=== PATIENT | female | born 1930 | race Hispanic/Latino ===

== ENCOUNTER 2017-02-27 09:02 | Inpatient (IN) | payer MEDICARE ==
[2017-02-27] MEDS ORDERED: Sodium Chloride 0.9% 1,000 ML IV SCH (10:00)
--- NOTE | 2017-02-27 10:30 | CP.PCM.PN ---
Subjective - Date & Time of Evaluation Date of Evaluation: 02/27/17 Time of Evaluation: 10:28 - Subjective Subjective: rectal prolapse , intermitttently reducible but now reducible for minutes plan ct scan [facility] acute gb at [facility] [place] refused colonoscopy in past liquid diet urgent repair Objective - Vital Signs/Intake and Output Vital Signs (last 24 hours): Temp Pulse Resp BP Pulse Ox 97.1 F L 91 H 18 138/76 97 02/27/17 09:08 02/27/17 09:08 02/27/17 09:08 02/27/17 09:08 02/27/17 09:08 - Medications Medications: Current Medications Sodium Chloride (Sodium Chloride 0.9%) 1,000 mls @ 100 mls/hr IV .Q10H ZULEIMA
[2017-02-27] MEDS ORDERED: Iohexol 240 (50 ml) PO ONE (10:56)
[2017-02-27 11:02] LABS: BASO # 0.1 K/uL (0.0-0.2); BASO % 0.7 % (0.0-2.0); EOS # 0.2 K/uL (0.0-0.7); EOS % 2.6 % (0.0-4.0); HEMATOCRIT 35.1 % (34.0-47.0); LYMPH # 0.9 K/uL (1.0-4.3); LYMPH % 10.8 % (20.0-40.0); MEAN CELL VOLUME 81.5 fL (81.0-99.0); MEAN CORPUSCULAR HEMOGLOBIN 26.5 pg (27.0-31.0); MEAN CORPUSCULAR HGB CONC 32.5 g/dL (33.0-37.0); MEAN PLATELET VOLUME 7.9 fL (7.2-11.7); MONO # 0.7 K/uL (0.0-0.8); MONO % 8.6 % (0.0-10.0); NRBC % 0.1 % (0.0-2.0); RED CELL DISTRIBUTION WIDTH 17.8 % (11.5-14.5); WHITE BLOOD COUNT 8.4 K/uL (4.8-10.8)
[2017-02-27 11:05] LABS: CHLORIDE 105 mmol/L (98-107); SODIUM 138 mmol/L (132-148)
[2017-02-27 11:07] LABS: ALB/GLOB RATIO 0.6 (1.0-2.1); AST/SGOT 86 U/L (14-36); BILIRUBIN,TOTAL 0.9 mg/dL (0.2-1.3); BLOOD UREA NITROGEN 22 mg/dL (7-17); CARBON DIOXIDE 25 mmol/L (22-30); GFR AFRICAN-AMERICAN > 60; TOTAL PROTEIN 6.3 g/dL (6.3-8.3)
[2017-02-27 11:08] LABS: ALKALINE PHOSPHATASE 69 U/L (38-126); ALT/SGPT 37 U/L (9-52); CALCIUM 7.4 mg/dl (8.6-10.4); GLUCOSE,RANDOM 70 mg/dL (65-105)
[2017-02-27] MEDS ORDERED: Iohexol 240 (50 ml) ONE (11:16)
[2017-02-27 11:19] LABS: INR 1.1
--- NOTE | 2017-02-27 11:19 | C.PDOC ---
Time Seen by Provider: 02/27/17 09:13 Chief Complaint (Nursing): GI Problem Past Medical History Vital Signs: Last Vital Signs Temp 97.1 F L 02/27/17 09:08 Pulse 91 H 02/27/17 09:08 Resp 18 02/27/17 09:08 BP 138/76 02/27/17 09:08 Pulse Ox 97 02/27/17 09:08 - Medical History PMH: Anemia, HTN Surgical History: Appendectomy, Cholecystectomy - Social History Hx Alcohol Use: Yes Hx Substance Use: No - Immunization History Hx Tetanus Toxoid Vaccination: No Hx Influenza Vaccination: Yes Hx Pneumococcal Vaccination: Yes ED Course And Treatment - Laboratory Results Result Diagrams: 02/27/17 10:51 02/27/17 10:51 O2 Sat by Pulse Oximetry: 97
--- NOTE | 2017-02-27 11:26 | C.PDOC ---
History Of Present Illness 86 year old patient, with a past medical history of hypertension and anemia, is sent to the ED by Dr. Patiño for a rectal prolapse that occurred about a week ago. Patient occasionally notes pain and discomfort. The pain is exacerbated by sitting. Patient denies fever, bleeding, or any other complaints at this time. Time Seen by Provider: 02/27/17 09:13 Chief Complaint (Nursing): GI Problem History Per: Patient History/Exam Limitations: no limitations Onset/Duration Of Symptoms: Other (1 week) Current Symptoms Are (Timing): Still Present Severity: Mild Pain Scale Rating Of: 3 Reports Recently: Treated By A Physician Recent travel outside of the [place]: No Past Medical History Reviewed: Historical Data, Nursing Documentation, Vital Signs Vital Signs: Last Vital Signs Temp 97.1 F L 02/27/17 09:08 Pulse 91 H 02/27/17 09:08 Resp 18 02/27/17 09:08 BP 138/76 02/27/17 09:08 Pulse Ox 97 02/27/17 11:29 - Medical History PMH: Anemia, HTN Surgical History: Appendectomy, Cholecystectomy Family History: States: Unknown Family Hx - Social History Hx Alcohol Use: Yes Hx Substance Use: No - Immunization History Hx Tetanus Toxoid Vaccination: No Hx Influenza Vaccination: Yes Hx Pneumococcal Vaccination: Yes Review Of Systems Except As Marked, All Systems Reviewed And Found Negative. Constitutional: Negative for: Fever Gastrointestinal: Positive for: Rectal Pain (and rectal prolapse). Negative for : Other (rectal bleeding) Physical Exam - Physical Exam Appears: Non-toxic, No Acute Distress Skin: Warm, Dry Head: Atraumatic, Normacephalic Eye(s): bilateral: Normal Inspection, EOMI Neck: Normal ROM, Supple Chest: Symmetrical Cardiovascular: Rhythm Regular Respiratory: Normal Breath Sounds, No Rales, No Rhonchi, No Wheezing Gastrointestinal/Abdominal: Soft, No Tenderness Rectal: Other (rectal prolapse; pink; soft; no blood) Back: Normal Inspection, No CVA Tenderness Extremity: Normal ROM Neurological/Psych: Oriented x3 ED Course And Treatment - Laboratory Results Result Diagrams: 02/27/17 10:51 02/27/17 10:51 ECG: Interpreted By Me, Viewed By Me ECG Rhythm: Sinus Rhythm ECG Interpretation: Normal Rate From EC (bpm) O2 Sat by Pulse Oximetry: 97 (room air) Pulse Ox Interpretation: Normal Medical Decision Making Medical Decision Making: Impression: 86 y/o female with a rectal prolapse Plan: * Labs * EKG * Chest x-ray * IV fluids * Reassess and disposition Progress: Dr Patiño evaluates patient at bedside and requests admission, medicine consult. orders placed for pre-op Disposition - Disposition Disposition: HOSPITALIZED Disposition Time: 09:50 Condition: STABLE - POA Present On Arrival: None - Clinical Impression Clinical Impression: Rectal prolapse - PA / HIDES INSPECTOR / Resident Statement MD/DO has reviewed & agrees with the documentation as recorded. - Scribe Statement The provider has reviewed the documentation as recorded by the Scribe Guerda Wilson All medical record entries made by the Scribe were at my direction and personally dictated by me. I have reviewed the chart and agree that the record accurately reflects my personal performance of the history, physical exam, medical decision making, and the department course for this patient. I have also personally directed, reviewed, and agree with the discharge instructions and disposition. Decision To Admit - Pt Status Changed To: Hospital Disposition Of: Inpatient - Admit Certification Admit to Inpatient:: After my assessment, the patient will require hospitalization for at least two midnights. This is because of the severity of symptoms shown, intensity of services needed, and/or the medical risk in this patient being treated as an outpatient. - InPatient: Physician Admission Certification: I certify that this patient requires 2 or more midnights of care for the following reason:: Patient with rectal prolaspe to be admitted for surgical repair - . Bed Request Type: Regular Admitting Physician: Saurav Patiño Jr. Patient Diagnosis: Rectal prolapse
--- NOTE | 2017-02-27 12:17 | RAD ---
HISTORY: Shortness of breath. COMPARISON: No prior. TECHNIQUE: Chest PA and lateral FINDINGS: LUNGS: Bilateral lower lobe infiltrates affecting multiple segments. PLEURA: Unilateral, left pleural effusion. CARDIOVASCULAR: No radiographic findings to suggest acute or significant cardiovascular disease. OSSEOUS STRUCTURES: No significant abnormalities. VISUALIZED UPPER ABDOMEN: Normal. OTHER FINDINGS: None. IMPRESSION: Lower lobe infiltrates bilaterally left greater than right. Unilateral, left pleural effusion.
--- NOTE | 2017-02-27 13:04 | CP.PCM.HP ---
History of Present Illness - History of Present Illness History of Present Illness: Surgery: Dr. Patiño CC: rectum prolapsing when standing HPI: Patient is an 86 y/o female w/ pmh of HTN who present complaining of her rectum prolapsing while standing. She states this has occured many times before with bowel movements and coughing but now has progressed to spontaneous prolapse simply upon standing. She states she is able to reduce it but the rectum is now painful and when prolapsing the pain becomes severe. She states she had similar issues with her uterus in the past but denies repair. She denies diarrhea or constipation. She denies bloody stools and reports stool being dark because she takes iron pills at home. She was seen recently in [facility] for dizziness in which she underwent neurological and cardio work up at that time. Full records in chart. Patient was not worked up for prolapse then. She reports never undergoing GI evaluation is the past with colonoscopy due to patients wishes. PMH: anemia, HTN, gallbladder diease s/p cholecystectomy, atherosclerosis PSH: cholecystectomy, appendectomy Social: denies ETOH or tobacco use, lives at home with . Ambulates and performs all ADLS. NKDA Present on Admission - Present on Admission Any Indicators Present on Admission: No Review of Systems - Review of Systems All systems: reviewed and no additional remarkable complaints except Review of Systems: unless stated in HPI Past Patient History - Past Social History Smoking Status: Never Smoked - CARDIAC Hx Hypertension: Yes - HEMATOLOGICAL/ONCOLOGICAL Hx Anemia: Yes - PSYCHIATRIC Hx Substance Use: No - SURGICAL HISTORY Hx Appendectomy: Yes Hx Cholecystectomy: Yes - ANESTHESIA Hx Anesthesia: Yes Hx Anesthesia Reactions: No Meds Allergies/Adverse Reactions: Allergies Allergy/AdvReac Type Severity Reaction Status Date / Time No Known Allergies Allergy Verified 02/27/17 09:12 Physical Exam - Constitutional Appears: Non-toxic, No Acute Distress - Head Exam Head Exam: ATRAUMATIC, NORMOCEPHALIC - Eye Exam Eye Exam: EOMI, Normal appearance - ENT Exam ENT Exam: Mucous Membranes Moist - Respiratory Exam Respiratory Exam: NORMAL BREATHING PATTERN. absent: Respiratory Distress - Cardiovascular Exam Cardiovascular Exam: REGULAR RHYTHM. absent: Tachycardia - GI/Abdominal Exam GI & Abdominal Exam: Soft. absent: Distended, Guarding, Tenderness - Rectal Exam Additional comments: some rectal tone, dark stool noted. no proplapse while lying unless valsalva induced Upon standing: spontaneous prolapse of rectum about 1inch amount. easily reduced. rectal tissure appear erythematous. - Extremities Exam Extremities exam: Positive for: normal inspection. Negative for: calf tenderness - Neurological Exam Neurological exam: Alert, Oriented x3 - Psychiatric Exam Psychiatric exam: Normal Affect, Normal Mood - Skin Skin Exam: Dry, Intact, Normal Color, Warm Results - Vital Signs Recent Vital Signs: Last Vital Signs Temp 97.1 F L 02/27/17 09:08 Pulse 91 H 02/27/17 09:08 Resp 18 02/27/17 09:08 BP 138/76 02/27/17 09:08 Pulse Ox 97 02/27/17 12:10 - Labs Result Diagrams: 02/27/17 10:51 02/27/17 10:51 Labs: Laboratory Results - last 24 hr 02/27/17 02/27/17 02/27/17 10:51 10:51 10:51 WBC 8.4 RBC 4.30 Hgb 11.4 Hct 35.1 MCV 81.5 MCH 26.5 L MCHC 32.5 L RDW 17.8 H Plt Count 323 MPV 7.9 Neut % (Auto) 77.3 H Lymph % (Auto) 10.8 L [place] % (Auto) 8.6 Eos % (Auto) 2.6 Baso % (Auto) 0.7 Neut # 6.5 Lymph # 0.9 L [place] # 0.7 Eos # 0.2 Baso # 0.1 PT 12.6 H INR 1.1 APTT 34 Sodium 138 Potassium 4.0 Chloride 105 Carbon Dioxide 25 Anion Gap 12 BUN 22 H Creatinine 0.7 Est GFR ( Amer) > 60 Est GFR (Non-Af Amer) > 60 Random Glucose 70 Calcium 7.4 L Total Bilirubin 0.9 AST 86 H ALT 37 Alkaline Phosphatase 69 Total Protein 6.3 Albumin 2.4 L Globulin 3.9 Albumin/Globulin Ratio 0.6 L Blood Type Antibody Screen 02/27/17 11:54 WBC RBC Hgb Hct MCV MCH MCHC RDW Plt Count MPV Neut % (Auto) Lymph % (Auto) [place] % (Auto) Eos % (Auto) Baso % (Auto) Neut # Lymph # [place] # Eos # Baso # PT INR APTT Sodium Potassium Chloride Carbon Dioxide Anion Gap BUN Creatinine Est GFR ( Amer) Est GFR (Non-Af Amer) Random Glucose Calcium Total Bilirubin AST ALT Alkaline Phosphatase Total Protein Albumin Globulin Albumin/Globulin Ratio Blood Type O POSITIVE Antibody Screen Negative Assessment & Plan - Assessment and Plan (Free Text) Assessment: 86 y/o female w/ rectal prolapse Plan: -plan for surgery early next week -patient will need cardiac clearance -would like colonoscopy to be performed prior to OR to evaluate remainder of colon, patient agreeable -liquid diet until OR -daily labs -ok to cont home meds -can be OOB -will follow up consulting physician recs -patient seen and examined w/ Dr. Haroon Le PGY1
--- NOTE | 2017-02-27 15:26 | CT ---
PROCEDURE: CT Abdomen and Pelvis with contrast HISTORY: rectal prolapse COMPARISON: None. TECHNIQUE: Contrast dose: Oral contrast only. Radiation dose: Total exam DLP = 768.43 mGy-cm. This CT exam was performed using one or more of the following dose reduction techniques: Automated exposure control, adjustment of the mA and/or kV according to patient size, and/or use of iterative reconstruction technique. FINDINGS: LOWER THORAX: Incompletely visualized cardiac enlargement. Incompletely visualize pericardial effusion. Bilateral pleural effusions with fluid tracking ports the major fissure on the right. Compressive atelectasis identified. On the right this affects not only the right lower lobe of the right middle lobe. Whitman LIVER: Multiple masses within the liver primarily in the right hepatic lobe. These are incompletely characterized in the absence of intravenous contrast. Dominant mass which has an infiltrative component measures approximately 4.4 x 5.4 cm. Additional smaller lesion in the false form ligament 1 cm. GALLBLADDER AND BILE DUCTS: Status post cholecystectomy. No abnormality is seen in the gallbladder fossa. PANCREAS: Unremarkable. No gross lesion or ductal dilatation. SPLEEN: Unremarkable. ADRENALS: Unremarkable. No mass. KIDNEYS AND URETERS: Unremarkable. No hydronephrosis. No solid mass. Incidental finding(s): Bilateral parapelvic cysts. VASCULATURE: Unremarkable. No aortic aneurysm. BOWEL: Rectal prolapse. Diverticulosis without an acute inflammatory component or other associated pathologic process. APPENDIX: No abnormalities to suggest acute appendicitis. No right lower quadrant inflammatory processes identified. PERITONEUM: Low volume abdominal and pelvic ascites. Ascitic fluid also identified in the right inguinal canal. LYMPH NODES: Unremarkable. No enlarged lymph nodes. BLADDER: Unremarkable. No evidence of bladder prolapse. REPRODUCTIVE: There appears to be a component of vaginal prolapse. BONES: Scoliosis, secondary degenerative change at multiple levels. Multilevel canal stenosis lumbar region. OTHER FINDINGS: Diffuse, severe anasarca. IMPRESSION: 1. Rectovaginal prolapse without evidence of bladder prolapse. 2. 2 masses hepatic masses requiring further evaluation. The dominant masses in the right hepatic lobe. There is suggestion of masses in the santiago hepatis region. 3. Low volume ascites, bilateral pleural effusions and pericardial effusion. Additional benign and/or incidental findings described above.
[2017-02-27 16:32] LABS: RBC URINE 1 /hpf (0-3); TRANSITIONAL EPITHIAL < 1 /hpf (0-3); URINE BACTERIA RARE (<OCC); URINE BILIRUBIN NEGATIVE (NEGATIVE); URINE BLOOD NEGATIVE (NEGATIVE); URINE COLOR Yellow (YELLOW); URINE GLUCOSE (UA) NORMAL (Normal); URINE KETONE TRACE mg/dL (NEGATIVE); URINE UROBILINOGEN NORMAL mg/dL (0.2-1.0); WBC URINE 4 /hpf (0-5)
[2017-02-27 16:33] LABS: URINE LEUKOCYTE ESTERASE TRACE Leu/uL (Negative); URINE PROTEIN 1+ mg/dL (NEGATIVE)
--- NOTE | 2017-02-27 20:47 | CP.PCM.CON ---
History of Present Illness - History of Present Illness History of Present Illness: COMPREHENSIVE CONSULT HPI CARDIAC EVALUATION REQUESTED FOR PRE OP. LAST MONTH PT. WAS EXPERIENCING SYNCOPAL EPISODE. PT WAS ADMITTED IN [facility] [place]. I REVIEWED TH CHART PT IS IN POSSESSION. IT HAS AN INCOMPLETE ECHO REPORT AND ONLY INITIAL H&P. THERE IS NO DISCHARGE NOTE TO ENLIGHTEN THE CARDIAC W/U PT HAS NO RECOLLECTION AND POINTS TO DISCHARGE CHART FOR FURTHER INFORMATION. APPERRENTLY THERE WAS MENTION OF CARDIAC TAMPONADE AT PRESENT PT HAS PLEURAL/PERICARDIAL/ASITES FLUID. EKG SHOWS LOW VOLTAGE. POINTS TO PERICARDIAL PATHOLOGY WITH FLUID PAST HIST. HTN NO CAD/SD/STROKE. THE PROCESSING ANALYST FROM [facility] [place] SHOWED A. FIB PAROXYSMAL PERSONAL HIST: Smoking. N Alcohol. N Allergy N Travel_- . FAMILY HIST : ROS : Constitutional: Negative for weight change, chills, night sweats, Eyes: Negative for redness, swelling, itching, discharge, vision changes, blurry vision, double vision, glaucoma, cataracts, Ears: Negative for hearing loss, ringing, , tinnitus, vertigo Nose: Negative for rhinorrhea, stuffiness, sniffing, itching, postnasal drip, discoloration, nasal congestion and epistaxis. Throat: Negative for throat clearing, sore throat, hoarseness, difficulty swallowing and difficulty speaking. Respiratory: Negative for cough, chest tightness, sputum or phlegm, chronic cough, hemoptysis, wheezing, snoring at night, pleuritic chest pain and daytime somnolence. Cardiovascular: DANIEL FATIGUE NO CP , Neurology: Negative for irritability, muscle weakness, numbness and tingling, seizures, tremors, migraines, slurred speech, syncope, memory loss, mood changes , recurrent headaches Gastrointestinal: Negative for difficulty swallowing, diarrhea, constipation, black stools, rectal bleeding, nausea, flatulence, reflux, poor appetite, changes in bowel habits, abdominal pain RECTAL PROLAPSE Genitourinary: Negative for frequent urination, hematuria, discharge, incontinence, urinary retention, frequent UTI, Psychiatric: Negative for depression, anxiety/panic, suicidal tendencies, Musculoskeletal: Negative for swollen joints, back pain, , neck pain, morning stiffness of joints, . Skin: Negative for rash, ulcers, itching, dry skin and pigmented lesions. P/E: Constitutional: Appears stated age and in no apparent distress. Head: Normocephalic. Ears: External ear canals patent without inflammation. Tympanic membranes intact with normal light reflex and landmark. Eyes: Pupils are central, bilaterally equal, symmetrical and reacts to light with normal movements and no icterus or pallor. Nose: External nares are patent. Mucosa is pink Mouth-Throat: Good general appearance and condition. No post-pharyngeal/oropharyngeal erythema and tonsillar hypertrophy. Good dental hygiene. Neck-Lymphatic: Neck is supple with normal ROM, no thyromegaly, lymph nodes or masses. JVD is normal with no carotid bruit. Lungs: Clear to percussion and auscultation with bilateral normal air entry. Cardiovascular: S1 and S2 are normal with no murmurs, gallops GI Exam: No hepatomegaly. Abdomen is soft and non-tender. No Organomegaly , masses or hernias are evident and bowel sounds are normal and active. Neurology: Higher function and all cranial nerves intact, with no gross motor or sensory deficit. Superficial and deep reflexes are normal with downwards planters. No cerebellar deficit with normal gait. Musculoskeletal: No tender spots with normal curvature of the spine with no swelling or restricted ROM of the small and large joints. Extremities: Homans sign absent. Intact pulses with no pitting edema, calf tenderness or skin color changes. Skin: No rash, eruptions or abnormal skin pigmentation LAB/RADIOLOGY: ASSESMENT : R/O PERICARIAL EFFUSION WILL NEED ECHO FOR FURTHER EVALUATION OF THE FLUID STATUS RECTAL PROLAPSE R/O METASTATIC CANCER? COLON PAROXYSMAL A. FIB PLAN: WILL GIVE FUTHER ADVISE AFTER REVIEWING THE ECHO FULL CHART FROM [facility] [place] ADMISSION Past Patient History - Past Medical History & Family History Past Medical History?: Yes - Past Social History Smoking Status: Never Smoked - CARDIAC Hx Cardiac Disorders: Yes Hx Hypertension: Yes - PULMONARY Hx Respiratory Disorders: No - NEUROLOGICAL Hx Neurological Disorder: No - HEENT Hx HEENT Problems: No - RENAL Hx Chronic Kidney Disease: No - ENDOCRINE/METABOLIC Hx Endocrine Disorders: No - HEMATOLOGICAL/ONCOLOGICAL Hx Blood Disorders: Yes Hx Anemia: Yes - INTEGUMENTARY Hx Dermatological Problems: No - MUSCULOSKELETAL/RHEUMATOLOGICAL Hx Falls: Yes - GASTROINTESTINAL Hx Gastrointestinal Disorders: No - GENITOURINARY/GYNECOLOGICAL Hx Genitourinary Disorders: No - PSYCHIATRIC Hx Substance Use: No - SURGICAL HISTORY Hx Surgeries: Yes Hx Appendectomy: Yes (when she was 15 yrs old) Hx Cholecystectomy: Yes (aug 14 2016) Hx Herniorrhaphy: Yes (1982) - ANESTHESIA Hx Anesthesia: Yes Hx Anesthesia Reactions: No Hx Malignant Hyperthermia: No Has any member of the family had a problem w/ anesthesia?: No Meds Allergies/Adverse Reactions: Allergies Allergy/AdvReac Type Severity Reaction Status Date / Time No Known Allergies Allergy Verified 02/27/17 09:12 - Medications Medications: Current Medications Acetaminophen (Tylenol 325mg Tab) 650 mg PO Q6 PRN PRN Reason: Fever >100.4 F Amlodipine Besylate (Norvasc) 5 mg PO DAILY [facility] Docusate Sodium (Colace) 100 mg PO BID [facility] Last Admin: 02/27/17 17:34 Dose: 100 mg Heparin Sodium (Porcine) (Heparin) 5,000 units SC Q12 [facility] Hydrochlorothiazide (Microzide) 12.5 mg PO DAILY [facility] Ibuprofen (Motrin Tab) 400 mg PO Q6 PRN PRN Reason: Pain, Mild (1-3) Lisinopril (Zestril) 10 mg PO DAILY [facility] Loratadine (Claritin) 10 mg PO DAILY [facility] Metoprolol Succinate (Toprol Xl) 25 mg PO DAILY [facility] Morphine Sulfate (Morphine) 2 mg IVP Q4H PRN PRN Reason: Pain, moderate (4-7) Ondansetron HCl (Zofran Inj) 4 mg IVP Q6 PRN PRN Reason: Nausea/Vomiting Pantoprazole Sodium (Protonix Ec Tab) 40 mg PO DAILY [facility] Results - Vital Signs Recent Vital Signs: Last Vital Signs Temp 97.8 F 02/27/17 17:00 Pulse 75 02/27/17 18:37 Resp 20 02/27/17 17:00 BP 151/85 H 02/27/17 17:00 Pulse Ox 95 02/27/17 17:00 - Labs Result Diagrams: 02/28/17 07:44 02/28/17 07:44 Labs: Laboratory Results - last 24 hr 02/27/17 02/27/17 02/27/17 10:51 10:51 10:51 WBC 8.4 RBC 4.30 Hgb 11.4 Hct 35.1 MCV 81.5 MCH 26.5 L MCHC 32.5 L RDW 17.8 H Plt Count 323 MPV 7.9 Neut % (Auto) 77.3 H Lymph % (Auto) 10.8 L [place] % (Auto) 8.6 Eos % (Auto) 2.6 Baso % (Auto) 0.7 Neut # 6.5 Lymph # 0.9 L [place] # 0.7 Eos # 0.2 Baso # 0.1 PT 12.6 H INR 1.1 APTT 34 Sodium 138 Potassium 4.0 Chloride 105 Carbon Dioxide 25 Anion Gap 12 BUN 22 H Creatinine 0.7 Est GFR ( Amer) > 60 Est GFR (Non-Af Amer) > 60 Random Glucose 70 Calcium 7.4 L Total Bilirubin 0.9 AST 86 H ALT 37 Alkaline Phosphatase 69 Total Protein 6.3 Albumin 2.4 L Globulin 3.9 Albumin/Globulin Ratio 0.6 L Urine Color Urine Clarity Urine pH Ur Specific [place] Urine Protein Urine Glucose (UA) Urine Ketones Urine Blood Urine Nitrate Urine Bilirubin Urine Urobilinogen Ur Leukocyte Esterase Urine WBC (Auto) Urine RBC (Auto) Ur Squamous Epith Cells Ur Transition Epith Cell Urine Bacteria Hyaline Casts Blood Type Antibody Screen 02/27/17 02/27/17 11:54 16:09 WBC RBC Hgb Hct MCV MCH MCHC RDW Plt Count MPV Neut % (Auto) Lymph % (Auto) [place] % (Auto) Eos % (Auto) Baso % (Auto) Neut # Lymph # [place] # Eos # Baso # PT INR APTT Sodium Potassium Chloride Carbon Dioxide Anion Gap BUN Creatinine Est GFR ( Amer) Est GFR (Non-Af Amer) Random Glucose Calcium Total Bilirubin AST ALT Alkaline Phosphatase Total Protein Albumin Globulin Albumin/Globulin Ratio Urine Color Yellow Urine Clarity Hazy Urine pH 5.0 Ur Specific [place] 1.021 Urine Protein 1+ H Urine Glucose (UA) Normal Urine Ketones Trace Urine Blood Negative Urine Nitrate Negative Urine Bilirubin Negative Urine Urobilinogen Normal Ur Leukocyte Esterase Trace H Urine WBC (Auto) 4 Urine RBC (Auto) 1 Ur Squamous Epith Cells 6 H Ur Transition Epith Cell < 1 Urine Bacteria Rare Hyaline Casts 6-10 H Blood Type O POSITIVE Antibody Screen Negative
[2017-02-28 07:53] LABS: BASO # 0.1 K/uL (0.0-0.2); BASO % 0.9 % (0.0-2.0); EOS # 0.4 K/uL (0.0-0.7); EOS % 4.1 % (0.0-4.0); HEMATOCRIT 34.1 % (34.0-47.0); LYMPH # 1.2 K/uL (1.0-4.3); LYMPH % 13.6 % (20.0-40.0); MEAN CELL VOLUME 80.6 fL (81.0-99.0); MEAN CORPUSCULAR HEMOGLOBIN 26.2 pg (27.0-31.0); MEAN CORPUSCULAR HGB CONC 32.5 g/dL (33.0-37.0); MEAN PLATELET VOLUME 7.7 fL (7.2-11.7); MONO # 0.7 K/uL (0.0-0.8); MONO % 7.7 % (0.0-10.0); NRBC % 0.1 % (0.0-2.0); RED CELL DISTRIBUTION WIDTH 18.2 % (11.5-14.5); WHITE BLOOD COUNT 8.6 K/uL (4.8-10.8)
--- NOTE | 2017-02-28 08:02 | CP.PCM.PN ---
Subjective - Date & Time of Evaluation Date of Evaluation: 02/28/17 Time of Evaluation: 07:58 - Subjective Subjective: Surgery: Dr. Patiño Patient doing ok today. She denies prolapsing episodes since she had been in bed. She states that a plastics repairer came to see her yesterday and wants to perform a test on her heart. No complaints at this time. Objective - Vital Signs/Intake and Output Vital Signs (last 24 hours): Temp Pulse Resp BP Pulse Ox 97.7 F 93 H 20 149/75 95 02/28/17 00:43 02/28/17 00:43 02/28/17 00:43 02/28/17 00:43 02/28/17 00:43 Intake and Output: 02/28/17 02/28/17 06:59 18:59 Intake Total 600 Balance 600 - Medications Medications: Current Medications Acetaminophen (Tylenol 325mg Tab) 650 mg PO Q6 PRN PRN Reason: Fever >100.4 F Amlodipine Besylate (Norvasc) 5 mg PO DAILY [facility] Docusate Sodium (Colace) 100 mg PO BID [facility] Last Admin: 02/27/17 17:34 Dose: 100 mg Heparin Sodium (Porcine) (Heparin) 5,000 units SC Q12 [facility] Last Admin: 02/27/17 21:57 Dose: 5,000 units Hydrochlorothiazide (Microzide) 12.5 mg PO DAILY [facility] Ibuprofen (Motrin Tab) 400 mg PO Q6 PRN PRN Reason: Pain, Mild (1-3) Lisinopril (Zestril) 10 mg PO DAILY [facility] Loratadine (Claritin) 10 mg PO DAILY [facility] Metoprolol Succinate (Toprol Xl) 25 mg PO DAILY [facility] Morphine Sulfate (Morphine) 2 mg IVP Q4H PRN PRN Reason: Pain, moderate (4-7) Ondansetron HCl (Zofran Inj) 4 mg IVP Q6 PRN PRN Reason: Nausea/Vomiting Pantoprazole Sodium (Protonix Ec Tab) 40 mg PO DAILY [facility] - Labs Labs: 02/27/17 10:51 02/27/17 10:51 PT 12.6 SECONDS (9.7-12.2) H 02/27/17 10:51 INR 1.1 02/27/17 10:51 APTT 34 SECONDS (21-34) 02/27/17 10:51 - Constitutional Appears: Non-toxic, No Acute Distress - Head Exam Head Exam: ATRAUMATIC, NORMOCEPHALIC - Eye Exam Eye Exam: EOMI, Normal appearance - ENT Exam ENT Exam: Mucous Membranes Moist - Respiratory Exam Respiratory Exam: NORMAL BREATHING PATTERN. absent: Respiratory Distress - Cardiovascular Exam Cardiovascular Exam: REGULAR RHYTHM. absent: Tachycardia - GI/Abdominal Exam GI & Abdominal Exam: Soft. absent: Distended, Tenderness - Rectal Exam Rectal Exam: Deferred - Extremities Exam Extremities Exam: Pedal Edema. absent: Calf Tenderness - Neurological Exam Neurological Exam: Alert, Awake - Psychiatric Exam Psychiatric exam: Normal Affect, Normal Mood Assessment and Plan - Assessment and Plan (Free Text) Assessment: 86 y/o female w/ rectal prolapse Plan: -tentatively plan for OR on Wednesday -f/u cardiac evaluation -f/u GI evaluation-need for colonoscopy and now CT with possible liver mass? -cont liquid diet -when NPO patient agreeable to start IVFs -further recs per Dr. Haroon Martin PGY1
[2017-02-28 08:05] LABS: CHLORIDE 106 mmol/L (98-107); POTASSIUM 3.4 mmol/L (3.6-5.2); SODIUM 139 mmol/L (132-148)
[2017-02-28 08:08] LABS: BLOOD UREA NITROGEN 17 mg/dL (7-17); CARBON DIOXIDE 24 mmol/L (22-30); GFR AFRICAN-AMERICAN > 60
[2017-02-28 08:09] LABS: CALCIUM 7.1 mg/dl (8.6-10.4); GLUCOSE,RANDOM 62 mg/dL (65-105)
--- NOTE | 2017-02-28 08:51 | PN ---
DATE: 02/28/2017 LOCATION: 361, bed A. This is an 86-year-old female seen and examined for GI consultation in the Emergency Room on 02/27/17 , reexamined again today with intermittent periods of lower abdominal pain and rectal pain with under lying diagnosis of rectal prolapse. The entire chart is reviewed, including but not limited to the most recent lab and radiology study re sults, current and the previous medication list, current and the previous medical events, as well as allergy to medication list. Case discussed at length with the staff on the floor. LABORATORY DATA: Most recent lab results showed normal CBC with low indices and normal platelet coun t with low potassium of 3.4 and low calcium 7.1 with low albumin 2.4. Abdominal and pelvic CAT scan was done yesterday indicative of rectovaginal prolapse without evidence of blood on prolapse, with 2 hepatic masses in the right hepatic lobe with low volume ascites and bi lateral pleural effusion with pericardial effusion. The patient has intermittent periods of mild shortness of breath with generalized weakness and malais e. Case was discussed with the staff on the floor and to be discussed with the certified ophthalmic surgical assistant on case, Dr. Patiño. PHYSICAL EXAMINATION: GENERAL: An 86-year-old female. VITAL SIGNS: Afebrile, awake, alert, oriented with pulse of 90, respiratory rate 20-22, blood pressu re 144/72. HEENT: Showed pale, dry oral mucoid membrane mildly with nonicteric sclerae. LUNGS: Few scattered crepitations, decreased air entry at bases. HEART: Regular S1 and S2. ABDOMEN: Soft with slight generalized tenderness. No mass or organomegaly. No rebound tenderness o r guarding. Bowel sounds are present. RECTAL: Evidence of rectal prolapse. The patient refused rectal examination. EXTREMITIES: Without significant clubbing or cyanosis, but with mild lower extremity edematous pisano es. NEUROLOGIC: No reported new neurologic deficits, sensory or motor. IMPRESSION: 1. Rectal prolapse. 2. Abnormal CAT scan of the abdomen and the pelvis with the hepatitic lesions that could be primary versus secondary. 3. Rule out lower versus upper gastrointestinal neoplastic lesion. 4. Pleural effusion, pericardial effusion, and ascites, low volume of unclear etiology. 5. Electrolyte imbalance with hypocalcemia, hypokalemia that is to be corrected before any surgical or endoscopic evaluation. 6. Abnormal chest x-ray with evidence of lower lobe infiltrate bilaterally, left greater than the ri ght. 7. Known history of anemia before, as well as hypertension and status post cholecystectomy, appendec nam. SUGGESTION: 1. I agree with your plan. 2. Cardiology evaluation before any aggressive GI or surgical procedures. 3. Treat any underlying pneumonia. 4. Correct any underlying electrolyte imbalance. 5. Cancer markers including CEA and alpha fetoprotein. Case is to be discussed with Dr. Patiño. Reschedule, if possible, any surgical or endoscopic proce dure until Wednesday until the patient is fully evaluated by center lead consultant at this point with I V antibiotics. Thank you for letting me participate in your patient's case management. Further recommendation to lisa krishnamurthy. Sandy Mcbride MD cc: 14 TT: 02/28/2017 08:50:39 Confirmation # [id number] Dictation # [id number]
[2017-02-28] MEDS ORDERED: Phytonadione 10 mg/ml Inj (Adult) SC ONE (08:55)
[2017-02-28] MEDS: Metoprolol Succinate 25 mg XL Tab PO SCH (09:32)
[2017-02-28] MEDS: Pantoprazole 40 mg EC Tab PO SCH (09:32)
[2017-02-28 12:35] LABS: CARCINOEMBRYONIC ANTIGEN 1.4 ng/mL (0-3.0)
[2017-02-28 12:38] LABS: CA 19-9 77.9 U/mL (0-37)
[2017-02-28] MEDS ORDERED: Potassium Chloride 20 mEq ER Tab PO ONE (18:00)
--- NOTE | 2017-02-28 21:12 | CON ---
DATE: 02/27/[address] Sandy Mcbride to Dr. Patiño. I was called for GI consultation by the admitting medical team as well as Dr. Patiño and the 8-hour medical nursing staff. The patient is seen and fully examined in the ER on 02/27/2017. The entire chart is reviewed, including but not limited to the most recent lab and radiology study results, curr ent and the previous medication list, current and the previous medical events, allergies to medicatio n list, as well as all the available current and the previous medical records. Case discussed with [facility] medical staff and nursing staff at length. HISTORY OF PRESENT ILLNESS: This is an 86-year-old female who was admitted to the hospital through [facility] Emergency Room by Dr. Patiño with underlying diagnosis of rectal prolapse around 7-10 days ago with apparent intermittent period of rectal bleeding associated with rectal pain and lower abdom inal pain which is exacerbated by sitting. No reported nausea or vomiting. No hematemesis, no chills or fever or chest pain. The patient never had colonoscopy or upper endoscopy before. PAST MEDICAL HISTORY: Including, but not limited to: 1. Hypertension. 2. Cholelithiasis, status post cholecystectomy. 3. Appendectomy. 4. Reported anemia. 5. Peptic ulcer disease. FAMILY HISTORY: Unknown. SOCIAL HISTORY: Positive for alcohol intake, but no reported recent cigarette smoking. CURRENT MEDICATIONS: All medication lists were reviewed. ALLERGIES TO MEDICATION: Unclear. After being admitted to the hospital, the patient was found to have normal CBC initially with increas ed BUN to 22, but normal creatinine. The patient had also sectional abdominal and pelvic CAT scan, results are seen. Chest x-ray was juan cative of pleural effusion, as well as CAT scan indicative of possible pericardial effusion with pneu monia. PHYSICAL EXAMINATION: GENERAL: An 86-year-old female, appears to be awake, alert, oriented. VITAL SIGNS: Afebrile with pulse of 88, respiratory rate 20-22 with blood pressure 132/74. HEENT: Showed pale, dry oral mucoid membrane. Nonicteric sclerae. LYMPH NODES: No lymphadenitis or lymphadenopathy. LUNGS: Few scattered crepitation with decreased air entry at bases. HEART: Positive S1 and S2. ABDOMEN: Soft with slight distention and generalized mild tenderness. Bowel sounds are present. No mass or organomegaly. No rebound tenderness or guarding. RECTAL: with evidence of rectal prolapse with tenderness. Complete rectal examination was not performed. The patient complained of severe pain. EXTREMITIES: Slight lower extremity edematous changes and evidence of osteoarthritis. No clubbing o r cyanosis. NEUROLOGIC: No reported neurological deficit, sensory or motor. It has to be mentioned also CAT scan showed what reported as hepatic masses which could be secondary versus primary neoplastic lesions. IMPRESSION: 1. Rectal prolapse. 2. Abnormal CAT scan of the abdomen and pelvis. 3. Reexacerbation of peptic ulcer disease. 4. Known history of hypertension. 5. Status post cholecystectomy, status post appendectomy. SUGGESTION: 1. Agree with your plan. 2. Full cardiology evaluation for any aggressive surgery or colonoscopy. 3. Cancer markers including CEA, alpha fetoprotein and CA-125. The patient is to be scheduled for a full colonoscopy and also probably upper endoscopy after complet e cardiology workup and clearance from the licensed tax consultant on the case. Thank you for letting me participate in your patient's care management. Further recommendations to sree aleman. Sandy Mcbride MD cc: 14 TT: 02/28/2017 21:11:35 Confirmation # [id number] Dictation # [id number]
[2017-03-01] MEDS ORDERED: Sodium Chloride 0.9% 1,000 ML IV SCH (00:05)
[2017-03-01 07:45] LABS: BASO # 0.1 K/uL (0.0-0.2); BASO % 0.9 % (0.0-2.0); EOS # 0.6 K/uL (0.0-0.7); EOS % 6.5 % (0.0-4.0); HEMATOCRIT 35.6 % (34.0-47.0); LYMPH # 1.2 K/uL (1.0-4.3); LYMPH % 14.5 % (20.0-40.0); MEAN CORPUSCULAR HEMOGLOBIN 26.6 pg (27.0-31.0); MEAN CORPUSCULAR HGB CONC 32.8 g/dL (33.0-37.0); MEAN PLATELET VOLUME 7.9 fL (7.2-11.7); MONO # 0.7 K/uL (0.0-0.8); MONO % 8.6 % (0.0-10.0); NRBC % 0.2 % (0.0-2.0); RED CELL DISTRIBUTION WIDTH 18.1 % (11.5-14.5); WHITE BLOOD COUNT 8.5 K/uL (4.8-10.8)
[2017-03-01 07:59] LABS: CHLORIDE 107 mmol/L (98-107); POTASSIUM 3.8 mmol/L (3.6-5.2); SODIUM 140 mmol/L (132-148)
[2017-03-01 08:02] LABS: BLOOD UREA NITROGEN 17 mg/dL (7-17); CALCIUM 7.1 mg/dl (8.6-10.4); CARBON DIOXIDE 24 mmol/L (22-30); GFR AFRICAN-AMERICAN > 60; GLUCOSE,RANDOM 66 mg/dL (65-105)
[2017-03-01] MEDS ORDERED: Peg-Electrolyte Oral Soln 4L (Golytely) PO ONE (10:00)
[2017-03-01] MEDS: Pantoprazole 40 mg EC Tab PO SCH (10:37)
[2017-03-01] MEDS: Metoprolol Succinate 25 mg XL Tab PO SCH (10:37)
--- NOTE | 2017-03-01 13:03 | CP.PCM.CON ---
History of Present Illness - History of Present Illness History of Present Illness: CLINICALLY REMAINS SAME AWAITING REPEAT ECHO AND PLAN FURTHER Past Patient History - Past Medical History & Family History Past Medical History?: Yes - Past Social History Smoking Status: Never Smoked - CARDIAC Hx Cardiac Disorders: Yes Hx Hypertension: Yes - PULMONARY Hx Respiratory Disorders: No - NEUROLOGICAL Hx Neurological Disorder: No - HEENT Hx HEENT Problems: No - RENAL Hx Chronic Kidney Disease: No - ENDOCRINE/METABOLIC Hx Endocrine Disorders: No - HEMATOLOGICAL/ONCOLOGICAL Hx Blood Disorders: Yes Hx Anemia: Yes - INTEGUMENTARY Hx Dermatological Problems: No - MUSCULOSKELETAL/RHEUMATOLOGICAL Hx Falls: Yes - GASTROINTESTINAL Hx Gastrointestinal Disorders: No - GENITOURINARY/GYNECOLOGICAL Hx Genitourinary Disorders: No - PSYCHIATRIC Hx Substance Use: No - SURGICAL HISTORY Hx Surgeries: Yes Hx Appendectomy: Yes (when she was 15 yrs old) Hx Cholecystectomy: Yes (aug 14 2016) Hx Herniorrhaphy: Yes (1982) - ANESTHESIA Hx Anesthesia: Yes Hx Anesthesia Reactions: No Hx Malignant Hyperthermia: No Has any member of the family had a problem w/ anesthesia?: No Meds Allergies/Adverse Reactions: Allergies Allergy/AdvReac Type Severity Reaction Status Date / Time No Known Allergies Allergy Verified 02/27/17 09:12 - Medications Medications: Current Medications Acetaminophen (Tylenol 325mg Tab) 650 mg PO Q6 PRN PRN Reason: Fever >100.4 F Amlodipine Besylate (Norvasc) 5 mg PO DAILY [facility] Last Admin: 03/01/17 10:37 Dose: 5 mg Bisacodyl (Dulcolax) 10 mg PO ONCE ONE Stop: 03/01/17 14:01 Docusate Sodium (Colace) 100 mg PO BID [facility] Last Admin: 03/01/17 10:59 Dose: Not Given Heparin Sodium (Porcine) (Heparin) 5,000 units SC Q12 [facility] Last Admin: 02/28/17 21:43 Dose: 5,000 units Hydrochlorothiazide (Microzide) 12.5 mg PO DAILY [facility] Last Admin: 03/01/17 10:37 Dose: 12.5 mg Sodium Chloride (Sodium Chloride 0.9%) 1,000 mls @ 75 mls/hr IV .[id number] [facility] Last Admin: 03/01/17 00:05 Dose: 75 mls/hr Ibuprofen (Motrin Tab) 400 mg PO Q6 PRN PRN Reason: Pain, Mild (1-3) Lisinopril (Zestril) 10 mg PO DAILY [facility] Last Admin: 03/01/17 10:37 Dose: 10 mg Loratadine (Claritin) 10 mg PO DAILY [facility] Last Admin: 03/01/17 12:02 Dose: 10 mg Metoclopramide HCl (Reglan) 5 mg IVP Q8 [facility] Last Admin: 03/01/17 10:37 Dose: 5 mg Metoprolol Succinate (Toprol Xl) 25 mg PO DAILY [facility] Last Admin: 03/01/17 10:37 Dose: 25 mg Morphine Sulfate (Morphine) 2 mg IVP Q4H PRN PRN Reason: Pain, moderate (4-7) Ondansetron HCl (Zofran Inj) 4 mg IVP Q6 PRN PRN Reason: Nausea/Vomiting Pantoprazole Sodium (Protonix Ec Tab) 40 mg PO DAILY [facility] Last Admin: 03/01/17 10:37 Dose: 40 mg Results - Vital Signs Recent Vital Signs: Last Vital Signs Temp 97.5 F L 03/01/17 08:08 Pulse 90 03/01/17 08:08 Resp 20 03/01/17 08:08 BP 163/85 H 03/01/17 08:08 Pulse Ox 95 03/01/17 08:08 - Labs Result Diagrams: 03/01/17 07:25 03/01/17 07:24 Labs: Laboratory Results - last 24 hr 03/01/17 03/01/17 07:24 07:25 WBC 8.5 RBC 4.40 Hgb 11.7 Hct 35.6 MCV 81.0 MCH 26.6 L MCHC 32.8 L RDW 18.1 H Plt Count 321 MPV 7.9 Neut % (Auto) 69.5 Lymph % (Auto) 14.5 L Brooks % (Auto) 8.6 Eos % (Auto) 6.5 H Baso % (Auto) 0.9 Neut # 5.9 Lymph # 1.2 Brooks # 0.7 Eos # 0.6 Baso # 0.1 Sodium 140 Potassium 3.8 Chloride 107 Carbon Dioxide 24 Anion Gap 13 BUN 17 Creatinine 0.6 L Est GFR ( Amer) > 60 Est GFR (Non-Af Amer) > 60 Random Glucose 66 Calcium 7.1 L
[2017-03-01] MEDS ORDERED: Bisacodyl 5mg EC Tab PO ONE ×2 (14:00→22:21)
--- NOTE | 2017-03-01 15:07 | CP.PCM.PN ---
<Lia SharpeNatalybarbra - Last Filed: 03/01/17 15:04> Subjective - Date & Time of Evaluation Date of Evaluation: 03/01/17 Time of Evaluation: 15:04 - Subjective Subjective: Surgery:Dr. Moreon Patient seen and examined at bedside. Patient currently drinking prep for colonoscopy which is scheduled for tomorrow. She complains of rectum prolapsing when she stands. Objective - Vital Signs/Intake and Output Vital Signs (last 24 hours): Temp Pulse Resp BP Pulse Ox 97.5 F L 90 20 163/85 H 95 03/01/17 08:08 03/01/17 08:08 03/01/17 08:08 03/01/17 08:08 03/01/17 08:08 Intake and Output: 03/01/17 03/01/17 06:59 18:59 Intake Total 600 Output Total 400 Balance 200 - Medications Medications: Current Medications Acetaminophen (Tylenol 325mg Tab) 650 mg PO Q6 PRN PRN Reason: Fever >100.4 F Amlodipine Besylate (Norvasc) 5 mg PO DAILY [facility] Last Admin: 03/01/17 10:37 Dose: 5 mg Docusate Sodium (Colace) 100 mg PO BID [facility] Last Admin: 03/01/17 10:59 Dose: Not Given Heparin Sodium (Porcine) (Heparin) 5,000 units SC Q12 [facility] Last Admin: 02/28/17 21:43 Dose: 5,000 units Hydrochlorothiazide (Microzide) 12.5 mg PO DAILY [facility] Last Admin: 03/01/17 10:37 Dose: 12.5 mg Sodium Chloride (Sodium Chloride 0.9%) 1,000 mls @ 75 mls/hr IV .[id number] [facility] Last Admin: 03/01/17 00:05 Dose: 75 mls/hr Ibuprofen (Motrin Tab) 400 mg PO Q6 PRN PRN Reason: Pain, Mild (1-3) Lisinopril (Zestril) 10 mg PO DAILY [facility] Last Admin: 03/01/17 10:37 Dose: 10 mg Loratadine (Claritin) 10 mg PO DAILY [facility] Last Admin: 03/01/17 12:02 Dose: 10 mg Metoclopramide HCl (Reglan) 5 mg IVP Q8 [facility] Last Admin: 03/01/17 14:33 Dose: 5 mg Metoprolol Succinate (Toprol Xl) 25 mg PO DAILY [facility] Last Admin: 03/01/17 10:37 Dose: 25 mg Morphine Sulfate (Morphine) 2 mg IVP Q4H PRN PRN Reason: Pain, moderate (4-7) Ondansetron HCl (Zofran Inj) 4 mg IVP Q6 PRN PRN Reason: Nausea/Vomiting Pantoprazole Sodium (Protonix Ec Tab) 40 mg PO DAILY [facility] Last Admin: 03/01/17 10:37 Dose: 40 mg - Labs Labs: 03/01/17 07:25 03/01/17 07:24 PT 12.6 SECONDS (9.7-12.2) H 02/27/17 10:51 INR 1.1 02/27/17 10:51 APTT 34 SECONDS (21-34) 02/27/17 10:51 - Constitutional Appears: Non-toxic, No Acute Distress - Head Exam Head Exam: ATRAUMATIC, NORMOCEPHALIC - Eye Exam Eye Exam: EOMI, Normal appearance - ENT Exam ENT Exam: Mucous Membranes Moist - Respiratory Exam Respiratory Exam: NORMAL BREATHING PATTERN. absent: Respiratory Distress - Cardiovascular Exam Cardiovascular Exam: REGULAR RHYTHM. absent: Tachycardia - Rectal Exam Additional comments: evidence of rectal prolapse about 1.5 inches with simple standing Assessment and Plan - Assessment and Plan (Free Text) Assessment: 86 y/o female w/ rectal prolapse Plan: -tentatively schedule for prolapse repair -cardiac clearance -colonoscopy tomorrow -cont diet per GI until NPO wednesday night -biopsy of liver lesion? -appreciate qm consultant recommendations -patient seen and examined w/ Dr. Haroon Pressley PGY1 <Saurav Moreno Jr. - Last Filed: 03/14/17 16:45> Objective - Vital Signs/Intake and Output Vital Signs (last 24 hours): Temp Pulse Resp BP Pulse Ox 98.7 F 72 20 136/70 96 03/06/17 16:00 03/06/17 16:00 03/06/17 16:00 03/06/17 16:00 03/06/17 16:00 - Labs Labs: 03/02/17 10:34 03/02/17 08:47 PT 12.6 SECONDS (9.7-12.2) H 02/27/17 10:51 INR 1.1 02/27/17 10:51 APTT 34 SECONDS (21-34) 02/27/17 10:51 Attending/Attestation - Attestation I have personally seen and examined this patient.: Yes I have fully participated in the care of the patient.: Yes I have reviewed all pertinent clinical information, including history, physical exam and plan: Yes
[2017-03-01] MEDS ORDERED: Potassium Chloride 20 mEq ER Tab PO ONE (17:12)
--- NOTE | 2017-03-01 17:30 | CARD ---
APPROVED REPORT EKG Measurement Heart [id number] [place] [id number] <Conclusion> Normal sinus rhythm Low voltage QRS Nonspecific T wave abnormality Abnormal ECG
--- NOTE | 2017-03-02 07:44 | CARD ---
APPROVED REPORT EKG Measurement Heart [id number] [place] [id number] <Conclusion> Normal sinus rhythm Low voltage QRS Cannot rule out Anterior infarct, age undetermined Abnormal ECG
[2017-03-02] MEDS ORDERED: Magnesium Citrate Oral SOL (300 ml) PO ONE ×2 (08:58→11:30)
[2017-03-02 09:00] LABS: CHLORIDE 106 mmol/L (98-107); POTASSIUM 3.3 mmol/L (3.6-5.2); SODIUM 137 mmol/L (132-148)
[2017-03-02 09:03] LABS: BLOOD UREA NITROGEN 15 mg/dL (7-17); CARBON DIOXIDE 20 mmol/L (22-30); GFR AFRICAN-AMERICAN > 60; GLUCOSE,RANDOM 58 mg/dL (65-105)
[2017-03-02 09:04] LABS: CALCIUM 7.2 mg/dl (8.6-10.4)
--- NOTE | 2017-03-02 10:08 | CP.PCM.PN ---
Subjective - Date & Time of Evaluation Date of Evaluation: 03/02/17 Time of Evaluation: 10:05 - Subjective Subjective: surgery: Dr. Patiño Patient for colonoscopy today. She complains of spontaneous prolapse of her rectum. No other complaints at this time. Objective - Vital Signs/Intake and Output Vital Signs (last 24 hours): Temp Pulse Resp BP Pulse Ox 97.9 F 101 H 20 160/80 H 96 03/02/17 07:21 03/02/17 07:21 03/02/17 07:21 03/02/17 07:21 03/02/17 07:21 Intake and Output: 03/02/17 03/02/17 06:59 18:59 Intake Total 300 Output Total 9 Balance 291 - Medications Medications: Current Medications Acetaminophen (Tylenol 325mg Tab) 650 mg PO Q6 PRN PRN Reason: Fever >100.4 F Amlodipine Besylate (Norvasc) 5 mg PO DAILY [facility] Last Admin: 03/01/17 10:37 Dose: 5 mg Bisacodyl (Dulcolax) 10 mg PO ONCE ONE Stop: 03/02/17 14:01 Docusate Sodium (Colace) 100 mg PO BID [facility] Last Admin: 03/01/17 17:58 Dose: Not Given Heparin Sodium (Porcine) (Heparin) 5,000 units SC Q12 [facility] Last Admin: 02/28/17 21:43 Dose: 5,000 units Hydrochlorothiazide (Microzide) 12.5 mg PO DAILY [facility] Last Admin: 03/01/17 10:37 Dose: 12.5 mg Sodium Chloride (Sodium Chloride 0.9%) 1,000 mls @ 75 mls/hr IV .[id number] [facility] Last Admin: 03/01/17 00:05 Dose: 75 mls/hr Ibuprofen (Motrin Tab) 400 mg PO Q6 PRN PRN Reason: Pain, Mild (1-3) Lisinopril (Zestril) 10 mg PO DAILY [facility] Last Admin: 03/01/17 10:37 Dose: 10 mg Loratadine (Claritin) 10 mg PO DAILY [facility] Last Admin: 03/01/17 12:02 Dose: 10 mg Metoclopramide HCl (Reglan) 5 mg IVP Q8 [facility] Last Admin: 03/02/17 06:57 Dose: 5 mg Metoprolol Succinate (Toprol Xl) 25 mg PO DAILY [facility] Last Admin: 03/01/17 10:37 Dose: 25 mg Morphine Sulfate (Morphine) 2 mg IVP Q4H PRN PRN Reason: Pain, moderate (4-7) Ondansetron HCl (Zofran Inj) 4 mg IVP Q6 PRN PRN Reason: Nausea/Vomiting Pantoprazole Sodium (Protonix Ec Tab) 40 mg PO DAILY [facility] Last Admin: 03/01/17 10:37 Dose: 40 mg - Labs Labs: 03/01/17 07:25 03/02/17 08:47 PT 12.6 SECONDS (9.7-12.2) H 02/27/17 10:51 INR 1.1 02/27/17 10:51 APTT 34 SECONDS (21-34) 02/27/17 10:51 - Constitutional Appears: Non-toxic, No Acute Distress - Head Exam Head Exam: ATRAUMATIC, NORMOCEPHALIC - Eye Exam Eye Exam: EOMI, Normal appearance - ENT Exam ENT Exam: Mucous Membranes Moist - Respiratory Exam Respiratory Exam: NORMAL BREATHING PATTERN. absent: Respiratory Distress - Cardiovascular Exam Cardiovascular Exam: REGULAR RHYTHM. absent: Tachycardia - Rectal Exam Rectal Exam: Deferred - Neurological Exam Neurological Exam: Alert, Awake Assessment and Plan - Assessment and Plan (Free Text) Assessment: 86 y/o female w/ rectal prolapse Plan: -f/u colonoscopy today -cardiac clearance -tentatively scheduled for prolapse repair on -ok for liquid diet after colonoscopy -NPO [place] on Wednesday -further recs per Dr. Haroon Martin PGY1
[2017-03-02 11:59] LABS: MEAN CELL VOLUME 83.1 fL (81.0-99.0); MEAN CORPUSCULAR HEMOGLOBIN 26.1 pg (27.0-31.0); MEAN CORPUSCULAR HGB CONC 31.3 g/dL (33.0-37.0); MEAN PLATELET VOLUME 7.6 fL (7.2-11.7); WHITE BLOOD COUNT 12.7 K/uL (4.8-10.8)
[2017-03-02] MEDS: Pantoprazole 40 mg EC Tab PO SCH (12:19)
[2017-03-02] MEDS: Metoprolol Succinate 25 mg XL Tab PO SCH (12:19)
--- NOTE | 2017-03-02 12:51 | CP.PCM.PN ---
Subjective - Date & Time of Evaluation Date of Evaluation: 03/02/17 Time of Evaluation: 12:50 - Subjective Subjective: ECHO SHOWS MILD PERICARDIAL EFFUSION AND LARGE PLEURAL FLUID NORMAL LF EV NO [place] N PLAN CARDIAC STATUS STABLE PULM EVAL FOR PL EFFUSION Objective - Vital Signs/Intake and Output Vital Signs (last 24 hours): Temp Pulse Resp BP Pulse Ox 97.9 F 101 H 20 160/80 H 96 03/02/17 07:21 03/02/17 07:21 03/02/17 07:21 03/02/17 07:21 03/02/17 07:21 Intake and Output: 03/02/17 03/02/17 11:59 23:59 Intake Total 0 Output Total 3 Balance -3 - Medications Medications: Current Medications Acetaminophen (Tylenol 325mg Tab) 650 mg PO Q6 PRN PRN Reason: Fever >100.4 F Amlodipine Besylate (Norvasc) 5 mg PO DAILY [facility] Last Admin: 03/02/17 12:19 Dose: 5 mg Bisacodyl (Dulcolax) 10 mg PO ONCE ONE Stop: 03/02/17 14:01 Docusate Sodium (Colace) 100 mg PO BID [facility] Last Admin: 03/02/17 12:19 Dose: 100 mg Heparin Sodium (Porcine) (Heparin) 5,000 units SC Q12 [facility] Last Admin: 02/28/17 21:43 Dose: 5,000 units Hydrochlorothiazide (Microzide) 12.5 mg PO DAILY [facility] Last Admin: 03/02/17 12:19 Dose: 12.5 mg Sodium Chloride (Sodium Chloride 0.9%) 1,000 mls @ 75 mls/hr IV .[id number] [facility] Last Admin: 03/01/17 00:05 Dose: 75 mls/hr Ibuprofen (Motrin Tab) 400 mg PO Q6 PRN PRN Reason: Pain, Mild (1-3) Lisinopril (Zestril) 10 mg PO DAILY [facility] Last Admin: 03/02/17 12:19 Dose: 10 mg Loratadine (Claritin) 10 mg PO DAILY [facility] Last Admin: 03/02/17 12:19 Dose: 10 mg Metoclopramide HCl (Reglan) 5 mg IVP Q8 [facility] Last Admin: 03/02/17 06:57 Dose: 5 mg Metoprolol Succinate (Toprol Xl) 25 mg PO DAILY [facility] Last Admin: 03/02/17 12:19 Dose: 25 mg Morphine Sulfate (Morphine) 2 mg IVP Q4H PRN PRN Reason: Pain, moderate (4-7) Ondansetron HCl (Zofran Inj) 4 mg IVP Q6 PRN PRN Reason: Nausea/Vomiting Pantoprazole Sodium (Protonix Ec Tab) 40 mg PO DAILY [facility] Last Admin: 03/02/17 12:19 Dose: 40 mg - Labs Labs: 03/02/17 10:34 03/02/17 08:47 PT 12.6 SECONDS (9.7-12.2) H 02/27/17 10:51 INR 1.1 02/27/17 10:51 APTT 34 SECONDS (21-34) 02/27/17 10:51
[2017-03-02] MEDS ORDERED: Bisacodyl 5mg EC Tab PO ONE (14:00)
--- NOTE | 2017-03-02 18:14 | CP.PCM.CON ---
History of Present Illness - History of Present Illness History of Present Illness: Reason for consultation: Pleural effusion 86 y/o female w/ pmh of HTN and anemia was admitted for rectal prolapse. She was seen recently in [facility] for dizziness in which she underwent neurological and cardio work up at that time. CAT scan of the abdomen and pelvis is consistent with bilateral pleural effusion left greater than right. Patient complaining a slight cough but denies shortness of breath, denies fever or chills. PMH: anemia, HTN, gallbladder diease s/p cholecystectomy, atherosclerosis PSH: cholecystectomy, appendectomy Social: denies ETOH or tobacco use, lives at home with . Ambulates and performs all ADLS. Past Patient History - Past Medical History & Family History Past Medical History?: Yes - Past Social History Smoking Status: Never Smoked - CARDIAC Hx Cardiac Disorders: Yes Hx Hypertension: Yes - PULMONARY Hx Respiratory Disorders: No - NEUROLOGICAL Hx Neurological Disorder: No - HEENT Hx HEENT Problems: No - RENAL Hx Chronic Kidney Disease: No - ENDOCRINE/METABOLIC Hx Endocrine Disorders: No - HEMATOLOGICAL/ONCOLOGICAL Hx Blood Disorders: Yes Hx Anemia: Yes - INTEGUMENTARY Hx Dermatological Problems: No - MUSCULOSKELETAL/RHEUMATOLOGICAL Hx Falls: Yes - GASTROINTESTINAL Hx Gastrointestinal Disorders: No - GENITOURINARY/GYNECOLOGICAL Hx Genitourinary Disorders: No - PSYCHIATRIC Hx Substance Use: No - SURGICAL HISTORY Hx Surgeries: Yes Hx Appendectomy: Yes (when she was 15 yrs old) Hx Cholecystectomy: Yes (aug 14 2016) Hx Herniorrhaphy: Yes (1982) - ANESTHESIA Hx Anesthesia: Yes Hx Anesthesia Reactions: No Hx Malignant Hyperthermia: No Has any member of the family had a problem w/ anesthesia?: No Meds Allergies/Adverse Reactions: Allergies Allergy/AdvReac Type Severity Reaction Status Date / Time No Known Allergies Allergy Verified 02/27/17 09:12 - Medications Medications: Current Medications Acetaminophen (Tylenol 325mg Tab) 650 mg PO Q6 PRN PRN Reason: Fever >100.4 F Amlodipine Besylate (Norvasc) 5 mg PO DAILY [facility] Last Admin: 03/02/17 12:19 Dose: 5 mg Docusate Sodium (Colace) 100 mg PO BID [facility] Last Admin: 03/02/17 17:35 Dose: Not Given Heparin Sodium (Porcine) (Heparin) 5,000 units SC Q12 [facility] Last Admin: 02/28/17 21:43 Dose: 5,000 units Hydrochlorothiazide (Microzide) 12.5 mg PO DAILY [facility] Last Admin: 03/02/17 12:19 Dose: 12.5 mg Sodium Chloride (Sodium Chloride 0.9%) 1,000 mls @ 75 mls/hr IV .[id number] [facility] Last Admin: 03/01/17 00:05 Dose: 75 mls/hr Ibuprofen (Motrin Tab) 400 mg PO Q6 PRN PRN Reason: Pain, Mild (1-3) Lisinopril (Zestril) 10 mg PO DAILY [facility] Last Admin: 03/02/17 12:19 Dose: 10 mg Loratadine (Claritin) 10 mg PO DAILY [facility] Last Admin: 03/02/17 12:19 Dose: 10 mg Metoclopramide HCl (Reglan) 5 mg IVP Q8 [facility] Last Admin: 03/02/17 14:13 Dose: Not Given Metoprolol Succinate (Toprol Xl) 25 mg PO DAILY [facility] Last Admin: 03/02/17 12:19 Dose: 25 mg Morphine Sulfate (Morphine) 2 mg IVP Q4H PRN PRN Reason: Pain, moderate (4-7) Ondansetron HCl (Zofran Inj) 4 mg IVP Q6 PRN PRN Reason: Nausea/Vomiting Pantoprazole Sodium (Protonix Ec Tab) 40 mg PO DAILY [facility] Last Admin: 03/02/17 12:19 Dose: 40 mg Physical Exam - Head Exam Head Exam: ATRAUMATIC, NORMOCEPHALIC - Eye Exam Eye Exam: Normal appearance - ENT Exam ENT Exam: Mucous Membranes Moist - Neck Exam Neck exam: Positive for: Normal Inspection - Respiratory Exam Respiratory Exam: Decreased Breath Sounds (in the bases) Results - Vital Signs Recent Vital Signs: Last Vital Signs Temp 97.8 F 03/02/17 16:00 Pulse 70 03/02/17 16:00 Resp 20 03/02/17 16:00 BP 144/61 03/02/17 16:00 Pulse Ox 95 03/02/17 16:00 - Labs Result Diagrams: 03/02/17 10:34 03/02/17 08:47 Labs: Laboratory Results - last 24 hr 03/02/17 03/02/17 03/02/17 08:47 10:34 15:49 WBC 12.7 H RBC 4.33 Hgb 11.3 Hct 36.0 MCV 83.1 D MCH 26.1 L MCHC 31.3 L RDW 19.0 H Plt Count 290 MPV 7.6 Sodium 137 Potassium 3.3 L Chloride 106 Carbon Dioxide 20 L Anion Gap 14 BUN 15 Creatinine 0.6 L Est GFR ( Amer) > 60 Est GFR (Non-Af Amer) > 60 POC Glucose (mg/dL) 81 Random Glucose 58 L Calcium 7.2 L Assessment & Plan (1) Pleural effusion Status: Acute Comment: Bilateral pleural effusion associated with ascites and small pericardial effusion r/o secondary to hypoalbuminemia versus malignancy. Consider biopsy of liver mass and thoracentesis (2) Rectal prolapse Status: Acute
--- NOTE | 2017-03-03 08:55 | CON ---
DATE: 03/01/2017 Discussed with the patient and the finding on the CAT scan of abdomen that she has 2 liver ma sses. Discussed the need for biopsy to determine the nature of these passes. Both the patient and h er are very focal about having this done. She wants simply to have the rectal prolapse fixed . I spent a great deal of time discussing the need for her to also undergo colonoscopy prior to any intervention. In the meantime, this thing is hanging out of her bottom and think that it is fairly p ressing. In addition to the haziness around her heart, the fluid around the heart, the ascites; all of these things are unaddressed questions that need to be addressed. Nonetheless, we still have the problem of her rectum. Our plan would be to carry some kind of procedure and whether they allow us t o proceed with the other biopsies, etc. are still up in the air. Saurav Patiño Jr., MD cc: 56 TT: 03/01/2017 18:24:30 Confirmation # [id number] Dictation # [id number] mn
[2017-03-03] MEDS ORDERED: Propofol 10 mg/ml Inj (20 ML) ONE (10:57)
[2017-03-03] MEDS ORDERED: Glucagon Recombinant 1 mg Inj ONE (11:09)
[2017-03-03] MEDS ORDERED: Lactated Ringer's 500 ML IV SCH (11:15)
[2017-03-03] MEDS ORDERED: Phytonadione 10 mg/ml Inj (Adult) SC STA (11:22)
[2017-03-03] MEDS: Metoprolol Succinate 25 mg XL Tab PO SCH (11:47)
[2017-03-03] MEDS: Pantoprazole 40 mg EC Tab PO SCH (11:47)
--- NOTE | 2017-03-03 12:38 | CP.PCM.PN ---
Subjective - Date & Time of Evaluation Date of Evaluation: 03/03/17 Time of Evaluation: 12:37 - Subjective Subjective: S/P COLONOSCOPY, NOTHING ACUTE PULM. ON BOARD FOR THORACENTASIS CARDIAC STATUS STABLE Objective - Vital Signs/Intake and Output Vital Signs (last 24 hours): Temp Pulse Resp BP Pulse Ox 98.3 F 90 13 146/70 99 03/03/17 11:30 03/03/17 12:00 03/03/17 12:00 03/03/17 12:00 03/03/17 12:00 Intake and Output: 03/03/17 03/03/17 11:59 23:59 Intake Total 200 Balance 200 - Medications Medications: Current Medications Acetaminophen (Tylenol 325mg Tab) 650 mg PO Q6 PRN PRN Reason: Fever >100.4 F Amlodipine Besylate (Norvasc) 5 mg PO DAILY [facility] Last Admin: 03/03/17 11:47 Dose: Not Given Docusate Sodium (Colace) 100 mg PO BID [facility] Last Admin: 03/03/17 11:45 Dose: Not Given Heparin Sodium (Porcine) (Heparin) 5,000 units SC Q12 [facility] Last Admin: 02/28/17 21:43 Dose: 5,000 units Hydrochlorothiazide (Microzide) 12.5 mg PO DAILY [facility] Last Admin: 03/03/17 11:46 Dose: Not Given Sodium Chloride (Sodium Chloride 0.9%) 1,000 mls @ 75 mls/hr IV .[id number] [facility] Last Admin: 03/01/17 00:05 Dose: 75 mls/hr Lactated Ringer's (Lactated Ringer's 500ml) 500 mls @ 75 mls/hr IV .Q6H40M [facility] Metronidazole (Flagyl) 500 mg in 100 mls @ 100 mls/hr IVPB Q8 [facility] Ibuprofen (Motrin Tab) 400 mg PO Q6 PRN PRN Reason: Pain, Mild (1-3) Lisinopril (Zestril) 10 mg PO DAILY [facility] Last Admin: 03/03/17 11:47 Dose: Not Given Loratadine (Claritin) 10 mg PO DAILY [facility] Last Admin: 03/03/17 11:45 Dose: Not Given Metoclopramide HCl (Reglan) 5 mg IVP Q8 [facility] Last Admin: 03/03/17 05:58 Dose: 5 mg Metoprolol Succinate (Toprol Xl) 25 mg PO DAILY [facility] Last Admin: 03/03/17 11:47 Dose: Not Given Morphine Sulfate (Morphine) 2 mg IVP Q4H PRN PRN Reason: Pain, moderate (4-7) Ondansetron HCl (Zofran Inj) 4 mg IVP Q6 PRN PRN Reason: Nausea/Vomiting Pantoprazole Sodium (Protonix Ec Tab) 40 mg PO DAILY [facility] Last Admin: 03/03/17 11:47 Dose: Not Given - Labs Labs: 03/02/17 10:34 03/02/17 08:47 PT 12.6 SECONDS (9.7-12.2) H 02/27/17 10:51 INR 1.1 02/27/17 10:51 APTT 34 SECONDS (21-34) 02/27/17 10:51
[2017-03-03] MEDS: metroNIDAZOLE IV 500 mg/100 ml 500 MG/100 ML BAG IVPB SCH ×2 (14:00→21:32)
--- NOTE | 2017-03-03 16:03 | CP.PCM.PN ---
Subjective - Date & Time of Evaluation Date of Evaluation: 03/03/17 Time of Evaluation: 16:00 - Subjective Subjective: patient seen and examined. Bronchoscopy in no acute distress Chest thoracentesis when patient stable Surgery for rectal prolapse in a.m. Objective - Vital Signs/Intake and Output Vital Signs (last 24 hours): Temp Pulse Resp BP Pulse Ox 98.3 F 90 13 146/70 99 03/03/17 11:30 03/03/17 12:00 03/03/17 12:00 03/03/17 12:00 03/03/17 12:00 Intake and Output: 03/03/17 03/03/17 06:59 18:59 Intake Total 200 Balance 200 - Medications Medications: Current Medications Acetaminophen (Tylenol 325mg Tab) 650 mg PO Q6 PRN PRN Reason: Fever >100.4 F Amlodipine Besylate (Norvasc) 5 mg PO DAILY [facility] Last Admin: 03/03/17 11:47 Dose: Not Given Docusate Sodium (Colace) 100 mg PO BID [facility] Last Admin: 03/03/17 11:45 Dose: Not Given Heparin Sodium (Porcine) (Heparin) 5,000 units SC Q12 [facility] Last Admin: 02/28/17 21:43 Dose: 5,000 units Hydrochlorothiazide (Microzide) 12.5 mg PO DAILY [facility] Last Admin: 03/03/17 11:46 Dose: Not Given Sodium Chloride (Sodium Chloride 0.9%) 1,000 mls @ 75 mls/hr IV .[id number] [facility] Last Admin: 03/01/17 00:05 Dose: 75 mls/hr Lactated Ringer's (Lactated Ringer's 500ml) 500 mls @ 75 mls/hr IV .Q6H40M [facility] Metronidazole (Flagyl) 500 mg in 100 mls @ 100 mls/hr IVPB Q8 [facility] Last Admin: 03/03/17 14:00 Dose: 100 mls/hr Ibuprofen (Motrin Tab) 400 mg PO Q6 PRN PRN Reason: Pain, Mild (1-3) Lisinopril (Zestril) 10 mg PO DAILY [facility] Last Admin: 03/03/17 11:47 Dose: Not Given Loratadine (Claritin) 10 mg PO DAILY [facility] Last Admin: 03/03/17 11:45 Dose: Not Given Metoclopramide HCl (Reglan) 5 mg IVP Q8 [facility] Last Admin: 03/03/17 13:54 Dose: Not Given Metoprolol Succinate (Toprol Xl) 25 mg PO DAILY [facility] Last Admin: 03/03/17 11:47 Dose: Not Given Morphine Sulfate (Morphine) 2 mg IVP Q4H PRN PRN Reason: Pain, moderate (4-7) Ondansetron HCl (Zofran Inj) 4 mg IVP Q6 PRN PRN Reason: Nausea/Vomiting Pantoprazole Sodium (Protonix Ec Tab) 40 mg PO DAILY [facility] Last Admin: 03/03/17 11:47 Dose: Not Given - Labs Labs: 03/02/17 10:34 03/02/17 08:47 PT 12.6 SECONDS (9.7-12.2) H 02/27/17 10:51 INR 1.1 02/27/17 10:51 APTT 34 SECONDS (21-34) 02/27/17 10:51 - Head Exam Head Exam: ATRAUMATIC, NORMOCEPHALIC - Eye Exam Eye Exam: Normal appearance - ENT Exam ENT Exam: Mucous Membranes Moist - Neck Exam Neck Exam: Normal Inspection - Respiratory Exam Respiratory Exam: Decreased Breath Sounds - Cardiovascular Exam Cardiovascular Exam: REGULAR RHYTHM - GI/Abdominal Exam GI & Abdominal Exam: Soft, Normal Bowel Sounds Assessment and Plan (1) Pleural effusion Status: Acute (2) Rectal prolapse Status: Acute
[2017-03-03] MEDS ORDERED: Potassium Chloride 20 mEq ER Tab PO ONE (16:10)
--- NOTE | 2017-03-03 16:27 | CP.PCM.PN ---
Subjective - Date & Time of Evaluation Date of Evaluation: 03/03/17 Time of Evaluation: 07:00 - Subjective Subjective: SURGERY PROGRESS NOTE FOR DR. MELGAR Patient seen and examined at bedside. She is going for colonoscopy today. Objective - Vital Signs/Intake and Output Vital Signs (last 24 hours): Temp Pulse Resp BP Pulse Ox 98.3 F 90 13 146/70 99 03/03/17 11:30 03/03/17 12:00 03/03/17 12:00 03/03/17 12:00 03/03/17 12:00 Intake and Output: 03/03/17 03/03/17 06:59 18:59 Intake Total 200 Balance 200 - Medications Medications: Current Medications Acetaminophen (Tylenol 325mg Tab) 650 mg PO Q6 PRN PRN Reason: Fever >100.4 F Amlodipine Besylate (Norvasc) 5 mg PO DAILY [facility] Last Admin: 03/03/17 11:47 Dose: Not Given Docusate Sodium (Colace) 100 mg PO BID [facility] Last Admin: 03/03/17 11:45 Dose: Not Given Heparin Sodium (Porcine) (Heparin) 5,000 units SC Q12 [facility] Last Admin: 02/28/17 21:43 Dose: 5,000 units Hydrochlorothiazide (Microzide) 12.5 mg PO DAILY [facility] Last Admin: 03/03/17 11:46 Dose: Not Given Sodium Chloride (Sodium Chloride 0.9%) 1,000 mls @ 75 mls/hr IV .[id number] [facility] Last Admin: 03/01/17 00:05 Dose: 75 mls/hr Lactated Ringer's (Lactated Ringer's 500ml) 500 mls @ 75 mls/hr IV .Q6H40M [facility] Metronidazole (Flagyl) 500 mg in 100 mls @ 100 mls/hr IVPB Q8 [facility] Last Admin: 03/03/17 14:00 Dose: 100 mls/hr Ibuprofen (Motrin Tab) 400 mg PO Q6 PRN PRN Reason: Pain, Mild (1-3) Lisinopril (Zestril) 10 mg PO DAILY [facility] Last Admin: 03/03/17 11:47 Dose: Not Given Loratadine (Claritin) 10 mg PO DAILY [facility] Last Admin: 03/03/17 11:45 Dose: Not Given Metoclopramide HCl (Reglan) 5 mg IVP Q8 [facility] Last Admin: 03/03/17 13:54 Dose: Not Given Metoprolol Succinate (Toprol Xl) 25 mg PO DAILY [facility] Last Admin: 03/03/17 11:47 Dose: Not Given Morphine Sulfate (Morphine) 2 mg IVP Q4H PRN PRN Reason: Pain, moderate (4-7) Ondansetron HCl (Zofran Inj) 4 mg IVP Q6 PRN PRN Reason: Nausea/Vomiting Pantoprazole Sodium (Protonix Ec Tab) 40 mg PO DAILY [facility] Last Admin: 03/03/17 11:47 Dose: Not Given Potassium Chloride (K-Dur 20 Meq Er Tab) 40 meq PO ONCE ONE Stop: 03/03/17 16:11 - Labs Labs: 03/02/17 10:34 03/02/17 08:47 PT 12.6 SECONDS (9.7-12.2) H 02/27/17 10:51 INR 1.1 02/27/17 10:51 APTT 34 SECONDS (21-34) 02/27/17 10:51 - Constitutional Appears: Non-toxic, No Acute Distress - Head Exam Head Exam: ATRAUMATIC, NORMAL INSPECTION - Respiratory Exam Respiratory Exam: NORMAL BREATHING PATTERN. absent: Respiratory Distress - Cardiovascular Exam Cardiovascular Exam: +S1, +S2 - Rectal Exam Additional comments: Rectal prolapse - Neurological Exam Neurological Exam: Alert, Awake - Psychiatric Exam Psychiatric exam: Normal Affect, Normal Mood - Skin Skin Exam: Normal Color, Warm Assessment and Plan - Assessment and Plan (Free Text) Assessment: 86yo F with rectal prolapse - Colonoscopy today showed external/internal hemorrhoids, congested mucosa at ileocecal valve (biopsied), severe diverticulosis, polyp in descending colon ( resected) - CEA and AFP WNL - CA 19-9 and CA 125 elevated - Scheduled for rectal prolapse repair (perineal approach) tomorrow at 7:45AM - NPO past midnight - Heparin held - Discussed plan with Dr. Haroon Medrano PGY-2
[2017-03-03] MEDS: Lactated Ringer's 1,000 ML IV SCH (22:08)
--- NOTE | 2017-03-04 03:29 | CARD ---
APPROVED REPORT EXAM: Two-dimensional and M-mode echocardiogram with Doppler and color Doppler. Other Information Quality : GoodRhythm : NSR INDICATION ANEMIA, LOW VOLTAGE EKG, RECTAL PROLAPSE RISK FACTORS Hypertension M-Mode DIMENSIONS RVDd0.99 (2.1-3.2cm)Left Atrium (MM)2.80 (2.5-4.0cm) IVSd1.52 (0.7-1.1cm)Aortic Root3.01 (2.2-3.7cm) LVDd4.66 (4.0-5.6cm)Aortic Cusp Exc.2.14 (1.5-2.0cm) PWd1.32 (0.7-1.1cm)FS (%) 73 % LVDs1.28 (2.0-3.8cm)LVEF (%)96 (>50%) Mitral Valve MV E Rsiikvln53.1cm/sMV A Mslhdrwg13.9cm/sE/A ratio0.7 TDI E/Lateral E'0.0E/Medial E'0.0 Tricuspid Valve TR Peak Qxjzgyax168xj/sTR Peak Gr.[id number] LEFT VENTRICLE The left ventricle is normal size. There is normal left ventricular wall thickness. Left ventricle systolic function is normal. The Ejection Fraction is >70%. There is normal LV segmental wall motion. Tissue Doppler imaging reveals abnormal left ventricular diastolic dysfunction. RIGHT VENTRICLE The right ventricle is normal size. There is normal right ventricular wall thickness. The right ventricular systolic function is normal. ATRIA The left atrium size is normal. The right atrium size is normal. The interatrial septum is intact with no evidence for an atrial septal defect. AORTIC VALVE The aortic valve is normal in structure. No aortic regurgitation is present. There is no aortic valvular stenosis. There is no aortic valvular vegetation. MITRAL VALVE The mitral valve is normal in structure. There is no evidence of mitral valve prolapse. There is no mitral valve stenosis. There is no mitral valve regurgitation noted. TRICUSPID VALVE The tricuspid valve is normal in structure. There is trace tricuspid regurgitation. Right ventricular systolic pressure is estimated at less than 30 mmHg. There is no pulmonary hypertension. PULMONIC VALVE The pulmonic valve is not well visualized. There is no pulmonic valvular regurgitation. GREAT VESSELS The aortic root is normal in size. PERICARDIAL EFFUSION There is no evidence of cardiac tamponade. There is a moderate circumferential pericardial effusion. <Conclusion> Left ventricle systolic function is normal. The Ejection Fraction is >70%. Diastolic dysfunction. No aortic regurgitation is present. There is no mitral valve regurgitation noted. There is trace tricuspid regurgitation. There is no pulmonary hypertension. There is no pulmonic valvular regurgitation. There is a moderate circumferential pericardial effusion. There is no evidence of cardiac tamponade.
[2017-03-04] MEDS: metroNIDAZOLE IV 500 mg/100 ml 500 MG/100 ML BAG IVPB SCH ×3 (05:59→21:31)
[2017-03-04] MEDS ORDERED: Lactated Ringer's 1,000 ML IV ONE ×3 (07:28→10:00)
[2017-03-04] MEDS ORDERED: Lidocaine Hydrochloride 5 ML INJ ONE (08:08)
[2017-03-04] MEDS ORDERED: Propofol 10 mg/ml Inj (20 ML) ONE (08:08)
[2017-03-04] MEDS ORDERED: ceFAZolin IV 1 gm in Dextrose 1 GM/50 ML BAG IVPB ONE (08:10)
[2017-03-04] MEDS ORDERED: Sodium Chloride 0.9% 20 ML IV ONE (08:10)
[2017-03-04] MEDS: Lidocaine 2% w Epi 1:100,000 Inj IJ ONE ×2 (08:35→08:49)
--- NOTE | 2017-03-04 09:11 | PCM.SURG1 ---
Surgeon's Initial Post Op Note - Surgeon's Notes Surgeon: Dr. Patiño Administrative Volunteer: Dr. Lewis, Dr. Sharpe Type of Anesthesia: General LMA, Local Pre-Operative Diagnosis: rectal prolapse Operative Findings: approximately 4-5cm rectal proplapse, integrity of sphincters Post-Operative Diagnosis: same Operation Performed: perineal approach of rectal prolapse stapling repair Specimen/Specimens Removed: prolapsed rectum Estimated Blood Loss: EBL {In ML}: 5 Blood Products Given: N/A Drains Used: No Drains Post-Op Condition: Good Date of Surgery/Procedure: 03/04/17 Time of Surgery/Procedure: 09:14
[2017-03-04] MEDS ORDERED: HYDROmorphone 0.5 mg/0.5 ml ISec IVP PRN (09:13)
[2017-03-04] MEDS ORDERED: Lidocaine 2% Jelly (Uro-Jet) TOP PRN (09:14)
--- NOTE | 2017-03-04 09:44 | PN ---
DATE: 03/04/2017 LOCATION: 361, bed A. This is an 86-year-old female seen and examined in rounds without any significant clinical changes, b ut intermittent periods of mild dizziness and mild generalized tenderness. The entire chart is reviewed including, but not limited to, the most recent lab and radiology study r esults, current and previous medication lists, current and the previous medical events. The patient still has elevated CA 19-9 with excessive elevation of CA-125 antigen. PHYSICAL EXAMINATION: GENERAL: An 86-year-old female seen with the staff on the floor for rounds. VITAL SIGNS: Afebrile with pulse of 72, respiratory rate 20-22, blood pressure 128/52. HEENT: Showed pale, dry oral mucoid membrane. Nonicteric sclerae. LUNGS: A few scattered crepitations. Decreased air entry at bases. HEART: Positive S1 and S2. ABDOMEN: Soft with mild generalized tenderness. No mass or organomegaly. No rebound tenderness or guarding. EXTREMITIES: With evidence of osteoarthritis. No significant edematous changes, clubbing or cyanosi s. NEUROLOGIC: No new reported neurological deficits. IMPRESSION: 1. Rectal prolapse. The patient for rectal prolapse repair today. 2. Elevated cancer markers with questionable metastasis in the liver, to rule out primary ovarian ve rsus primary pancreatic cancer. 3. Severe diverticulosis with left-sided colitis by colonoscopy. 4. Colon polyp, removed by polypectomy. Pathology report is still pending. SUGGESTION: 1. Continue current management. 2. Peripheral versus central hyperal. 3. The rest as per the surgical team postoperatively. Sandy Mcbride MD cc: 14 TT: 03/04/2017 09:43:10 Confirmation # [id number] Dictation # [id number] mn
--- NOTE | 2017-03-04 09:49 | OP ---
PROCEDURE DATE: 03/04/2017 PREOPERATIVE DIAGNOSIS: Rectal prolapse. POSTOPERATIVE DIAGNOSIS: Rectal prolapse. PROCEDURE CARRIED OUT: Perineal repair of rectal prolapse using modified Altemeier procedure. SURGEON: Saurav Patiño Jr., MD PRIVACY OFFICER: Dr. Sharpe and Dr. Lewis. ANESTHESIOLOGIST: Dr. Ortega. INDICATIONS: The patient is an 86-year-old woman with a vaginal prolapse as well as a large rectal p rolapse. Preoperatively, the patient had abnormalities in her liver, abnormalities regarding her per icardium and pleural space, and she declined further intervention with regard to these. Colonoscopy carried out preoperatively did not reveal any other intra-abdominal pathology. OPERATIVE FINDINGS: Initially, we injected Xylocaine with epinephrine around the perimeter of the an al verge. We then carried out a careful pelvic and rectal exam. We brought the rectal mucosa down. We then divided this longitudinally and then used a curved Contour linear stapler at multiple locati ons to divide this in a circular fashion. At the end, we had excellent repair of this, and the blood loss of the procedure was minimal, less than 20 mL. There were no operative complications or proble ms. OPERATION CARRIED OUT: Perineal repair of rectal prolapse, modified Altemeier approach. Saurav Patiño Jr., MD cc:Jose Dai MD 56 TT: 03/04/2017 09:49:14 nj
[2017-03-04] MEDS: Metoprolol Succinate 25 mg XL Tab PO SCH (10:01)
[2017-03-04] MEDS: Pantoprazole 40 mg EC Tab PO SCH (11:04)
--- NOTE | 2017-03-04 11:50 | CP.PCM.PN ---
Subjective - Date & Time of Evaluation Date of Evaluation: 03/04/17 Time of Evaluation: 11:00 - Subjective Subjective: status post repair of rectal prolapse Lying comfortably in no acute distress denies shortness of breath, denieCough Objective - Vital Signs/Intake and Output Vital Signs (last 24 hours): Temp Pulse Resp BP Pulse Ox 97.7 F 70 18 130/74 98 03/04/17 11:25 03/04/17 11:25 03/04/17 11:25 03/04/17 11:25 03/04/17 10:10 Intake and Output: 03/04/17 03/04/17 06:59 18:59 Intake Total 800 Output Total 100 Balance 800 -100 - Medications Medications: Current Medications Acetaminophen (Tylenol 325mg Tab) 650 mg PO Q6 PRN PRN Reason: Fever >100.4 F Amlodipine Besylate (Norvasc) 5 mg PO DAILY [facility] Last Admin: 03/04/17 11:04 Dose: Not Given Docusate Sodium (Colace) 100 mg PO BID [facility] Last Admin: 03/04/17 11:03 Dose: Not Given Heparin Sodium (Porcine) (Heparin) 5,000 units SC Q12 [facility] Last Admin: 02/28/17 21:43 Dose: 5,000 units Hydrochlorothiazide (Microzide) 12.5 mg PO DAILY [facility] Last Admin: 03/04/17 11:03 Dose: Not Given Metronidazole (Flagyl) 500 mg in 100 mls @ 100 mls/hr IVPB Q8 [facility] Last Admin: 03/04/17 05:59 Dose: 100 mls/hr Lactated Ringer's (Lactated Ringer's) 1,000 mls @ 75 mls/hr IV .[id number] [facility] Last Admin: 03/03/17 22:08 Dose: 75 mls/hr Ibuprofen (Motrin Tab) 400 mg PO Q6 PRN PRN Reason: Pain, Mild (1-3) Lactulose (Enulose) 20 gm PO HS [facility] Lidocaine HCl (Xylocaine 2% (Uro-Jet)) 0 ea TOP Q4 PRN PRN Reason: Pain, Mild (1-3) Lisinopril (Zestril) 10 mg PO DAILY [facility] Last Admin: 03/03/17 11:47 Dose: Not Given Loratadine (Claritin) 10 mg PO DAILY [facility] Last Admin: 03/04/17 11:03 Dose: Not Given Metoclopramide HCl (Reglan) 5 mg IVP Q8 [facility] Last Admin: 03/04/17 06:09 Dose: 5 mg Metoprolol Succinate (Toprol Xl) 25 mg PO DAILY [facility] Last Admin: 03/03/17 11:47 Dose: Not Given Morphine Sulfate (Morphine) 2 mg IVP Q4H PRN PRN Reason: Pain, moderate (4-7) Ondansetron HCl (Zofran Inj) 4 mg IVP Q6 PRN PRN Reason: Nausea/Vomiting Pantoprazole Sodium (Protonix Ec Tab) 40 mg PO DAILY [facility] Last Admin: 03/04/17 11:04 Dose: Not Given - Labs Labs: 03/02/17 10:34 03/02/17 08:47 PT 12.6 SECONDS (9.7-12.2) H 02/27/17 10:51 INR 1.1 02/27/17 10:51 APTT 34 SECONDS (21-34) 02/27/17 10:51 - Constitutional Appears: No Acute Distress - Head Exam Head Exam: ATRAUMATIC - Eye Exam Eye Exam: Normal appearance - ENT Exam ENT Exam: Mucous Membranes Moist - Neck Exam Neck Exam: Normal Inspection - Respiratory Exam Respiratory Exam: Decreased Breath Sounds - Cardiovascular Exam Cardiovascular Exam: REGULAR RHYTHM - GI/Abdominal Exam GI & Abdominal Exam: Soft, Normal Bowel Sounds - Extremities Exam Extremities Exam: Pedal Edema Assessment and Plan (1) Pleural effusion Assessment & Plan: status post repair of rectal prolapse Consider thoracentesis and biopsy of liver mass when stable Status: Acute (2) Rectal prolapse Status: Acute
--- NOTE | 2017-03-04 12:48 | CP.PCM.CON ---
History of Present Illness - History of Present Illness History of Present Illness: FURNACE COOLER consult note for attending, Dr. Davis Reason for consult: Uterine Prolapse HPI: Patient is an 86 year old female, with PMHx of HTN, uterine prolapse, and anemia, who presented on 02/27 complaining of her rectum prolapsing while standing. She is s/p rectal prolapse repair this morning with Dr. Patiño. 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 Pt reports history of 'heavy feeling' in the pelvis, but denies vaginal bleeding, discharge, dyspareunia, or dysuria. Her PMD has mentioned possibility of pessary to her before. PMH: anemia, HTN, gallbladder diease s/p cholecystectomy, atherosclerosis PSH: cholecystectomy, appendectomy Social: denies ETOH or tobacco use, lives at home with . Ambulates and performs all ADLS. OB Hx: Menarche - 13 years old, LMP @ 51 years old; - one adult daughter (8lb 4oz; ; no complications of ) NKDA Review of Systems - Constitutional Constitutional: absent: Chills, Fever - EENT Eyes: absent: Change in Vision Ears: absent: Decreased Hearing - Cardiovascular Cardiovascular: absent: Chest Pain, Chest Pain at Rest, Dyspnea, Edema - Respiratory Respiratory: absent: Cough - Gastrointestinal Gastrointestinal: absent: Abdominal Pain, Nausea, Vomiting - Genitourinary Genitourinary: absent: Difficulty Urinating, Dysuria - Reproductive: Female Reproductive:Female: Post Menopausal - Menstruation Menstruation: Post Menopausal - Musculoskeletal Musculoskeletal: absent: Back Pain, Numbness, Tingling - Neurological Neurological: absent: Confusion, Tingling, Weakness Past Patient History - Past Medical History & Family History Past Medical History?: Yes - Past Social History Smoking Status: Never Smoked - CARDIAC Hx Cardiac Disorders: Yes Hx Hypertension: Yes - PULMONARY Hx Respiratory Disorders: No - NEUROLOGICAL Hx Neurological Disorder: No - HEENT Hx HEENT Problems: No - RENAL Hx Chronic Kidney Disease: No - ENDOCRINE/METABOLIC Hx Endocrine Disorders: No - HEMATOLOGICAL/ONCOLOGICAL Hx Blood Disorders: Yes Hx Anemia: Yes - INTEGUMENTARY Hx Dermatological Problems: No - MUSCULOSKELETAL/RHEUMATOLOGICAL Hx Falls: Yes - GASTROINTESTINAL Hx Gastrointestinal Disorders: No - GENITOURINARY/GYNECOLOGICAL Hx Genitourinary Disorders: No - PSYCHIATRIC Hx Substance Use: No - SURGICAL HISTORY Hx Surgeries: Yes Hx Appendectomy: Yes (when she was 15 yrs old) Hx Cholecystectomy: Yes (aug 14 2016) Hx Herniorrhaphy: Yes (1982) - ANESTHESIA Hx Anesthesia: Yes Hx Anesthesia Reactions: No Hx Malignant Hyperthermia: No Has any member of the family had a problem w/ anesthesia?: No Meds Allergies/Adverse Reactions: Allergies Allergy/AdvReac Type Severity Reaction Status Date / Time No Known Allergies Allergy Verified 02/27/17 09:12 - Medications Medications: Current Medications Acetaminophen (Tylenol 325mg Tab) 650 mg PO Q6 PRN PRN Reason: Fever >100.4 F Amlodipine Besylate (Norvasc) 5 mg PO DAILY [facility] Last Admin: 03/04/17 11:04 Dose: Not Given Docusate Sodium (Colace) 100 mg PO BID [facility] Last Admin: 03/04/17 11:03 Dose: Not Given Heparin Sodium (Porcine) (Heparin) 5,000 units SC Q12 [facility] Last Admin: 02/28/17 21:43 Dose: 5,000 units Hydrochlorothiazide (Microzide) 12.5 mg PO DAILY [facility] Last Admin: 03/04/17 11:03 Dose: Not Given Metronidazole (Flagyl) 500 mg in 100 mls @ 100 mls/hr IVPB Q8 [facility] Last Admin: 03/04/17 05:59 Dose: 100 mls/hr Lactated Ringer's (Lactated Ringer's) 1,000 mls @ 75 mls/hr IV .[id number] [facility] Last Admin: 03/03/17 22:08 Dose: 75 mls/hr Ibuprofen (Motrin Tab) 400 mg PO Q6 PRN PRN Reason: Pain, Mild (1-3) Lactulose (Enulose) 20 gm PO [facility] Lidocaine HCl (Xylocaine 2% (Uro-Jet)) 0 ea TOP Q4 PRN PRN Reason: Pain, Mild (1-3) Lisinopril (Zestril) 10 mg PO DAILY [facility] Last Admin: 03/03/17 11:47 Dose: Not Given Loratadine (Claritin) 10 mg PO DAILY [facility] Last Admin: 03/04/17 11:03 Dose: Not Given Metoclopramide HCl (Reglan) 5 mg IVP Q8 [facility] Last Admin: 03/04/17 06:09 Dose: 5 mg Metoprolol Succinate (Toprol Xl) 25 mg PO DAILY [facility] Last Admin: 03/03/17 11:47 Dose: Not Given Morphine Sulfate (Morphine) 2 mg IVP Q4H PRN PRN Reason: Pain, moderate (4-7) Ondansetron HCl (Zofran Inj) 4 mg IVP Q6 PRN PRN Reason: Nausea/Vomiting Pantoprazole Sodium (Protonix Ec Tab) 40 mg PO DAILY [facility] Last Admin: 03/04/17 11:04 Dose: Not Given Physical Exam - Constitutional Appears: Non-toxic, No Acute Distress - Head Exam Head Exam: ATRAUMATIC, NORMAL INSPECTION, NORMOCEPHALIC - Eye Exam Eye Exam: EOMI Pupil Exam: PERRL - ENT Exam ENT Exam: Mucous Membranes Moist - Respiratory Exam Respiratory Exam: Decreased Breath Sounds, Rhonchi (b/l lower lobes, worse on Left) - Cardiovascular Exam Cardiovascular Exam: REGULAR RHYTHM, +S1, +S2 - GI/Abdominal Exam GI & Abdominal Exam: Normal Bowel Sounds, Soft. absent: Tenderness - Rectal Exam Rectal Exam: Deferred (s/p rectal prolapse surgery) - Exam Additional comments: Cervix/uterine prolapse Grade III - Extremities Exam Extremities exam: Negative for: pedal edema, tenderness - Back Exam Back exam: absent: CVA tenderness (L), CVA tenderness (R) Additional comments: fresh bandages noted on lower back/buttock region which are c/d/i - Neurological Exam Neurological exam: Normal Gait, Oriented x3 - Psychiatric Exam Psychiatric exam: Normal Affect, Normal Mood - Skin Skin Exam: Normal Color, Warm Results - Vital Signs Recent Vital Signs: Last Vital Signs Temp 97.7 F 03/04/17 12:03 Pulse 78 03/04/17 12:03 Resp 20 03/04/17 12:03 BP 128/70 03/04/17 12:03 Pulse Ox 99 03/04/17 12:03 - Labs Result Diagrams: 03/02/17 10:34 03/02/17 08:47 Assessment & Plan - Assessment and Plan (Free Text) Assessment: 86 F with PMHx of HTN, anemia, uterine prolapse presenting with rectal prolapse on 02/27. S/p rectal prolapse repair this AM. Pt has Uterine/cervical prolapse grade III. Plan: Uterine Prolapse Grade III - No surgical intervention required at this time - Recommend outpatient FURNACE COOLER visit to Dr. Nida Malagon in [place] for pessary (Address included in discharge summary) D/W Dr. Susan Garcia, PGY-1
--- NOTE | 2017-03-04 12:59 | CP.PCM.PN ---
Subjective - Date & Time of Evaluation Date of Evaluation: 03/04/17 Time of Evaluation: 12:58 - Subjective Subjective: S/P RECTAL PROLAPSE REPAIR NO CARDIAC EVENTS D/W PT OF REHAB. PT REFUSING Objective - Vital Signs/Intake and Output Vital Signs (last 24 hours): Temp Pulse Resp BP Pulse Ox 97.7 F 78 20 128/70 99 03/04/17 12:03 03/04/17 12:03 03/04/17 12:03 03/04/17 12:03 03/04/17 12:03 Intake and Output: 03/04/17 03/04/17 11:59 23:59 Intake Total 800 Output Total 100 Balance 700 - Medications Medications: Current Medications Acetaminophen (Tylenol 325mg Tab) 650 mg PO Q6 PRN PRN Reason: Fever >100.4 F Amlodipine Besylate (Norvasc) 5 mg PO DAILY [facility] Last Admin: 03/04/17 11:04 Dose: Not Given Docusate Sodium (Colace) 100 mg PO BID [facility] Last Admin: 03/04/17 11:03 Dose: Not Given Heparin Sodium (Porcine) (Heparin) 5,000 units SC Q12 [facility] Last Admin: 02/28/17 21:43 Dose: 5,000 units Hydrochlorothiazide (Microzide) 12.5 mg PO DAILY [facility] Last Admin: 03/04/17 11:03 Dose: Not Given Metronidazole (Flagyl) 500 mg in 100 mls @ 100 mls/hr IVPB Q8 [facility] Last Admin: 03/04/17 05:59 Dose: 100 mls/hr Lactated Ringer's (Lactated Ringer's) 1,000 mls @ 75 mls/hr IV .[id number] [facility] Last Admin: 03/03/17 22:08 Dose: 75 mls/hr Ibuprofen (Motrin Tab) 400 mg PO Q6 PRN PRN Reason: Pain, Mild (1-3) Lactulose (Enulose) 20 gm PO HS [facility] Lidocaine HCl (Xylocaine 2% (Uro-Jet)) 0 ea TOP Q4 PRN PRN Reason: Pain, Mild (1-3) Lisinopril (Zestril) 10 mg PO DAILY [facility] Last Admin: 03/03/17 11:47 Dose: Not Given Loratadine (Claritin) 10 mg PO DAILY [facility] Last Admin: 03/04/17 11:03 Dose: Not Given Metoclopramide HCl (Reglan) 5 mg IVP Q8 [facility] Last Admin: 03/04/17 06:09 Dose: 5 mg Metoprolol Succinate (Toprol Xl) 25 mg PO DAILY [facility] Last Admin: 03/03/17 11:47 Dose: Not Given Morphine Sulfate (Morphine) 2 mg IVP Q4H PRN PRN Reason: Pain, moderate (4-7) Ondansetron HCl (Zofran Inj) 4 mg IVP Q6 PRN PRN Reason: Nausea/Vomiting Pantoprazole Sodium (Protonix Ec Tab) 40 mg PO DAILY [facility] Last Admin: 03/04/17 11:04 Dose: Not Given - Labs Labs: 03/02/17 10:34 03/02/17 08:47 PT 12.6 SECONDS (9.7-12.2) H 02/27/17 10:51 INR 1.1 02/27/17 10:51 APTT 34 SECONDS (21-34) 02/27/17 10:51
[2017-03-04] MEDS: Lactated Ringer's 1,000 ML IV SCH (13:11)
[2017-03-05] MEDS: metroNIDAZOLE IV 500 mg/100 ml 500 MG/100 ML BAG IVPB SCH ×3 (06:03→21:01)
[2017-03-05] MEDS: Metoprolol Succinate 25 mg XL Tab PO SCH (10:13)
[2017-03-05] MEDS: Pantoprazole 40 mg EC Tab PO SCH (10:13)
--- NOTE | 2017-03-05 11:29 | PN ---
DATE: 03/05/2017 LOCATION: 361, bed A. This is an 86-year-old female seen and examined in rounds without significant clinical changes or rep orted active bleeding so far, but with bloody scanty drainage from the rectal area post-surgically. The entire chart is reviewed including, but not limited to, the most recent lab and radiology study r esults, current and previous medication lists, current and the previous medical events. Case discuss ed at length with the staff as well as the rn surgical on the case. No new lab results done today. Keeping in mind that the patient still has elevated cancer markers of CA-125 and CA 19-9. PHYSICAL EXAMINATION: GENERAL: An 86-year-old female, awake, alert. VITAL SIGNS: Pulse of 96, respiratory rate 20-22, blood pressure of 128/64. HEENT: Showed pale, dry oral mucoid membrane. Nonicteric sclerae. LUNGS: A few scattered crepitations. Decreased air entry at bases. HEART: Positive S1 and S2. ABDOMEN: Soft. Bowel sounds are present, were slightly hypoactive. EXTREMITIES: Without significant clubbing, cyanosis or edema. NEUROLOGIC: No reported new neurologic deficit, sensory or motor. IMPRESSION: 1. Rectal prolapse, treated surgically. 2. Elevated cancer markers, to rule out ovarian versus less likely pancreatic cancer with possible h epatitic lesions. 3. Severe diverticulosis with left-sided colitis, diagnosed by colonoscopy. 4. Colon polyps with status post polypectomy. 5. Pathology report indicative of tubular adenoma. SUGGESTION: 1. Agree with your plan. 2. High-fiber diet, no seeds. 3. Antireflux measure. 4. Followup colonoscopy after 2-3 years to be kept in mind due to the patient's tubular adenomatous polyp - that to be discussed with the rn surgical. Sandy Mcbride MD cc: 14 TT: 03/05/2017 11:28:05 Confirmation # [id number] Dictation # [id number]
--- NOTE | 2017-03-05 13:13 | CP.PCM.PN ---
Subjective - Date & Time of Evaluation Date of Evaluation: 03/05/17 Time of Evaluation: 13:12 - Subjective Subjective: S/P RECTAL SURGERY [place] [facility] [place] AND WAS NEG FOR CANCER REFUSING [facility] Objective - Vital Signs/Intake and Output Vital Signs (last 24 hours): Temp Pulse Resp BP Pulse Ox 98.2 F 100 H 18 121/66 94 L 03/05/17 08:21 03/05/17 08:21 03/05/17 08:21 03/05/17 08:21 03/05/17 08:21 Intake and Output: 03/05/17 03/05/17 11:59 23:59 Intake Total 220 Balance 220 - Medications Medications: Current Medications Acetaminophen (Tylenol 325mg Tab) 650 mg PO Q6 PRN PRN Reason: Fever >100.4 F Amlodipine Besylate (Norvasc) 5 mg PO DAILY [facility] Last Admin: 03/05/17 10:13 Dose: 5 mg Docusate Sodium (Colace) 100 mg PO BID [facility] Last Admin: 03/05/17 10:14 Dose: Not Given Heparin Sodium (Porcine) (Heparin) 5,000 units SC Q12 [facility] Last Admin: 03/05/17 10:18 Dose: 5,000 units Hydrochlorothiazide (Microzide) 12.5 mg PO DAILY [facility] Last Admin: 03/05/17 10:13 Dose: 12.5 mg Metronidazole (Flagyl) 500 mg in 100 mls @ 100 mls/hr IVPB Q8 [facility] Last Admin: 03/05/17 06:03 Dose: 100 mls/hr Ibuprofen (Motrin Tab) 400 mg PO Q6 PRN PRN Reason: Pain, Mild (1-3) Lactulose (Enulose) 20 gm PO HS [facility] Last Admin: 03/04/17 21:30 Dose: Not Given Lidocaine HCl (Xylocaine 2% (Uro-Jet)) 0 ea TOP Q4 PRN PRN Reason: Pain, Mild (1-3) Lisinopril (Zestril) 10 mg PO DAILY [facility] Last Admin: 03/05/17 10:13 Dose: 10 mg Loratadine (Claritin) 10 mg PO DAILY [facility] Last Admin: 03/05/17 10:13 Dose: 10 mg Metoclopramide HCl (Reglan) 5 mg IVP Q8 [facility] Last Admin: 03/05/17 06:02 Dose: 5 mg Metoprolol Succinate (Toprol Xl) 25 mg PO DAILY [facility] Last Admin: 03/05/17 10:13 Dose: 25 mg Morphine Sulfate (Morphine) 2 mg IVP Q4H PRN PRN Reason: Pain, moderate (4-7) Ondansetron HCl (Zofran Inj) 4 mg IVP Q6 PRN PRN Reason: Nausea/Vomiting Pantoprazole Sodium (Protonix Ec Tab) 40 mg PO DAILY [facility] Last Admin: 03/05/17 10:13 Dose: 40 mg - Labs Labs: 03/02/17 10:34 03/02/17 08:47 PT 12.6 SECONDS (9.7-12.2) H 02/27/17 10:51 INR 1.1 02/27/17 10:51 APTT 34 SECONDS (21-34) 02/27/17 10:51
--- NOTE | 2017-03-05 14:48 | CP.PCM.PN ---
Subjective - Date & Time of Evaluation Date of Evaluation: 03/05/17 Time of Evaluation: 14:33 - Subjective Subjective: Surgery: Dr. Patiño Patient doing well today. Denies any pain in the rectum. She reports minimal bleeding. She is tolerating diet w/o n/v. Objective - Vital Signs/Intake and Output Vital Signs (last 24 hours): Temp Pulse Resp BP Pulse Ox 98.2 F 100 H 18 121/66 94 L 03/05/17 08:21 03/05/17 08:21 03/05/17 08:21 03/05/17 08:21 03/05/17 08:21 Intake and Output: 03/05/17 03/05/17 06:59 18:59 Intake Total 220 Balance 220 - Medications Medications: Current Medications Acetaminophen (Tylenol 325mg Tab) 650 mg PO Q6 PRN PRN Reason: Fever >100.4 F Amlodipine Besylate (Norvasc) 5 mg PO DAILY [facility] Last Admin: 03/05/17 10:13 Dose: 5 mg Docusate Sodium (Colace) 100 mg PO BID [facility] Last Admin: 03/05/17 10:14 Dose: Not Given Heparin Sodium (Porcine) (Heparin) 5,000 units SC Q12 [facility] Last Admin: 03/05/17 10:18 Dose: 5,000 units Hydrochlorothiazide (Microzide) 12.5 mg PO DAILY [facility] Last Admin: 03/05/17 10:13 Dose: 12.5 mg Metronidazole (Flagyl) 500 mg in 100 mls @ 100 mls/hr IVPB Q8 [facility] Last Admin: 03/05/17 06:03 Dose: 100 mls/hr Ibuprofen (Motrin Tab) 400 mg PO Q6 PRN PRN Reason: Pain, Mild (1-3) Lactulose (Enulose) 20 gm PO HS [facility] Last Admin: 03/04/17 21:30 Dose: Not Given Lidocaine HCl (Xylocaine 2% (Uro-Jet)) 0 ea TOP Q4 PRN PRN Reason: Pain, Mild (1-3) Lisinopril (Zestril) 10 mg PO DAILY [facility] Last Admin: 03/05/17 10:13 Dose: 10 mg Loratadine (Claritin) 10 mg PO DAILY [facility] Last Admin: 03/05/17 10:13 Dose: 10 mg Metoclopramide HCl (Reglan) 5 mg IVP Q8 [facility] Last Admin: 03/05/17 06:02 Dose: 5 mg Metoprolol Succinate (Toprol Xl) 25 mg PO DAILY [facility] Last Admin: 03/05/17 10:13 Dose: 25 mg Morphine Sulfate (Morphine) 2 mg IVP Q4H PRN PRN Reason: Pain, moderate (4-7) Ondansetron HCl (Zofran Inj) 4 mg IVP Q6 PRN PRN Reason: Nausea/Vomiting Pantoprazole Sodium (Protonix Ec Tab) 40 mg PO DAILY [facility] Last Admin: 03/05/17 10:13 Dose: 40 mg - Labs Labs: 03/02/17 10:34 03/02/17 08:47 PT 12.6 SECONDS (9.7-12.2) H 02/27/17 10:51 INR 1.1 02/27/17 10:51 APTT 34 SECONDS (21-34) 02/27/17 10:51 - Constitutional Appears: Non-toxic, No Acute Distress - Head Exam Head Exam: ATRAUMATIC, NORMOCEPHALIC - Eye Exam Eye Exam: EOMI, Normal appearance - ENT Exam ENT Exam: Mucous Membranes Moist - Respiratory Exam Respiratory Exam: NORMAL BREATHING PATTERN. absent: Respiratory Distress - GI/Abdominal Exam GI & Abdominal Exam: Soft. absent: Distended, Tenderness - Psychiatric Exam Psychiatric exam: Normal Affect, Normal Mood - Skin Skin Exam: Warm Assessment and Plan - Assessment and Plan (Free Text) Assessment: 86 y/o female s/p rectal prolapse repair POD1 Plan: -cont reg diet -monitor for bowel function -encourage OOB and IS use -d/c planning [facility] vs. home -d/w Dr. Haroon Martin PGY1
[2017-03-05 17:47] VITALS: RESP 20
[2017-03-06] MEDS: metroNIDAZOLE IV 500 mg/100 ml 500 MG/100 ML BAG IVPB SCH ×2 (06:01→13:40)
[2017-03-06] MEDS: Metoprolol Succinate 25 mg XL Tab PO SCH (10:04)
[2017-03-06] MEDS: Pantoprazole 40 mg EC Tab PO SCH (10:04)
--- NOTE | 2017-03-06 13:58 | CP.PCM.PN ---
Subjective - Date & Time of Evaluation Date of Evaluation: 03/06/17 Time of Evaluation: 13:57 - Subjective Subjective: afebrile post op pain d/w pt. she refusing [facility] Pt will recover at home Objective - Vital Signs/Intake and Output Vital Signs (last 24 hours): Temp Pulse Resp BP Pulse Ox 98 F 93 H 20 116/67 97 03/06/17 07:30 03/06/17 07:30 03/06/17 07:30 03/06/17 07:30 03/06/17 07:30 Intake and Output: 03/06/17 03/06/17 11:59 23:59 Intake Total 100 Balance 100 - Medications Medications: Current Medications Acetaminophen (Tylenol 325mg Tab) 650 mg PO Q6 PRN PRN Reason: Fever >100.4 F Amlodipine Besylate (Norvasc) 5 mg PO DAILY [facility] Last Admin: 03/06/17 10:03 Dose: 5 mg Docusate Sodium (Colace) 100 mg PO BID [facility] Last Admin: 03/06/17 10:04 Dose: 100 mg Heparin Sodium (Porcine) (Heparin) 5,000 units SC Q12 [facility] Last Admin: 03/06/17 10:06 Dose: 5,000 units Hydrochlorothiazide (Microzide) 12.5 mg PO DAILY [facility] Last Admin: 03/06/17 10:04 Dose: 12.5 mg Metronidazole (Flagyl) 500 mg in 100 mls @ 100 mls/hr IVPB Q8 [facility] Last Admin: 03/06/17 13:40 Dose: 100 mls/hr Ibuprofen (Motrin Tab) 400 mg PO Q6 PRN PRN Reason: Pain, Mild (1-3) Lactulose (Enulose) 20 gm PO HS [facility] Last Admin: 03/05/17 21:01 Dose: Not Given Lisinopril (Zestril) 10 mg PO DAILY [facility] Last Admin: 03/06/17 10:04 Dose: 10 mg Loratadine (Claritin) 10 mg PO DAILY [facility] Last Admin: 03/06/17 10:04 Dose: 10 mg Metoclopramide HCl (Reglan) 5 mg IVP Q8 [facility] Last Admin: 03/06/17 13:42 Dose: 5 mg Metoprolol Succinate (Toprol Xl) 25 mg PO DAILY [facility] Last Admin: 03/06/17 10:04 Dose: 25 mg Morphine Sulfate (Morphine) 2 mg IVP Q4H PRN PRN Reason: Pain, moderate (4-7) Ondansetron HCl (Zofran Inj) 4 mg IVP Q6 PRN PRN Reason: Nausea/Vomiting Pantoprazole Sodium (Protonix Ec Tab) 40 mg PO DAILY [facility] Last Admin: 03/06/17 10:04 Dose: 40 mg - Labs Labs: 03/02/17 10:34 03/02/17 08:47 PT 12.6 SECONDS (9.7-12.2) H 02/27/17 10:51 INR 1.1 02/27/17 10:51 APTT 34 SECONDS (21-34) 02/27/17 10:51
--- NOTE | 2017-03-06 15:41 | CP.PCM.PN ---
Subjective - Date & Time of Evaluation Date of Evaluation: 03/06/17 Time of Evaluation: 15:41 - Subjective Subjective: Alert, awake, no acute distress. Objective - Vital Signs/Intake and Output Vital Signs (last 24 hours): Temp Pulse Resp BP Pulse Ox 98 F 93 H 20 116/67 97 03/06/17 07:30 03/06/17 07:30 03/06/17 07:30 03/06/17 07:30 03/06/17 07:30 Intake and Output: 03/06/17 03/06/17 06:59 18:59 Intake Total 100 Balance 100 - Medications Medications: Current Medications Acetaminophen (Tylenol 325mg Tab) 650 mg PO Q6 PRN PRN Reason: Fever >100.4 F Amlodipine Besylate (Norvasc) 5 mg PO DAILY [facility] Last Admin: 03/06/17 10:03 Dose: 5 mg Docusate Sodium (Colace) 100 mg PO BID [facility] Last Admin: 03/06/17 10:04 Dose: 100 mg Heparin Sodium (Porcine) (Heparin) 5,000 units SC Q12 [facility] Last Admin: 03/06/17 10:06 Dose: 5,000 units Hydrochlorothiazide (Microzide) 12.5 mg PO DAILY [facility] Last Admin: 03/06/17 10:04 Dose: 12.5 mg Metronidazole (Flagyl) 500 mg in 100 mls @ 100 mls/hr IVPB Q8 [facility] Last Admin: 03/06/17 13:40 Dose: 100 mls/hr Ibuprofen (Motrin Tab) 400 mg PO Q6 PRN PRN Reason: Pain, Mild (1-3) Lactulose (Enulose) 20 gm PO HS [facility] Last Admin: 03/05/17 21:01 Dose: Not Given Lisinopril (Zestril) 10 mg PO DAILY [facility] Last Admin: 03/06/17 10:04 Dose: 10 mg Loratadine (Claritin) 10 mg PO DAILY [facility] Last Admin: 03/06/17 10:04 Dose: 10 mg Metoclopramide HCl (Reglan) 5 mg IVP Q8 [facility] Last Admin: 03/06/17 13:42 Dose: 5 mg Metoprolol Succinate (Toprol Xl) 25 mg PO DAILY [facility] Last Admin: 03/06/17 10:04 Dose: 25 mg Morphine Sulfate (Morphine) 2 mg IVP Q4H PRN PRN Reason: Pain, moderate (4-7) Ondansetron HCl (Zofran Inj) 4 mg IVP Q6 PRN PRN Reason: Nausea/Vomiting Pantoprazole Sodium (Protonix Ec Tab) 40 mg PO DAILY [facility] Last Admin: 03/06/17 10:04 Dose: 40 mg - Labs Labs: 03/02/17 10:34 03/02/17 08:47 PT 12.6 SECONDS (9.7-12.2) H 02/27/17 10:51 INR 1.1 02/27/17 10:51 APTT 34 SECONDS (21-34) 02/27/17 10:51 Assessment and Plan - Assessment and Plan (Free Text) Assessment: Patient is seen and examined, post op rectal prolapse repair, cleared by DR Moreno. Alert and orientedx3, out of bed on the chair, denies acute pain or distress. D/W DR Garcia, plan to discharge home with her . Home care, home PT arranged for unsteadt gait. Patient refused rehab placement. Advised to follow up in the office in 1 week. Seen by the physical therapyst and the walker is adjusted to take home.
[2017-03-06 16:45] VITALS: BP 136/70; PULSE 72; TEMP 98.7; O2SAT 96
== END 2017-03-06 17:15 | disposition home or self-care (01) | DRG 332 ==
LOC: C.ER 09:02 → C.9E 09:50 → C.3T 14:54
PROVIDERS: ADMIT Surgery Vascular Surgery; ATTEND Surgery Vascular Surgery
PROC: 0DBM8ZZ Excision of Descending Colon, Via Natural or Artificial Opening Endoscopic (ICD-10-PCS; 2017-03-03)
PROC: 0DBC8ZX Excision of Ileocecal Valve, Via Natural or Artificial Opening Endoscopic, Diagnostic (ICD-10-PCS; 2017-03-03)
PROC: 0DTP0ZZ Resection of Rectum, Open Approach (ICD-10-PCS; principal; 2017-03-04 07:45)
DX: K62.3 Rectal prolapse (principal); J18.9 Pneumonia, unspecified organism; J90 Pleural effusion, not elsewhere classified; R18.8 Other ascites; I48.0 Paroxysmal atrial fibrillation; I31.3 Pericardial effusion (noninflammatory); E88.09 Other disorders of plasma-protein metabolism, not elsewhere classified; K27.3 Acute peptic ulcer, site unspecified, without hemorrhage or perforation; N81.4 Uterovaginal prolapse, unspecified; D64.9 Anemia, unspecified; I10 Essential (primary) hypertension; Z90.49 Acquired absence of other specified parts of digestive tract; R16.0 Hepatomegaly, not elsewhere classified; K57.30 Diverticulosis of large intestine without perforation or abscess without bleeding; K64.8 Other hemorrhoids; R97.0 Elevated carcinoembryonic antigen [CEA]

== ENCOUNTER 2017-03-08 08:10 | Inpatient (IN) | payer MEDICARE ==
[2017-03-08 08:33] VITALS: BMI 22.7
--- NOTE | 2017-03-08 08:42 | C.PDOC ---
History Of Present Illness Patient BIBA for apparent syncopal episode at home, found to be SOB and in rapid A fib in the field. Patient given 16.25mg IVP, BP dropped, 200ml IV fluid started. Patient currently c/o SOB, dry mouth, lightheadedness and generalized weakness. She has h/o HTN, anemia, and is s/p rectal prolapse surgery by Dr. Patiño 03/04/17. She denies cough, fever, abdominal pain, visual changes, facial droop, slurred speech, extremity weakness, sensory changes. Time Seen by Provider: 03/08/17 08:17 Chief Complaint (Nursing): Shortness Of Breath History Per: Patient, EMS History/Exam Limitations: clinical condition Onset/Duration Of Symptoms: Hrs Current Symptoms Are (Timing): Still Present Current Respiratory Medications: See Home Med List Severity: Moderate Past Medical History Reviewed: Historical Data, Nursing Documentation, Vital Signs Vital Signs: Last Vital Signs Temp 97.6 F 03/08/17 13:19 Pulse 94 H 03/08/17 13:19 Resp 20 03/08/17 13:19 BP 111/48 L 03/08/17 13:19 Pulse Ox 99 03/08/17 13:26 - Medical History PMH: Anemia, HTN Surgical History: Appendectomy (when she was 15 yrs old), Cholecystectomy (aug 14 2016) - [facility] Procedures EXCISION OF DESCENDING COLON, ENDO (02/27/17) EXCISION OF ILEOCECAL VALVE, ENDO, DIAGN (02/27/17) RESECTION OF RECTUM, OPEN APPROACH (02/27/17) Family History: States: No Known Family Hx - Social History Hx Alcohol Use: No Hx Substance Use: No - Immunization History Hx Tetanus Toxoid Vaccination: No Hx Influenza Vaccination: Yes Hx Pneumococcal Vaccination: Yes Review Of Systems Except As Marked, All Systems Reviewed And Found Negative. Constitutional: Negative for: Fever, Chills Cardiovascular: Negative for: Chest Pain Respiratory: Positive for: Shortness of Breath Gastrointestinal: Negative for: Nausea, Vomiting, Abdominal Pain, Diarrhea Neurological: Positive for: Dizziness Physical Exam - Physical Exam Appears: In Acute Distress (in mild respiratory distress) Skin: Dry, Pale Head: Normacephalic Eye(s): bilateral: Normal Inspection Oral Mucosa: Dry Cardiovascular: Rhythm Irregular (irregularly irregular and tachycardic ), Other (distant heart sounds) Respiratory: Accessory Muscle Use (mild), Rales (B/L bases R>L), No Rhonchi, No Wheezing Gastrointestinal/Abdominal: Normal Exam, Bowel Sounds, Soft, No Tenderness Extremity: Pedal Edema (+2 pitting edema B/L), No Calf Tenderness Pulses: Left Dorsalis Pedis: Normal, Right Dorsalis Pedis: Normal ED Course And Treatment - Laboratory Results Result Diagrams: 03/08/17 10:14 03/08/17 09:03 ECG: Interpreted By Me, Viewed By Me ECG Interpretation: No Acute Changes Interpretation Of ECG: Atrial Fibrillation: 108bpm w/ RVR. Normal [place]. Low voltage QRS. No acute ST/T wave changes. Rate From EC O2 Sat by Pulse Oximetry: 99 - Other Rad CXR X-Ray: Viewed By Me, Read By Radiologist Interpretation: Accession No. : [id number]. Patient Name / ID : WILLY ROMERO / [id number]. Exam Date : 03/08/2017 08:31:29 ( Approved ). Study Comment : Sex / Age : F / 86Y. Creator : IMER REECE. Dictator : Sammy Adamson MD. Concrete Batching Plant Operator : Geospatial Information Technologist : Sammy Adamson MD. Approver2 : Report Date : 03/08/2017 08:59:48. My Comment : . PROCEDURE: CHEST RADIOGRAPH, 1 VIEW. HISTORY: SOB. COMPARISON: 02/27/2017. FINDINGS: LUNGS: No infiltrate. Cannot exclude infiltrate at right base due to superimposed opacity of pleural effusion. PLEURA: Bilateral small pleural effusion, right greater than left. No pneumothorax. CARDIOVASCULAR: Normal. OSSEOUS STRUCTURES: No significant abnormalities. VISUALIZED UPPER ABDOMEN: Normal. OTHER FINDINGS: None. IMPRESSION: Bilateral small pleural effusion, right greater than left. No definite infiltrate. - CT Scan/US ct head Other Rad Studies (CT/US): Read By Radiologist, Radiology Report Reviewed CT/US Interpretation: Accession No. : [id number]. Patient Name / ID : WILLY ROMERO / [id number]. Exam Date : 03/08/2017 09:14:52 ( Approved ) . Study Comment : Sex / Age : F / 86Y. Creator : Sammy Adamson MD. Dictator : Sammy Adamson MD. Concrete Batching Plant Operator : Geospatial Information Technologist : Sammy Adamson MD. Approver2 : Report Date : 03/08/2017 09:41:40. My Comment : . PROCEDURE : CT HEAD WITHOUT CONTRAST. HISTORY: syncope, fall. COMPARISON: None available. TECHNIQUE: Axial computed tomography images were obtained through the head/brain without intravenous contrast. Radiation dose: Total exam DLP = 802.65 mGy-cm. This CT exam was performed using one or more of the following dose reduction techniques: Automated exposure control, adjustment of the mA and/ or kV according to patient size, and/or use of iterative reconstruction technique. FINDINGS: HEMORRHAGE: No intracranial hemorrhage. BRAIN: No mass effect or edema. Mild diffuse age-appropriate cerebral atrophy. No evidence of acute infarct. VENTRICLES: Unremarkable. No hydrocephalus. CALVARIUM: Unremarkable. PARANASAL SINUSES: Unremarkable as visualized. No significant inflammatory changes. MASTOID AIR CELLS: Unremarkable as visualized. No inflammatory changes. OTHER FINDINGS: None. IMPRESSION: No intracranial mass, hemorrhage or evidence of acute infarct. Progress Note: Blood work, EKG, CXR ordered and reviewed. Patient placed on monitoring tech, and bedside echo done by me showing pericardial effusion - offical echo ordered. 11:30AM- Patient resting comfortably, on exam has rales at bases B/L R>L. BP currently 80s/40s, however patient has pleural & pericardial effusions & acute CHF - cautious about giving more fluids. ICU consult requested, spoke with Dr. Reinoso who will come and evaluate patient. Dr. Reinoso evaluted patient and agrees with ICU upgrade due to borderline low BP, CHF with pleural and pericardial effusions, new onset rapid atrial fibruillation. Reevaluation Time: 10:45 Reassessment Condition: Improved (Patient sitting up in bed and states she is feeling better, no accessory muslce use at this time. She still has mild lightheadednes. Heart rate improved but still 100-115 bpm, A fib with RVR. Will order IV digoxin due to borderline BP, and hold any IV Lasix. Prior records reviewed - no evidence of prior A fib and denies history. IV heparin orderered for new onset Atrial fibrillation.) - Physician Consult Information Physician Contacted: Alondra Garcia Critical Care Time - Critical Care Note Total Time (in mins): 45 Documented critical care: time excludes all time spent performing seperately billable procedures. Disposition - Disposition Disposition: HOSPITALIZED Disposition Time: 13:00 Condition: GUARDED - Clinical Impression Clinical Impression: Borderline blood pressure, New onset atrial fibrillation, Atrial fibrillation with RVR, CHF (congestive heart failure), Pleural effusion, Pericardial effusion Decision To Admit - Pt Status Changed To: Hospital Disposition Of: Inpatient - Admit Certification Admit to Inpatient:: After my assessment, the patient will require hospitalization for at least two midnights. This is because of the severity of symptoms shown, intensity of services needed, and/or the medical risk in this patient being treated as an outpatient. - InPatient: Physician Admission Certification: I certify that this patient requires 2 or more midnights of care for the following reason:: see notes - . Bed Request Type: ICU Admitting Physician: Alondra Garcia Patient Diagnosis: Borderline blood pressure, New onset atrial fibrillation, Atrial fibrillation with RVR, CHF (congestive heart failure), Pleural effusion, Pericardial effusion Bedside Ultrasound - Time Performed Time Performed: 08:30 - Type Of Ultrasound Type of Ultrasound:: Cardiac - Consent Obtained Consent obtained: Emergent consent implied - Performed By Performed by: Attending Physician - Indication Indications:: Other (distanct heart sounds, low voltage qrs, SOB - evaluate for pericardial effusion/tamponade) - Clinical Concern Clinical Concern: Pericardial effusion, Pericardial tamponade - Cardiac Cardiac:: Pericardial effusion (moderate), Normal contractility
[2017-03-08 09:13] LABS: INR 1.2
--- NOTE | 2017-03-08 09:16 | RAD ---
PROCEDURE: CHEST RADIOGRAPH, 1 VIEW HISTORY: SOB COMPARISON: 02/27/2017 FINDINGS: LUNGS: No infiltrate. Cannot exclude infiltrate at right base due to superimposed opacity of pleural effusion. PLEURA: Bilateral small pleural effusion, right greater than left. No pneumothorax. CARDIOVASCULAR: Normal. OSSEOUS STRUCTURES: No significant abnormalities. VISUALIZED UPPER ABDOMEN: Normal. OTHER FINDINGS: None. IMPRESSION: Bilateral small pleural effusion, right greater than left. No definite infiltrate.
[2017-03-08 09:18] LABS: CHLORIDE 106 mmol/L (98-107)
[2017-03-08 09:19] LABS: POTASSIUM 3.5 mmol/L (3.6-5.2); SODIUM 136 mmol/L (132-148)
[2017-03-08 09:21] LABS: ALB/GLOB RATIO 0.5 (1.0-2.1); ALKALINE PHOSPHATASE 71 U/L (38-126); AST/SGOT 58 U/L (14-36); BILIRUBIN,TOTAL 0.6 mg/dL (0.2-1.3); BLOOD UREA NITROGEN 23 mg/dL (7-17); CARBON DIOXIDE 21 mmol/L (22-30); GFR AFRICAN-AMERICAN > 60; TOTAL PROTEIN 5.7 g/dL (6.3-8.3)
[2017-03-08 09:22] LABS: ALT/SGPT 39 U/L (9-52); GLUCOSE,RANDOM 73 mg/dL (65-105)
--- NOTE | 2017-03-08 10:15 | CT ---
PROCEDURE: CT HEAD WITHOUT CONTRAST. HISTORY: syncope, fall COMPARISON: None available. TECHNIQUE: Axial computed tomography images were obtained through the head/brain without intravenous contrast. Radiation dose: Total exam DLP = 802.65 mGy-cm. This CT exam was performed using one or more of the following dose reduction techniques: Automated exposure control, adjustment of the mA and/or kV according to patient size, and/or use of iterative reconstruction technique. FINDINGS: HEMORRHAGE: No intracranial hemorrhage. BRAIN: No mass effect or edema. Mild diffuse age-appropriate cerebral atrophy. No evidence of acute infarct. VENTRICLES: Unremarkable. No hydrocephalus. CALVARIUM: Unremarkable. PARANASAL SINUSES: Unremarkable as visualized. No significant inflammatory changes. MASTOID AIR CELLS: Unremarkable as visualized. No inflammatory changes. OTHER FINDINGS: None. IMPRESSION: No intracranial mass, hemorrhage or evidence of acute infarct.
[2017-03-08 10:20] LABS: BASO # 0.1 K/uL (0.0-0.2); BASO % 0.6 % (0.0-2.0); EOS # 0.1 K/uL (0.0-0.7); EOS % 0.9 % (0.0-4.0); HEMATOCRIT 43.4 % (34.0-47.0); LYMPH % 8.5 % (20.0-40.0); MEAN CELL VOLUME 82.4 fL (81.0-99.0); MEAN CORPUSCULAR HEMOGLOBIN 26.1 pg (27.0-31.0); MEAN CORPUSCULAR HGB CONC 31.7 g/dL (33.0-37.0); MEAN PLATELET VOLUME 7.5 fL (7.2-11.7); MONO % 8.5 % (0.0-10.0); NRBC % 0.1 % (0.0-2.0); PLATELET COUNT 366 K/uL (130-400); RED CELL DISTRIBUTION WIDTH 19.2 % (11.5-14.5); WHITE BLOOD COUNT 12.1 K/uL (4.8-10.8)
[2017-03-08] MEDS ORDERED: Digoxin 500 mcg/2ml (0.5 mg/2ml) Inj IVP ONE (10:46)
[2017-03-08] MEDS ORDERED: Heparin 25,000units in D5W 250 ML IV ONE (10:52)
[2017-03-08] MEDS ORDERED: Digoxin 500 mcg/2ml (0.5 mg/2ml) Inj ONE (10:55)
[2017-03-08] MEDS ORDERED: Heparin25000 units/250ml 1/2NS 25,000 UNITS/250 ML BAG IV ONE ×2 (11:30)
[2017-03-08 11:37] LABS: EOSINOPHIL 1 % (0-4); NEUTROPHIL 85 % (50-75); TOTAL CELLS COUNTED 100
--- NOTE | 2017-03-08 13:58 | CP.PCM.CON ---
<Kyle Burnett - Last Filed: 03/08/17 13:51> History of Present Illness - History of Present Illness History of Present Illness: ICU consult note - PGY-1 This is an 86 yo F with PMH significant for HTN that presents s/p a witnessed syncopal episode at home. According to the pt, she was lying down in bed when she got up to use the restroom, made it to the doorway, and then was witnessed by her to fall to the floor. Her attempted to catch the pt but was unable to stop the fall completely. She states that she has been struggling with feeling dizzy, or lightheaded for the last few weeks. She was recently hospitalized in the ICU at [facility] for dehydration and anemia according to her . Pt was also recently hospitalized here at [facility] where she underwent surgical correction of her rectal prolapse. She has had no issues post -operatively. She denies any excessive rectal bleeding, but has noticed scant blood when she has a BM, but was told by her surgeon (Haroon) that this would be normal following the procedure. She states she drinks adequate amount of fluids but is unable to quantify the amount. She denies any headaches, previous trauma, chest pain, palpitations, sob, nausea, vomiting, GI or symptoms. Does admit to fatigue. In the ED she was found to be hypotensive and in A-fib. She states that she has never been diagnosed with A-fib in the past, however, per chart review, paroxysmal a-fib was seen on teletypesetter monitor over at [facility]. Review of Systems - Review of Systems All systems: reviewed and no additional remarkable complaints except (where noted in the HPI) Past Patient History - Infectious Disease Hx of Infectious Diseases: None - Past Medical History & Family History Past Medical History?: Yes - Past Social History Smoking Status: Never Smoked - CARDIAC Hx Hypertension: Yes - PULMONARY Hx Respiratory Disorders: No - NEUROLOGICAL Hx Neurological Disorder: No - HEENT Hx HEENT Problems: No - RENAL Hx Chronic Kidney Disease: No - ENDOCRINE/METABOLIC Hx Endocrine Disorders: No - HEMATOLOGICAL/ONCOLOGICAL Hx Anemia: Yes - INTEGUMENTARY Hx Dermatological Problems: No - MUSCULOSKELETAL/RHEUMATOLOGICAL Hx Falls: Yes - GASTROINTESTINAL Hx Gastrointestinal Disorders: No - GENITOURINARY/GYNECOLOGICAL Hx Genitourinary Disorders: No - PSYCHIATRIC Hx Substance Use: No - SURGICAL HISTORY Hx Appendectomy: Yes (when she was 15 yrs old) Hx Cholecystectomy: Yes (aug 14 2016) - ANESTHESIA Hx Anesthesia: Yes Hx Anesthesia Reactions: No Hx Malignant Hyperthermia: No Meds Allergies/Adverse Reactions: Allergies Allergy/AdvReac Type Severity Reaction Status Date / Time No Known Allergies Allergy Verified 03/08/17 08:25 - Medications Medications: Current Medications Heparin Sodium/Sodium Chloride (Heparin 64764 Units/250ml 1/2 Normal Saline) 25 ,000 units in 250 mls @ 7.893 mls/hr IV .Q24H ONE; 12 UNITS/KG/HR PRN Reason: Protocol Stop: 03/09/17 11:29 Last Admin: 03/08/17 12:12 Dose: 12 units/kg/hr, 7.893 mls/hr Physical Exam - Constitutional Appears: Non-toxic, No Acute Distress - Head Exam Head Exam: ATRAUMATIC, NORMOCEPHALIC - Eye Exam Eye Exam: EOMI, Normal appearance Pupil Exam: PERRL - ENT Exam ENT Exam: Mucous Membranes Moist - Respiratory Exam Respiratory Exam: Clear to Auscultation Bilateral, NORMAL BREATHING PATTERN - Cardiovascular Exam Cardiovascular Exam: Irregular Rhythm, +S1, +S2 - GI/Abdominal Exam GI & Abdominal Exam: Distended (mild), Soft, Tenderness (mild to palpation) - Extremities Exam Extremities exam: Positive for: pedal edema - Neurological Exam Neurological exam: Alert, Oriented x3 - Skin Skin Exam: Dry, Warm Results - Vital Signs Recent Vital Signs: Last Vital Signs Temp 97.6 F 03/08/17 13:19 Pulse 94 H 03/08/17 13:19 Resp 20 03/08/17 13:19 BP 111/48 L 03/08/17 13:19 Pulse Ox 99 03/08/17 13:28 - Labs Result Diagrams: 03/08/17 10:14 03/08/17 09:03 Assessment & Plan - Assessment and Plan (Free Text) Assessment: This is an 86 yo F s/p witnessed syncopal episode secondary to hypotension vs atrial fibrillation. Plan: Neuro: AAO x 3 No acute issues Fall precautions Pulm: Saturating well CXR - Bilateral small pleural effusion, right greater than left. No definite infiltrate. Will start Lasix drip at 2.5mg/hr Monitor BP CV: Hypotensive at 115/54. In afib at ~90 bpm Stable Will hold home HTN medications Will start Dig 0.25mg Daily Echo done - pending read Continue heparin drip GI: Heart healthy diet No acute issues Renal: No acute issues Started Lasix drip, monitor BP ID: Lactate elevated, likely due to hypotension/distributive causes Afebrile, no abx at this time Endo: No acute issues Heme: hx of anemia, Hgb stable at 13.8 DVT ppx - on Hep drip GI ppx - Protonix Pt status - full code <Alyssa Reinoso - Last Filed: 03/08/17 18:54> Meds - Medications Medications: Current Medications Digoxin (Lanoxin) 0.25 mg PO DAILY@1800 [facility] Last Admin: 03/08/17 17:34 Dose: 0.25 mg Fluticasone Propionate (Flonase) 1 spr SEVERINO BID [facility] Last Admin: 03/08/17 17:33 Dose: 1 spr Heparin Sodium/Sodium Chloride (Heparin 08980 Units/250ml 1/2 Normal Saline) 25 ,000 units in 250 mls @ 7.893 mls/hr IV .Q24H ONE; 12 UNITS/KG/HR PRN Reason: Protocol Stop: 03/09/17 11:29 Last Admin: 03/08/17 12:12 Dose: 12 units/kg/hr, 7.893 mls/hr Pantoprazole Sodium (Protonix Ec Tab) 40 mg PO DAILY [facility] Results - Vital Signs Recent Vital Signs: Last Vital Signs Temp 97.1 F L 03/08/17 16:00 Pulse 81 03/08/17 18:30 Resp 12 03/08/17 18:30 BP 98/48 L 03/08/17 17:38 Pulse Ox 92 L 03/08/17 18:30 - Labs Result Diagrams: 03/08/17 10:14 03/08/17 09:03 Labs: Laboratory Results - last 24 hr 03/08/17 03/08/17 17:32 17:32 APTT 82 H D Total Creatine Kinase 309 H CK-MB (Mass) 20.6 H Troponin I, Quant 0.0200 Attending/Attestation - Attestation I have personally seen and examined this patient.: Yes I have fully participated in the care of the patient.: Yes I have reviewed all pertinent clinical information: Yes Notes (Text): 03/08/17 18:54 chf atrial fibrallation on heparin drip control hr
--- NOTE | 2017-03-08 14:15 | CP.PCM.HP ---
History of Present Illness - History of Present Illness History of Present Illness: COMPREHENSIVE HISTORY & PHYSICAL EXAM HPI PT WAS AT HOME HAD SYNCOPAL EPISODE AND SOB . BP DROPPED IN AMBULANCE. PT HAD A. FIB WITH RVR . PT WAS RECENTLY DISCHARGED AFTER REPAIR OF RECTAL PROLAPSE . DURING THAT ADMISSION PT HAD MOD LEFT PLEURAL EFFUSION AND MILD- MOD PER. EFFUSION . NO FURTHER W.U WAS DONE . A MONTH AGO PT WAS IN [facility] FOR SAME CARDIAC SYMPTOMS . PT HAD TRANSIENT A FIB ON MONITOR . CURRENT ECHO SHOWS MOD PERICARDIAL EFFUSION WITH NORMAL LVEF AND MILDLY ELEVATED FILLING PRESSURS HAS H/O HTN PAST HIST. PERSONAL HIST: Smoking. N Alcohol. N Allergy N Travel_- . FAMILY HIST : ROS : Constitutional: Negative for weight change, chills, night sweats Eyes: Negative for redness, swelling, itching, discharge, vision changes, blurry vision, double vision, glaucoma, cataracts, Ears: Negative for hearing loss, ringing, , tinnitus, vertigo Nose: Negative for rhinorrhea, stuffiness, sniffing, itching, postnasal drip, discoloration, nasal congestion and epistaxis. Throat: Negative for throat clearing, sore throat, hoarseness, difficulty swallowing and difficulty speaking. Respiratory: Negative for cough, chest tightness, sputum or phlegm, chronic cough, hemoptysis, wheezing, snoring at night, pleuritic chest pain and daytime somnolence. Cardiovascular: Negative for chest painPND, Edema of legs, leg cramps, angina, claudication, Neurology: Negative for irritability, muscle weakness, numbness and tingling, seizures, tremors, migraines, slurred speech, syncope, memory loss , mood changes, recurrent headaches Gastrointestinal: Negative for difficulty swallowing, diarrhea, constipation, black stools, rectal bleeding, nausea, flatulence, reflux, poor appetite, changes in bowel habits, abdominal pain Genitourinary: Negative for frequent urination, hematuria, discharge, incontinence, urinary retention, frequent UTI, Psychiatric: Negative for depression, anxiety/panic, suicidal tendencies, Musculoskeletal: Negative for swollen joints, back pain, , neck pain, morning stiffness of joints, . Skin: Negative for rash, ulcers, itching, dry skin and pigmented lesions. P/E: Constitutional: Appears stated age and in no apparent distress. Head: Normocephalic. Ears: External ear canals patent without inflammation. Tympanic membranes intact with normal light reflex and landmark. Eyes: Pupils are central, bilaterally equal, symmetrical and reacts to light with normal movements and no icterus or pallor. Nose: External nares are patent. Mucosa is pink Mouth-Throat: Good general appearance and condition. No post-pharyngeal/oropharyngeal erythema and tonsillar hypertrophy. Good dental hygiene. Neck-Lymphatic: Neck is supple with normal ROM, no thyromegaly, lymph nodes or masses. JVD is normal with no carotid bruit. Lungs: Clear to percussion and auscultation with bilateral normal air entry. Cardiovascular: S1 and S2 are normal with CARLOS IN AA murmurs, gallops and rub. GI Exam: No hepatomegaly. Abdomen is soft and non-tender. No Organomegaly , masses or hernias are evident and bowel sounds are normal and active. Neurology: Higher function and all cranial nerves intact, with no gross motor or sensory deficit. Superficial and deep reflexes are normal with downwards planters. No cerebellar deficit with normal gait. Musculoskeletal: No tender spots with normal curvature of the spine with no swelling or restricted ROM of the small and large joints. Extremities: Homans sign absent. Intact pulses with no pitting edema, calf tenderness or skin color changes. Skin: No rash, eruptions or abnormal skin pigmentation LAB/RADIOLOGY: ASSESMENT : DOCUMENTED A. FIB [id number] SCORE IS 5 . HASBLED SCORE IS 1 . PT WILL NEED ANTICOAGULATION ETIOLOGY OF PL/PER. EFFUSION IS NOT CLEAR . WILL NEED TO TAP PL EFFUSION MASS IN LIVER ? BIOPSY IN [facility] , NEG PLAN: Present on Admission - Present on Admission Any Indicators Present on Admission: No Past Patient History - Infectious Disease Hx of Infectious Diseases: None - Past Medical History & Family History Past Medical History?: Yes - Past Social History Smoking Status: Never Smoked - CARDIAC Hx Hypertension: Yes - PULMONARY Hx Respiratory Disorders: No - NEUROLOGICAL Hx Neurological Disorder: No - HEENT Hx HEENT Problems: No - RENAL Hx Chronic Kidney Disease: No - ENDOCRINE/METABOLIC Hx Endocrine Disorders: No - HEMATOLOGICAL/ONCOLOGICAL Hx Anemia: Yes - INTEGUMENTARY Hx Dermatological Problems: No - MUSCULOSKELETAL/RHEUMATOLOGICAL Hx Falls: Yes - GASTROINTESTINAL Hx Gastrointestinal Disorders: No - GENITOURINARY/GYNECOLOGICAL Hx Genitourinary Disorders: No - PSYCHIATRIC Hx Substance Use: No - SURGICAL HISTORY Hx Appendectomy: Yes (when she was 15 yrs old) Hx Cholecystectomy: Yes (aug 14 2016) Other/Comment: rectal prolapse surgery03/04/17 - ANESTHESIA Hx Anesthesia: Yes Hx Anesthesia Reactions: No Hx Malignant Hyperthermia: No Has any member of the family had a problem w/ anesthesia?: No Meds Allergies/Adverse Reactions: Allergies Allergy/AdvReac Type Severity Reaction Status Date / Time No Known Allergies Allergy Verified 03/08/17 08:25 Results - Vital Signs Recent Vital Signs: Last Vital Signs Temp 97.7 F 03/08/17 13:45 Pulse 95 H 03/08/17 14:00 Resp 17 03/08/17 14:00 BP 115/54 L 03/08/17 13:48 Pulse Ox 99 03/08/17 13:28 - Labs Result Diagrams: 03/24/17 07:18 03/24/17 07:18
[2017-03-08] MEDS ORDERED: Metoprolol Succinate 25 mg XL Tab PO SCH (14:45)
[2017-03-08] MEDS ORDERED: Furosemide 100 MG in Sodium Chloride 0.9% 90 ML IVP SCH (15:00)
[2017-03-08] MEDS ORDERED: Potassium Chloride 20 mEq ER Tab PO ONE (16:00)
[2017-03-08] MEDS: Fluticasone Nasal 50 mcg/Spray NAS SCH (17:33)
[2017-03-08] MEDS: Digoxin 250 mcg (0.25 mg) Tab PO SCH (17:34)
[2017-03-09 06:52] LABS: CHLORIDE 107 mmol/L (98-107)
[2017-03-09 06:53] LABS: POTASSIUM 3.9 mmol/L (3.6-5.2); SODIUM 139 mmol/L (132-148)
[2017-03-09 06:55] LABS: ALB/GLOB RATIO 0.6 (1.0-2.1); ALKALINE PHOSPHATASE 63 U/L (38-126); ALT/SGPT 40 U/L (9-52); AST/SGOT 57 U/L (14-36); BILIRUBIN,TOTAL 0.6 mg/dL (0.2-1.3); BLOOD UREA NITROGEN 28 mg/dL (7-17); CARBON DIOXIDE 23 mmol/L (22-30); GFR AFRICAN-AMERICAN > 60; GLUCOSE,RANDOM 74 mg/dL (65-105); TOTAL PROTEIN 5.3 g/dL (6.3-8.3)
[2017-03-09 06:56] LABS: CALCIUM 6.8 mg/dl (8.6-10.4); MAGNESIUM 2.2 mg/dL (1.6-2.3); PHOSPHOROUS 3.7 mg/dL (2.5-4.5)
[2017-03-09 07:08] LABS: EOS # 0.4 K/uL (0.0-0.7); LYMPH # 1.3 K/uL (1.0-4.3); LYMPH % 10.4 % (20.0-40.0)
[2017-03-09 07:23] LABS: BASO % 0.4 % (0.0-2.0); EOS % 3.1 % (0.0-4.0); HEMATOCRIT 34.4 % (34.0-47.0); MEAN CELL VOLUME 82.9 fL (81.0-99.0); MEAN CORPUSCULAR HEMOGLOBIN 26.4 pg (27.0-31.0); MEAN CORPUSCULAR HGB CONC 31.8 g/dL (33.0-37.0); MEAN PLATELET VOLUME 8.1 fL (7.2-11.7); MONO % 8.1 % (0.0-10.0); NRBC % 0.2 % (0.0-2.0); RED CELL DISTRIBUTION WIDTH 18.7 % (11.5-14.5); WHITE BLOOD COUNT 12.7 K/uL (4.8-10.8)
--- NOTE | 2017-03-09 08:47 | CP.CCUPN ---
<Kyle Burnett - Last Filed: 03/09/17 09:49> CCU Subjective - Physician Review Subjective (Free Text): 03/09/17 08:44 PGY-1 ICU progress note Pt seen and examined at bedside. There were no acute events overnight. She continues to report lack of appetite. She has no episodes of dizziness/light headedness but also has only been lying down. Denies fevers, chills, chest pain , sob, nausea or vomiting. Critical Care Time Spent (in minutes): 35 CCU Objective - Vital Signs / Intake & Output Vital Signs (Last 4 hours): Vital Signs Pulse Resp BP Pulse Ox 03/09/17 07:03 86 16 128/41 L 100 03/09/17 06:03 85 16 113/44 L 96 03/09/17 05:03 15 121/43 L 95 Intake and Output (Last 8hrs): Intake & Output 03/08/17 03/09/17 03/09/17 22:59 06:59 14:59 Intake Total 223.2 407.7 6.6 Output Total 50 50 Balance 173.2 357.7 6.6 Weight 145 lb Intake: IV 111 Intake, IV Amount 63.2 56.7 6.6 Left Hand 63.2 56.7 6.6 Oral 160 240 Output: Urine 50 50 Urine, Voided 50 50 Other: # Voids Urine, Voided 1 1 # Bowel Movements 1 - Physical Exam Head: Positive for: Atraumatic, Normocephalic Pupils: Positive for: PERRL Extroacular Muscles: Positive for: EOMI Mouth: Positive for: Moist Mucous Membranes Respiratory/Chest: Positive for: Clear to Auscultation, Good Air Exchange. Negative for: Respiratory Distress, Accessory Muscle Use Cardiovascular: Positive for: Normal S1, S2 Abdomen: Positive for: Normal Bowel Sounds. Negative for: Tenderness, Distention Upper Extremity: Positive for: NORMAL PULSES, Neurovascularly Intact Lower Extremity: Positive for: Edema (1+), NORMAL PULSES, Neurovascularly Intact Neurological: Positive for: Speech Normal, Motor Func Grossly Intact Skin: Positive for: Warm, Dry Psychiatric: Positive for: Alert, Oriented x 3 - Medications Active Medications: Active Medications Generic Name Dose Route Start Last Admin Trade Name Freq PRN Reason Stop Dose Admin Digoxin 0.25 mg 03/08/17 18:00 03/08/17 17:34 Lanoxin PO 0.25 mg DAILY@1800 ZULEIMA Administration Fluticasone Propionate 1 spr 03/08/17 18:00 03/08/17 17:33 Flonase SEVERINO 1 spr BID ZULEIMA Administration Heparin Sodium/Sodium Chloride 25,000 units in 250 mls @ 7.893 mls/hr 11:30 03/09/17 02:10 Heparin 24659 Units/250ml 1/2 Normal Saline IV 03/09/17 11:29 10 units/kg/ hr .Q24H ONE 6.577 mls/hr Protocol Titration 12 UNITS/KG/HR Pantoprazole Sodium 40 mg 03/09/17 10:00 Protonix Ec Tab PO DAILY ZULEIMA - Patient Studies Lab Studies: Lab Studies 03/09/17 03/09/17 03/09/17 Range/Units 06:43 06:43 06:43 WBC 12.7 H (4.8-10.8) K/uL RBC 4.15 (3.80-5.20) Mil/uL Hgb 10.9 L D (11.0-16.0) g/dL Hct 34.4 (34.0-47.0) % MCV 82.9 (81.0-99.0) fL MCH 26.4 L (27.0-31.0) pg MCHC 31.8 L (33.0-37.0) g/dL RDW 18.7 H (11.5-14.5) % Plt Count 325 (130-400) K/uL MPV 8.1 (7.2-11.7) fL Neut % (Auto) 78.0 H (50.0-75.0) % Lymph % (Auto) 10.4 L (20.0-40.0) % [place] % (Auto) 8.1 (0.0-10.0) % Eos % (Auto) 3.1 (0.0-4.0) % Baso % (Auto) 0.4 (0.0-2.0) % Neut # 9.9 H (1.8-7.0) K/uL Lymph # 1.3 (1.0-4.3) K/uL [place] # 1.0 H (0.0-0.8) K/uL Eos # 0.4 (0.0-0.7) K/uL Baso # 0.0 (0.0-0.2) K/uL APTT 50 H D (21-34) SECONDS Sodium 139 (132-148) mmol/L Potassium 3.9 (3.6-5.2) mmol/L Chloride 107 (98-107) mmol/L Carbon Dioxide 23 (22-30) mmol/L Anion Gap 13 (10-20) BUN 28 H (7-17) mg/dL Creatinine 1.0 (0.7-1.2) MG/DL Est GFR ( Amer) > 60 Est GFR (Non-Af Amer) 52 Random Glucose 74 (65-105) mg/dL Calcium 6.8 L (8.6-10.4) mg/dl Phosphorus 3.7 (2.5-4.5) mg/dL Magnesium 2.2 (1.6-2.3) mg/dL Total Bilirubin 0.6 (0.2-1.3) mg/dL AST 57 H (14-36) U/L ALT 40 (9-52) U/L Alkaline Phosphatase 63 (38-126) U/L Total Creatine Kinase (30-135) U/L CK-MB (Mass) (0.0-3.38) ng/mL Troponin I, Quant (0.00-0.120) ng/mL Total Protein 5.3 L (6.3-8.3) g/dL Albumin 1.9 L (3.5-5.0) g/dL Globulin 3.3 (2.2-3.9) gm/dL Albumin/Globulin Ratio 0.6 L (1.0-2.1) 03/09/17 03/09/17 03/08/17 Range/Units 01:46 01:46 17:32 WBC (4.8-10.8) K/uL RBC (3.80-5.20) Mil/uL Hgb (11.0-16.0) g/dL Hct (34.0-47.0) % MCV (81.0-99.0) fL MCH (27.0-31.0) pg MCHC (33.0-37.0) g/dL RDW (11.5-14.5) % Plt Count (130-400) K/uL MPV (7.2-11.7) fL Neut % (Auto) (50.0-75.0) % Lymph % (Auto) (20.0-40.0) % [place] % (Auto) (0.0-10.0) % Eos % (Auto) (0.0-4.0) % Baso % (Auto) (0.0-2.0) % Neut # (1.8-7.0) K/uL Lymph # (1.0-4.3) K/uL [place] # (0.0-0.8) K/uL Eos # (0.0-0.7) K/uL Baso # (0.0-0.2) K/uL APTT 97 H D 82 H D (21-34) SECONDS Sodium (132-148) mmol/L Potassium (3.6-5.2) mmol/L Chloride (98-107) mmol/L Carbon Dioxide (22-30) mmol/L Anion Gap (10-20) BUN (7-17) mg/dL Creatinine (0.7-1.2) MG/DL Est GFR ( Amer) Est GFR (Non-Af Amer) Random Glucose (65-105) mg/dL Calcium (8.6-10.4) mg/dl Phosphorus (2.5-4.5) mg/dL Magnesium (1.6-2.3) mg/dL Total Bilirubin (0.2-1.3) mg/dL AST (14-36) U/L ALT (9-52) U/L Alkaline Phosphatase (38-126) U/L Total Creatine Kinase 281 H (30-135) U/L CK-MB (Mass) 22.7 H (0.0-3.38) ng/mL Troponin I, Quant 0.0290 (0.00-0.120) ng/mL Total Protein (6.3-8.3) g/dL Albumin (3.5-5.0) g/dL Globulin (2.2-3.9) gm/dL Albumin/Globulin Ratio (1.0-2.1) // Range/Units 17:32 WBC (4.8-10.8) K/uL RBC (3.80-5.20) Mil/uL Hgb (11.0-16.0) g/dL Hct (34.0-47.0) % MCV (81.0-99.0) fL MCH (27.0-31.0) pg MCHC (33.0-37.0) g/dL RDW (11.5-14.5) % Plt Count (130-400) K/uL MPV (7.2-11.7) fL Neut % (Auto) (50.0-75.0) % Lymph % (Auto) (20.0-40.0) % [place] % (Auto) (0.0-10.0) % Eos % (Auto) (0.0-4.0) % Baso % (Auto) (0.0-2.0) % Neut # (1.8-7.0) K/uL Lymph # (1.0-4.3) K/uL [place] # (0.0-0.8) K/uL Eos # (0.0-0.7) K/uL Baso # (0.0-0.2) K/uL APTT (21-34) SECONDS Sodium (132-148) mmol/L Potassium (3.6-5.2) mmol/L Chloride (98-107) mmol/L Carbon Dioxide (22-30) mmol/L Anion Gap (10-20) BUN (7-17) mg/dL Creatinine (0.7-1.2) MG/DL Est GFR ( Amer) Est GFR (Non-Af Amer) Random Glucose (65-105) mg/dL Calcium (8.6-10.4) mg/dl Phosphorus (2.5-4.5) mg/dL Magnesium (1.6-2.3) mg/dL Total Bilirubin (0.2-1.3) mg/dL AST (14-36) U/L ALT (9-52) U/L Alkaline Phosphatase (38-126) U/L Total Creatine Kinase 309 H (30-135) U/L CK-MB (Mass) 20.6 H (0.0-3.38) ng/mL Troponin I, Quant 0.0200 (0.00-0.120) ng/mL Total Protein (6.3-8.3) g/dL Albumin (3.5-5.0) g/dL Globulin (2.2-3.9) gm/dL Albumin/Globulin Ratio (1.0-2.1) Laboratory Results - last 24 hr 03/08/17 03/08/17 03/09/17 17:32 17:32 01:46 WBC RBC Hgb Hct MCV MCH MCHC RDW Plt Count MPV Neut % (Auto) Lymph % (Auto) [place] % (Auto) Eos % (Auto) Baso % (Auto) Neut # Lymph # [place] # Eos # Baso # APTT 82 H D Sodium Potassium Chloride Carbon Dioxide Anion Gap BUN Creatinine Est GFR ( Amer) Est GFR (Non-Af Amer) Random Glucose Calcium Phosphorus Magnesium Total Bilirubin AST ALT Alkaline Phosphatase Total Creatine Kinase 309 H 281 H CK-MB (Mass) 20.6 H 22.7 H Troponin I, Quant 0.0200 0.0290 Total Protein Albumin Globulin Albumin/Globulin Ratio 03/09/17 03/09/17 03/09/17 01:46 06:43 06:43 WBC 12.7 H RBC 4.15 Hgb 10.9 L D Hct 34.4 MCV 82.9 MCH 26.4 L MCHC 31.8 L RDW 18.7 H Plt Count 325 MPV 8.1 Neut % (Auto) 78.0 H Lymph % (Auto) 10.4 L [place] % (Auto) 8.1 Eos % (Auto) 3.1 Baso % (Auto) 0.4 Neut # 9.9 H Lymph # 1.3 [place] # 1.0 H Eos # 0.4 Baso # 0.0 APTT 97 H D Sodium 139 Potassium 3.9 Chloride 107 Carbon Dioxide 23 Anion Gap 13 BUN 28 H Creatinine 1.0 Est GFR ( Amer) > 60 Est GFR (Non-Af Amer) 52 Random Glucose 74 Calcium 6.8 L Phosphorus 3.7 Magnesium 2.2 Total Bilirubin 0.6 AST 57 H ALT 40 Alkaline Phosphatase 63 Total Creatine Kinase CK-MB (Mass) Troponin I, Quant Total Protein 5.3 L Albumin 1.9 L Globulin 3.3 Albumin/Globulin Ratio 0.6 L 03/09/17 06:43 WBC RBC Hgb Hct MCV MCH MCHC RDW Plt Count MPV Neut % (Auto) Lymph % (Auto) [place] % (Auto) Eos % (Auto) Baso % (Auto) Neut # Lymph # [place] # Eos # Baso # APTT 50 H D Sodium Potassium Chloride Carbon Dioxide Anion Gap BUN Creatinine Est GFR ( Amer) Est GFR (Non-Af Amer) Random Glucose Calcium Phosphorus Magnesium Total Bilirubin AST ALT Alkaline Phosphatase Total Creatine Kinase CK-MB (Mass) Troponin I, Quant Total Protein Albumin Globulin Albumin/Globulin Ratio Review of Systems - Review of Systems All systems: reviewed and no additional remarkable complaints except (where noted in HPI) Critical Care Progress Note - Nutrition Nutrition: Nutrition Category Date Time Status Heart Healthy Diet [DIET] Diets 03/08/17 Dinner Active Assessment/Plan - Assessment and Plan (Free Text) Assessment: This is an 86 yo F s/p witnessed syncopal episode secondary to hypotension vs atrial fibrillation. Stable now, will transfer to telemetry Plan: Neuro: AAO x 3 No acute issues Fall precautions Pulm: Saturating well CXR - Bilateral small pleural effusion, right greater than left. No definite infiltrate. Consider tapping pleural effusion CV: BP improved Stable Continue to hold home HTN medications Continue Dig 0.25mg Daily Echo done - pending read Continue heparin drip GI: Heart healthy diet No acute issues Encourage intake as albumin in 1.9 Renal: No acute issues, but low urine output overnight. Pt has decreased PO intake ID: Lactate elevated, likely due to hypotension/distributive causes Afebrile, no abx at this time Endo: No acute issues Heme: hx of anemia Hgb dropped from 13.8 to 10.9, will get FOBT and repeat CBC DVT ppx - on Hep drip GI ppx - Protonix Pt status - full code <Aidan Headley S - Last Filed: 03/09/17 17:02> CCU Objective - Vital Signs / Intake & Output Vital Signs (Last 4 hours): Vital Signs Temp Pulse Resp BP Pulse Ox 03/09/17 16:03 81 13 128/51 L 92 L 03/09/17 16:00 98 F 03/09/17 15:03 83 14 115/45 L 94 L 03/09/17 14:03 90 15 130/40 L 96 03/09/17 13:03 95 H 15 108/32 L 100 Intake and Output (Last 8hrs): Intake & Output 03/09/17 03/09/17 03/09/17 06:59 14:59 22:59 Intake Total 407.7 539.4 13.2 Output Total 50 150 Balance 357.7 389.4 13.2 Weight 145 lb Intake: IV 111 Intake, IV Amount 56.7 59.4 13.2 Left Hand 56.7 59.4 13.2 Oral 240 480 Output: Urine 50 150 Urine, Voided 50 150 Other: # Voids Urine, Voided 1 - Medications Active Medications: Active Medications Generic Name Dose Route Start Last Admin Trade Name Freq PRN Reason Stop Dose Admin Digoxin 0.25 mg 03/08/17 18:00 03/08/17 17:34 Lanoxin PO 0.25 mg DAILY@1800 ZULEIMA Administration Fluticasone Propionate 1 spr 03/08/17 18:00 03/09/17 10:05 Flonase SEVERINO 1 spr BID ZULEIMA Administration Heparin Sodium/Sodium Chloride 25,000 units in 250 mls @ 0 mls/hr 03/09/17 11: 40 Heparin 04081 Units/250ml 1/2 Normal Saline IV .Q0M PRN PROTOCOL Protocol Per Protocol Pantoprazole Sodium 40 mg 03/09/17 10:00 03/09/17 09:43 Protonix Ec Tab PO 40 mg DAILY ZULEIMA Administration - Patient Studies Lab Studies: Lab Studies 03/09/17 03/09/17 03/09/17 Range/Units 14:29 14:21 06:43 WBC 14.8 H (4.8-10.8) K/uL RBC 4.44 (3.80-5.20) Mil/uL Hgb 11.7 (11.0-16.0) g/dL Hct 36.9 (34.0-47.0) % MCV 83.0 (81.0-99.0) fL MCH 26.3 L (27.0-31.0) pg MCHC 31.8 L (33.0-37.0) g/dL RDW 19.0 H (11.5-14.5) % Plt Count 375 (130-400) K/uL MPV 8.1 (7.2-11.7) fL Neut % (Auto) 80.1 H (50.0-75.0) % Lymph % (Auto) 10.2 L (20.0-40.0) % [place] % (Auto) 7.9 (0.0-10.0) % Eos % (Auto) 1.3 (0.0-4.0) % Baso % (Auto) 0.5 (0.0-2.0) % Neut # 11.9 H (1.8-7.0) K/uL Lymph # 1.5 (1.0-4.3) K/uL [place] # 1.2 H (0.0-0.8) K/uL Eos # 0.2 (0.0-0.7) K/uL Baso # 0.1 (0.0-0.2) K/uL APTT 51 H 50 H D (21-34) SECONDS Sodium (132-148) mmol/L Potassium (3.6-5.2) mmol/L Chloride (98-107) mmol/L Carbon Dioxide (22-30) mmol/L Anion Gap (10-20) BUN (7-17) mg/dL Creatinine (0.7-1.2) MG/DL Est GFR ( Amer) Est GFR (Non-Af Amer) Random Glucose (65-105) mg/dL Calcium (8.6-10.4) mg/dl Phosphorus (2.5-4.5) mg/dL Magnesium (1.6-2.3) mg/dL Total Bilirubin (0.2-1.3) mg/dL AST (14-36) U/L ALT (9-52) U/L Alkaline Phosphatase (38-126) U/L Total Creatine Kinase (30-135) U/L CK-MB (Mass) (0.0-3.38) ng/mL Troponin I, Quant (0.00-0.120) ng/mL Total Protein (6.3-8.3) g/dL Albumin (3.5-5.0) g/dL Globulin (2.2-3.9) gm/dL Albumin/Globulin Ratio (1.0-2.1) 03/09/17 03/09/17 03/09/17 Range/Units 06:43 06:43 01:46 WBC 12.7 H (4.8-10.8) K/uL RBC 4.15 (3.80-5.20) Mil/uL Hgb 10.9 L D (11.0-16.0) g/dL Hct 34.4 (34.0-47.0) % MCV 82.9 (81.0-99.0) fL MCH 26.4 L (27.0-31.0) pg MCHC 31.8 L (33.0-37.0) g/dL RDW 18.7 H (11.5-14.5) % Plt Count 325 (130-400) K/uL MPV 8.1 (7.2-11.7) fL Neut % (Auto) 78.0 H (50.0-75.0) % Lymph % (Auto) 10.4 L (20.0-40.0) % [place] % (Auto) 8.1 (0.0-10.0) % Eos % (Auto) 3.1 (0.0-4.0) % Baso % (Auto) 0.4 (0.0-2.0) % Neut # 9.9 H (1.8-7.0) K/uL Lymph # 1.3 (1.0-4.3) K/uL [place] # 1.0 H (0.0-0.8) K/uL Eos # 0.4 (0.0-0.7) K/uL Baso # 0.0 (0.0-0.2) K/uL APTT 97 H D (21-34) SECONDS Sodium 139 (132-148) mmol/L Potassium 3.9 (3.6-5.2) mmol/L Chloride 107 (98-107) mmol/L Carbon Dioxide 23 (22-30) mmol/L Anion Gap 13 (10-20) BUN 28 H (7-17) mg/dL Creatinine 1.0 (0.7-1.2) MG/DL Est GFR ( Amer) > 60 Est GFR (Non-Af Amer) 52 Random Glucose 74 (65-105) mg/dL Calcium 6.8 L (8.6-10.4) mg/dl Phosphorus 3.7 (2.5-4.5) mg/dL Magnesium 2.2 (1.6-2.3) mg/dL Total Bilirubin 0.6 (0.2-1.3) mg/dL AST 57 H (14-36) U/L ALT 40 (9-52) U/L Alkaline Phosphatase 63 (38-126) U/L Total Creatine Kinase (30-135) U/L CK-MB (Mass) (0.0-3.38) ng/mL Troponin I, Quant (0.00-0.120) ng/mL Total Protein 5.3 L (6.3-8.3) g/dL Albumin 1.9 L (3.5-5.0) g/dL Globulin 3.3 (2.2-3.9) gm/dL Albumin/Globulin Ratio 0.6 L (1.0-2.1) 03/09/17 03/08/17 03/08/17 Range/Units 01:46 17:32 17:32 WBC (4.8-10.8) K/uL RBC (3.80-5.20) Mil/uL Hgb (11.0-16.0) g/dL Hct (34.0-47.0) % MCV (81.0-99.0) fL MCH (27.0-31.0) pg MCHC (33.0-37.0) g/dL RDW (11.5-14.5) % Plt Count (130-400) K/uL MPV (7.2-11.7) fL Neut % (Auto) (50.0-75.0) % Lymph % (Auto) (20.0-40.0) % [place] % (Auto) (0.0-10.0) % Eos % (Auto) (0.0-4.0) % Baso % (Auto) (0.0-2.0) % Neut # (1.8-7.0) K/uL Lymph # (1.0-4.3) K/uL [place] # (0.0-0.8) K/uL Eos # (0.0-0.7) K/uL Baso # (0.0-0.2) K/uL APTT 82 H D (21-34) SECONDS Sodium (132-148) mmol/L Potassium (3.6-5.2) mmol/L Chloride (98-107) mmol/L Carbon Dioxide (22-30) mmol/L Anion Gap (10-20) BUN (7-17) mg/dL Creatinine (0.7-1.2) MG/DL Est GFR ( Amer) Est GFR (Non-Af Amer) Random Glucose (65-105) mg/dL Calcium (8.6-10.4) mg/dl Phosphorus (2.5-4.5) mg/dL Magnesium (1.6-2.3) mg/dL Total Bilirubin (0.2-1.3) mg/dL AST (14-36) U/L ALT (9-52) U/L Alkaline Phosphatase (38-126) U/L Total Creatine Kinase 281 H 309 H (30-135) U/L CK-MB (Mass) 22.7 H 20.6 H (0.0-3.38) ng/mL Troponin I, Quant 0.0290 0.0200 (0.00-0.120) ng/mL Total Protein (6.3-8.3) g/dL Albumin (3.5-5.0) g/dL Globulin (2.2-3.9) gm/dL Albumin/Globulin Ratio (1.0-2.1) Laboratory Results - last 24 hr 03/08/17 03/08/17 03/09/17 17:32 17:32 01:46 WBC RBC Hgb Hct MCV MCH MCHC RDW Plt Count MPV Neut % (Auto) Lymph % (Auto) [place] % (Auto) Eos % (Auto) Baso % (Auto) Neut # Lymph # [place] # Eos # Baso # APTT 82 H D Sodium Potassium Chloride Carbon Dioxide Anion Gap BUN Creatinine Est GFR ( Amer) Est GFR (Non-Af Amer) Random Glucose Calcium Phosphorus Magnesium Total Bilirubin AST ALT Alkaline Phosphatase Total Creatine Kinase 309 H 281 H CK-MB (Mass) 20.6 H 22.7 H Troponin I, Quant 0.0200 0.0290 Total Protein Albumin Globulin Albumin/Globulin Ratio 03/09/17 03/09/17 03/09/17 01:46 06:43 06:43 WBC 12.7 H RBC 4.15 Hgb 10.9 L D Hct 34.4 MCV 82.9 MCH 26.4 L MCHC 31.8 L RDW 18.7 H Plt Count 325 MPV 8.1 Neut % (Auto) 78.0 H Lymph % (Auto) 10.4 L [place] % (Auto) 8.1 Eos % (Auto) 3.1 Baso % (Auto) 0.4 Neut # 9.9 H Lymph # 1.3 [place] # 1.0 H Eos # 0.4 Baso # 0.0 APTT 97 H D Sodium 139 Potassium 3.9 Chloride 107 Carbon Dioxide 23 Anion Gap 13 BUN 28 H Creatinine 1.0 Est GFR ( Amer) > 60 Est GFR (Non-Af Amer) 52 Random Glucose 74 Calcium 6.8 L Phosphorus 3.7 Magnesium 2.2 Total Bilirubin 0.6 AST 57 H ALT 40 Alkaline Phosphatase 63 Total Creatine Kinase CK-MB (Mass) Troponin I, Quant Total Protein 5.3 L Albumin 1.9 L Globulin 3.3 Albumin/Globulin Ratio 0.6 L 03/09/17 03/09/17 03/09/17 06:43 14:21 14:29 WBC 14.8 H RBC 4.44 Hgb 11.7 Hct 36.9 MCV 83.0 MCH 26.3 L MCHC 31.8 L RDW 19.0 H Plt Count 375 MPV 8.1 Neut % (Auto) 80.1 H Lymph % (Auto) 10.2 L [place] % (Auto) 7.9 Eos % (Auto) 1.3 Baso % (Auto) 0.5 Neut # 11.9 H Lymph # 1.5 [place] # 1.2 H Eos # 0.2 Baso # 0.1 APTT 50 H D 51 H Sodium Potassium Chloride Carbon Dioxide Anion Gap BUN Creatinine Est GFR ( Amer) Est GFR (Non-Af Amer) Random Glucose Calcium Phosphorus Magnesium Total Bilirubin AST ALT Alkaline Phosphatase Total Creatine Kinase CK-MB (Mass) Troponin I, Quant Total Protein Albumin Globulin Albumin/Globulin Ratio Critical Care Progress Note - Nutrition Nutrition: Nutrition Category Date Time Status Heart Healthy Diet [DIET] Diets 03/08/17 Dinner Active Assessment/Plan (1) Pleural effusion Current Visit: Yes Status: Acute (2) New onset atrial fibrillation Current Visit: Yes Status: Acute Attending/Attestation - Attestation I have personally seen and examined this patient.: Yes I have fully participated in the care of the patient.: Yes I have reviewed all pertinent clinical information: Yes Notes (Text): 03/09/17 17:01 Patient seen and examined in the intensive care unit. Case discussed with house staff in the morning rounds. Treated for atrial fibrillation On anticoagulation Bilateral pleural effusion and pericardial effusion on CAT scan thoracentesis Improve nutritional status
[2017-03-09] MEDS: Pantoprazole 40 mg EC Tab PO SCH (09:43)
--- NOTE | 2017-03-09 09:58 | CARD ---
APPROVED REPORT EXAM: Two-dimensional and M-mode echocardiogram with Doppler and color Doppler. Other Information Quality : GoodRhythm : NSR INDICATION Dyspnea RISK FACTORS Hypertension M-Mode DIMENSIONS Left Atrium (MM)3.51 (2.5-4.0cm)Aortic Root3.17 (2.2-3.7cm) Aortic Cusp Exc.2.17 (1.5-2.0cm) Mitral Valve MV E Fiukpkmb27.8cm/sE/A ratio0.0 TDI E/Lateral E'0.0E/Medial E'0.0 Tricuspid Valve TR Peak [id number]/sTR Peak [id number] <Conclusion> Left ventricle: thickness: normal; size: normal; overall ejection fraction: 65%: diastolic filling pressures: elevated Mitral valve: annulus: normal: leaflets: normal: excursion: normal; no significant trans-mitral gradient: mild incompetence: left atrium: normal Aortic valve: leaflets: mild calcific thickening; excursion: normal; 15mmhg peak trans-aortic gradient: No significant incompetence: aortic root: normal Right sided Structures: Pulmonary valve: normal; no significant incompetence; Tricuspid valve: normal; no significant incompetence: Intra-cardiac hemodynamics: pulmonary systolic pressures: 36mmhg; central venous pressures: normal moderate concentric pericardial effusion; large pleural effusion; no definitive signs of tamponade
[2017-03-09] MEDS: Fluticasone Nasal 50 mcg/Spray NAS SCH ×2 (10:05→17:34)
[2017-03-09] MEDS ORDERED: Heparin25000 units/250ml 1/2NS 25,000 UNITS/250 ML BAG IV PRN (11:40)
--- NOTE | 2017-03-09 13:34 | CP.PCM.PN ---
Subjective - Date & Time of Evaluation Date of Evaluation: 03/09/17 Time of Evaluation: 13:32 - Subjective Subjective: FEELS WEAK WITH POOR APETITE VS STABLE ON IV HEPARIN FURTHER F/U Objective - Vital Signs/Intake and Output Vital Signs (last 24 hours): Temp Pulse Resp BP Pulse Ox 97.8 F 95 H 15 108/32 L 100 03/09/17 12:00 03/09/17 13:03 03/09/17 13:03 03/09/17 13:03 03/09/17 13:03 Intake and Output: 03/09/17 03/09/17 11:59 23:59 Intake Total 679.4 253.2 Output Total 150 Balance 529.4 253.2 - Medications Medications: Current Medications Digoxin (Lanoxin) 0.25 mg PO DAILY@1800 [facility] Last Admin: 03/08/17 17:34 Dose: 0.25 mg Fluticasone Propionate (Flonase) 1 spr SEVERINO BID [facility] Last Admin: 03/09/17 10:05 Dose: 1 spr Heparin Sodium/Sodium Chloride (Heparin 98177 Units/250ml 1/2 Normal Saline) 25 ,000 units in 250 mls @ 0 mls/hr IV .Q0M PRN; Protocol; Per Protocol PRN Reason: PROTOCOL Pantoprazole Sodium (Protonix Ec Tab) 40 mg PO DAILY [facility] Last Admin: 03/09/17 09:43 Dose: 40 mg - Labs Labs: 03/09/17 06:43 03/09/17 06:43 PT 14.1 SECONDS (9.7-12.2) H 03/08/17 08:51 INR 1.2 03/08/17 08:51 APTT 50 SECONDS (21-34) H D 03/09/17 06:43
[2017-03-09 14:34] LABS: BASO # 0.1 K/uL (0.0-0.2); BASO % 0.5 % (0.0-2.0); EOS # 0.2 K/uL (0.0-0.7); EOS % 1.3 % (0.0-4.0); HEMATOCRIT 36.9 % (34.0-47.0); LYMPH # 1.5 K/uL (1.0-4.3); LYMPH % 10.2 % (20.0-40.0); MEAN CORPUSCULAR HEMOGLOBIN 26.3 pg (27.0-31.0); MEAN CORPUSCULAR HGB CONC 31.8 g/dL (33.0-37.0); MEAN PLATELET VOLUME 8.1 fL (7.2-11.7); MONO # 1.2 K/uL (0.0-0.8); MONO % 7.9 % (0.0-10.0); WHITE BLOOD COUNT 14.8 K/uL (4.8-10.8)
--- NOTE | 2017-03-09 15:30 | CP.PCM.CON ---
History of Present Illness - History of Present Illness History of Present Illness: Reason for consultation: Pleural effusion 86 yo F with PMH significant for HTN that presented to the emergency room after she had syncopal episode at home. She states that she has been feeling dizzy, or lightheaded for the last few weeks. She was recently hospitalized in the [place] [facility] for dehydration and anemia according to her . Pt was also recently hospitalized here at [facility] where she underwent surgical correction of her rectal prolapse. In the ED she was found to be hypotensive and in A-fib. She states that she has never been diagnosed with A-fib in the past, however, per chart review, paroxysmal a-fib was seen on cardiac technologist over at [facility]. Chest x-ray consistent with bilateral pleural effusion Past Patient History - Infectious Disease Hx of Infectious Diseases: None - Past Medical History & Family History Past Medical History?: Yes - Past Social History Smoking Status: Never Smoked - CARDIAC Hx Hypertension: Yes - PULMONARY Hx Respiratory Disorders: No - NEUROLOGICAL Hx Neurological Disorder: No - HEENT Hx HEENT Problems: No - RENAL Hx Chronic Kidney Disease: No - ENDOCRINE/METABOLIC Hx Endocrine Disorders: No - HEMATOLOGICAL/ONCOLOGICAL Hx Anemia: Yes - INTEGUMENTARY Hx Dermatological Problems: No - MUSCULOSKELETAL/RHEUMATOLOGICAL Hx Falls: Yes - GASTROINTESTINAL Hx Gastrointestinal Disorders: No - GENITOURINARY/GYNECOLOGICAL Hx Genitourinary Disorders: No - PSYCHIATRIC Hx Substance Use: No - SURGICAL HISTORY Hx Appendectomy: Yes (when she was 15 yrs old) Hx Cholecystectomy: Yes (aug 14 2016) - ANESTHESIA Hx Anesthesia: Yes Hx Anesthesia Reactions: No Hx Malignant Hyperthermia: No Meds Allergies/Adverse Reactions: Allergies Allergy/AdvReac Type Severity Reaction Status Date / Time No Known Allergies Allergy Verified 03/08/17 08:25 - Medications Medications: Current Medications Digoxin (Lanoxin) 0.25 mg PO DAILY@1800 [facility] Last Admin: 03/08/17 17:34 Dose: 0.25 mg Fluticasone Propionate (Flonase) 1 spr SEVERINO BID [facility] Last Admin: 03/09/17 10:05 Dose: 1 spr Heparin Sodium/Sodium Chloride (Heparin 22074 Units/250ml 1/2 Normal Saline) 25 ,000 units in 250 mls @ 0 mls/hr IV .Q0M PRN; Protocol; Per Protocol PRN Reason: PROTOCOL Pantoprazole Sodium (Protonix Ec Tab) 40 mg PO DAILY [facility] Last Admin: 03/09/17 09:43 Dose: 40 mg Physical Exam - Constitutional Appears: No Acute Distress - Head Exam Head Exam: ATRAUMATIC, NORMOCEPHALIC - Eye Exam Eye Exam: Normal appearance - ENT Exam ENT Exam: Mucous Membranes Moist - Neck Exam Neck exam: Positive for: Normal Inspection - Respiratory Exam Respiratory Exam: Decreased Breath Sounds - Cardiovascular Exam Cardiovascular Exam: Irregular Rhythm - GI/Abdominal Exam GI & Abdominal Exam: Normal Bowel Sounds, Soft Results - Vital Signs Recent Vital Signs: Last Vital Signs Temp 97.8 F 03/09/17 12:00 Pulse 95 H 03/09/17 13:03 Resp 15 03/09/17 13:03 BP 108/32 L 03/09/17 13:03 Pulse Ox 100 03/09/17 13:03 - Labs Result Diagrams: 03/09/17 14:21 03/09/17 06:43 Labs: Laboratory Results - last 24 hr 03/08/17 03/08/17 03/09/17 17:32 17:32 01:46 WBC RBC Hgb Hct MCV MCH MCHC RDW Plt Count MPV Neut % (Auto) Lymph % (Auto) [place] % (Auto) Eos % (Auto) Baso % (Auto) Neut # Lymph # [place] # Eos # Baso # APTT 82 H D Sodium Potassium Chloride Carbon Dioxide Anion Gap BUN Creatinine Est GFR ( Amer) Est GFR (Non-Af Amer) Random Glucose Calcium Phosphorus Magnesium Total Bilirubin AST ALT Alkaline Phosphatase Total Creatine Kinase 309 H 281 H CK-MB (Mass) 20.6 H 22.7 H Troponin I, Quant 0.0200 0.0290 Total Protein Albumin Globulin Albumin/Globulin Ratio 03/09/17 03/09/17 03/09/17 01:46 06:43 06:43 WBC 12.7 H RBC 4.15 Hgb 10.9 L D Hct 34.4 MCV 82.9 MCH 26.4 L MCHC 31.8 L RDW 18.7 H Plt Count 325 MPV 8.1 Neut % (Auto) 78.0 H Lymph % (Auto) 10.4 L [place] % (Auto) 8.1 Eos % (Auto) 3.1 Baso % (Auto) 0.4 Neut # 9.9 H Lymph # 1.3 [place] # 1.0 H Eos # 0.4 Baso # 0.0 APTT 97 H D Sodium 139 Potassium 3.9 Chloride 107 Carbon Dioxide 23 Anion Gap 13 BUN 28 H Creatinine 1.0 Est GFR ( Amer) > 60 Est GFR (Non-Af Amer) 52 Random Glucose 74 Calcium 6.8 L Phosphorus 3.7 Magnesium 2.2 Total Bilirubin 0.6 AST 57 H ALT 40 Alkaline Phosphatase 63 Total Creatine Kinase CK-MB (Mass) Troponin I, Quant Total Protein 5.3 L Albumin 1.9 L Globulin 3.3 Albumin/Globulin Ratio 0.6 L 03/09/17 03/09/17 03/09/17 06:43 14:21 14:29 WBC 14.8 H RBC 4.44 Hgb 11.7 Hct 36.9 MCV 83.0 MCH 26.3 L MCHC 31.8 L RDW 19.0 H Plt Count 375 MPV 8.1 Neut % (Auto) 80.1 H Lymph % (Auto) 10.2 L [place] % (Auto) 7.9 Eos % (Auto) 1.3 Baso % (Auto) 0.5 Neut # 11.9 H Lymph # 1.5 [place] # 1.2 H Eos # 0.2 Baso # 0.1 APTT 50 H D 51 H Sodium Potassium Chloride Carbon Dioxide Anion Gap BUN Creatinine Est GFR ( Amer) Est GFR (Non-Af Amer) Random Glucose Calcium Phosphorus Magnesium Total Bilirubin AST ALT Alkaline Phosphatase Total Creatine Kinase CK-MB (Mass) Troponin I, Quant Total Protein Albumin Globulin Albumin/Globulin Ratio Assessment & Plan (1) Pleural effusion Status: Acute Comment: Moderate to large bilateral pleural effusion with pericardial effusion most likely secondary to hypoalbuminemia. thoracentesis. Dietitian evaluation/ improve nutritional status. Continue present treatment as per cardiology (2) New onset atrial fibrillation Status: Acute
--- NOTE | 2017-03-09 16:56 | RAD ---
PROCEDURE: CHEST RADIOGRAPH, 1 VIEW HISTORY: PL EFFUSION COMPARISON: 03/08/2017 FINDINGS: LUNGS: Bibasilar pleural effusions with inferred bibasilar compressive atelectasis and/or infiltrates. The size of the left pleural effusion appears slightly less and/or there is less layering of it. Right pleural effusion also appears very minimally slightly less -similar reasons are possible. PLEURA: No pneumothorax CARDIOVASCULAR: Suspect cardiomegaly unchanged OSSEOUS STRUCTURES: No significant abnormalities. VISUALIZED UPPER ABDOMEN: Normal. OTHER FINDINGS: None. IMPRESSION: Bilateral pleural effusions as detailed above.
[2017-03-09] MEDS: Digoxin 250 mcg (0.25 mg) Tab PO SCH (17:34)
--- NOTE | 2017-03-09 18:45 | CARD ---
APPROVED REPORT EKG Measurement Heart [id number] <Conclusion> Atrial fibrillation with rapid ventricular response Low voltage QRS Nonspecific T wave abnormality Abnormal ECG
--- NOTE | 2017-03-09 19:39 | CP.PCM.CON ---
History of Present Illness - History of Present Illness History of Present Illness: INFECTIOUS DISEASE CONSULT; REASON FOR CONSULTATION; LEUKOCYTOSIS WITH INCREASING BILATERAL PLEURAL EFFUSION /?PNEUMONIA. 86 years old female with past medical history of hypertension, anemia, gallbladder disease S/P cholecystectomy and appendicectomy and with recent history off recto- prolapse and repair at [facility] in her recent hospitalization on . Patient's at her side. History obtained from the . He states patient was brought in to the emergency room on 03/08/17 because of syncopal episode at home. She had been feeling dizzy and lightheaded for the last few days.ALSO PATIENT WAS NOT EATING OR DRINKING ENOUGH FLUIDS. In the ER patient was found to be hypotensive and in atrial fibrillation with rapid ventricular rate. Patient does have history of paroxysmal atrial fibrillation Infectious disease consultation requested by PMD for evaluation off increasing leukocytosis and bilateral pleural effusion? Infiltrate right base. Patient intake is very poor and patient states that she has no appetite. Patient presently denies any pain in the rectum or bleeding from the rectum. She also states she has been noticing increasing abdominal girth. Patient denies any fever or chills. Denies any dysuria or hematuria.Patient does complain off dry cough/ AND DYSPNEA ON EXERTION Chest x-ray on admission 03/08/17 showed bilateral pleural effusion. Cannot exclude infiltrate right base due to superimposed opacity off pleural effusion. Patient recently had a CT abdomen and pelvis with by mouth contrast for rectalprolapse repair and was found to have 2 masses right hepatic lobe and also questionable masses in santiago hepatis. Also ascites was seen with bilateral pleural effusions and pericardial effusions. ALLERGIES; NKA. PMH: anemia, HTN, gallbladder diease s/p cholecystectomy, PSH: cholecystectomy, appendectomy, S/P RECENT PERENIAL REPAIR RECTAL PROLAPSE WITH RAMIRO ON 03/04/17. Social: denies ETOH or tobacco use, lives at home with . Ambulates and performs all ADLS. FAMILY HISTORY; UUNKNOWN MEDS; SEE MARS REVIEWED. Review of Systems - Constitutional Constitutional: Fatigue, Lethargy. absent: Chills, Fever - EENT Nose/Mouth/Throat: Dry Mouth. absent: Dysphagia - Cardiovascular Cardiovascular: Dyspnea on Exertion, Edema (generalized), Leg Edema, Syncope. absent: Chest Pain - Respiratory Respiratory: Cough, Dyspnea on Exertion - Gastrointestinal Gastrointestinal: absent: Abdominal Pain, Diarrhea (increasing abdominal girth.) , Nausea, Vomiting - Genitourinary Genitourinary: absent: Dysuria, Flank Pain - Neurological Neurological: Dizziness, Syncope. absent: Headaches - Hematologic/Lymphatic Hematologic: As Per HPI. absent: Lymphadenopathy Past Patient History - Infectious Disease Hx of Infectious Diseases: None - Past Medical History & Family History Past Medical History?: Yes - Past Social History Smoking Status: Never Smoked - CARDIAC Hx Hypertension: Yes - PULMONARY Hx Respiratory Disorders: No - NEUROLOGICAL Hx Neurological Disorder: No - HEENT Hx HEENT Problems: No - RENAL Hx Chronic Kidney Disease: No - ENDOCRINE/METABOLIC Hx Endocrine Disorders: No - HEMATOLOGICAL/ONCOLOGICAL Hx Anemia: Yes - INTEGUMENTARY Hx Dermatological Problems: No - MUSCULOSKELETAL/RHEUMATOLOGICAL Hx Falls: Yes - GASTROINTESTINAL Hx Gastrointestinal Disorders: No - GENITOURINARY/GYNECOLOGICAL Hx Genitourinary Disorders: No - PSYCHIATRIC Hx Substance Use: No - SURGICAL HISTORY Hx Appendectomy: Yes (when she was 15 yrs old) Hx Cholecystectomy: Yes (aug 14 2016) - ANESTHESIA Hx Anesthesia: Yes Hx Anesthesia Reactions: No Hx Malignant Hyperthermia: No Meds Allergies/Adverse Reactions: Allergies Allergy/AdvReac Type Severity Reaction Status Date / Time No Known Allergies Allergy Verified 03/08/17 08:25 - Medications Medications: Current Medications Digoxin (Lanoxin) 0.25 mg PO DAILY@1800 [facility] Last Admin: 03/09/17 17:34 Dose: 0.25 mg Fluticasone Propionate (Flonase) 1 spr SEVERINO BID [facility] Last Admin: 03/09/17 17:34 Dose: 1 spr Heparin Sodium/Sodium Chloride (Heparin 63797 Units/250ml 1/2 Normal Saline) 25 ,000 units in 250 mls @ 0 mls/hr IV .Q0M PRN; Protocol; Per Protocol PRN Reason: PROTOCOL Pantoprazole Sodium (Protonix Ec Tab) 40 mg PO DAILY [facility] Last Admin: 03/09/17 09:43 Dose: 40 mg Physical Exam - Constitutional Appears: No Acute Distress, Chronically Ill - Head Exam Head Exam: NORMAL INSPECTION - Eye Exam Eye Exam: EOMI, PERRL - ENT Exam ENT Exam: Mucous Membranes Dry, Normal Oropharynx - Neck Exam Neck exam: Positive for: Normal Inspection - Respiratory Exam Respiratory Exam: Decreased Breath Sounds (bilaterally.) - Cardiovascular Exam Cardiovascular Exam: Irregular Rhythm, +S1, +S2 - GI/Abdominal Exam GI & Abdominal Exam: Normal Bowel Sounds, Soft. absent: Organomegaly ( questionable ascites.) - Rectal Exam Rectal Exam: Deferred Additional comments: perianal region with some cellulitis surrounding the anus. No drainage or prolapse noted. Healing well. - Extremities Exam Extremities exam: Positive for: pedal edema, pedal pulses present. Negative for : calf tenderness - Neurological Exam Neurological exam: Alert, CN II-XII Intact, Reflexes Normal - Skin Skin Exam: Normal Color, Warm Results - Vital Signs Recent Vital Signs: Last Vital Signs Temp 98 F 03/09/17 16:00 Pulse 78 03/09/17 18:00 Resp 14 03/09/17 18:00 BP 140/46 L 03/09/17 17:03 Pulse Ox 97 03/09/17 18:00 - Labs Result Diagrams: 03/09/17 14:21 03/09/17 06:43 Labs: Laboratory Results - last 24 hr 03/09/17 03/09/17 03/09/17 01:46 01:46 06:43 WBC 12.7 H RBC 4.15 Hgb 10.9 L D Hct 34.4 MCV 82.9 MCH 26.4 L MCHC 31.8 L RDW 18.7 H Plt Count 325 MPV 8.1 Neut % (Auto) 78.0 H Lymph % (Auto) 10.4 L [place] % (Auto) 8.1 Eos % (Auto) 3.1 Baso % (Auto) 0.4 Neut # 9.9 H Lymph # 1.3 [place] # 1.0 H Eos # 0.4 Baso # 0.0 APTT 97 H D Sodium Potassium Chloride Carbon Dioxide Anion Gap BUN Creatinine Est GFR ( Amer) Est GFR (Non-Af Amer) Random Glucose Calcium Phosphorus Magnesium Total Bilirubin AST ALT Alkaline Phosphatase Total Creatine Kinase 281 H CK-MB (Mass) 22.7 H Troponin I, Quant 0.0290 Total Protein Albumin Globulin Albumin/Globulin Ratio 03/09/17 03/09/17 03/09/17 06:43 06:43 14:21 WBC 14.8 H RBC 4.44 Hgb 11.7 Hct 36.9 MCV 83.0 MCH 26.3 L MCHC 31.8 L RDW 19.0 H Plt Count 375 MPV 8.1 Neut % (Auto) 80.1 H Lymph % (Auto) 10.2 L [place] % (Auto) 7.9 Eos % (Auto) 1.3 Baso % (Auto) 0.5 Neut # 11.9 H Lymph # 1.5 [place] # 1.2 H Eos # 0.2 Baso # 0.1 APTT 50 H D Sodium 139 Potassium 3.9 Chloride 107 Carbon Dioxide 23 Anion Gap 13 BUN 28 H Creatinine 1.0 Est GFR ( Amer) > 60 Est GFR (Non-Af Amer) 52 Random Glucose 74 Calcium 6.8 L Phosphorus 3.7 Magnesium 2.2 Total Bilirubin 0.6 AST 57 H ALT 40 Alkaline Phosphatase 63 Total Creatine Kinase CK-MB (Mass) Troponin I, Quant Total Protein 5.3 L Albumin 1.9 L Globulin 3.3 Albumin/Globulin Ratio 0.6 L 03/09/17 14:29 WBC RBC Hgb Hct MCV MCH MCHC RDW Plt Count MPV Neut % (Auto) Lymph % (Auto) [place] % (Auto) Eos % (Auto) Baso % (Auto) Neut # Lymph # [place] # Eos # Baso # APTT 51 H Sodium Potassium Chloride Carbon Dioxide Anion Gap BUN Creatinine Est GFR ( Amer) Est GFR (Non-Af Amer) Random Glucose Calcium Phosphorus Magnesium Total Bilirubin AST ALT Alkaline Phosphatase Total Creatine Kinase CK-MB (Mass) Troponin I, Quant Total Protein Albumin Globulin Albumin/Globulin Ratio - Imaging and Cardiology Chest x-ray Status: Report reviewed by me (chest x-ray 03/09/17 bibasal pleural effusions.. Compressive atelectasis/or basilar infiltrate. ) Assessment & Plan (1) Leukocytosis Assessment and Plan: pancultures esr,crp. Pro-calcitonin levels. Acute hepatitis screen. Hepatitis C antibody. TSH Start IV cefepime 1 g every 12 hourly .03/09/17. SPUTUM gRAM STAIN AND CULTURE. CASE DISCUSSED WITH PULMONARY DR GONZALEZ. Status: Acute (2) Pleural effusion Assessment and Plan: patient will need thoracentesis and appropriate pleural fluid cultures to rule out malignant effusion or exudative effusion. Case discussed with pulmonary/critical care and agrees to do so. Status: Acute (3) CHF (congestive heart failure) Status: Acute (4) Liver masses Assessment and Plan: ultrasound of the liver. Alpha fetoproteins. cea Status: Acute (5) Pericardial effusion Status: Acute (6) Atrial fibrillation with RVR Assessment and Plan: as per cardiology. / pmd Status: Acute
[2017-03-10 06:58] LABS: BASO % 0.4 % (0.0-2.0); EOS # 0.3 K/uL (0.0-0.7); HEMATOCRIT 36.7 % (34.0-47.0); LYMPH # 0.7 K/uL (1.0-4.3); LYMPH % 6.5 % (20.0-40.0); MEAN CELL VOLUME 82.7 fL (81.0-99.0); MEAN CORPUSCULAR HEMOGLOBIN 25.8 pg (27.0-31.0); MEAN CORPUSCULAR HGB CONC 31.2 g/dL (33.0-37.0); MEAN PLATELET VOLUME 7.8 fL (7.2-11.7); MONO # 0.9 K/uL (0.0-0.8); MONO % 7.5 % (0.0-10.0); PLATELET COUNT 325 K/uL (130-400); RED CELL DISTRIBUTION WIDTH 18.8 % (11.5-14.5); WHITE BLOOD COUNT 11.4 K/uL (4.8-10.8)
[2017-03-10 07:12] LABS: CHLORIDE 105 mmol/L (98-107)
[2017-03-10 07:13] LABS: SODIUM 138 mmol/L (132-148)
[2017-03-10 07:15] LABS: BILIRUBIN,TOTAL 0.6 mg/dL (0.2-1.3); GFR AFRICAN-AMERICAN > 60
[2017-03-10 07:16] LABS: ALB/GLOB RATIO 0.5 (1.0-2.1); ALKALINE PHOSPHATASE 66 U/L (38-126); ALT/SGPT 36 U/L (9-52); AST/SGOT 53 U/L (14-36); BLOOD UREA NITROGEN 32 mg/dL (7-17); CARBON DIOXIDE 27 mmol/L (22-30); GLUCOSE,RANDOM 74 mg/dL (65-105); TOTAL PROTEIN 5.7 g/dL (6.3-8.3)
[2017-03-10 08:11] LABS: EOSINOPHIL 2 % (0-4); NEUTROPHIL 82 % (50-75); TOTAL CELLS COUNTED 100
[2017-03-10 08:36] LABS: ERYTHROCYTE SEDIMENTATION RATE 16 mm/hr (0-20)
--- NOTE | 2017-03-10 09:29 | US ---
HISTORY: masses liver right hepatic lobe COMPARISON: None. TECHNIQUE: Sonographic evaluation of the right upper quadrant of the abdomen. FINDINGS: LIVER: Measures 14.2 cm in length. Diffusely increased echogenicity of the liver parenchyma. Several hepatic masses are identified. These are situated in the right lobe. There is a 5.8 x 6.3 x 6.4 cm solid mass identified. There is a 2nd solid mass, 4.9 by 3.0 x 5.0 cm. There is no intrahepatic biliary ductal dilatation. GALLBLADDER: Status post cholecystectomy. COMMON BILE DUCT: Measures 3 mm. No stones. No dilatation. PANCREAS: Hypoechoic mass in the pancreatic head, cystic versus solid, 2.6 x 1.6 x 2.0 cm. Consider evaluation with multiphasic contrast enhanced CT. RIGHT KIDNEY: Measures 10.5 cm in length. Parapelvic cyst, 2.9 x 2.4 x 2.6 cm. Second parapelvic cyst, 4.3 x 1.6 x 2.4 cm. No calculus or hydronephrosis. AORTA: No aneurysmal dilatation. IVC: Unremarkable. OTHER FINDINGS: Ascites. Right pleural effusion. IMPRESSION: Ascites and right pleural effusion. Two large hepatic masses. Suspicious for metastatic disease or hepatocellular neoplasm. Evaluation with multiphasic contrast enhanced CT is advised. Hypoechoic 2.6 cm mass in pancreatic head. Solid versus cystic. Multiphasic contrast-enhanced CT is advised. Several parapelvic right renal cysts noted. Status post cholecystectomy. Preliminary interpretation of this examination was reported by [employer] at 11:14 p.m. on 03/09/2017. There is concurrence of this report with the preliminary interpretation.
[2017-03-10] MEDS: Pantoprazole 40 mg EC Tab PO SCH (10:37)
[2017-03-10] MEDS: Fluticasone Nasal 50 mcg/Spray NAS SCH ×2 (10:38→17:55)
[2017-03-10 12:58] LABS: RBC URINE 13 /hpf (0-3); URINE BACTERIA RARE (<OCC); URINE BILIRUBIN NEGATIVE (NEGATIVE); URINE BLOOD 1+ (NEGATIVE); URINE COLOR Amber (YELLOW); URINE GLUCOSE (UA) NORMAL (Normal); URINE HYALINE CAST >20 /lpf (0-2); URINE KETONE 1+ mg/dL (NEGATIVE); URINE LEUKOCYTE ESTERASE 3+ Leu/uL (Negative); URINE PROTEIN NEGATIVE (NEGATIVE); URINE UROBILINOGEN NORMAL mg/dL (0.2-1.0); WBC URINE 121 /hpf (0-5)
--- NOTE | 2017-03-10 13:34 | CP.PCM.PN ---
Subjective - Date & Time of Evaluation Date of Evaluation: 03/10/17 Time of Evaluation: 13:31 - Subjective Subjective: CHIEF COMPLAINTS TODAY : WEAK AND FATIGUED POOR APETITE ALB LOW CURRENTLY PT IS IN NSR ROS. HEENT : N. Resp : No cough, wheezing ,pleuritic CP ,or hemoptysis Cardio : No anginal CP, PND, orthopnea, palpitation GI : No abd.pain, n/v ,diarrhea or GI bleeding . [employer] : No headache, vertigo, focal deficit. Musculoskel : No joint swelling , Derm : No rash Psych : Normal affect. Ext : No swelling ,calf pain PE. Pt. is alert awake in no distress. V.S As noted in the chart Head ,ear nose,throat and eyes : Normal. Neck : Supple with normal carotids. Lungs: Clear air entry. DECREASE IN BASES Heart : S1 & S2 normal with S4. No murmur. Abd : Soft non tender with normal bowel sounds. Neuro : Moves all ext. with no localized deficit. Ext : No edema with intact pulses.Non tender calves Derm : No rashes or decubitus ulcer. LABS/RADIOLOGY: ASSESSMENT/PLAN : ID/PULM EVAL NOTED WILL NEED FLIUD PATHOLOGY PT IN NSR ON LEVONEX CHECK TFT Objective - Vital Signs/Intake and Output Vital Signs (last 24 hours): Temp Pulse Resp BP Pulse Ox 97.2 F L 80 14 140/48 L 99 03/10/17 08:00 03/10/17 04:00 03/10/17 04:00 03/10/17 04:00 03/10/17 04:00 Intake and Output: 03/10/17 03/10/17 11:59 23:59 Intake Total 192.6 Output Total 101 Balance 91.6 - Medications Medications: Current Medications Digoxin (Lanoxin) 0.25 mg PO DAILY@1800 [facility] Last Admin: 03/09/17 17:34 Dose: 0.25 mg Fluticasone Propionate (Flonase) [address] [facility] Last Admin: 03/10/17 10:38 Dose: 1 spr Heparin Sodium/Sodium Chloride (Heparin 81058 Units/250ml 1/2 Normal Saline) 25 ,000 units in 250 mls @ 0 mls/hr IV .Q0M PRN; Protocol; Per Protocol PRN Reason: PROTOCOL Last Admin: 03/09/17 23:05 Dose: 10 units/kg/hr, 6.577 mls/hr Cefepime HCl 1 gm/ Dextrose 50 mls @ 100 mls/hr IVPB Q24H [facility] Last Admin: 03/09/17 23:00 Dose: 100 mls/hr Pantoprazole Sodium (Protonix Ec Tab) [address] [facility] Last Admin: 03/10/17 10:37 Dose: 40 mg - Labs Labs: 03/10/17 06:34 03/10/17 06:34 PT 14.1 SECONDS (9.7-12.2) H 03/08/17 08:51 INR 1.2 03/08/17 08:51 APTT 48 SECONDS (21-34) H 03/10/17 06:34
--- NOTE | 2017-03-10 17:01 | CP.PCM.PN ---
Subjective - Date & Time of Evaluation Date of Evaluation: 03/10/17 Time of Evaluation: 13:10 - Subjective Subjective: patient seen and examined in the intensive care unit. Lying comfortably in no acute distress Awaiting thoracentesis by IR Afebrile Objective - Vital Signs/Intake and Output Vital Signs (last 24 hours): Temp Pulse Resp BP Pulse Ox 97.4 F L 78 19 136/49 L 97 03/10/17 16:00 03/10/17 16:00 03/10/17 16:00 03/10/17 16:00 03/10/17 16:00 Intake and Output: 03/10/17 03/10/17 06:59 18:59 Intake Total 315.8 252.8 Output Total 200 82 Balance 115.8 170.8 - Medications Medications: Current Medications Digoxin (Lanoxin) 0.25 mg PO DAILY@1800 [facility] Last Admin: 03/09/17 17:34 Dose: 0.25 mg Fluticasone Propionate (Flonase) 1 spr SEVERINO BID [facility] Last Admin: 03/10/17 10:38 Dose: 1 spr Heparin Sodium/Sodium Chloride (Heparin 11063 Units/250ml 1/2 Normal Saline) 25 ,000 units in 250 mls @ 0 mls/hr IV .Q0M PRN; Protocol; Per Protocol PRN Reason: PROTOCOL Last Admin: 03/09/17 23:05 Dose: 10 units/kg/hr, 6.577 mls/hr Cefepime HCl 1 gm/ Dextrose 50 mls @ 100 mls/hr IVPB Q24H [facility] Last Admin: 03/09/17 23:00 Dose: 100 mls/hr Pantoprazole Sodium (Protonix Ec Tab) 40 mg PO DAILY [facility] Last Admin: 03/10/17 10:37 Dose: 40 mg - Labs Labs: 03/10/17 06:34 03/10/17 06:34 PT 14.1 SECONDS (9.7-12.2) H 03/08/17 08:51 INR 1.2 03/08/17 08:51 APTT 48 SECONDS (21-34) H 03/10/17 06:34 - Head Exam Head Exam: ATRAUMATIC, NORMOCEPHALIC - Eye Exam Eye Exam: Normal appearance - ENT Exam ENT Exam: Mucous Membranes Moist - Neck Exam Neck Exam: Full ROM, Normal Inspection - Respiratory Exam Respiratory Exam: Decreased Breath Sounds - Cardiovascular Exam Cardiovascular Exam: Irregular Rhythm - GI/Abdominal Exam GI & Abdominal Exam: Soft, Normal Bowel Sounds - Extremities Exam Extremities Exam: Pedal Edema Assessment and Plan (1) Pleural effusion Assessment & Plan: continue antibiotics as per infectious disease Awaiting thoracentesis No respiratory distress Status: Acute (2) New onset atrial fibrillation Status: Acute
[2017-03-10] MEDS: Digoxin 250 mcg (0.25 mg) Tab PO SCH (17:55)
--- NOTE | 2017-03-10 22:54 | CP.PCM.PN ---
Subjective - Date & Time of Evaluation Date of Evaluation: 03/10/17 Time of Evaluation: 22:54 - Subjective Subjective: AFEBRILE. COMFORTABLE GENERALIZED ANASARCA WEAK , APPETITE POOR BY HER SIDE PER PULMONARY PT AWAITING THORACENTESIS BY IR Objective - Vital Signs/Intake and Output Vital Signs (last 24 hours): Temp Pulse Resp BP Pulse Ox 97.2 F L 83 14 125/45 L 97 03/10/17 20:00 03/10/17 20:00 03/10/17 20:00 03/10/17 20:00 03/10/17 20:00 Intake and Output: 03/10/17 03/11/17 18:59 06:59 Intake Total 252.8 6.6 Output Total 82 Balance 170.8 6.6 - Medications Medications: Current Medications Digoxin (Lanoxin) 0.25 mg PO DAILY@1800 [facility] Last Admin: 03/10/17 17:55 Dose: 0.25 mg Fluticasone Propionate (Flonase) 1 spr SEVERINO BID [facility] Last Admin: 03/10/17 17:55 Dose: 1 spr Heparin Sodium/Sodium Chloride (Heparin 26604 Units/250ml 1/2 Normal Saline) 25 ,000 units in 250 mls @ 0 mls/hr IV .Q0M PRN; Protocol; Per Protocol PRN Reason: PROTOCOL Last Admin: 03/09/17 23:05 Dose: 10 units/kg/hr, 6.577 mls/hr Cefepime HCl 1 gm/ Dextrose 50 mls @ 100 mls/hr IVPB Q24H [facility] Last Admin: 03/10/17 21:15 Dose: 100 mls/hr Pantoprazole Sodium (Protonix Ec Tab) 40 mg PO DAILY [facility] Last Admin: 03/10/17 10:37 Dose: 40 mg - Labs Labs: 03/10/17 06:34 03/10/17 06:34 PT 14.1 SECONDS (9.7-12.2) H 03/08/17 08:51 INR 1.2 03/08/17 08:51 APTT 48 SECONDS (21-34) H 03/10/17 06:34 - Constitutional Appears: No Acute Distress - Head Exam Head Exam: NORMAL INSPECTION - Eye Exam Eye Exam: EOMI, PERRL - ENT Exam ENT Exam: Normal Oropharynx - Neck Exam Neck Exam: Normal Inspection - Respiratory Exam Respiratory Exam: Decreased Breath Sounds (BASES R>L.) - Cardiovascular Exam Cardiovascular Exam: Irregular Rhythm, +S1, +S2 - GI/Abdominal Exam GI & Abdominal Exam: Soft, Normal Bowel Sounds, Organomegaly (HEPATOMEGALY. ). absent: Tenderness - Extremities Exam Extremities Exam: Pedal Edema. absent: Calf Tenderness - Neurological Exam Neurological Exam: Awake, CN II-XII Intact, Reflexes Normal - Psychiatric Exam Psychiatric exam: Normal Mood - Skin Skin Exam: Normal Color, Warm Assessment and Plan (1) Leukocytosis Assessment & Plan: LEUKOCYTOSIS IS IMPROVING .wbc 11.4. h&h 11.5/36.7 .CONTINUE iv CEFEPIME 1 G EVERY 12 HOURLY FOR POSSIBLE RIGHT LOWER LOBE PNEUMONIA/ EFFUSION BLOOD CULTURES 03/08/17 NEGATIVE TO DATE. PATIENT AWAITING THORACENTESIS BY IR Status: Acute (2) Pleural effusion Status: Acute (3) CHF (congestive heart failure) Status: Acute (4) Liver masses Assessment & Plan: ABDOMINAL ULTRASOUND LIMITED; NOTED 2 SOLID MASSES LIVER ? METASTASIS OR HEPATOCELLULAR NEOPLASM. 2.6 CM HYPOECHOIC MASS PANCREATIC HEAD-SOLID VERSUS CYSTIC. WILL DISCUSS WITH PMD GI EVAL. CHECK CEA, [id number], [id number]. Status: Acute (5) Pericardial effusion Status: Acute (6) Atrial fibrillation with RVR Status: Acute
--- NOTE | 2017-03-11 20:50 | CP.PCM.PN ---
Subjective - Date & Time of Evaluation Date of Evaluation: 03/11/17 Time of Evaluation: 20:50 - Subjective Subjective: CHIEF COMPLAINTS TODAY : WEAK AND FATIGUED POOR APETITE ALB LOW CURRENTLY PT IS IN NSR ROS. HEENT : N. Resp : No cough, wheezing ,pleuritic CP ,or hemoptysis Cardio : No anginal CP, PND, orthopnea, palpitation GI : No abd.pain, n/v ,diarrhea or GI bleeding . 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 Musculoskel : No joint swelling , Derm : No rash Psych : Normal affect. Ext : No swelling ,calf pain PE. Pt. is alert awake in no distress. V.S As noted in the chart Head ,ear nose,throat and eyes : Normal. Neck : Supple with normal carotids. Lungs: Clear air entry. DECREASE IN BASES Heart : S1 & S2 normal with S4. No murmur. Abd : Soft non tender with normal bowel sounds. Neuro : Moves all ext. with no localized deficit. Ext : No edema with intact pulses.Non tender calves Derm : No rashes or decubitus ulcer. LABS/RADIOLOGY: ASSESSMENT/PLAN : ID/PULM EVAL NOTED WILL NEED FLIUD PATHOLOGY PT IN NSR ON LEVONEX CHECK TFT Objective - Vital Signs/Intake and Output Vital Signs (last 24 hours): Temp Pulse Resp BP Pulse Ox 97.2 F L 83 14 125/45 L 97 03/10/17 20:00 03/10/17 20:00 03/10/17 20:00 03/10/17 20:00 03/10/17 20:00 - Medications Medications: Current Medications Digoxin (Lanoxin) 0.25 mg PO DAILY@1800 [facility] Last Admin: 03/10/17 17:55 Dose: 0.25 mg Fluticasone Propionate (Flonase) 1 spr SEVERINO BID [facility] Last Admin: 03/10/17 17:55 Dose: 1 spr Heparin Sodium/Sodium Chloride (Heparin 84378 Units/250ml 1/2 Normal Saline) 25 ,000 units in 250 mls @ 0 mls/hr IV .Q0M PRN; Protocol; Per Protocol PRN Reason: PROTOCOL Last Admin: 03/09/17 23:05 Dose: 10 units/kg/hr, 6.577 mls/hr Cefepime HCl 1 gm/ Dextrose 50 mls @ 100 mls/hr IVPB Q24H [facility] Last Admin: 03/10/17 21:15 Dose: 100 mls/hr Pantoprazole Sodium (Protonix Ec Tab) 40 mg PO DAILY [facility] Last Admin: 03/10/17 10:37 Dose: 40 mg - Labs Labs: 03/10/17 06:34 03/10/17 06:34 PT 14.1 SECONDS (9.7-12.2) H 03/08/17 08:51 INR 1.2 03/08/17 08:51 APTT 48 SECONDS (21-34) H 03/10/17 06:34
--- NOTE | 2017-03-11 22:56 | CP.PCM.PN ---
Subjective - Date & Time of Evaluation Date of Evaluation: 03/11/17 Time of Evaluation: 22:56 - Subjective Subjective: afebrile Complains of very poor appetite. States she is trying to drink much fluids by her side patient encouraged to eat as patient has generalized anasarca most likely secondary to hypoalbuminemia. Objective - Vital Signs/Intake and Output Vital Signs (last 24 hours): Temp Pulse Resp BP Pulse Ox 97.5 F L 81 20 153/63 H 94 L 03/11/17 22:47 03/11/17 22:47 03/11/17 22:47 03/11/17 22:47 03/11/17 22:47 Intake and Output: 03/11/17 03/12/17 18:59 06:59 Intake Total 6.6 Balance 6.6 - Medications Medications: Current Medications Digoxin (Lanoxin) 0.25 mg PO DAILY@1800 [facility] Last Admin: 03/10/17 17:55 Dose: 0.25 mg Fluticasone Propionate (Flonase) 1 spr SEVERINO BID [facility] Last Admin: 03/10/17 17:55 Dose: 1 spr Heparin Sodium/Sodium Chloride (Heparin 35380 Units/250ml 1/2 Normal Saline) 25 ,000 units in 250 mls @ 0 mls/hr IV .Q0M PRN; Protocol; Per Protocol PRN Reason: PROTOCOL Last Admin: 03/09/17 23:05 Dose: 10 units/kg/hr, 6.577 mls/hr Cefepime HCl 1 gm/ Dextrose 50 mls @ 100 mls/hr IVPB Q24H [facility] Last Admin: 03/11/17 21:00 Dose: 100 mls/hr Pantoprazole Sodium (Protonix Ec Tab) 40 mg PO DAILY [facility] Last Admin: 03/10/17 10:37 Dose: 40 mg - Labs Labs: 03/10/17 06:34 03/10/17 06:34 PT 14.1 SECONDS (9.7-12.2) H 03/08/17 08:51 INR 1.2 03/08/17 08:51 APTT 48 SECONDS (21-34) H 03/10/17 06:34 - Constitutional Appears: No Acute Distress - Head Exam Head Exam: NORMAL INSPECTION - Eye Exam Eye Exam: EOMI, PERRL - ENT Exam ENT Exam: Normal Oropharynx - Neck Exam Neck Exam: Normal Inspection - Respiratory Exam Respiratory Exam: Decreased Breath Sounds (by basilar.) - Cardiovascular Exam Cardiovascular Exam: Irregular Rhythm, +S1, +S2 - GI/Abdominal Exam GI & Abdominal Exam: Soft, Normal Bowel Sounds, Organomegaly. absent: Tenderness - Extremities Exam Extremities Exam: Pedal Edema (2+). absent: Calf Tenderness - Neurological Exam Neurological Exam: Alert, Awake, CN II-XII Intact, Oriented x3 - Psychiatric Exam Psychiatric exam: Normal Mood - Skin Skin Exam: Normal Color, Warm Assessment and Plan (1) Leukocytosis Assessment & Plan: f/u cbc with this Continue IV cefepime 1 g once a day daily patient awaiting IR for thoracentesis. Status: Acute (2) Pleural effusion Assessment & Plan: patient awaiting thoracentesis by IR. Pleural fluid to be sent for cell count and differential, Proteins, glucose, LDH, cytology. Pleural fluid Gram stain and culture Pleural fluid were AFB smear and culture. Pleural fluid for fungus and culture. continue IV cefepime 1 g once a day daily for now Status: Acute (3) CHF (congestive heart failure) Status: Acute (4) Liver masses Assessment & Plan: ABDOMINAL ULTRASOUND LIMITED; NOTED 2 SOLID MASSES LIVER ? METASTASIS OR HEPATOCELLULAR NEOPLASM. 2.6 CM HYPOECHOIC MASS PANCREATIC HEAD-SOLID VERSUS CYSTIC. WILL DISCUSS WITH PMD GI EVAL. CHECK CEA, [id number], [id number] Status: Acute (5) Pericardial effusion Status: Acute (6) Atrial fibrillation with RVR Status: Acute
[2017-03-11 23:52] LABS: ALB/GLOB RATIO 0.5 (1.0-2.1); ALKALINE PHOSPHATASE 64 U/L (38-126); ALT/SGPT 35 U/L (9-52); AST/SGOT 43 U/L (14-36); BILIRUBIN,TOTAL 0.6 mg/dL (0.2-1.3); BLOOD UREA NITROGEN 28 mg/dL (7-17); CALCIUM 7.1 mg/dl (8.6-10.4); CARBON DIOXIDE 24 mmol/L (22-30); CHLORIDE 106 mmol/L (98-107); FREE T4 1.53 ng/dL (0.78-2.19); GFR AFRICAN-AMERICAN > 60; GLUCOSE,RANDOM 73 mg/dL (65-105); POTASSIUM 3.9 mmol/L (3.6-5.2); SODIUM 138 mmol/L (132-148); TOTAL PROTEIN 5.2 g/dL (6.3-8.3)
[2017-03-12 07:11] LABS: THYROID STIMULATING HORMONE 8.22 mIU/L (0.46-4.68)
[2017-03-12 08:26] LABS: BASO % 0.3 % (0.0-2.0); EOS # 0.3 K/uL (0.0-0.7); EOS % 2.6 % (0.0-4.0); HEMATOCRIT 34.8 % (34.0-47.0); LYMPH % 7.6 % (20.0-40.0); MEAN CELL VOLUME 83.5 fL (81.0-99.0); MEAN CORPUSCULAR HEMOGLOBIN 25.8 pg (27.0-31.0); MEAN CORPUSCULAR HGB CONC 30.9 g/dL (33.0-37.0); PLATELET COUNT 288 K/uL (130-400); RED CELL DISTRIBUTION WIDTH 18.6 % (11.5-14.5); WHITE BLOOD COUNT 12.6 K/uL (4.8-10.8)
[2017-03-12 08:47] LABS: BASO # 0.1 K/uL (0.0-0.2); BASO % 0.4 % (0.0-2.0); EOS # 0.3 K/uL (0.0-0.7); EOS % 2.4 % (0.0-4.0); HEMATOCRIT 34.5 % (34.0-47.0); LYMPH % 8.1 % (20.0-40.0); MEAN CELL VOLUME 82.8 fL (81.0-99.0); MEAN CORPUSCULAR HEMOGLOBIN 26.3 pg (27.0-31.0); MEAN CORPUSCULAR HGB CONC 31.8 g/dL (33.0-37.0); MEAN PLATELET VOLUME 8.4 fL (7.2-11.7); MONO # 0.9 K/uL (0.0-0.8); MONO % 6.8 % (0.0-10.0); PLATELET COUNT 279 K/uL (130-400); RED CELL DISTRIBUTION WIDTH 18.6 % (11.5-14.5); WHITE BLOOD COUNT 12.5 K/uL (4.8-10.8)
[2017-03-12 08:54] LABS: EOSINOPHIL 2 % (0-4); NEUTROPHIL 84 % (50-75); TOTAL CELLS COUNTED 100
--- NOTE | 2017-03-12 09:12 | PCM.SURG1 ---
Surgeon's Initial Post Op Note - Surgeon's Notes Surgeon: Lex Kerr MD Cleaner Assistant: NONE Type of Anesthesia: Local Pre-Operative Diagnosis: Pleural effusion Operative Findings: US right lung showed a trace right pleural effusion. US left lung showed moderate pleural effusion. Post-Operative Diagnosis: Pleural effusion Operation Performed: US guided left thoracentesis. Specimen/Specimens Removed: 700 cc of clear fluid Estimated Blood Loss: EBL {In ML}: 0 Blood Products Given: N/A Drains Used: No Drains Post-Op Condition: Fair Date of Surgery/Procedure: 03/12/17 Time of Surgery/Procedure: 09:10
[2017-03-12 09:13] LABS: CHLORIDE 106 mmol/L (98-107)
[2017-03-12 09:14] LABS: POTASSIUM 3.8 mmol/L (3.6-5.2); SODIUM 139 mmol/L (132-148)
[2017-03-12 09:16] LABS: BILIRUBIN,TOTAL 0.6 mg/dL (0.2-1.3); GFR AFRICAN-AMERICAN > 60
[2017-03-12 09:17] LABS: ALB/GLOB RATIO 0.5 (1.0-2.1); ALKALINE PHOSPHATASE 73 U/L (38-126); ALT/SGPT 35 U/L (9-52); AST/SGOT 44 U/L (14-36); BLOOD UREA NITROGEN 24 mg/dL (7-17); CALCIUM 7.2 mg/dl (8.6-10.4); CARBON DIOXIDE 25 mmol/L (22-30); GLUCOSE,RANDOM 66 mg/dL (65-105); TOTAL PROTEIN 5.3 g/dL (6.3-8.3)
[2017-03-12 09:36] LABS: CARCINOEMBRYONIC ANTIGEN 1.4 ng/mL (0-3.0)
--- NOTE | 2017-03-12 10:15 | RAD ---
HISTORY: Status post left thoracentesis. COMPARISON: 03/09/2017 FINDINGS: LUNGS: No pulmonary infiltrate. PLEURA: Small bilateral pleural effusion, right greater than left. No pneumothorax. CARDIOVASCULAR: Normal. OSSEOUS STRUCTURES: No significant abnormalities. VISUALIZED UPPER ABDOMEN: Normal. OTHER FINDINGS: None. IMPRESSION: Bilateral small pleural effusion. No significant interval change.
[2017-03-12 10:17] LABS: EOSINOPHIL 4 % (0-4); NEUTROPHIL 82 % (50-75); TOTAL CELLS COUNTED 100
[2017-03-12] MEDS: Pantoprazole 40 mg EC Tab PO SCH (10:47)
[2017-03-12] MEDS: Lidocaine 5% Patch TD SCH (10:51)
[2017-03-12] MEDS: Fluticasone Nasal 50 mcg/Spray NAS SCH ×2 (10:58→19:31)
--- NOTE | 2017-03-12 11:06 | US ---
PROCEDURE: Date of procedure: 03/12/2017 Procedure: 1. Ultrasound-guided left thoracentesis, CPT 72683 Medications: 6cc 1% Lidocaine HISTORY: Left pleural effusion, shortness of breath TECHNIQUE: Following informed consent ,the Patients' left chest was marked. Procedure time-out was called, and the patient was placed in the sitting position and limited ultrasound showed a moderate left effusion. The patient's left back was prepped and draped in the usual sterile fashion. After the skin was anesthetized with lidocaine, a drainage catheter was advanced under ultrasound guidance into the pleural space. Ultrasound-guided thoracentesis was performed. A total of 700 cubic centimeters of straw-colored fluid removed without complication. A Xeroform dressing was applied. IMPRESSION: Ultrasound guided left thoracentesis. There were no immediate complications.
[2017-03-12 12:28] LABS: INR 0.9
[2017-03-12 12:46] LABS: BODY FLUID TYPE PLEURAL/THORACENTESI
[2017-03-12 12:50] LABS: BF GROSS APPEARANCE CLEAR (CLEAR); BODY FLUID TOTAL COUNT 100 (0-0)
--- NOTE | 2017-03-12 13:29 | CP.PCM.PN ---
Subjective - Date & Time of Evaluation Date of Evaluation: 03/12/17 Time of Evaluation: 13:28 - Subjective Subjective: CHIEF COMPLAINTS TODAY : WEAK AND FATIGUED POOR APETITE ALB LOW CURRENTLY PT IS IN NSR S/P L PL TAP CLEAR 700 CC FLUID ROS. HEENT : N. Resp : No cough, wheezing ,pleuritic CP ,or hemoptysis Cardio : No anginal CP, PND, orthopnea, palpitation GI : No abd.pain, n/v ,diarrhea or GI bleeding . 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 Musculoskel : No joint swelling , Derm : No rash Psych : Normal affect. Ext : No swelling ,calf pain PE. Pt. is alert awake in no distress. V.S As noted in the chart Head ,ear nose,throat and eyes : Normal. Neck : Supple with normal carotids. Lungs: Clear air entry. DECREASE IN BASES Heart : S1 & S2 normal with S4. No murmur. Abd : Soft non tender with normal bowel sounds. Neuro : Moves all ext. with no localized deficit. Ext : No edema with intact pulses.Non tender calves Derm : No rashes or decubitus ulcer. LABS/RADIOLOGY: U/S MASS IN PANCREASE AND LIVER ASSESSMENT/PLAN : ID/PULM EVAL NOTED WILL NEED FLIUD PATHOLOGY PT IN NSR ON SC HEPARIN GI EVAL VRE IN URINE D/W ID Objective - Vital Signs/Intake and Output Vital Signs (last 24 hours): Temp Pulse Resp BP Pulse Ox 97.7 F 79 20 142/66 95 03/11/17 23:52 03/12/17 08:00 03/11/17 23:52 03/11/17 23:52 03/11/17 23:52 - Medications Medications: Current Medications Acetaminophen (Tylenol 325mg Tab) 650 mg PO Q6 PRN PRN Reason: Pain, moderate (4-7) Digoxin (Lanoxin) 0.25 mg PO DAILY@1800 [facility] Last Admin: 03/10/17 17:55 Dose: 0.25 mg Fluticasone Propionate (Flonase) 1 spr SEVERINO BID [facility] Last Admin: 03/12/17 10:58 Dose: Not Given Cefepime HCl 1 gm/ Dextrose 50 mls @ 100 mls/hr IVPB Q24H [facility] Last Admin: 03/11/17 21:00 Dose: 100 mls/hr Lidocaine (Lidoderm) 1 ea TD DAILY [facility] Last Admin: 03/12/17 10:51 Dose: 1 ea Pantoprazole Sodium (Protonix Ec Tab) 40 mg PO DAILY [facility] Last Admin: 03/12/17 10:47 Dose: 40 mg - Labs Labs: 03/12/17 08:14 03/12/17 08:14 PT 10.7 SECONDS (9.7-12.2) 03/12/17 12:08 INR 0.9 03/12/17 12:08 APTT 34 SECONDS (21-34) D 03/12/17 12:08
--- NOTE | 2017-03-12 13:33 | CP.PCM.PN ---
Subjective - Date & Time of Evaluation Date of Evaluation: 03/12/17 Time of Evaluation: 13:32 - Subjective Subjective: afebrile denies SOB OR COUGH. S/P thoracentesis. 700 cc clear fluid obtained. Feels weak. Objective - Vital Signs/Intake and Output Vital Signs (last 24 hours): Temp Pulse Resp BP Pulse Ox 97.7 F 79 20 142/66 95 03/11/17 23:52 03/12/17 08:00 03/11/17 23:52 03/11/17 23:52 03/11/17 23:52 Intake and Output: 03/12/17 03/12/17 06:59 18:59 Intake Total 6.6 Balance 6.6 - Medications Medications: Current Medications Acetaminophen (Tylenol 325mg Tab) 650 mg PO Q6 PRN PRN Reason: Pain, moderate (4-7) Digoxin (Lanoxin) 0.25 mg PO DAILY@1800 [facility] Last Admin: 03/10/17 17:55 Dose: 0.25 mg Fluticasone Propionate (Flonase) 1 spr SEVERINO BID [facility] Last Admin: 03/12/17 10:58 Dose: Not Given Heparin Sodium (Porcine) (Heparin) 5,000 units SC Q8 [facility] Cefepime HCl 1 gm/ Dextrose 50 mls @ 100 mls/hr IVPB Q24H [facility] Last Admin: 03/11/17 21:00 Dose: 100 mls/hr Lidocaine (Lidoderm) 1 ea TD DAILY [facility] Last Admin: 03/12/17 10:51 Dose: 1 ea Pantoprazole Sodium (Protonix Ec Tab) 40 mg PO DAILY [facility] Last Admin: 03/12/17 10:47 Dose: 40 mg - Labs Labs: 03/12/17 08:14 03/12/17 08:14 PT 10.7 SECONDS (9.7-12.2) 03/12/17 12:08 INR 0.9 03/12/17 12:08 APTT 34 SECONDS (21-34) D 03/12/17 12:08 - Constitutional Appears: No Acute Distress - Head Exam Head Exam: NORMAL INSPECTION - Eye Exam Eye Exam: EOMI, PERRL. absent: Scleral icterus - ENT Exam ENT Exam: Normal Oropharynx - Neck Exam Neck Exam: Normal Inspection - Respiratory Exam Respiratory Exam: Decreased Breath Sounds (bases) - Cardiovascular Exam Cardiovascular Exam: Irregular Rhythm, +S1, +S2 - GI/Abdominal Exam GI & Abdominal Exam: Soft, Normal Bowel Sounds. absent: Organomegaly - Extremities Exam Extremities Exam: Pedal Edema. absent: Calf Tenderness - Neurological Exam Neurological Exam: Awake, CN II-XII Intact, Oriented x3 - Psychiatric Exam Psychiatric exam: Normal Mood - Skin Skin Exam: Normal Color, Warm Assessment and Plan (1) Leukocytosis Assessment & Plan: Continue IV cefepime 1 g once a day daily S/P IR for thoracentesis. FOLLOW-UP FLUID CULTURES AND CELL COUNT WITH DIFFERENTIAL.. Status: Acute (2) Pleural effusion Assessment & Plan: S/P THORACENTESIS 03/12/17 . fLUID SENT FOR STUDIES/CULTURE Status: Acute (3) CHF (congestive heart failure) Status: Acute (4) Liver masses Assessment & Plan: GI CONSULT IN PROGRESS Status: Acute (5) Pericardial effusion Status: Acute (6) Atrial fibrillation with RVR Status: Acute
--- NOTE | 2017-03-12 14:55 | CP.PCM.PN ---
Subjective - Date & Time of Evaluation Date of Evaluation: 03/12/17 Time of Evaluation: 13:00 - Subjective Subjective: Patient seen and examined. Status post thoracentesis 700 mL of clear fluid removed Complaining of pain left shoulder but no shortness of breath Denies cough, denies fever or chills Objective - Vital Signs/Intake and Output Vital Signs (last 24 hours): Temp Pulse Resp BP Pulse Ox 97.5 F L 82 19 129/62 95 03/12/17 14:24 03/12/17 14:24 03/12/17 14:24 03/12/17 14:24 03/12/17 14:24 Intake and Output: 03/12/17 03/12/17 06:59 18:59 Intake Total 6.6 Balance 6.6 - Medications Medications: Current Medications Acetaminophen (Tylenol 325mg Tab) 650 mg PO Q6 PRN PRN Reason: Pain, moderate (4-7) Digoxin (Lanoxin) 0.25 mg PO DAILY@1800 [facility] 234 BEDS AT [facility] Last Admin: 03/10/17 17:55 Dose: 0.25 mg Fluticasone Propionate (Flonase) 1 spr SEVERINO BID [facility] 234 BEDS AT [facility] Last Admin: 03/12/17 10:58 Dose: Not Given Heparin Sodium (Porcine) (Heparin) 5,000 units SC Q8 [facility]S [facility]CLUDE 234 BEDS AT [facility] Cefepime HCl 1 gm/ Dextrose 50 mls @ 100 mls/hr IVPB Q24H [facility] 234 BEDS AT [facility] Last Admin: 03/11/17 21:00 Dose: 100 mls/hr Linezolid (Zyvox 600mg/300ml D5w) 600 mg in 300 mls @ 200 mls/hr IVPB Q12 [facility]CLUDE 234 BEDS AT [facility] Lidocaine (Lidoderm) 1 ea TD DAILY [facility] 234 B[facility]S AT [facility] Last Admin: 03/12/17 10:51 Dose: 1 ea Pantoprazole Sodium (Protonix Ec Tab) 40 mg PO DAILY [facility] 234 B[facility]S AT [facility] Last Admin: 03/12/17 10:47 Dose: 40 mg - Labs Labs: 03/12/17 08:14 03/12/17 08:14 PT 10.7 SECONDS (9.7-12.2) 03/12/17 12:08 INR 0.9 03/12/17 12:08 APTT 34 SECONDS (21-34) D 03/12/17 12:08 - Constitutional Appears: No Acute Distress - Head Exam Head Exam: ATRAUMATIC, NORMOCEPHALIC - Eye Exam Eye Exam: EOMI - Neck Exam Neck Exam: Normal Inspection - Respiratory Exam Respiratory Exam: Decreased Breath Sounds - Cardiovascular Exam Cardiovascular Exam: Irregular Rhythm - GI/Abdominal Exam GI & Abdominal Exam: Soft, Normal Bowel Sounds Assessment and Plan (1) Pleural effusion Status: Acute (2) New onset atrial fibrillation Status: Acute
[2017-03-12] MEDS: Linezolid 600 mg in D5W 300 ml 600 MG/300 ML BAG IVPB SCH ×2 (15:12→21:32)
--- NOTE | 2017-03-12 16:01 | CP.PCM.CON ---
<Sushil Birch - Last Filed: 03/12/17 16:21> History of Present Illness - History of Present Illness History of Present Illness: PGY4 GI Fellow Consult Note Patient is an 86yo female with PMHx significant for atrial fibrillation, HTN, diverticulosis and rectal prolapse with repair last week who presented from home following syncopal episode. The patient did well post-operatively and was discharged home where she continued to recover. Her does admit that the patient had decreased PO intake and was sleeping more than usual. On getting up from bed to walk to the restroom, she became dizzy and suffered a syncopal episode and subsequently brought in for further evaluation and work up. She has been noted to have a left sided pleural effusion and is s/p thoracentesis today. Our service has been consulted for abnormal findings on her recent abdominal imaging. In working up her rectal prolapse on her prior admission, a CT of the abdomen/pelvis revealed multiple liver masses as well as a pancreatic head lesion. Per the patient, she has known about these liver lesions since at least July of 2016 when she was being [place] [facility] [place] an unspecified gallbladder issue (unclear if cholecystitis or cholelithiasis). She had a cholecystectomy at that time and had liver lesion biopsies which were benign per the patient. She has had no follow up on this since. She denies any abdominal pain, nausea, vomiting, change in bowel habits. Does admit to decreased appetite and weight loss (though cannot specify amount of weight lost) . PMHx: See HPI PSHx: Cholecystectomy, appendectomy, repair of rectal prolapse, hernia repair FHx: Mother - DM, Sister - Colon cancer Social: Denies tobacco, EtOH or illicit drug use Endo: Colonoscopy - 03/03/17 - 1.1cm Tubular adenoma, diverticulosis Review of Systems - Constitutional Constitutional: Anorexia, Fatigue, Weight Loss. absent: Chills, Fever - EENT Eyes: absent: Change in Vision Nose/Mouth/Throat: absent: Sore Throat - Cardiovascular Cardiovascular: Dyspnea. absent: Chest Pain, Dyspnea on Exertion - Respiratory Respiratory: Dyspnea. absent: Cough, Excessive Mucous Production - Gastrointestinal Gastrointestinal: absent: Abdominal Pain, Constipation, Cramping, Diarrhea, Dyspepsia, Dysphagia, Heartburn, Hematemesis, Hematochezia, Melena, Nausea, Odynophagia, Vomiting - Genitourinary Genitourinary: absent: Dysuria, Urinary Frequency, Urinary Urgency - Musculoskeletal Musculoskeletal: absent: Back Pain, Neck Pain - Integumentary Integumentary: absent: New Lesions, Rash - Neurological Neurological: absent: Dizziness, Numbness, Focal Weakness - Psychiatric Psychiatric: Change in Appetite. absent: Anxiety, Depression - Endocrine Endocrine: Fatigue. absent: Polydipsia, Polyphagia, Polyuria - Hematologic/Lymphatic Hematologic: absent: Easy Bleeding, Easy Bruising, Lymphadenopathy Past Patient History - Infectious Disease Hx of Infectious Diseases: None - Past Medical History & Family History Past Medical History?: Yes - Past Social History Smoking Status: Never Smoked - CARDIAC Hx Hypertension: Yes - PULMONARY Hx Respiratory Disorders: No - NEUROLOGICAL Hx Neurological Disorder: No - HEENT Hx HEENT Problems: No - RENAL Hx Chronic Kidney Disease: No - ENDOCRINE/METABOLIC Hx Endocrine Disorders: No - HEMATOLOGICAL/ONCOLOGICAL Hx Anemia: Yes - INTEGUMENTARY Hx Dermatological Problems: No - MUSCULOSKELETAL/RHEUMATOLOGICAL Hx Falls: Yes - GASTROINTESTINAL Hx Gastrointestinal Disorders: No - GENITOURINARY/GYNECOLOGICAL Hx Genitourinary Disorders: No - PSYCHIATRIC Hx Substance Use: No - SURGICAL HISTORY Hx Appendectomy: Yes (when she was 15 yrs old) Hx Cholecystectomy: Yes (aug 14 2016) - ANESTHESIA Hx Anesthesia: Yes Hx Anesthesia Reactions: No Hx Malignant Hyperthermia: No Meds Allergies/Adverse Reactions: Allergies Allergy/AdvReac Type Severity Reaction Status Date / Time No Known Allergies Allergy Verified 03/08/17 08:25 - Medications Medications: Current Medications Acetaminophen (Tylenol 325mg Tab) 650 mg PO Q6 PRN PRN Reason: Pain, moderate (4-7) Digoxin (Lanoxin) 0.25 mg PO DAILY@1800 [facility] Last Admin: 03/10/17 17:55 Dose: 0.25 mg Fluticasone Propionate (Flonase) 1 spr SEVERINO BID [facility] Last Admin: 03/12/17 10:58 Dose: Not Given Heparin Sodium (Porcine) (Heparin) 5,000 units SC Q8 [facility] Last Admin: 03/12/17 15:11 Dose: 5,000 units Cefepime HCl 1 gm/ Dextrose 50 mls @ 100 mls/hr IVPB Q24H [facility] Last Admin: 03/11/17 21:00 Dose: 100 mls/hr Linezolid (Zyvox 600mg/300ml D5w) 600 mg in 300 mls @ 200 mls/hr IVPB Q12 [facility] Last Admin: 03/12/17 15:12 Dose: 200 mls/hr Lidocaine (Lidoderm) 1 ea TD DAILY [facility] Last Admin: 03/12/17 10:51 Dose: 1 ea Pantoprazole Sodium (Protonix Ec Tab) 40 mg PO DAILY [facility] Last Admin: 03/12/17 10:47 Dose: 40 mg Physical Exam - Constitutional Appears: Non-toxic - Eye Exam Eye Exam: EOMI, PERRL - ENT Exam ENT Exam: Mucous Membranes Dry - Respiratory Exam Respiratory Exam: Decreased Breath Sounds, Rales. absent: Rhonchi, Wheezes - Cardiovascular Exam Cardiovascular Exam: RRR, +S1, +S2 - GI/Abdominal Exam GI & Abdominal Exam: Normal Bowel Sounds, Soft, Tenderness (RLQ). absent: Distended, Firm, Guarding, Organomegaly, Rigid - Extremities Exam Additional comments: B/L LE edema - Neurological Exam Neurological exam: Alert, Oriented x3 - Psychiatric Exam Psychiatric exam: Normal Affect, Normal Mood - Skin Skin Exam: Dry, Warm Results - Vital Signs Recent Vital Signs: Last Vital Signs Temp 97.5 F L 03/12/17 14:24 Pulse 82 03/12/17 14:24 Resp 19 03/12/17 14:24 BP 129/62 03/12/17 14:24 Pulse Ox 95 03/12/17 14:24 - Labs Result Diagrams: 03/12/17 08:14 03/12/17 08:14 Labs: Laboratory Results - last 24 hr 03/11/17 03/11/17 03/11/17 06:00 06:00 06:00 WBC 12.6 H RBC 4.17 Hgb 10.8 L Hct 34.8 MCV 83.5 MCH 25.8 L MCHC 30.9 L RDW 18.6 H Plt Count 288 MPV 8.0 Neut % (Auto) 81.5 H Lymph % (Auto) 7.6 L Hoke % (Auto) 8.0 Eos % (Auto) 2.6 Baso % (Auto) 0.3 Neut # 10.3 H Lymph # 1.0 Hoke # 1.0 H Eos # 0.3 Baso # 0.0 Neutrophils % (Manual) 84 H Band Neutrophils % 6 H Lymphocytes % (Manual) 4 L Monocytes % (Manual) 4 Eosinophils % (Manual) 2 Platelet Estimate Normal Hypochromasia (manual) Slight Poikilocytosis (manual Slight Anisocytosis (manual) Slight Target Cells Tear Drop Cells [place]ka Cells PT INR APTT Sodium 138 Potassium 3.9 Chloride 106 Carbon Dioxide 24 Anion Gap 11 BUN 28 H Creatinine 0.8 Est GFR ( Amer) > 60 Est GFR (Non-Af Amer) > 60 Random Glucose 73 Calcium 7.1 L Total Bilirubin 0.6 AST 43 H ALT 35 Alkaline Phosphatase 64 Total Protein 5.2 L Albumin 1.8 L Globulin 3.5 Albumin/Globulin Ratio 0.5 L Carcinoembryonic Ag CA 19-9 Antigen Free T4 1.53 TSH 3rd Generation 8.22 H Fluid Source Fluid Appearance Fluid WBC Fluid RBC Fluid Tot Cell Count Fluid Neutrophils Fluid Lymphocytes Fld Monocyte/Macrophag Fluid Comment 03/12/17 03/12/17 03/12/17 08:14 08:14 08:14 WBC 12.5 H RBC 4.17 Hgb 11.0 Hct 34.5 MCV 82.8 MCH 26.3 L MCHC 31.8 L RDW 18.6 H Plt Count 279 MPV 8.4 Neut % (Auto) 82.3 H Lymph % (Auto) 8.1 L Hoke % (Auto) 6.8 Eos % (Auto) 2.4 Baso % (Auto) 0.4 Neut # 10.3 H Lymph # 1.0 Hoke # 0.9 H Eos # 0.3 Baso # 0.1 Neutrophils % (Manual) 82 H Band Neutrophils % Lymphocytes % (Manual) 7 L Monocytes % (Manual) 7 Eosinophils % (Manual) 4 Platelet Estimate Normal Hypochromasia (manual) Slight Poikilocytosis (manual Slight Anisocytosis (manual) Slight Target Cells Slight Tear Drop Cells Slight [place] Cells Slight PT INR APTT Sodium 139 Potassium 3.8 Chloride 106 Carbon Dioxide 25 Anion Gap 11 BUN 24 H Creatinine 0.9 Est GFR ( Amer) > 60 Est GFR (Non-Af Amer) 59 Random Glucose 66 Calcium 7.2 L Total Bilirubin 0.6 AST 44 H ALT 35 Alkaline Phosphatase 73 Total Protein 5.3 L Albumin 1.8 L Globulin 3.5 Albumin/Globulin Ratio 0.5 L Carcinoembryonic Ag 1.4 CA 19-9 Antigen 105 H D Free T4 TSH 3rd Generation Fluid Source Fluid Appearance Fluid WBC Fluid RBC Fluid Tot Cell Count Fluid Neutrophils Fluid Lymphocytes Fld Monocyte/Macrophag Fluid Comment 03/12/17 03/12/17 11:33 12:08 WBC RBC Hgb Hct MCV MCH MCHC RDW Plt Count MPV Neut % (Auto) Lymph % (Auto) Hoke % (Auto) Eos % (Auto) Baso % (Auto) Neut # Lymph # Hoke # Eos # Baso # Neutrophils % (Manual) Band Neutrophils % Lymphocytes % (Manual) Monocytes % (Manual) Eosinophils % (Manual) Platelet Estimate Hypochromasia (manual) Poikilocytosis (manual Anisocytosis (manual) Target Cells Tear Drop Cells [place] Cells PT 10.7 INR 0.9 APTT 34 D Sodium Potassium Chloride Carbon Dioxide Anion Gap BUN Creatinine Est GFR ( Amer) Est GFR (Non-Af Amer) Random Glucose Calcium Total Bilirubin AST ALT Alkaline Phosphatase Total Protein Albumin Globulin Albumin/Globulin Ratio Carcinoembryonic Ag CA 19-9 Antigen Free T4 TSH 3rd Generation Fluid Source Pleural/thoracentesi Fluid Appearance Clear Fluid WBC 178.0 Fluid RBC 27.0 H Fluid Tot Cell Count 100 H Fluid Neutrophils 3.0 H Fluid Lymphocytes 91.0 H Fld Monocyte/Macrophag 5 H Fluid Comment Assessment & Plan - Assessment and Plan (Free Text) Assessment: Patient is an 86yo female with PMHx significant for atrial fibrillation, HTN, diverticulosis and rectal prolapse with repair last week who presented from home following syncopal episode. Our service has been consulted for abnormal abdominal imaging. -Pancreatic and liver masses on imaging -Unintentional weight loss -Anorexia -Diverticulosis -Paroxysmal atrial fibrillation with RVR Plan: -Will order Pancreatic protocol CT to evaluate lesion; will be able to assess liver lesions as this is a triple phase scan -Despite records from prior biopsy, would likely benefit from another attempt at tissue diagnosis of these lesions -Given size of lesion and location on periphery, liver mass may be most easily accessed via IR biopsy -Await imaging report and plan per findings -Elevated tumor markers noted -Diet as tolerated -Dietary supplements as ordered - Date & Time Date: 03/12/17 Time: 16:24 <Ofelia Tucker - Last Filed: 03/12/17 17:27> Meds - Medications Medications: Current Medications Acetaminophen (Tylenol 325mg Tab) 650 mg PO Q6 PRN PRN Reason: Pain, moderate (4-7) Digoxin (Lanoxin) 0.25 mg PO DAILY@1800 [facility] Last Admin: 03/10/17 17:55 Dose: 0.25 mg Fluticasone Propionate (Flonase) 1 spr SEVERINO BID [facility] Last Admin: 03/12/17 10:58 Dose: Not Given Heparin Sodium (Porcine) (Heparin) 5,000 units SC Q8 [facility] Last Admin: 03/12/17 15:11 Dose: 5,000 units Cefepime HCl 1 gm/ Dextrose 50 mls @ 100 mls/hr IVPB Q24H [facility] Last Admin: 03/11/17 21:00 Dose: 100 mls/hr Linezolid (Zyvox 600mg/300ml D5w) 600 mg in 300 mls @ 200 mls/hr IVPB Q12 [facility] Last Admin: 03/12/17 15:12 Dose: 200 mls/hr Lidocaine (Lidoderm) 1 ea TD DAILY [facility] Last Admin: 03/12/17 10:51 Dose: 1 ea Pantoprazole Sodium (Protonix Ec Tab) 40 mg PO DAILY [facility] Last Admin: 03/12/17 10:47 Dose: 40 mg Results - Vital Signs Recent Vital Signs: Last Vital Signs Temp 97.5 F L 03/12/17 14:24 Pulse 82 03/12/17 14:24 Resp 19 03/12/17 14:24 BP 129/62 03/12/17 14:24 Pulse Ox 95 03/12/17 14:24 - Labs Result Diagrams: 03/12/17 08:14 03/12/17 08:14 Labs: Laboratory Results - last 24 hr 03/11/17 03/11/17 03/11/17 06:00 06:00 06:00 WBC 12.6 H RBC 4.17 Hgb 10.8 L Hct 34.8 MCV 83.5 MCH 25.8 L MCHC 30.9 L RDW 18.6 H Plt Count 288 MPV 8.0 Neut % (Auto) 81.5 H Lymph % (Auto) 7.6 L Hoke % (Auto) 8.0 Eos % (Auto) 2.6 Baso % (Auto) 0.3 Neut # 10.3 H Lymph # 1.0 Hoke # 1.0 H Eos # 0.3 Baso # 0.0 Neutrophils % (Manual) 84 H Band Neutrophils % 6 H Lymphocytes % (Manual) 4 L Monocytes % (Manual) 4 Eosinophils % (Manual) 2 Platelet Estimate Normal Hypochromasia (manual) Slight Poikilocytosis (manual Slight Anisocytosis (manual) Slight Target Cells Tear Drop Cells Zuleyka Cells PT INR APTT Sodium 138 Potassium 3.9 Chloride 106 Carbon Dioxide 24 Anion Gap 11 BUN 28 H Creatinine 0.8 Est GFR ( Amer) > 60 Est GFR (Non-Af Amer) > 60 Random Glucose 73 Calcium 7.1 L Total Bilirubin 0.6 AST 43 H ALT 35 Alkaline Phosphatase 64 Total Protein 5.2 L Albumin 1.8 L Globulin 3.5 Albumin/Globulin Ratio 0.5 L Carcinoembryonic Ag CA 19-9 Antigen Free T4 1.53 TSH 3rd Generation 8.22 H Fluid Source Fluid Appearance Fluid WBC Fluid RBC Fluid Tot Cell Count Fluid Neutrophils Fluid Lymphocytes Fld Monocyte/Macrophag Fluid Comment 03/12/17 03/12/17 03/12/17 08:14 08:14 08:14 WBC 12.5 H RBC 4.17 Hgb 11.0 Hct 34.5 MCV 82.8 MCH 26.3 L MCHC 31.8 L RDW 18.6 H Plt Count 279 MPV 8.4 Neut % (Auto) 82.3 H Lymph % (Auto) 8.1 L H[place] % (Auto) 6.8 Eos % (Auto) 2.4 Baso % (Auto) 0.4 Neut # 10.3 H Lymph # 1.0 Hoke # 0.9 H Eos # 0.3 Baso # 0.1 Neutrophils % (Manual) 82 H Band Neutrophils % Lymphocytes % (Manual) 7 L Monocytes % (Manual) 7 Eosinophils % (Manual) 4 Platelet Estimate Normal Hypochromasia (manual) Slight Poikilocytosis (manual Slight Anisocytosis (manual) Slight Target Cells Slight Tear Drop Cells Slight [place] Cells Slight PT INR APTT Sodium 139 Potassium 3.8 Chloride 106 Carbon Dioxide 25 Anion Gap 11 BUN 24 H Creatinine 0.9 Est GFR ( Amer) > 60 Est GFR (Non-Af Amer) 59 Random Glucose 66 Calcium 7.2 L Total Bilirubin 0.6 AST 44 H ALT 35 Alkaline Phosphatase 73 Total Protein 5.3 L Albumin 1.8 L Globulin 3.5 Albumin/Globulin Ratio 0.5 L Carcinoembryonic Ag 1.4 CA 19-9 Antigen 105 H D Free T4 TSH 3rd Generation Fluid Source Fluid Appearance Fluid WBC Fluid RBC Fluid Tot Cell Count Fluid Neutrophils Fluid Lymphocytes Fld Monocyte/Macrophag Fluid Comment 03/12/17 03/12/17 11:33 12:08 WBC RBC Hgb Hct MCV MCH MCHC RDW Plt Count MPV Neut % (Auto) Lymph % (Auto) [place] % (Auto) Eos % (Auto) Baso % (Auto) Neut # Lymph # [place] # Eos # Baso # Neutrophils % (Manual) Band Neutrophils % Lymphocytes % (Manual) Monocytes % (Manual) Eosinophils % (Manual) Platelet Estimate Hypochromasia (manual) Poikilocytosis (manual Anisocytosis (manual) Target Cells Tear Drop Cells Z[place]ka Cells PT 10.7 INR 0.9 APTT 34 D Sodium Potassium Chloride Carbon Dioxide Anion Gap BUN Creatinine Est GFR ( Amer) Est GFR (Non-Af Amer) Random Glucose Calcium Total Bilirubin AST ALT Alkaline Phosphatase Total Protein Albumin Globulin Albumin/Globulin Ratio Carcinoembryonic Ag CA 19-9 Antigen Free T4 TSH 3rd Generation Fluid Source Pleural/thoracentesi Fluid Appearance Clear Fluid WBC 178.0 Fluid RBC 27.0 H Fluid Tot Cell Count 100 H Fluid Neutrophils 3.0 H Fluid Lymphocytes 91.0 H Fld Monocyte/Macrophag 5 H Fluid Comment Attending/Attestation - Attestation I have personally seen and examined this patient.: Yes I have fully participated in the care of the patient.: Yes I have reviewed all pertinent clinical information: Yes Notes (Text): Patient seen and examined with GI fellow. Agree with his note as documented above with the following additions/exceptions. present at bedside to corroborate history. This is an 86 year old female with h/o HTN, atrial fibrillation, recent hospitalization with rectal prolapse s/p repair who is admitted with syncopal episode. She is noted to have abnormal imaging with CT showing numerous liver lesions and abdominal sonogram showing solid liver lesions with possible pancreas mass. She reported has had liver lesions biops[place] last [place] [facility] ( per patient report negative). She denies any prior history of liver disease. No significant ETOH/tobacco history. No prior known episode of pancreatitis. She does admit to diminished appetite and weight loss recently. She has elevated Ca 19-9. Plan to continue supportive care, f/u thoracentesis fluid analysis. Will obtain CT pancreas protocol as well as liver imaging. She will ultimately require tissue acquisition/biopsy for confirmation. Diet as tolerated. Will continue to monitor and make recommendations pending clinical course. 03/12/17 17:22
[2017-03-12] MEDS: Digoxin 250 mcg (0.25 mg) Tab PO SCH (17:39)
--- NOTE | 2017-03-13 11:19 | CP.PCM.PN ---
<ApoloniakerimelchorSushil - Last Filed: 03/13/17 11:13> Subjective - Date & Time of Evaluation Date of Evaluation: 03/13/17 Time of Evaluation: 10:30 - Subjective Subjective: PGY4 GI Fellow Progress Note Patient seen and examined bedside this morning. The patient is very upset today , depressed even, regarding her medical state. She denies any specific complaints and actually believes she is feeling a bit better with much less pain in the right shoulder today which she had developed following thoracentesis. Denies any SOB, nausea, vomiting. Still with very poor PO intake and poor appetite. 12 system ROS performed and negative except where stated. Objective - Vital Signs/Intake and Output Vital Signs (last 24 hours): Temp Pulse Resp BP Pulse Ox 97.9 F 84 20 138/64 94 L 03/13/17 00:00 03/13/17 00:01 03/13/17 00:00 03/13/17 00:00 03/13/17 00:00 Intake and Output: 03/13/17 03/13/17 06:59 18:59 Intake Total 50 Balance 50 - Medications Medications: Current Medications Acetaminophen (Tylenol 325mg Tab) 650 mg PO Q6 PRN PRN Reason: Pain, moderate (4-7) Last Admin: 03/12/17 17:41 Dose: 650 mg Digoxin (Lanoxin) 0.25 mg PO DAILY@1800 [facility] Last Admin: 03/12/17 17:39 Dose: 0.25 mg Fluticasone Propionate (Flonase) 1 spr SEVERINO BID [facility] Last Admin: 03/12/17 19:31 Dose: 1 spr Heparin Sodium (Porcine) (Heparin) 5,000 units SC Q8 [facility] Last Admin: 03/13/17 05:19 Dose: 5,000 units Cefepime HCl 1 gm/ Dextrose 50 mls @ 100 mls/hr IVPB Q24H [facility] Last Admin: 03/12/17 21:28 Dose: 100 mls/hr Linezolid (Zyvox 600mg/300ml D5w) 600 mg in 300 mls @ 200 mls/hr IVPB Q12 [facility] Last Admin: 03/12/17 21:32 Dose: 200 mls/hr Lidocaine (Lidoderm) 1 ea TD DAILY [facility] Last Admin: 03/12/17 10:51 Dose: 1 ea Pantoprazole Sodium (Protonix Ec Tab) 40 mg PO DAILY [facility] Last Admin: 03/12/17 10:47 Dose: 40 mg - Labs Labs: 03/12/17 08:14 03/12/17 08:14 PT 10.7 SECONDS (9.7-12.2) 03/12/17 12:08 INR 0.9 03/12/17 12:08 APTT 34 SECONDS (21-34) D 03/12/17 12:08 - Constitutional Appears: Non-toxic, No Acute Distress - Eye Exam Eye Exam: EOMI, PERRL - ENT Exam ENT Exam: Mucous Membranes Moist - Respiratory Exam Respiratory Exam: Clear to Ausculation Bilateral. absent: Rales, Rhonchi, Wheezes - Cardiovascular Exam Cardiovascular Exam: RRR, +S1, +S2 - GI/Abdominal Exam GI & Abdominal Exam: Soft, Normal Bowel Sounds. absent: Distended, Firm, Guarding, Rigid, Tenderness - Extremities Exam Additional comments: B/L LE edema - Neurological Exam Neurological Exam: Alert, Awake, Oriented x3 - Psychiatric Exam Psychiatric exam: Depressed - Skin Skin Exam: Dry, Warm Assessment and Plan - Assessment and Plan (Free Text) Assessment: Patient is an 86yo female with PMHx significant for atrial fibrillation, HTN, diverticulosis and rectal prolapse with repair last week who presented from home following syncopal episode. Our service has been consulted for abnormal abdominal imaging. -Pancreatic and liver masses on imaging -Unintentional weight loss -Anorexia -Diverticulosis -Paroxysmal atrial fibrillation with RVR Plan: -Patient did not wish to have CT performed yesterday; will try to obtain today - Pancreatic protocol CT to evaluate lesion; will be able to assess liver lesions as this is a triple phase scan -Plan per results of above; may benefit from IR or endoscopic biopsy -Elevated tumor markers noted -Diet as tolerated, still with very poor intake -Dietary supplements as ordered -Given concern for potential malignancy, would avoid orexigenic agents like megace - could consider Mirtazapine/Amitriptyline or Marinol if necessary <Ofelia Tucker - Last Filed: 03/13/17 12:27> Objective - Vital Signs/Intake and Output Vital Signs (last 24 hours): Temp Pulse Resp BP Pulse Ox 97.9 F 84 20 138/64 94 L 03/13/17 00:00 03/13/17 00:01 03/13/17 00:00 03/13/17 00:00 03/13/17 00:00 Intake and Output: 03/13/17 03/13/17 06:59 18:59 Intake Total 50 Balance 50 - Medications Medications: Current Medications Acetaminophen (Tylenol 325mg Tab) 650 mg PO Q6 PRN PRN Reason: Pain, moderate (4-7) Last Admin: 03/12/17 17:41 Dose: 650 mg Digoxin (Lanoxin) 0.25 mg PO DAILY@1800 [facility] Last Admin: 03/12/17 17:39 Dose: 0.25 mg Fluticasone Propionate (Flonase) 1 spr SEVERINO BID [facility] Last Admin: 03/13/17 11:51 Dose: Not Given Heparin Sodium (Porcine) (Heparin) 5,000 units SC Q8 [facility] Last Admin: 03/13/17 05:19 Dose: 5,000 units Cefepime HCl 1 gm/ Dextrose 50 mls @ 100 mls/hr IVPB Q24H [facility] Last Admin: 03/12/17 21:28 Dose: 100 mls/hr Linezolid (Zyvox 600mg/300ml D5w) 600 mg in 300 mls @ 200 mls/hr IVPB Q12 [facility] Last Admin: 03/13/17 11:49 Dose: 200 mls/hr Lidocaine (Lidoderm) 1 ea TD DAILY [facility] Last Admin: 03/13/17 11:52 Dose: 1 ea Pantoprazole Sodium (Protonix Ec Tab) 40 mg PO DAILY [facility] Last Admin: 03/13/17 11:52 Dose: Not Given - Labs Labs: 03/12/17 08:14 03/12/17 08:14 PT 10.7 SECONDS (9.7-12.2) 03/12/17 12:08 INR 0.9 03/12/17 12:08 APTT 34 SECONDS (21-34) D 03/12/17 12:08 Attending/Attestation - Attestation I have personally seen and examined this patient.: Yes I have fully participated in the care of the patient.: Yes I have reviewed all pertinent clinical information, including history, physical exam and plan: Yes Notes (Text): Patient seen and examined with GI fellow. Agree with his note as documented above with the following additions/exceptions. This is an 86 year old female with h/o HTN, atrial fibrillation, recent hospitalization with rectal prolapse s /p repair who is admitted with syncopal episode. She has liver lesions and possible pancreatic mass with elevated Ca 19-9. She is awaiting CT pancreas protocol for further evaluation. Continue supportive care. Will make further recommendations pending CT/clinical course. 03/13/17 12:27
[2017-03-13] MEDS: Linezolid 600 mg in D5W 300 ml 600 MG/300 ML BAG IVPB SCH ×2 (11:49→22:06)
[2017-03-13] MEDS: Fluticasone Nasal 50 mcg/Spray NAS SCH ×2 (11:51→18:31)
[2017-03-13] MEDS: Pantoprazole 40 mg EC Tab PO SCH (11:52)
[2017-03-13] MEDS: Lidocaine 5% Patch TD SCH (11:52)
--- NOTE | 2017-03-13 13:44 | CP.PCM.PN ---
Subjective - Date & Time of Evaluation Date of Evaluation: 03/13/17 Time of Evaluation: 13:42 - Subjective Subjective: CHIEF COMPLAINTS TODAY : WEAK AND FATIGUED POOR APETITE ALB LOW CURRENTLY PT IS IN NSR S/P L PL TAP CLEAR [address] SCAN NOT DONE DUE TO PAIN IN SHOULDER ROS. HEENT : N. Resp : No cough, wheezing ,pleuritic CP ,or hemoptysis Cardio : No anginal CP, PND, orthopnea, palpitation GI : No abd.pain, n/v ,diarrhea or GI bleeding . 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 Musculoskel : No joint swelling , Derm : No rash Psych : Normal affect. Ext : No swelling ,calf pain PE. Pt. is alert awake in no distress. V.S As noted in the chart Head ,ear nose,throat and eyes : Normal. Neck : Supple with normal carotids. Lungs: Clear air entry. DECREASE IN BASES Heart : S1 & S2 normal with S4. No murmur. Abd : Soft non tender with normal bowel sounds. Neuro : Moves all ext. with no localized deficit. Ext : No edema with intact pulses.Non tender calves Derm : No rashes or decubitus ulcer. LABS/RADIOLOGY: U/S MASS IN PANCREASE AND LIVER ASSESSMENT/PLAN : FURTHER EVAL AFTER CT SCAN ENCOURAGE PO FLIUDS Objective - Vital Signs/Intake and Output Vital Signs (last 24 hours): Temp Pulse Resp BP Pulse Ox 97.9 F 84 20 138/64 94 L 03/13/17 00:00 03/13/17 00:01 03/13/17 00:00 03/13/17 00:00 03/13/17 00:00 - Medications Medications: Current Medications Acetaminophen (Tylenol 325mg Tab) 650 mg PO Q6 PRN PRN Reason: Pain, moderate (4-7) Last Admin: 03/12/17 17:41 Dose: 650 mg Digoxin (Lanoxin) 0.25 mg PO DAILY@1800 [facility] Last Admin: 03/12/17 17:39 Dose: 0.25 mg Fluticasone Propionate (Flonase) 1 spr SEVERINO BID [facility] Last Admin: 03/13/17 11:51 Dose: Not Given Heparin Sodium (Porcine) (Heparin) 5,000 units SC Q8 [facility] Last Admin: 03/13/17 05:19 Dose: 5,000 units Cefepime HCl 1 gm/ Dextrose 50 mls @ 100 mls/hr IVPB Q24H [facility] Last Admin: 03/12/17 21:28 Dose: 100 mls/hr Linezolid (Zyvox 600mg/300ml D5w) 600 mg in 300 mls @ 200 mls/hr IVPB Q12 [facility] Last Admin: 03/13/17 11:49 Dose: 200 mls/hr Lidocaine (Lidoderm) 1 ea TD DAILY [facility] Last Admin: 03/13/17 11:52 Dose: 1 ea Pantoprazole Sodium (Protonix Ec Tab) 40 mg PO DAILY [facility] Last Admin: 03/13/17 11:52 Dose: Not Given - Labs Labs: 03/12/17 08:14 03/12/17 08:14 PT 10.7 SECONDS (9.7-12.2) 03/12/17 12:08 INR 0.9 03/12/17 12:08 APTT 34 SECONDS (21-34) D 03/12/17 12:08
--- NOTE | 2017-03-13 13:53 | CP.PCM.PN ---
Subjective - Date & Time of Evaluation Date of Evaluation: 03/13/17 Time of Evaluation: 13:53 - Subjective Subjective: CHIEF COMPLAINTS TODAY : afebrile, awake alert. c/o generalized weakness and Rt. shoulder pain Appetite is still poor. CT SCAN NOT DONE DUE TO PAIN IN SHOULDER ROS. HEENT : N. Resp : No cough, wheezing ,pleuritic CP ,or hemoptysis Cardio : No anginal CP, PND, orthopnea, palpitation GI : No abd.pain, n/v ,diarrhea or GI bleeding . 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 Musculoskel : No joint swelling , Derm : No rash Psych : Normal affect. Ext : No swelling ,calf pain PE. Pt. is alert awake in no distress. V.S As noted in the chart Head ,ear nose,throat and eyes : Normal. Neck : Supple with normal carotids. Lungs: Clear air entry. DECREASE IN BASES Heart : S1 & S2 normal with S4. No murmur. Abd : Soft non tender with normal bowel sounds. Neuro : Moves all ext. with no localized deficit. Ext : No edema with intact pulses.Non tender calves Derm : No rashes or decubitus ulcer. LABS/RADIOLOGY: reviewed labs. urine culture>100,000cfu/ml VRE CA 19-9 105 HIGH (N 0-37 ) pleural fluid seen-lymphocytic pleural effusion consistent with transudate. U/S MASS IN PANCREASE AND LIVER ASSESSMENT; BILATERAL PLEURAL EFFUSIONS-S/P THORACENTESIS (TRANSUDATIVE ) UROSEPSIS (VRE ) PANCREATIC/LIVER MASSES ANOREXIA/HYPOALBUMINEMIA HYPOTHYROIDISM (TSH ELEVATED ) S/P RECTAL PROLAPSE REPAIR. /PLAN : PATIENT STARTED ON IV ZYVOX 600 MG EVERY 12 HOURLY 03/12/17 continue IV cefepime 1 g every 24 hourly. FURTHER EVAL AFTER CT SCAN -PANCREATIC PROTOCOL ORDERED BY GI ENCOURAGE PO FLIUDS/ STRICT CONTACT PRECAUTIONS. (VRE IN URINE ) Objective - Vital Signs/Intake and Output Vital Signs (last 24 hours): Temp Pulse Resp BP Pulse Ox 97.9 F 84 20 138/64 94 L 03/13/17 00:00 03/13/17 00:01 03/13/17 00:00 03/13/17 00:00 03/13/17 00:00 Intake and Output: 03/13/17 03/13/17 06:59 18:59 Intake Total 50 Balance 50 - Medications Medications: Current Medications Acetaminophen (Tylenol 325mg Tab) 650 mg PO Q6 PRN PRN Reason: Pain, moderate (4-7) Last Admin: 03/12/17 17:41 Dose: 650 mg Digoxin (Lanoxin) 0.25 mg PO DAILY@1800 [facility] Last Admin: 03/12/17 17:39 Dose: 0.25 mg Fluticasone Propionate (Flonase) 1 spr SEVERINO BID [facility] Last Admin: 03/13/17 11:51 Dose: Not Given Heparin Sodium (Porcine) (Heparin) 5,000 units SC Q8 [facility] Last Admin: 03/13/17 05:19 Dose: 5,000 units Cefepime HCl 1 gm/ Dextrose 50 mls @ 100 mls/hr IVPB Q24H [facility] Last Admin: 03/12/17 21:28 Dose: 100 mls/hr Linezolid (Zyvox 600mg/300ml D5w) 600 mg in 300 mls @ 200 mls/hr IVPB Q12 [facility] Last Admin: 03/13/17 11:49 Dose: 200 mls/hr Lidocaine (Lidoderm) 1 ea TD DAILY [facility] Last Admin: 03/13/17 11:52 Dose: 1 ea Pantoprazole Sodium (Protonix Ec Tab) 40 mg PO DAILY [facility] Last Admin: 03/13/17 11:52 Dose: Not Given - Labs Labs: 03/12/17 08:14 03/12/17 08:14 PT 10.7 SECONDS (9.7-12.2) 03/12/17 12:08 INR 0.9 03/12/17 12:08 APTT 34 SECONDS (21-34) D 03/12/17 12:08 Assessment and Plan (1) Leukocytosis Status: Acute (2) Pleural effusion Status: Acute (3) CHF (congestive heart failure) Status: Acute (4) Liver masses Status: Acute (5) Pericardial effusion Status: Acute (6) Atrial fibrillation with RVR Status: Acute
[2017-03-13] MEDS ORDERED: Iodixanol 320 MG/ML 100 ML BOTTLE IV ONE (14:22)
--- NOTE | 2017-03-13 17:17 | CT ---
CT abdomen and pelvis without/with IV contrast Indication: pancreatic and hepatic masses Technique: Contiguous axial images of the abdomen and pelvis without & with IV contrast utilizing pancreatic protocol. Coronal and Sagittal reformats generated and reviewed. This CT exam was performed using 1 or more of the falling dose reduction techniques: Automated exposure control, adjustment of the MAA and/or kV according to patient size, and/or use of iterative reconstruction technique. Contrast: 100 mL Visipaque. Oral contrast was not administered. Radiation dose: Total exam DLP = 2121.52 MGy-cm. Comparison: CT of the abdomen and pelvis without IV contrast performed 02/27/17 Findings: Partially imaged cardiomegaly. Small to moderate pericardial effusion. Small to moderate bilateral pleural effusions and associated consolidations. No visible pneumothorax. Cholecystectomy. Multiple hepatic masses predominantly within the right inferior hepatic lobe worrisome for metastatic disease. Small hypodense lesion near the falciform ligament measures approximately 8 mm. Largest mass resides within the right hepatic lobe measuring approximately 6.3 x 5.4 cm (series 4, image 60). Overall hypoattenuation of the hepatic parenchyma. Heterogeneous appearance of the pancreas. No discrete pancreatic mass identified. Multiple heterogeneous densities in the jonathan hepatis measuring up to 4.3 x 6.2 cm, possibly bulky neck/necrotic adenopathy. Extensive prominent mesenteric and retroperitoneal adenopathy. 11 mm lymph node adjacent to the aorta above the hemidiaphragm (series 6, image 59). Jonathan hepatis adenopathy compresses the portal confluence. No definite portal vein thrombus identified. Bilateral parapelvic cysts. The kidneys enhance symmetrically. No hydronephrosis or obstructing calculus identified. The adrenal glands appear unremarkable. 13 mm probable splenule. The spleen appears otherwise unremarkable. Small hiatal hernia/ distal esophageal wall thickening. The stomach is nondistended. The bowel loops appear within normal limits of caliber without evidence of intestinal obstruction. There is no definite free air. Diverticulosis without CT evidence of acute diverticulitis. Uterus is present. The urinary bladder appears unremarkable. Small to moderate pelvic ascites. Fluid within right inguinal hernia. Soft tissue edema. Osseous demineralization. Extensive severe multilevel degenerative changes. Scoliosis. Impression: Partially imaged cardiomegaly. Small to moderate pericardial effusion. Small to moderate bilateral pleural effusions and associated consolidations. Cholecystectomy. Multiple hepatic masses predominantly within the right inferior hepatic lobe worrisome for metastatic disease. Small hypodense lesion near the falciform ligament measures approximately 8 mm. Largest mass resides within the right hepatic lobe measuring approximately 6.3 x 5.4 cm. Masses appear hypoechoic centrally an are suspected necrotic. Correlate clinically. Overall hypoattenuation of the hepatic parenchyma. Heterogeneous appearance of the pancreas. No distinct pancreatic mass appreciated. Multiple heterogeneous densities in the jonathan hepatis measuring up to 4.3 x 6.2 cm, possibly bulky neck/necrotic adenopathy. Extensive prominent mesenteric and retroperitoneal adenopathy. 11 mm lymph node adjacent to the aorta above the hemidiaphragm. Jonathan hepatis adenopathy compresses the portal confluence. No definite portal vein thrombus identified. Small hiatal hernia/ distal esophageal wall thickening. Diverticulosis without CT evidence of acute diverticulitis. Small to moderate pelvic ascites. Additional findings as above.
[2017-03-13] MEDS: Digoxin 250 mcg (0.25 mg) Tab PO SCH (18:30)
--- NOTE | 2017-03-14 10:49 | CP.PCM.PN ---
<Sushil Birch - Last Filed: 03/14/17 10:46> Subjective - Date & Time of Evaluation Date of Evaluation: 03/14/17 Time of Evaluation: 09:15 - Subjective Subjective: PGY4 GI Fellow Progress Note Patient seen and examined bedside this morning. The patient is seen attempting to eat breakfast but states she simply has no appetite and food is unappealing. She denies admits to generalized weakness and overall appears depressed/ hopeless. Explained finding of large liver mass. Patient minimally conversant. 12 system ROS performed and negative except where stated. Objective - Vital Signs/Intake and Output Vital Signs (last 24 hours): Temp Pulse Resp BP Pulse Ox 97.5 F L 81 20 144/62 93 L 03/13/17 23:30 03/13/17 23:30 03/13/17 23:30 03/13/17 23:30 03/13/17 23:30 Intake and Output: 03/14/17 03/14/17 06:59 18:59 Intake Total 700 Balance 700 - Medications Medications: Current Medications Acetaminophen (Tylenol 325mg Tab) 650 mg PO Q6 PRN PRN Reason: Pain, moderate (4-7) Last Admin: 03/12/17 17:41 Dose: 650 mg Digoxin (Lanoxin) 0.25 mg PO DAILY@1800 [facility] Last Admin: 03/13/17 18:30 Dose: 0.25 mg Fluticasone Propionate (Flonase) 1 spr SEVERINO BID [facility] Last Admin: 03/13/17 18:31 Dose: 1 spr Heparin Sodium (Porcine) (Heparin) 5,000 units SC Q8 [facility] Last Admin: 03/14/17 05:10 Dose: 5,000 units Cefepime HCl 1 gm/ Dextrose 50 mls @ 100 mls/hr IVPB Q24H [facility] Last Admin: 03/13/17 22:06 Dose: 100 mls/hr Linezolid (Zyvox 600mg/300ml D5w) 600 mg in 300 mls @ 200 mls/hr IVPB Q12 [facility] Last Admin: 03/13/17 22:06 Dose: 200 mls/hr Lidocaine (Lidoderm) 1 ea TD DAILY [facility] Last Admin: 03/13/17 11:52 Dose: 1 ea Ondansetron HCl (Zofran Inj) 4 mg IVP Q6H PRN PRN Reason: Nausea/Vomiting Pantoprazole Sodium (Protonix Ec Tab) 40 mg PO DAILY [facility] Last Admin: 03/13/17 11:52 Dose: Not Given - Labs Labs: 03/12/17 08:14 03/12/17 08:14 PT 10.7 SECONDS (9.7-12.2) 03/12/17 12:08 INR 0.9 03/12/17 12:08 APTT 34 SECONDS (21-34) D 03/12/17 12:08 - Constitutional Appears: No Acute Distress - Eye Exam Eye Exam: EOMI, PERRL - ENT Exam ENT Exam: Mucous Membranes Dry - Respiratory Exam Respiratory Exam: Rales. absent: Clear to Ausculation Bilateral, Rhonchi, Wheezes - Cardiovascular Exam Cardiovascular Exam: RRR, +S1, +S2 - GI/Abdominal Exam GI & Abdominal Exam: Soft, Normal Bowel Sounds. absent: Distended, Firm, Guarding, Rigid, Tenderness, Organomegaly - Extremities Exam Additional comments: B/L LE edema - Neurological Exam Neurological Exam: Alert, Awake, Oriented x3 - Psychiatric Exam Psychiatric exam: Depressed - Skin Skin Exam: Dry, Warm Assessment and Plan - Assessment and Plan (Free Text) Assessment: Patient is an 86yo female with PMHx significant for atrial fibrillation, HTN, diverticulosis and rectal prolapse with repair last week who presented from home following syncopal episode. Our service has been consulted for abnormal abdominal imaging. -Pancreatic and liver masses on imaging -Unintentional weight loss -Anorexia -Diverticulosis -Paroxysmal atrial fibrillation with RVR -Depression Plan: -CT pancreatic protocol did not reveal any pancreatic lesions though did show multiple large hepatic masses -Largest massis about 6.3x5.4cm -If patient/family wish to proceed with obtaining a diagnosis, we recommend IR guided biopsy of the largest liver lesion -If patient/family do not wish to proceed with biopsy, could consider palliative evaluation and continue with supportive care -I strongly encourage patient to eat and ask that family bring in food from home that would be more pleasurable for patient -Elevated tumor markers noted -Dietary supplements as ordered -Consider appetite stimulant, especially in setting of suspected depression - something like Mirtazapine/Amitriptyline - could also consider psychiatric evaluation for assistance -Discussed case at length with and grandson (Todd) <Ofelia Tucker - Last Filed: 03/14/17 10:58> Objective - Vital Signs/Intake and Output Vital Signs (last 24 hours): Temp Pulse Resp BP Pulse Ox 97.5 F L 81 20 144/62 93 L 03/13/17 23:30 03/13/17 23:30 03/13/17 23:30 03/13/17 23:30 03/13/17 23:30 Intake and Output: 03/14/17 03/14/17 06:59 18:59 Intake Total 700 Balance 700 - Medications Medications: Current Medications Acetaminophen (Tylenol 325mg Tab) 650 mg PO Q6 PRN PRN Reason: Pain, moderate (4-7) Last Admin: 03/12/17 17:41 Dose: 650 mg Digoxin (Lanoxin) 0.25 mg PO DAILY@1800 [facility] Last Admin: 03/13/17 18:30 Dose: 0.25 mg Fluticasone Propionate (Flonase) 1 spr SEVERINO BID [facility] Last Admin: 03/13/17 18:31 Dose: 1 spr Heparin Sodium (Porcine) (Heparin) 5,000 units SC Q8 [facility] Last Admin: 03/14/17 05:10 Dose: 5,000 units Cefepime HCl 1 gm/ Dextrose 50 mls @ 100 mls/hr IVPB Q24H [facility] Last Admin: 03/13/17 22:06 Dose: 100 mls/hr Linezolid (Zyvox 600mg/300ml D5w) 600 mg in 300 mls @ 200 mls/hr IVPB Q12 [facility] Last Admin: 03/13/17 22:06 Dose: 200 mls/hr Lidocaine (Lidoderm) 1 ea TD DAILY [facility] Last Admin: 03/13/17 11:52 Dose: 1 ea Ondansetron HCl (Zofran Inj) 4 mg IVP Q6H PRN PRN Reason: Nausea/Vomiting Pantoprazole Sodium (Protonix Ec Tab) 40 mg PO DAILY [facility] Last Admin: 03/13/17 11:52 Dose: Not Given - Labs Labs: 03/12/17 08:14 03/12/17 08:14 PT 10.7 SECONDS (9.7-12.2) 03/12/17 12:08 INR 0.9 03/12/17 12:08 APTT 34 SECONDS (21-34) D 03/12/17 12:08 Attending/Attestation - Attestation I have personally seen and examined this patient.: Yes I have fully participated in the care of the patient.: Yes I have reviewed all pertinent clinical information, including history, physical exam and plan: Yes Notes (Text): Patient seen and examined with GI fellow. Agree with his note as documented above with the following additions/exceptions. This is an 86 year old female with h/o HTN, atrial fibrillation, recent hospitalization with rectal prolapse s/p repair who is admitted with syncopal episode. We are consulted for evaluation of liver lesions. CT showed largest liver lesions measuring 5-6cm, necroinflammatory components, with concern for possible metastatic disease. Prior colonoscopy 03/03 ([facility]) showing adenomatous descending colon polyp, diverticulosis. She complains of poor appetite, depression. Will speak to family re: CT findings; recommend IR guided biopsy for further evaluation. Further recommendations pending clinical course. 03/14/17 10:56
[2017-03-14] MEDS: Lidocaine 5% Patch TD SCH (11:52)
[2017-03-14] MEDS: Linezolid 600 mg in D5W 300 ml 600 MG/300 ML BAG IVPB SCH ×2 (11:52→21:31)
[2017-03-14] MEDS: Pantoprazole 40 mg EC Tab PO SCH (11:54)
[2017-03-14] MEDS: Fluticasone Nasal 50 mcg/Spray NAS SCH ×2 (11:55→18:01)
--- NOTE | 2017-03-14 14:35 | CP.PCM.PN ---
Subjective - Date & Time of Evaluation Date of Evaluation: 03/14/17 Time of Evaluation: 14:33 - Subjective Subjective: CHIEF COMPLAINTS TODAY : WEAK AND FATIGUED POOR APETITE ALB LOW CURRENTLY PT IS IN NSR CT PANCREASE : NO DIAZ. TUMOR. NECROTIC ADENOPATHY IN BOBBI HEPATIS AND LARGE MASS IN LIVER ROS. HEENT : N. Resp : No cough, wheezing ,pleuritic CP ,or hemoptysis Cardio : No anginal CP, PND, orthopnea, palpitation GI : No abd.pain, n/v ,diarrhea or GI bleeding . 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 Musculoskel : No joint swelling , Derm : No rash Psych : Normal affect. Ext : No swelling ,calf pain PE. Pt. is alert awake in no distress. V.S As noted in the chart Head ,ear nose,throat and eyes : Normal. Neck : Supple with normal carotids. Lungs: Clear air entry. DECREASE IN BASES Heart : S1 & S2 normal with S4. No murmur. Abd : Soft non tender with normal bowel sounds. Neuro : Moves all ext. with no localized deficit. Ext : No edema with intact pulses.Non tender calves Derm : No rashes or decubitus ulcer. LABS/RADIOLOGY: U/S MASS IN PANCREASE AND LIVER ASSESSMENT/PLAN : ENCOURAGE PO / D/W FAMILY ABOUT BIOPSY Objective - Vital Signs/Intake and Output Vital Signs (last 24 hours): Temp Pulse Resp BP Pulse Ox 97.5 F L 81 20 144/62 93 L 03/13/17 23:30 03/13/17 23:30 03/13/17 23:30 03/13/17 23:30 03/13/17 23:30 Intake and Output: 03/14/17 03/14/17 11:59 23:59 Intake Total 700 Balance 700 - Medications Medications: Current Medications Acetaminophen (Tylenol 325mg Tab) 650 mg PO Q6 PRN PRN Reason: Pain, moderate (4-7) Last Admin: 03/12/17 17:41 Dose: 650 mg Digoxin (Lanoxin) 0.25 mg PO DAILY@1800 [facility] Last Admin: 03/13/17 18:30 Dose: 0.25 mg Fluticasone Propionate (Flonase) 1 spr SEVERINO BID [facility] Last Admin: 03/14/17 11:55 Dose: 1 spr Heparin Sodium (Porcine) (Heparin) 5,000 units SC Q8 [facility] Last Admin: 03/14/17 13:07 Dose: 5,000 units Cefepime HCl 1 gm/ Dextrose 50 mls @ 100 mls/hr IVPB Q24H [facility] Last Admin: 03/13/17 22:06 Dose: 100 mls/hr Linezolid (Zyvox 600mg/300ml D5w) 600 mg in 300 mls @ 200 mls/hr IVPB Q12 [facility] Last Admin: 03/14/17 11:52 Dose: 200 mls/hr Lidocaine (Lidoderm) 1 ea TD DAILY [facility] Last Admin: 03/14/17 11:52 Dose: 1 ea Ondansetron HCl (Zofran Inj) 4 mg IVP Q6H PRN PRN Reason: Nausea/Vomiting Pantoprazole Sodium (Protonix Ec Tab) 40 mg PO DAILY [facility] Last Admin: 03/14/17 11:54 Dose: Not Given - Labs Labs: 03/12/17 08:14 03/12/17 08:14 PT 10.7 SECONDS (9.7-12.2) 03/12/17 12:08 INR 0.9 03/12/17 12:08 APTT 34 SECONDS (21-34) D 03/12/17 12:08
[2017-03-14] MEDS: Digoxin 250 mcg (0.25 mg) Tab PO SCH (18:01)
[2017-03-15 05:01] LABS: LDH PLEURAL FLUID 149 U/L
--- NOTE | 2017-03-15 08:29 | CP.PCM.PN ---
<Jessica Monzon - Last Filed: 03/15/17 09:46> Subjective - Date & Time of Evaluation Date of Evaluation: 03/15/17 Time of Evaluation: 08:27 - Subjective Subjective: Gastorenterology Fellow/PGY4 Progress Note Patient is oriented to person, place, and time. Continues to have poor appetite stating she is not hungry. Notes the shakes are too sweet. She notes being sad, having loss of interest in activities, and crying frequently since last admission for rectal prolapse. Admits to lower back pain. A 12-point review of systems negative except for as above. Objective - Vital Signs/Intake and Output Vital Signs (last 24 hours): Temp Pulse Resp BP Pulse Ox 97.6 F 52 L 19 122/56 L 96 03/15/17 00:00 03/15/17 04:00 03/15/17 00:00 03/15/17 00:00 03/15/17 00:00 Intake and Output: 03/15/17 03/15/17 06:59 18:59 Intake Total 300 Output Total 400 Balance -100 - Medications Medications: Current Medications Acetaminophen (Tylenol 325mg Tab) 650 mg PO Q6 PRN PRN Reason: Pain, moderate (4-7) Last Admin: 03/14/17 16:23 Dose: 650 mg Digoxin (Lanoxin) 0.25 mg PO DAILY@1800 [facility] Last Admin: 03/14/17 18:01 Dose: 0.25 mg Fluticasone Propionate (Flonase) 1 spr SEVERINO BID [facility] Last Admin: 03/14/17 18:01 Dose: 1 spr Heparin Sodium (Porcine) (Heparin) 5,000 units SC Q8 [facility] Last Admin: 03/15/17 05:07 Dose: 5,000 units Cefepime HCl 1 gm/ Dextrose 50 mls @ 100 mls/hr IVPB Q24H [facility] Last Admin: 03/14/17 21:31 Dose: 100 mls/hr Linezolid (Zyvox 600mg/300ml D5w) 600 mg in 300 mls @ 200 mls/hr IVPB Q12 [facility] Last Admin: 03/14/17 21:31 Dose: 200 mls/hr Lidocaine (Lidoderm) 1 ea TD DAILY [facility] Last Admin: 03/14/17 11:52 Dose: 1 ea Ondansetron HCl (Zofran Inj) 4 mg IVP Q6H PRN PRN Reason: Nausea/Vomiting Pantoprazole Sodium (Protonix Ec Tab) 40 mg PO DAILY [facility] Last Admin: 03/14/17 11:54 Dose: Not Given - Labs Labs: 03/12/17 08:14 03/12/17 08:14 PT 10.7 SECONDS (9.7-12.2) 03/12/17 12:08 INR 0.9 03/12/17 12:08 APTT 34 SECONDS (21-34) D 03/12/17 12:08 - Constitutional Appears: Non-toxic, No Acute Distress - Head Exam Head Exam: ATRAUMATIC, NORMOCEPHALIC - Eye Exam Eye Exam: EOMI, PERRL Pupil Exam: PERRL. absent: Miosis, Mydriatic - ENT Exam ENT Exam: Mucous Membranes Moist, Normal Oropharynx - Neck Exam Neck Exam: Full ROM, Normal Inspection - Respiratory Exam Respiratory Exam: Clear to Ausculation Bilateral. absent: Rales, Rhonchi, Wheezes - Cardiovascular Exam Cardiovascular Exam: RRR, +S1, +S2. absent: Gallop, Rubs - GI/Abdominal Exam GI & Abdominal Exam: Soft, Normal Bowel Sounds. absent: Distended, Firm, Guarding, Rigid, Tenderness, Organomegaly, Rebound - Extremities Exam Extremities Exam: Normal Inspection, Pedal Edema - Neurological Exam Neurological Exam: Alert, Awake, Oriented x3 - Psychiatric Exam Psychiatric exam: Normal Affect, Normal Mood - Skin Skin Exam: Dry, Intact, Normal Color, Warm Assessment and Plan - Assessment and Plan (Free Text) Assessment: 86 year old female with history of Atrial fibrillation, Hypertension, and POD9 ( 03/06) perineal repair with modified Altemeier approach of rectal prolapse presenting with syncopal episode. GI consultation for liver and pancreatic lesions on ultrasound. Colonoscopy 03/03 showed sigmoid/descending diverticulosis , proximal descending 11mm tubular adenoma, chronic inflammation at ileocecal valve, and stool in cecum. Plan: >CT pancreatic protocol- no pancreatic lesion, ascites -right inferior hepatic hypodensity with necrosis- max 6.3x5.4cm, santiago hepatis densities, max 4.3x6.2cm, adenopathy >patient wishes to discuss with family further intervention- recommend IR guided biopsy >consider palliative consult >consider psych evaluation for concern of depression >continue heart healthy diet with supplement shakes >start Megace >family discussion with and grandson await decision >will follow clinical course <Juan Thompson MD - Last Filed: 03/15/17 10:41> Objective - Vital Signs/Intake and Output Vital Signs (last 24 hours): Temp Pulse Resp BP Pulse Ox 97.6 F 52 L 19 122/56 L 96 03/15/17 00:00 03/15/17 04:00 03/15/17 00:00 03/15/17 00:00 03/15/17 00:00 Intake and Output: 03/15/17 03/15/17 06:59 18:59 Intake Total 300 Output Total 400 Balance -100 - Medications Medications: Current Medications Acetaminophen (Tylenol 325mg Tab) 650 mg PO Q6 PRN PRN Reason: Pain, moderate (4-7) Last Admin: 03/14/17 16:23 Dose: 650 mg Digoxin (Lanoxin) 0.25 mg PO DAILY@1800 [facility] Last Admin: 03/14/17 18:01 Dose: 0.25 mg Fluticasone Propionate (Flonase) 1 spr SEVERINO BID [facility] Last Admin: 03/15/17 10:02 Dose: 1 spr Heparin Sodium (Porcine) (Heparin) 5,000 units SC Q8 [facility] Last Admin: 03/15/17 05:07 Dose: 5,000 units Cefepime HCl 1 gm/ Dextrose 50 mls @ 100 mls/hr IVPB Q24H [facility] Last Admin: 03/14/17 21:31 Dose: 100 mls/hr Linezolid (Zyvox 600mg/300ml D5w) 600 mg in 300 mls @ 200 mls/hr IVPB Q12 [facility] Last Admin: 03/15/17 10:01 Dose: 200 mls/hr Lidocaine (Lidoderm) 1 ea TD DAILY [facility] Last Admin: 03/15/17 10:03 Dose: 1 ea Ondansetron HCl (Zofran Inj) 4 mg IVP Q6H PRN PRN Reason: Nausea/Vomiting Pantoprazole Sodium (Protonix Ec Tab) 40 mg PO DAILY [facility] Last Admin: 03/15/17 10:03 Dose: 40 mg - Labs Labs: 03/12/17 08:14 03/12/17 08:14 PT 10.7 SECONDS (9.7-12.2) 03/12/17 12:08 INR 0.9 03/12/17 12:08 APTT 34 SECONDS (21-34) D 03/12/17 12:08 Attending/Attestation - Attestation I have personally seen and examined this patient.: Yes I have fully participated in the care of the patient.: Yes I have reviewed all pertinent clinical information, including history, physical exam and plan: Yes Notes (Text): 03/15/17 10:36 patient seen by GI fellow on rounds. This is a 86 year old female with history of Atrial fibrillation, Hypertension, and s/p recent perineal repair of rectal prolapse presenting with syncopal episode. GI consultation for liver and pancreatic lesions on ultrasound. Colonoscopy 03/03 showed sigmoid/descending diverticulosis, proximal descending 11mm tubular adenoma, chronic inflammation at ileocecal valve, and stool in cecum. Concerning is CT pancreatic protocol read of 6 cm right inferior hepatic hypodensity with necrosis, santiago hepatis densities, and adenopathy. Patient does not wish to talk and has decreased appetite. Will start megace for appetite. Discuss with family regarding IR guided liver biopsy. Awaiting psych evaluation. Treat VRE as you are doing.
[2017-03-15] MEDS: Linezolid 600 mg in D5W 300 ml 600 MG/300 ML BAG IVPB SCH ×2 (10:01→22:14)
[2017-03-15] MEDS: Fluticasone Nasal 50 mcg/Spray NAS SCH ×2 (10:02→18:48)
[2017-03-15] MEDS: Pantoprazole 40 mg EC Tab PO SCH (10:03)
[2017-03-15] MEDS: Lidocaine 5% Patch TD SCH (10:03)
--- NOTE | 2017-03-15 13:53 | CP.PCM.PN ---
Subjective - Date & Time of Evaluation Date of Evaluation: 03/15/17 Time of Evaluation: 13:53 - Subjective Subjective: CHIEF COMPLAINTS TODAY : WEAK AND FATIGUED POOR APETITE ALB LOW CURRENTLY PT IS IN NSR CT PANCREASE : NO DIAZ. TUMOR. NECROTIC ADENOPATHY IN BOBBI HEPATIS AND LARGE MASS IN LIVER ROS. HEENT : N. Resp : No cough, wheezing ,pleuritic CP ,or hemoptysis Cardio : No anginal CP, PND, orthopnea, palpitation GI : No abd.pain, n/v ,diarrhea or GI bleeding . 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 Musculoskel : No joint swelling , Derm : No rash Psych : Normal affect. Ext : No swelling ,calf pain PE. Pt. is alert awake in no distress. V.S As noted in the chart Head ,ear nose,throat and eyes : Normal. Neck : Supple with normal carotids. Lungs: Clear air entry. DECREASE IN BASES Heart : S1 & S2 normal with S4. No murmur. Abd : Soft non tender with normal bowel sounds. Neuro : Moves all ext. with no localized deficit. Ext : No edema with intact pulses.Non tender calves Derm : No rashes or decubitus ulcer. LABS/RADIOLOGY: U/S MASS IN PANCREASE AND LIVER ASSESSMENT/PLAN : ENCOURAGE PO / D/W FAMILY ABOUT BIOPSY Objective - Vital Signs/Intake and Output Vital Signs (last 24 hours): Temp Pulse Resp BP Pulse Ox 97.6 F 52 L 19 122/56 L 96 03/15/17 00:00 03/15/17 04:00 03/15/17 00:00 03/15/17 00:00 03/15/17 00:00 Intake and Output: 03/15/17 03/15/17 11:59 23:59 Intake Total 300 Output Total 400 Balance -100 - Medications Medications: Current Medications Acetaminophen (Tylenol 325mg Tab) 650 mg PO Q6 PRN PRN Reason: Pain, moderate (4-7) Last Admin: 03/14/17 16:23 Dose: 650 mg Digoxin (Lanoxin) 0.25 mg PO DAILY@1800 [facility] Last Admin: 03/14/17 18:01 Dose: 0.25 mg Fluticasone Propionate (Flonase) 1 spr SEVERINO BID [facility] Last Admin: 03/15/17 10:02 Dose: 1 spr Heparin Sodium (Porcine) (Heparin) 5,000 units SC Q8 [facility] Last Admin: 03/15/17 05:07 Dose: 5,000 units Cefepime HCl 1 gm/ Dextrose 50 mls @ 100 mls/hr IVPB Q24H [facility] Last Admin: 03/14/17 21:31 Dose: 100 mls/hr Linezolid (Zyvox 600mg/300ml D5w) 600 mg in 300 mls @ 200 mls/hr IVPB Q12 [facility] Last Admin: 03/15/17 10:01 Dose: 200 mls/hr Lidocaine (Lidoderm) 1 ea TD DAILY [facility] Last Admin: 03/15/17 10:03 Dose: 1 ea Megestrol Acetate (Megace) 40 mg PO DAILY [facility] Ondansetron HCl (Zofran Inj) 4 mg IVP Q6H PRN PRN Reason: Nausea/Vomiting Pantoprazole Sodium (Protonix Ec Tab) 40 mg PO DAILY [facility] Last Admin: 03/15/17 10:03 Dose: 40 mg - Labs Labs: 03/12/17 08:14 03/12/17 08:14 PT 10.7 SECONDS (9.7-12.2) 03/12/17 12:08 INR 0.9 03/12/17 12:08 APTT 34 SECONDS (21-34) D 03/12/17 12:08
--- NOTE | 2017-03-15 14:00 | CP.PCM.PN ---
Subjective - Date & Time of Evaluation Date of Evaluation: 03/15/17 Time of Evaluation: 14:00 - Subjective Subjective: CHIEF COMPLAINTS TODAY : afebrile, awake generalized weakness Appetite is still poor. AND NIECE AT BEDSIDE. CT SCAN PANCREAS PROTOCOL DONE. -necrotic adenopathy bobbi hepatis. Multiple liver masses. ROS. HEENT : N. Resp : No cough, wheezing ,pleuritic CP ,or hemoptysis Cardio : No anginal CP, PND, orthopnea, palpitation GI : No abd.pain, n/v ,diarrhea or GI bleeding . RECTAL PAIN CHEMICAL PATHOLOGIST : No headache, vertigo, focal deficit. Musculoskel : No joint swelling , Derm : No rash Psych : Normal affect. Ext : No swelling ,calf pain PE. Pt. is alert awake in no distress. V.S As noted in the chart Head ,ear nose,throat and eyes : Normal. Neck : Supple with normal carotids. Lungs: Clear air entry. DECREASE IN BASES Heart : S1 & S2 normal with S4. No murmur. Abd : Soft non tender with normal bowel sounds. Neuro : Moves all ext. with no localized deficit. Ext : No edema with intact pulses.Non tender calves Derm : No rashes or decubitus ulcer. LABS/RADIOLOGY: reviewed labs. urine culture>100,000cfu/ml VRE CA 19-9 105 HIGH (N 0-37 ) pleural fluid seen-lymphocytic pleural effusion consistent with transudate. U/S MASS IN PANCREASE AND LIVER ASSESSMENT; BILATERAL PLEURAL EFFUSIONS-S/P THORACENTESIS (TRANSUDATIVE ) 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 /PLAN : ON IV ZYVOX 600 MG EVERY 12 HOURLY 03/12/17 DC IV cefepime 1 g every 24 hourly. F/U CXR discussed with family.still awaiting their decision FOR IR GUIDED BIOPSY. consider hyperalimentation/vs enteral feedings ENCOURAGE PO FLIUDS/ STRICT CONTACT PRECAUTIONS. (VRE IN URINE ) Objective - Vital Signs/Intake and Output Vital Signs (last 24 hours): Temp Pulse Resp BP Pulse Ox 97.6 F 52 L 19 122/56 L 96 03/15/17 00:00 03/15/17 04:00 03/15/17 00:00 03/15/17 00:00 03/15/17 00:00 Intake and Output: 03/15/17 03/15/17 06:59 18:59 Intake Total 300 Output Total 400 Balance -100 - Medications Medications: Current Medications Acetaminophen (Tylenol 325mg Tab) 650 mg PO Q6 PRN PRN Reason: Pain, moderate (4-7) Last Admin: 03/14/17 16:23 Dose: 650 mg Digoxin (Lanoxin) 0.25 mg PO DAILY@1800 [facility] Last Admin: 03/14/17 18:01 Dose: 0.25 mg Fluticasone Propionate (Flonase) 1 spr SEVERINO BID [facility] Last Admin: 03/15/17 10:02 Dose: 1 spr Cefepime HCl 1 gm/ Dextrose 50 mls @ 100 mls/hr IVPB Q24H [facility] Last Admin: 03/14/17 21:31 Dose: 100 mls/hr Linezolid (Zyvox 600mg/300ml D5w) 600 mg in 300 mls @ 200 mls/hr IVPB Q12 [facility] Last Admin: 03/15/17 10:01 Dose: 200 mls/hr Levothyroxine Sodium (Synthroid) 50 mcg PO DAILY@0630 [facility] Lidocaine (Lidoderm) 1 ea TD DAILY [facility] Last Admin: 03/15/17 10:03 Dose: 1 ea Megestrol Acetate (Megace) 40 mg PO DAILY [facility] Ondansetron HCl (Zofran Inj) 4 mg IVP Q6H PRN PRN Reason: Nausea/Vomiting Pantoprazole Sodium (Protonix Ec Tab) 40 mg PO DAILY [facility] Last Admin: 03/15/17 10:03 Dose: 40 mg - Labs Labs: 03/12/17 08:14 03/12/17 08:14 PT 10.7 SECONDS (9.7-12.2) 03/12/17 12:08 INR 0.9 03/12/17 12:08 APTT 34 SECONDS (21-34) D 03/12/17 12:08 Assessment and Plan (1) Leukocytosis Status: Acute (2) Pleural effusion Status: Acute (3) CHF (congestive heart failure) Status: Acute (4) Liver masses Status: Acute (5) Pericardial effusion Status: Acute (6) Atrial fibrillation with RVR Status: Acute
[2017-03-15] MEDS: Digoxin 250 mcg (0.25 mg) Tab PO SCH (18:48)
[2017-03-15 18:51] VITALS: PULSE 88
[2017-03-16] MEDS: Levothyroxine 50 MCG TAB PO SCH (05:37)
--- NOTE | 2017-03-16 06:58 | CP.PCM.PN ---
<Jessica Monzon - Last Filed: 03/16/17 08:29> Subjective - Date & Time of Evaluation Date of Evaluation: 03/16/17 Time of Evaluation: 06:56 - Subjective Subjective: Gastorenterology Fellow/PGY4 Progress Note Patient oriented to person, place, and time. States she feels tired and sad. She spent time with her family yesterday afternoon. But is depressed over bad news and doesn't want to talk about it. She states she does not want the biopsy of liver lesion. She continues to not want to eat with minimal liquid intake. A 12-point review of systems negative except for as above. Objective - Vital Signs/Intake and Output Vital Signs (last 24 hours): Temp Pulse Resp BP Pulse Ox 97.7 F 46 L 20 131/60 96 03/16/17 00:24 03/16/17 04:00 03/16/17 00:24 03/16/17 00:24 03/16/17 00:24 Intake and Output: 03/15/17 03/16/17 18:59 06:59 Intake Total 750 200 Output Total 1 Balance 750 199 - Medications Medications: Current Medications Acetaminophen (Tylenol 325mg Tab) 650 mg PO Q6 PRN PRN Reason: Pain, moderate (4-7) Last Admin: 03/14/17 16:23 Dose: 650 mg Digoxin (Lanoxin) 0.25 mg PO DAILY@1800 [facility] Last Admin: 03/15/17 18:48 Dose: 0.25 mg Fluticasone Propionate (Flonase) 1 spr SEVERINO BID [facility] Last Admin: 03/15/17 18:48 Dose: 1 spr Linezolid (Zyvox 600mg/300ml D5w) 600 mg in 300 mls @ 200 mls/hr IVPB Q12 [facility] Last Admin: 03/15/17 22:14 Dose: 200 mls/hr Levothyroxine Sodium (Synthroid) 50 mcg PO DAILY@0630 [facility] Last Admin: 03/16/17 05:37 Dose: 50 mcg Lidocaine (Lidoderm) 1 ea TD DAILY [facility] Last Admin: 03/15/17 10:03 Dose: 1 ea Megestrol Acetate (Megace) 40 mg PO DAILY [facility] Last Admin: 03/15/17 14:01 Dose: 40 mg Ondansetron HCl (Zofran Inj) 4 mg IVP Q6H PRN PRN Reason: Nausea/Vomiting Pantoprazole Sodium (Protonix Ec Tab) 40 mg PO DAILY [facility] Last Admin: 03/15/17 10:03 Dose: 40 mg - Labs Labs: 03/12/17 08:14 03/12/17 08:14 PT 10.7 SECONDS (9.7-12.2) 03/12/17 12:08 INR 0.9 03/12/17 12:08 APTT 34 SECONDS (21-34) D 03/12/17 12:08 - Constitutional Appears: Non-toxic, No Acute Distress - Head Exam Head Exam: ATRAUMATIC, NORMOCEPHALIC - Eye Exam Eye Exam: EOMI, PERRL Pupil Exam: PERRL. absent: Miosis, Mydriatic - ENT Exam ENT Exam: Mucous Membranes Moist, Normal Oropharynx - Neck Exam Neck Exam: Full ROM, Normal Inspection - Respiratory Exam Respiratory Exam: Clear to Ausculation Bilateral. absent: Rales, Rhonchi, Wheezes - Cardiovascular Exam Cardiovascular Exam: RRR, +S1, +S2. absent: Gallop, Rubs - GI/Abdominal Exam GI & Abdominal Exam: Soft, Normal Bowel Sounds. absent: Distended, Firm, Guarding, Rigid, Tenderness, Organomegaly, Rebound - Extremities Exam Extremities Exam: Normal Inspection. absent: Pedal Edema - Neurological Exam Neurological Exam: Alert, Awake, Oriented x3 - Psychiatric Exam Psychiatric exam: Normal Affect, Normal Mood - Skin Skin Exam: Dry, Intact, Normal Color, Warm Assessment and Plan - Assessment and Plan (Free Text) Assessment: 86 year old female with history of Atrial fibrillation, Hypertension, and POD10 (03/06) perineal repair with modified Altemeier approach of rectal prolapse presenting with syncopal episode. GI consultation for liver and pancreatic lesions on ultrasound. Colonoscopy 03/03 showed sigmoid/descending diverticulosis , proximal descending 11mm tubular adenoma, chronic inflammation at ileocecal valve, and incomplete exam due to stool in cecum. Plan: >CT pancreatic protocol- no pancreatic lesion, ascites -right inferior hepatic hypodensity with necrosis- max 6.3x5.4cm, santiago hepatis densities, max 4.3x6.2cm, adenopathy >patient endorses decision with family yesterday to not have IR guided biopsy ><will confirm decision with family today >request for PEG evaluation with poor appetite >Megace started 03/15 >heart healthy diet with supplement shakes >mentation intact and without dysphagia, depression likely contributing to food aversion >psych consulted ordered to evaluate for depression- follow up recommendations >discuss with family consideration of colonoscopy prior to PEG placement to evaluate for malignancy and possible liver metastatic disease >on Linezolid for VRE UTI >further recommendations based on family discussion <Sanya Kaur - Last Filed: 03/16/17 09:03> Objective - Vital Signs/Intake and Output Vital Signs (last 24 hours): Temp Pulse Resp BP Pulse Ox 97.8 F 53 L 22 115/67 95 03/16/17 07:18 03/16/17 07:18 03/16/17 07:18 03/16/17 07:18 03/16/17 07:18 Intake and Output: 03/16/17 03/16/17 06:59 18:59 Intake Total 200 Output Total 1 Balance 199 - Medications Medications: Current Medications Acetaminophen (Tylenol 325mg Tab) 650 mg PO Q6 PRN PRN Reason: Pain, moderate (4-7) Last Admin: 03/14/17 16:23 Dose: 650 mg Digoxin (Lanoxin) 0.25 mg PO DAILY@1800 [facility] Last Admin: 03/15/17 18:48 Dose: 0.25 mg Fluticasone Propionate (Flonase) 1 spr SEVERINO BID [facility] Last Admin: 03/15/17 18:48 Dose: 1 spr Linezolid (Zyvox 600mg/300ml D5w) 600 mg in 300 mls @ 200 mls/hr IVPB Q12 [facility] Last Admin: 03/15/17 22:14 Dose: 200 mls/hr Levothyroxine Sodium (Synthroid) 50 mcg PO DAILY@0630 [facility] Last Admin: 03/16/17 05:37 Dose: 50 mcg Lidocaine (Lidoderm) 1 ea TD DAILY [facility] Last Admin: 03/15/17 10:03 Dose: 1 ea Megestrol Acetate (Megace) 40 mg PO DAILY [facility] Last Admin: 03/15/17 14:01 Dose: 40 mg Ondansetron HCl (Zofran Inj) 4 mg IVP Q6H PRN PRN Reason: Nausea/Vomiting Pantoprazole Sodium (Protonix Ec Tab) 40 mg PO DAILY [facility] Last Admin: 03/15/17 10:03 Dose: 40 mg - Labs Labs: 03/12/17 08:14 03/12/17 08:14 PT 10.7 SECONDS (9.7-12.2) 03/12/17 12:08 INR 0.9 03/12/17 12:08 APTT 34 SECONDS (21-34) D 03/12/17 12:08 Attending/Attestation - Attestation I have personally seen and examined this patient.: Yes I have fully participated in the care of the patient.: Yes I have reviewed all pertinent clinical information, including history, physical exam and plan: Yes Notes (Text): 03/16/17 08:59 I have seen and examined patient with GI fellow. No acute events overnight. She endorses diffuse abdominal pain but denies nausea, vomiting, diarrhea, fever /chills. She continues to refuse PO diet and is aware of her actions. She had a bowel movement this morning which was normal as per patient. Review of vitals from today shows bradycardia. Atrial fibrillation HTN Rectal prolapse s/p surgical repair Liver lesion, unclear etiology. Viral hepatitis panel negative. Depression, food aversion UTI - Encourage diet as tolerated - Follow up psychiatric recommendations - Continue with antibiotic therapy as per ID - Await results of AFP - Patient would benefit from IR guided biopsy of liver lesion, though she is reluctant to undergo any further invasive testing. Will need to discuss with patient family members regarding overall goals of care and further treatment options.
--- NOTE | 2017-03-16 09:04 | RAD ---
PROCEDURE: CHEST RADIOGRAPH, 1 VIEW HISTORY: pneumonia COMPARISON: 03/12/2017 FINDINGS: LUNGS: Biapical pleural thickening with upper lobe granulomatous changes. Moderate venous congestion. Right hilar prominence. Patchy airspace opacities in the mid to lower lung zones with moderate bilateral pleural effusions. PLEURA: As above. CARDIOVASCULAR: Cardiomegaly. Calcification at the aortic knob. OSSEOUS STRUCTURES: Degenerative changes in the spine and shoulders. VISUALIZED UPPER ABDOMEN: Normal. OTHER FINDINGS: None. IMPRESSION: Biapical pleural thickening with upper lobe granulomatous changes. Moderate venous congestion. Right hilar prominence. Patchy airspace opacities in the mid to lower lung zones with moderate bilateral pleural effusions.
[2017-03-16] MEDS: Linezolid 600 mg in D5W 300 ml 600 MG/300 ML BAG IVPB SCH ×2 (10:37→22:57)
[2017-03-16] MEDS: Pantoprazole 40 mg EC Tab PO SCH (10:44)
[2017-03-16] MEDS: Lidocaine 5% Patch TD SCH (10:44)
[2017-03-16] MEDS: Fluticasone Nasal 50 mcg/Spray NAS SCH ×2 (10:52→18:00)
--- NOTE | 2017-03-16 11:18 | CON ---
DATE: 03/16/2017 CHIEF COMPLAINT AND REASON FOR CONSULTATION: The patient referred by Dr. Garcia as patient has been complaining of depression and very poor appetite. The patient also diagnosed to have a pancreatic mass. HISTORY OF PRESENT ILLNESS: This is the case of an 86-year-old female with a history of hypertension. The patient was admitted here for syncopal episode and also poor appetite. The patient was recently admitted to the hospital where she underwent surgical correction of rectal prolapse. The patient, on admission, was diagnosed to have atrial fibrillation new onset and noticed by the as well as to have progressive decrease in p.o. intake and poor appetite. She said she has no appetite and has been feeling depressed. The patient also has history of having a pancreatic mass. The patient had a CAT scan of the abdomen that showed multiple hepatic masses and also some pancreatic mass on the head. The patient referred for comanagement for depression as the patient is complaining that she feels depressed because she states that she is not getting better and that she is losing her appetite. PAST PSYCHIATRIC HISTORY: Denies any. PAST MEDICAL HISTORY: The patient has history of rectal prolapse, new onset atrial fibrillation, history of pericardial effusion, liver masses, pleural effusion. ALLERGIES: No known allergies. DRUG AND ALCOHOL HISTORY: Denies any. PSYCHOSOCIAL HISTORY: The patient lives with her . 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 CURRENT MEDICATIONS: List includes Flonase, Lanoxin, Megace, Lidoderm, Synthroid, Zofran, Zyvox. The patient has been followed by Dr. Analilia Carlos, infectious disease, and the patient is currently taking Zyvox for infection. LABORATORIES: On review, the patient's WBCs 12.5, hemoglobin is 11, hematocrit is 34.5. The patient's CA 19-9 antigen is markedly elevated 105. TSH 3rd generation is 8.22, elevated, but her free T4 is within normal limits. UA is presence of urine leukocyte esterase +3, presence of urine WBC 121. The patient has urine blood +1. The patient has urinary tract infection. VITAL SIGNS: Temperature is 98.7, pulse rate is 53, blood pressure 115/67, respirations 20, oxygen saturation 95%. REVIEW OF SYSTEMS: GENERAL: The patient is alert, oriented x 3, but feels very weak. She said she has no appetite. She feels depressed. SKIN: No diaphoresis. HEENT: No headache or dizziness. NECK: Supple. RESPIRATORY: No dyspnea. CARDIOVASCULAR: No chest pain. GASTROINTESTINAL: The patient reports she has no appetite. The patient did not even try to eat her breakfast. No nausea, no vomiting, no abdominal pain. EXTREMITIES: The patient states she cannot walk. She feels very weak. MUSCULOSKELETAL: Has generalized debility. NEUROLOGIC: Alert, oriented x 3. GENITOURINARY: No urinary problems. MENTAL STATUS EXAMINATION: Elderly female who looks stated age, alert and oriented x 3, looks depressed, seems to be distraught over her poor appetite. Speech spontaneous. Affect is reactive. Thought process coherent. Thought content, preoccupied about her poor appetite as well as her increasing weakness. No paranoia. No suicidal or homicidal ideation. Attention and memory seems to be fair. Insight and judgment fair. Impulse control is fair at this time. 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 PLAN AND RECOMMENDATION: The patient is seen, meds reviewed. The patient has history of new onset atrial fibrillation as well is currently taking Zyvox antibiotic. At this time, patient cannot be tried with selective serotonin reuptake inhibitor for depression. I was thinking of putting on Remeron, but because of the Zyvox, to avoid patient having farther cardiac complication and having serotonin syndrome from the combination of selective serotonin reuptake inhibitor and Zyvox. We will hold off any antidepressant for now. The patient also has new onset of atrial fibrillation, which is a relative contraindication if the patient could be started on psychostimulant. For now, we will hold off any psych medication until the patient is off Zyvox. The patient is currently taking Megace to improve appetite, but patient is depressed secondary to medical problems. Note, if this is a pancreatic cancer, there is a very high incidence of depression associated with pancreatic cancer and in fact 1 in every 4 patients may present with depression if it is related to her pancreatic cancer before the diagnosis. We will follow up patient accordingly. We will hold, as stated, any psych meds for now until the patient is off Zyvox. Thank you very much for the consult. Tre Freeman MD cc: [id number] TT: 03/16/2017 11:17:51 Confirmation # [id number] Dictation # [id number] en MTDD
--- NOTE | 2017-03-16 11:21 | CON ---
DATE: 03/16/2017 ADDENDUM The patient also may benefit from palliative care if there are no aggressive measures to treat if thi s is pancreatic cancer at this time. The patient is not having any distress at this time, but as sta danny, because of her age and also her other multiple medical conditions, the patient may benefit from palliative care evaluation. Tre Freeman MD cc: [phone] TT: 03/16/2017 11:20:08 Confirmation # [id number] Dictation # [id number] en
--- NOTE | 2017-03-16 13:12 | CP.PCM.PN ---
Subjective - Date & Time of Evaluation Date of Evaluation: 03/16/17 Time of Evaluation: 13:10 - Subjective Subjective: CHIEF COMPLAINTS TODAY : WEAK AND FATIGUED POOR APETITE ALB LOW CURRENTLY PT IS IN NSR CT PANCREASE : NO DIAZ. TUMOR. NECROTIC ADENOPATHY IN BOBBI HEPATIS AND LARGE MASS IN LIVER ROS. HEENT : N. Resp : No cough, wheezing ,pleuritic CP ,or hemoptysis Cardio : No anginal CP, PND, orthopnea, palpitation GI : No abd.pain, n/v ,diarrhea or GI bleeding . 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 Musculoskel : No joint swelling , Derm : No rash Psych : Normal affect. Ext : No swelling ,calf pain PE. Pt. is alert awake in no distress. V.S As noted in the chart Head ,ear nose,throat and eyes : Normal. Neck : Supple with normal carotids. Lungs: Clear air entry. DECREASE IN BASES Heart : S1 & S2 normal with S4. No murmur. Abd : Soft non tender with normal bowel sounds. Neuro : Moves all ext. with no localized deficit. Ext : No edema with intact pulses.Non tender calves Derm : No rashes or decubitus ulcer. LABS/RADIOLOGY: U/S MASS IN PANCREASE AND LIVER ASSESSMENT/PLAN : ENCOURAGE PO / D/W FAMILY ABOUT BIOPSY D/W FAMILY TO INERT PEG EXTENSIVE D/W NIECE JOLANTA BOLAÑOS, [facility] [place] RN, AWAITING FAMILY RESPONSE Objective - Vital Signs/Intake and Output Vital Signs (last 24 hours): Temp Pulse Resp BP Pulse Ox 97.6 F 45 L 22 117/43 L 97 03/16/17 12:26 03/16/17 12:26 03/16/17 12:26 03/16/17 12:26 03/16/17 12:26 Intake and Output: 03/16/17 03/16/17 11:59 23:59 Intake Total 200 Output Total 1 Balance 199 - Medications Medications: Current Medications Acetaminophen (Tylenol 325mg Tab) 650 mg PO Q6 PRN PRN Reason: Pain, moderate (4-7) Last Admin: 03/14/17 16:23 Dose: 650 mg Fluticasone Propionate (Flonase) 1 spr SEVERINO BID [facility] Last Admin: 03/16/17 10:52 Dose: 1 spr Linezolid (Zyvox 600mg/300ml D5w) 600 mg in 300 mls @ 200 mls/hr IVPB Q12 [facility] Last Admin: 03/16/17 10:37 Dose: 200 mls/hr Levothyroxine Sodium (Synthroid) 50 mcg PO DAILY@0630 [facility] Last Admin: 03/16/17 05:37 Dose: 50 mcg Lidocaine (Lidoderm) 1 ea TD DAILY [facility] Last Admin: 03/16/17 10:44 Dose: 1 ea Megestrol Acetate (Megace) 40 mg PO DAILY [facility] Last Admin: 03/16/17 10:44 Dose: 40 mg Ondansetron HCl (Zofran Inj) 4 mg IVP Q6H PRN PRN Reason: Nausea/Vomiting Pantoprazole Sodium (Protonix Ec Tab) 40 mg PO DAILY [facility] Last Admin: 03/16/17 10:44 Dose: 40 mg - Labs Labs: 03/12/17 08:14 03/12/17 08:14 PT 10.7 SECONDS (9.7-12.2) 03/12/17 12:08 INR 0.9 03/12/17 12:08 APTT 34 SECONDS (21-34) D 03/12/17 12:08
--- NOTE | 2017-03-16 13:43 | CP.PCM.CON ---
History of Present Illness - History of Present Illness History of Present Illness: Palliative consult Requested by Myron ROMANO Reason: Goals of care Patient is a 86 yo female admitted with SOB and S/P syncopy at home. The diagnostic studies here at were significant for metastatic liver disease. CT head was negative acute findings. Over the course of hospital stay, despite all prudent measures applied patient's condition has declined. Patient has very poor PO intake and appears very weak. PMH: HTN, anemia, rectal prolapse, corrected by Doctor Haroon James. Hx: , lives at home Fam. Hx: unknown Review of Systems - Review of Systems Systems not reviewed;Unavailable: Acuity of Condition Past Patient History - Infectious Disease Hx of Infectious Diseases: None - Past Medical History & Family History Past Medical History?: Yes - Past Social History Smoking Status: Never Smoked - CARDIAC Hx Hypertension: Yes - PULMONARY Hx Respiratory Disorders: No - NEUROLOGICAL Hx Neurological Disorder: No - HEENT Hx HEENT Problems: No - RENAL Hx Chronic Kidney Disease: No - ENDOCRINE/METABOLIC Hx Endocrine Disorders: No - HEMATOLOGICAL/ONCOLOGICAL Hx Anemia: Yes - INTEGUMENTARY Hx Dermatological Problems: No - MUSCULOSKELETAL/RHEUMATOLOGICAL Hx Falls: Yes - GASTROINTESTINAL Hx Gastrointestinal Disorders: No - GENITOURINARY/GYNECOLOGICAL Hx Genitourinary Disorders: No - PSYCHIATRIC Hx Substance Use: No - SURGICAL HISTORY Hx Appendectomy: Yes (when she was 15 yrs old) Hx Cholecystectomy: Yes (aug 14 2016) - ANESTHESIA Hx Anesthesia: Yes Hx Anesthesia Reactions: No Hx Malignant Hyperthermia: No Meds Allergies/Adverse Reactions: Allergies Allergy/AdvReac Type Severity Reaction Status Date / Time No Known Allergies Allergy Verified 03/08/17 08:25 - Medications Medications: Current Medications Acetaminophen (Tylenol 325mg Tab) 650 mg PO Q6 PRN PRN Reason: Pain, moderate (4-7) Last Admin: 03/14/17 16:23 Dose: 650 mg Fluticasone Propionate (Flonase) 1 spr SEVERINO BID [facility] Last Admin: 03/16/17 10:52 Dose: 1 spr Linezolid (Zyvox 600mg/300ml D5w) 600 mg in 300 mls @ 200 mls/hr IVPB Q12 [facility] Last Admin: 03/16/17 10:37 Dose: 200 mls/hr Levothyroxine Sodium (Synthroid) 50 mcg PO DAILY@0630 [facility] Last Admin: 03/16/17 05:37 Dose: 50 mcg Lidocaine (Lidoderm) 1 ea TD DAILY [facility] Last Admin: 03/16/17 10:44 Dose: 1 ea Megestrol Acetate (Megace) 40 mg PO DAILY [facility] Last Admin: 03/16/17 10:44 Dose: 40 mg Ondansetron HCl (Zofran Inj) 4 mg IVP Q6H PRN PRN Reason: Nausea/Vomiting Pantoprazole Sodium (Protonix Ec Tab) 40 mg PO DAILY [facility] Last Admin: 03/16/17 10:44 Dose: 40 mg Physical Exam - Constitutional Appears: Chronically Ill - Head Exam Head Exam: ATRAUMATIC, NORMAL INSPECTION, NORMOCEPHALIC - Eye Exam Eye Exam: Normal appearance, PERRL Pupil Exam: NORMAL ACCOMODATION, PERRL - ENT Exam ENT Exam: Mucous Membranes Dry - Neck Exam Neck exam: Positive for: Normal Inspection - Respiratory Exam Respiratory Exam: Decreased Breath Sounds, NORMAL BREATHING PATTERN - Cardiovascular Exam Cardiovascular Exam: Bradycardia - GI/Abdominal Exam GI & Abdominal Exam: Distended, Hypoactive Bowel Sounds - Rectal Exam Rectal Exam: Deferred - Extremities Exam Extremities exam: Positive for: pedal edema - Back Exam Back exam: CVA tenderness (R) - Neurological Exam Neurological exam: Alert, Altered - Skin Skin Exam: Pallor Results - Vital Signs Recent Vital Signs: Last Vital Signs Temp 97.6 F 03/16/17 12:26 Pulse 45 L 03/16/17 12:26 Resp 22 03/16/17 12:26 BP 117/43 L 03/16/17 12:26 Pulse Ox 97 03/16/17 12:26 - Labs Result Diagrams: 03/12/17 08:14 03/12/17 08:14 Labs: Laboratory Results - last 24 hr 03/12/17 14:11 Pleural Glucose 70 Assessment & Plan - Assessment and Plan (Free Text) Assessment: Palliative consult Code status was Full Code prior to consult. ROS unobtainable from the patient due to complex clinical presentation. PPS 20%. I reviewed medical records, all diagnostic studies, examined patient in the bed , interview was limited due to patient's condition. ROS obtained from the and granddaughter at bed side. Goals of care and Code status discussed. Family choose DNR/DNI. POLST completed. Patient is alert, very lethargic, speaking softly in short sentences, keeping her eyes closed. Patient looks sick. Skin is pale. Abdomen is softly distended and guarded upon palpation. Significant edema to LEs. Patient does not tolerate PO intake. at bed side desperately trying to make patient drinks water or juice. patient is bradycardic, HR 53. Cardiac meds stopped. I discussed goals of care with family at bed side. Their main concern is patient 's comfort. and granddaughter understand that this may be the end of patient's life, and would want her to be comfortable for the rest of it. is very much against PEG or any other invasive procedure including intubation or CPR. Family asked many questions regading the home hospice what I answered to the satisfaction. family prefers patient dies at home and suggest enough of support at home. Impression * This is a very sick patient unable to advocate for her self due to acuity of symptoms * Family is concerned about patient's comfort * and granddaughter are very specific with goals of [place] for this patient * Family is absolutely against any invasive procedure including PEG, intubation or CPR * Family is interested in home hospice Suggestion * Would order Hospice eval to allow family to further explore their choices and find out what best fits their expectations regarding care of this patient * Agree with DNR/DNI Thank you very much for consulting Palliative Care
--- NOTE | 2017-03-16 16:12 | CP.PCM.PN ---
Subjective - Date & Time of Evaluation Date of Evaluation: 03/16/17 Time of Evaluation: 16:12 - Subjective Subjective: CHIEF COMPLAINTS TODAY : afebrile, awake generalized weakness Appetite is still poor. CXR 03/15/17-RIGHT HILAR PROMINENCE, PATCHY AIR OPACITIES MID TO LOWER LUNG ZONES WITH MODERATE PLEURAL EFFUSIONS. CT SCAN PANCREAS PROTOCOL DONE. -necrotic adenopathy bobbi hepatis. Multiple liver masses. ROS. HEENT : N. Resp : No cough, wheezing ,pleuritic CP ,or hemoptysis Cardio : No anginal CP, PND, orthopnea, palpitation GI : No abd.pain, n/v ,diarrhea or GI bleeding . RECTAL PAIN CUT OFF SAW GRADER : No headache, vertigo, focal deficit. Musculoskel : No joint swelling , Derm : No rash Psych : Normal affect. Ext : No swelling ,calf pain PE. Pt. is alert awake in no distress. V.S As noted in the chart Head ,ear nose,throat and eyes : Normal. Neck : Supple with normal carotids. Lungs: FEW RHONCHI, DIMINISHED BREATH SOUNDS AT THE BASES. Heart : S1 & S2 normal with S4. No murmur. Abd : Soft non tender with normal bowel sounds. Neuro : Moves all ext. with no localized deficit. Ext : No edema with intact pulses.Non tender calves Derm : No rashes or decubitus ulcer. LABS/RADIOLOGY: reviewed labs.wbc INCREASING TO 15.5. urine culture>100,000cfu/ml VRE CA 19-9 105 HIGH (N 0-37 ) pleural fluid seen-lymphocytic pleural effusion consistent with transudate. U/S MASS IN PANCREASE AND LIVER ASSESSMENT; PNEUMONIA ?ASPIRATION BILATERAL PLEURAL EFFUSIONS-S/P THORACENTESIS (TRANSUDATIVE ) 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 /PLAN : ON IV ZYVOX 600 MG EVERY 12 HOURLY 03/12/17 DC IV cefepime 1 g every 24 hourly.03/15 START IV ZOSYN 3.375 EVERY 8 HOURLY.03/16/[address]ST[address] ASPIRATION PNEUMONIA. CT CHEST WITHOUT CONTRAST R/O PNEUMONIA VS RIGHT HILAR ADENOPATHY VERSUS MASS PULMONARY TOILET REPEAT ua URINE CULTURE patient for CT of the liver as per GI. DISCUSSED WITH STAFF MS NOGUERA. Objective - Vital Signs/Intake and Output Vital Signs (last 24 hours): Temp Pulse Resp BP Pulse Ox 97.5 F L 48 L 20 133/73 95 03/16/17 15:52 03/16/17 15:52 03/16/17 15:52 03/16/17 15:52 03/16/17 15:52 Intake and Output: 03/16/17 03/16/17 06:59 18:59 Intake Total 200 Output Total 1 Balance 199 - Medications Medications: Current Medications Acetaminophen (Tylenol 325mg Tab) 650 mg PO Q6 PRN PRN Reason: Pain, moderate (4-7) Last Admin: 03/14/17 16:23 Dose: 650 mg Fluticasone Propionate (Flonase) 1 spr SEVERINO BID [facility] Last Admin: 03/16/17 10:52 Dose: 1 spr Linezolid (Zyvox 600mg/300ml D5w) 600 mg in 300 mls @ 200 mls/hr IVPB Q12 [facility] Last Admin: 03/16/17 10:37 Dose: 200 mls/hr Levothyroxine Sodium (Synthroid) 50 mcg PO DAILY@0630 [facility] Last Admin: 03/16/17 05:37 Dose: 50 mcg Lidocaine (Lidoderm) 1 ea TD DAILY [facility] Last Admin: 03/16/17 10:44 Dose: 1 ea Megestrol Acetate (Megace) 40 mg PO DAILY [facility] Last Admin: 03/16/17 10:44 Dose: 40 mg Ondansetron HCl (Zofran Inj) 4 mg IVP Q6H PRN PRN Reason: Nausea/Vomiting Pantoprazole Sodium (Protonix Ec Tab) 40 mg PO DAILY [facility] Last Admin: 03/16/17 10:44 Dose: 40 mg - Labs Labs: 03/12/17 08:14 03/12/17 08:14 PT 10.7 SECONDS (9.7-12.2) 03/12/17 12:08 INR 0.9 03/12/17 12:08 APTT 34 SECONDS (21-34) D 03/12/17 12:08 Assessment and Plan (1) Leukocytosis Status: Acute (2) Pleural effusion Status: Acute (3) CHF (congestive heart failure) Status: Acute (4) Liver masses Status: Acute (5) Pericardial effusion Status: Acute (6) Atrial fibrillation with RVR Status: Acute
[2017-03-16 16:52] LABS: AFPP 2.3 ng/mL (1.6-4.5)
[2017-03-16] MEDS ORDERED: Iodixanol 320 MG/ML 100 ML BOTTLE IV ONE (17:32)
[2017-03-16] MEDS: Fat Emulsion 20% IV 500 ML IV SCH (19:02)
[2017-03-16] MEDS: PPN #1 IV SCH (19:04)
[2017-03-16 22:41] LABS: BASO % 0.3 % (0.0-2.0); EOS # 0.6 K/uL (0.0-0.7); EOS % 4.2 % (0.0-4.0); HEMATOCRIT 35.7 % (34.0-47.0); LYMPH # 0.9 K/uL (1.0-4.3); LYMPH % 6.1 % (20.0-40.0); MEAN CELL VOLUME 83.1 fL (81.0-99.0); MEAN CORPUSCULAR HEMOGLOBIN 26.4 pg (27.0-31.0); MEAN CORPUSCULAR HGB CONC 31.8 g/dL (33.0-37.0); MONO # 1.2 K/uL (0.0-0.8); MONO % 7.5 % (0.0-10.0); PLATELET COUNT 302 K/uL (130-400); RED CELL DISTRIBUTION WIDTH 18.2 % (11.5-14.5); WHITE BLOOD COUNT 15.5 K/uL (4.8-10.8)
[2017-03-16 22:54] LABS: CHLORIDE 103 mmol/L (98-107); SODIUM 135 mmol/L (132-148)
[2017-03-16 22:55] LABS: POTASSIUM 3.9 mmol/L (3.6-5.2)
[2017-03-16 22:56] LABS: GFR AFRICAN-AMERICAN > 60
[2017-03-16] MEDS: Piperacill/Tazo 3.375gm in Dex 3.375 GM/50 ML BAG IVPB SCH (22:56)
[2017-03-16 22:57] LABS: ALB/GLOB RATIO 0.6 (1.0-2.1); ALKALINE PHOSPHATASE 83 U/L (38-126); ALT/SGPT 32 U/L (9-52); AST/SGOT 50 U/L (14-36); BILIRUBIN,DIRECT 0.6 mg/dL (0.0-0.4); BILIRUBIN,TOTAL 0.6 mg/dL (0.2-1.3); BLOOD UREA NITROGEN 25 mg/dL (7-17); CALCIUM 6.9 mg/dl (8.6-10.4); CARBON DIOXIDE 25 mmol/L (22-30); GLUCOSE,RANDOM 87 mg/dL (65-105); TOTAL PROTEIN 5.2 g/dL (6.3-8.3)
[2017-03-16 23:20] LABS: EOSINOPHIL 4 % (0-4); NEUTROPHIL 86 % (50-75); TOTAL CELLS COUNTED 100
[2017-03-17] MEDS: Piperacill/Tazo 3.375gm in Dex 3.375 GM/50 ML BAG IVPB SCH ×3 (05:12→21:45)
--- NOTE | 2017-03-17 05:54 | CP.PCM.PN ---
<Jessica Monzon - Last Filed: 03/17/17 06:07> Subjective - Date & Time of Evaluation Date of Evaluation: 03/17/17 Time of Evaluation: 05:51 - Subjective Subjective: Gastorenterology Fellow/PGY4 Progress Note Patient is depressed and refusing to eat. Continues to have back and diffuse abdomen pain. A 12-point review of systems negative except for as above. Objective - Vital Signs/Intake and Output Vital Signs (last 24 hours): Temp Pulse Resp BP Pulse Ox 98.4 F 48 L 20 145/63 95 03/17/17 00:36 03/17/17 00:36 03/17/17 00:36 03/17/17 00:36 03/17/17 00:36 Intake and Output: 03/16/17 03/17/17 18:59 06:59 Intake Total 420 520 Balance 420 520 - Medications Medications: Current Medications Acetaminophen (Tylenol 325mg Tab) 650 mg PO Q6 PRN PRN Reason: Pain, moderate (4-7) Last Admin: 03/14/17 16:23 Dose: 650 mg Fluticasone Propionate (Flonase) 1 spr SEVERINO BID [facility] Last Admin: 03/16/17 18:00 Dose: 1 spr Linezolid (Zyvox 600mg/300ml D5w) 600 mg in 300 mls @ 200 mls/hr IVPB Q12 [facility] Last Admin: 03/16/17 22:57 Dose: 200 mls/hr Multivitamins/Vitamin C 10 ml/ (Amino Acids) 1,010 mls @ 40 mls/hr IV .Q24H [facility] Last Admin: 03/16/17 19:04 Dose: 40 mls/hr Fat Emulsion Intravenous (Intralipid 20%) 500 mls @ 42 mls/hr IV TTS@1800 [facility] Stop: 03/21/17 05:55 Last Admin: 03/16/17 19:02 Dose: 42 mls/hr Piperacillin Sod/Tazobactam Sod (Zosyn 3.375 Gm Iv Premix) 3.375 gm in 50 mls @ 200 mls/hr IVPB Q8H [facility] Last Admin: 03/17/17 05:12 Dose: 200 mls/hr Levothyroxine Sodium (Synthroid) 50 mcg PO DAILY@0630 [facility] Last Admin: 03/16/17 05:37 Dose: 50 mcg Lidocaine (Lidoderm) 1 ea TD DAILY [facility] Last Admin: 03/16/17 10:44 Dose: 1 ea Megestrol Acetate (Megace) 40 mg PO DAILY [facility] Last Admin: 03/16/17 10:44 Dose: 40 mg Ondansetron HCl (Zofran Inj) 4 mg IVP Q6H PRN PRN Reason: Nausea/Vomiting Pantoprazole Sodium (Protonix Ec Tab) 40 mg PO DAILY [facility] Last Admin: 03/16/17 10:44 Dose: 40 mg - Labs Labs: 03/16/17 22:39 03/16/17 22:39 PT 10.7 SECONDS (9.7-12.2) 03/12/17 12:08 INR 0.9 03/12/17 12:08 APTT 34 SECONDS (21-34) D 03/12/17 12:08 - Constitutional Appears: Non-toxic, No Acute Distress - Head Exam Head Exam: ATRAUMATIC, NORMOCEPHALIC - Eye Exam Eye Exam: EOMI, PERRL Pupil Exam: PERRL. absent: Miosis, Mydriatic - ENT Exam ENT Exam: Mucous Membranes Dry, Normal Oropharynx - Neck Exam Neck Exam: Full ROM, Normal Inspection - Respiratory Exam Respiratory Exam: Decreased Breath Sounds, Rhonchi Additional comments: scattered rhonchi, decreased bibasilar breath sounds - Cardiovascular Exam Cardiovascular Exam: Bradycardia, +S1, +S2. absent: Gallop, Rubs - GI/Abdominal Exam GI & Abdominal Exam: Distended, Soft, Tenderness, Normal Bowel Sounds. absent: Firm, Guarding, Rigid, Organomegaly, Rebound Additional comments: slightly distended abdomen, diffuse tenderness to palpation - Extremities Exam Extremities Exam: Normal Inspection. absent: Pedal Edema - Neurological Exam Neurological Exam: Alert, Awake - Psychiatric Exam Psychiatric exam: Depressed - Skin Skin Exam: Dry, Intact, Normal Color, Warm Assessment and Plan - Assessment and Plan (Free Text) Assessment: 86 year old female with history of Atrial fibrillation, Hypertension, and POD11 (03/06) perineal repair with modified Altemeier approach of rectal prolapse presenting with syncopal episode. GI consultation for liver and pancreatic lesions on ultrasound.Active treatment of Pneumonia, UTI, Depression, and food aversion with no oral intake. Colonoscopy 03/03 showed sigmoid/descending diverticulosis, proximal descending 11mm tubular adenoma, chronic inflammation at ileocecal valve, and incomplete exam due to stool in cecum. Plan: >abdominal pain- ordered flat plate >pending CT liver protocol >CT pancreatic protocol- no pancreatic lesion, ascites -right inferior hepatic hypodensity with necrosis- max 6.3x5.4cm, santiago hepatis densities, max 4.3x6.2cm, adenopathy >continue Megace >primary team started PPN >diet as tolerated >Psych following- appreciate recommendations >ID managing-Linezolid for VRE UTI and Zosyn for HCAP, pending Cdiff >[facility] [place] records 07/2016- cholecystectomy, surgeon review with radiology-benign liver lesions - visual assessment during surgery-hepatic cysts, no biopsy of liver performed >multiple family discussions with , granddaughter, and niece-likely no PEG or IR biopsy- await final decision >palliative care- DNR/DNI, no PEG, Hospice evaluation > cell phone contact [phone] home [phone] >niece -Graciela Titus- [phone] >will follow clinical course <Ofelia Tucker - Last Filed: 03/17/17 08:00> Objective - Vital Signs/Intake and Output Vital Signs (last 24 hours): Temp Pulse Resp BP Pulse Ox 98.4 F 48 L 20 145/63 95 03/17/17 00:36 03/17/17 00:36 03/17/17 00:36 03/17/17 00:36 03/17/17 00:36 Intake and Output: 03/17/17 03/17/17 06:59 18:59 Intake Total 520 Balance 520 - Medications Medications: Current Medications Acetaminophen (Tylenol 325mg Tab) 650 mg PO Q6 PRN PRN Reason: Pain, moderate (4-7) Last Admin: 03/14/17 16:23 Dose: 650 mg Fluticasone Propionate (Flonase) 1 spr SEVERINO BID [facility] Last Admin: 03/16/17 18:00 Dose: 1 spr Linezolid (Zyvox 600mg/300ml D5w) 600 mg in 300 mls @ 200 mls/hr IVPB Q12 [facility] Last Admin: 03/16/17 22:57 Dose: 200 mls/hr Multivitamins/Vitamin C 10 ml/ (Amino Acids) 1,010 mls @ 40 mls/hr IV .Q24H [facility] Last Admin: 03/16/17 19:04 Dose: 40 mls/hr Fat Emulsion Intravenous (Intralipid 20%) 500 mls @ 42 mls/hr IV TTS@1800 [facility] Stop: 03/21/17 05:55 Last Admin: 03/16/17 19:02 Dose: 42 mls/hr Piperacillin Sod/Tazobactam Sod (Zosyn 3.375 Gm Iv Premix) 3.375 gm in 50 mls @ 200 mls/hr IVPB Q8H [facility] Last Admin: 03/17/17 05:12 Dose: 200 mls/hr Levothyroxine Sodium (Synthroid) 50 mcg PO DAILY@0630 [facility] Last Admin: 03/17/17 06:20 Dose: 50 mcg Lidocaine (Lidoderm) 1 ea TD DAILY [facility] Last Admin: 03/16/17 10:44 Dose: 1 ea Megestrol Acetate (Megace) 40 mg PO DAILY [facility] Last Admin: 03/16/17 10:44 Dose: 40 mg Ondansetron HCl (Zofran Inj) 4 mg IVP Q6H PRN PRN Reason: Nausea/Vomiting Pantoprazole Sodium (Protonix Ec Tab) 40 mg PO DAILY [facility] Last Admin: 03/16/17 10:44 Dose: 40 mg - Labs Labs: 03/16/17 22:39 03/16/17 22:39 PT 10.7 SECONDS (9.7-12.2) 03/12/17 12:08 INR 0.9 03/12/17 12:08 APTT 34 SECONDS (21-34) D 03/12/17 12:08 Attending/Attestation - Attestation I have personally seen and examined this patient.: Yes I have fully participated in the care of the patient.: Yes I have reviewed all pertinent clinical information, including history, physical exam and plan: Yes Notes (Text): Patient seen and examined with GI fellow. Agree with her note as documented above with the following additions/exceptions. This is an 86 year old female with h/o HTN, atrial fibrillation, recent hospitalization with rectal prolapse s/p repair who is admitted with syncopal episode. We are consulted for evaluation of liver lesions. CT showed largest liver lesions measuring 5-6cm, necroinflammatory components, with concern for possible metastatic disease, serum AFP negative. She has abdominal pain with poor PO intake. She is now DNR/DNI; palliative care consult. Family making decision about overall goals of care. Would continue supportive care. Diet as tolerated, encourage PO intake. Continue antibiotic therapy as per infectious disease. F/u liver protocol CT. 03/17/17 07:59
[2017-03-17] MEDS: Levothyroxine 50 MCG TAB PO SCH (06:20)
--- NOTE | 2017-03-17 09:10 | CT ---
PROCEDURE: CT Abdomen with and without intravenous contrast HISTORY: multiple liver lesions COMPARISON: None. TECHNIQUE: Axial images of the abdomen from lung bases to iliac crest with and without intravenous contrast enhancement. Postcontrast images were obtained in the hepatic arterial and portal venous phases of enhancement. Coronal and sagittal reformats generated. Oral contrast was not administered this examination. Intravenous contrast Dose: 100 mL Visipaque 320 Radiation dose: Total exam DLP = 1217.71 mGy-cm. This CT exam was performed using one or more of the following dose reduction techniques: Automated exposure control, adjustment of the mA and/or kV according to patient size, and/or use of iterative reconstruction technique. FINDINGS: LOWER THORAX: Minimal right pleural effusion. Small/moderate left pleural effusion. Extent is difficult to evaluate on the basis of this limited examination. Bilateral lower lobe compressive atelectasis. Small pericardial effusion. LIVER: Multiple hepatic masses of varying size consistent with metastatic disease. Essentially no change from examination of 03/13/2017. No biliary ductal dilatation. Smooth contour. Periportal edema, nonspecific. Multiple necrotic nodes are seen in the santiago hepatis. There are enlarged gastrohepatic ligament and peripancreatic nodes. There are enlarged mesenteric nodes. GALLBLADDER AND BILE DUCTS: Status post cholecystectomy. PANCREAS: The pancreas is significant for a large necrotic mass abutting the pancreatic head with mass effect upon the pancreatic head. This measures approximately 4.0 x 2.6 by 2.3 cm. This is not separable from the pancreatic head and may be a pancreatic neoplasm or may merely represent peripancreatic lymphadenopathy. There is a cystic mass in the pancreatic head measuring 1.7 x 2.1 cm. There is no pancreatic ductal dilatation. SPLEEN: Unremarkable. ADRENALS: Unremarkable. No mass. KIDNEYS AND URETERS: Bilateral parapelvic renal cysts. No hydronephrosis. No renal calculus. Bilateral tiny renal cortical cysts. VASCULATURE: No evidence of abdominal aortic aneurysm. There is extrinsic compression of the portal vein in the santiago hepatis (series 7, image 61 close) secondary to the multiple santiago hepatis masses and a large mass abutting or arising from the pancreatic head described above. BOWEL: Unremarkable. No obstruction. No gross mural thickening. APPENDIX: Not included PERITONEUM: Mild ascites LYMPH NODES: Retroperitoneal lymphadenopathy is noted in addition to the santiago hepatis, peripancreatic, gastrohepatic ligament and mesenteric nodes described above. There is also right retrocrural lymphadenopathy. BLADDER: Not included REPRODUCTIVE: Not included BONES: No acute fracture OTHER FINDINGS: None. 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 Large necrotic mass abutting or arising from the pancreatic head. There is a cystic mass within the pancreatic head as described above, 2.1 cm greatest dimension. Extensive lymphadenopathy. Extrinsic compression of portal vein in santiago hepatis. Ascites. Bilateral pleural effusion, left greater than right with bilateral lower lobe compressive atelectasis. Small pericardial effusion.
[2017-03-17] MEDS: Lidocaine 5% Patch TD SCH (10:13)
[2017-03-17] MEDS: Pantoprazole 40 mg EC Tab PO SCH (10:13)
--- NOTE | 2017-03-17 10:13 | RAD ---
HISTORY: abdominal pain COMPARISON: No prior. FINDINGS: BOWEL: Unremarkable bowel gas pattern. No hepatic or splenic enlargement. Surgical clips in the right upper quadrant consistent with prior cholecystectomy. There is contrast material seen within the cortex of both kidneys. The patient underwent contrast CT on 03/16/2017, raising suspicion of acute tubular necrosis. Please correlate with laboratory evaluation. There is some excreted contrast material seen in the renal collecting system bilaterally and in the urinary bladder. BONES: Normal. OTHER FINDINGS: None. IMPRESSION: Residual contrast material within renal cortex bilaterally, of 1 day status post contrast CT. This raises suspicion of acute tubular necrosis. Please correlate clinically. Normal bowel gas pattern.
[2017-03-17] MEDS: Fluticasone Nasal 50 mcg/Spray NAS SCH ×2 (10:14→19:12)
[2017-03-17] MEDS: Linezolid 600 mg in D5W 300 ml 600 MG/300 ML BAG IVPB SCH ×2 (10:18→22:15)
--- NOTE | 2017-03-17 10:31 | CT ---
PROCEDURE: CT Chest without contrast HISTORY: Pneumonia /right hilar adenopathy versus mass. COMPARISON: None. TECHNIQUE: Contiguous axial images were obtained through the chest without intravenous contrast enhancement. Sagittal and coronal reconstructions were performed. Radiation dose (DLP): 552 mGy-cm. This CT exam was performed using one or more of the following dose reduction techniques: Automated exposure control, adjustment of the mA and/or kV according to patient size, and/or use of iterative reconstruction technique. FINDINGS: LUNGS: See below MEDIASTINUM: Unremarkable thoracic aorta. No aneurysm. Cardiomegaly with moderate pericardial effusion. Main pulmonary artery unremarkable. No vascular congestion. No lymphadenopathy. PLEURA: Large bilateral pleural effusions with compressive atelectasis at the lung bases. BONES: No fracture. No destructive lesion. UPPER ABDOMEN: Grossly unremarkable. OTHER FINDINGS: Mild anasarca. IMPRESSION: Large bilateral pleural effusions with cardiomegaly and pericardial effusion; correlate clinically for CHF.
[2017-03-17 11:10] LABS: BASO # 0.1 K/uL (0.0-0.2); BASO % 0.4 % (0.0-2.0); EOS # 0.3 K/uL (0.0-0.7); EOS % 1.8 % (0.0-4.0); HEMATOCRIT 35.8 % (34.0-47.0); LYMPH # 0.9 K/uL (1.0-4.3); LYMPH % 5.8 % (20.0-40.0); MEAN CORPUSCULAR HEMOGLOBIN 26.5 pg (27.0-31.0); MEAN PLATELET VOLUME 7.9 fL (7.2-11.7); PLATELET COUNT 272 K/uL (130-400); RED CELL DISTRIBUTION WIDTH 18.2 % (11.5-14.5); WHITE BLOOD COUNT 15.9 K/uL (4.8-10.8)
[2017-03-17 11:33] LABS: CHLORIDE 103 mmol/L (98-107); POTASSIUM 3.7 mmol/L (3.6-5.2); SODIUM 137 mmol/L (132-148)
[2017-03-17 11:35] LABS: AST/SGOT 55 U/L (14-36); BILIRUBIN,TOTAL 0.7 mg/dL (0.2-1.3); CARBON DIOXIDE 27 mmol/L (22-30); GFR AFRICAN-AMERICAN > 60
[2017-03-17 11:36] LABS: ALB/GLOB RATIO 0.6 (1.0-2.1); ALKALINE PHOSPHATASE 99 U/L (38-126); ALT/SGPT 29 U/L (9-52); BLOOD UREA NITROGEN 25 mg/dL (7-17); GLUCOSE,RANDOM 98 mg/dL (65-105); TOTAL PROTEIN 5.5 g/dL (6.3-8.3)
[2017-03-17 11:57] LABS: EOSINOPHIL 2 % (0-4); NEUTROPHIL 81 % (50-75); TOTAL CELLS COUNTED 100
--- NOTE | 2017-03-17 13:19 | CP.PCM.PN ---
Subjective - Date & Time of Evaluation Date of Evaluation: 03/17/17 Time of Evaluation: 13:17 - Subjective Subjective: POOR PO INTAKE OF FLUIDS/FOOD S. YAJAIRA WITH N BP CT OF PANCREAS MASS IN HEAD OF DIAZ. AND METS LIVER WITH NECROTIC LN , ASCITES PT'S FAMILT SIGHNED DNR UNSURE OF PEG HOSPICE CARE Objective - Vital Signs/Intake and Output Vital Signs (last 24 hours): Temp Pulse Resp BP Pulse Ox 97.9 F 54 L 20 138/56 L 95 03/17/17 07:58 03/17/17 07:58 03/17/17 07:58 03/17/17 07:58 03/17/17 07:58 - Medications Medications: Current Medications Acetaminophen (Tylenol 325mg Tab) 650 mg PO Q6 PRN PRN Reason: Pain, moderate (4-7) Last Admin: 03/14/17 16:23 Dose: 650 mg Fluticasone Propionate (Flonase) 1 spr SEVERINO BID [facility] Last Admin: 03/17/17 10:14 Dose: 1 spr Linezolid (Zyvox 600mg/300ml D5w) 600 mg in 300 mls @ 200 mls/hr IVPB Q12 [facility] Last Admin: 03/17/17 10:18 Dose: 200 mls/hr Multivitamins/Vitamin C 10 ml/ (Amino Acids) 1,010 mls @ 40 mls/hr IV .Q24H [facility] Last Admin: 03/16/17 19:04 Dose: 40 mls/hr Fat Emulsion Intravenous (Intralipid 20%) 500 mls @ 42 mls/hr IV TTS@1800 [facility] Stop: 03/21/17 05:55 Last Admin: 03/16/17 19:02 Dose: 42 mls/hr Piperacillin Sod/Tazobactam Sod (Zosyn 3.375 Gm Iv Premix) 3.375 gm in 50 mls @ 200 mls/hr IVPB Q8H [facility] Last Admin: 03/17/17 05:12 Dose: 200 mls/hr Multivitamins/Vitamin C 10 ml/ (Amino Acids) 1,010 mls @ 40 mls/hr IV .Q24H [facility] Stop: 03/18/17 17:59 Levothyroxine Sodium (Synthroid) 50 mcg PO DAILY@0630 [facility] Last Admin: 05/24/17 06:20 Dose: 50 mcg Lidocaine (Lidoderm) 1 ea TD DAILY [facility] Last Admin: 03/17/17 10:13 Dose: 1 ea Megestrol Acetate (Megace) 40 mg PO DAILY [facility] Last Admin: 03/17/17 10:13 Dose: 40 mg Ondansetron HCl (Zofran Inj) 4 mg IVP Q6H PRN PRN Reason: Nausea/Vomiting Pantoprazole Sodium (Protonix Ec Tab) 40 mg PO DAILY [facility] Last Admin: 03/17/17 10:13 Dose: 40 mg - Labs Labs: 03/17/17 11:02 03/17/17 11:02 PT 10.7 SECONDS (9.7-12.2) 03/12/17 12:08 INR 0.9 03/12/17 12:08 APTT 34 SECONDS (21-34) D 03/12/17 12:08
--- NOTE | 2017-03-17 13:38 | PN ---
DATE: 03/17/2017 SUBJECTIVE: The patient is seen. The patient looks depressed and still has no appetite and refusing to eat. The patient was seen with family who tried to offer patient some Ensure, but the patient re fusing. The patient, however, is still on Zyvox and cannot be given any SSRI, which is the drug of graciela del valle for her depression. The patient has possibility of having pancreatic cancer and patient would benefit if given Remeron which is a good medication for people who develops loss of appetite secondar y to cancer. The patient is still on Zyvox and cannot be given Remeron. VITAL SIGNS: Temperature is 97.9, pulse rate is 54, blood pressure 138/56, respirations 20, oxygen s ats 95%. REVIEW OF SYSTEMS: GENERAL: The patient is alert, but feeling weak, seen in her room, refusing to eat. Seen with famil y members at bedside. SKIN: No pruritus. HEENT: No headache, no dizziness. NECK: Supple. RESPIRATORY: No dyspnea. CARDIOVASCULAR: No chest pain. GASTROINTESTINAL: The patient has absolutely no appetite. No abdominal pain, no nausea, no vomiting . EXTREMITIES: The patient moving extremities. MUSCULOSKELETAL: Feels weak. NEUROLOGIC: Alert, oriented x 3, feeling tired. MENTAL STATUS EXAMINATION: Elderly female who looks stated age, oriented x 3. Mood is clinically de pressed, despairing. Affect is restricted. Speech is spontaneous. Thought process coherent. Though t content: The patient states she has no appetite. No active suicidal or homicidal ideation. Atten tion and memory seem to be limited. Insight and judgment limited. Impulse control is fair at this t jw. IMPRESSION: Mood disorder secondary to medical problems. PLAN AND RECOMMENDATIONS: The patient seen, meds reviewed. The patient currently still on Zyvox. W e will try to give her antidepressant once the patient is off Zyvox. The patient may benefit also fr palliative care. Continue Megace for now to improve her appetite, but patient still has very poor appetite. Tre Freeman MD cc: [phone] TT: 03/17/2017 13:37:14 Confirmation # [id number] Dictation # [id number] rn
[2017-03-17] MEDS ORDERED: PPN #2 IV ONE (18:00)
--- NOTE | 2017-03-17 19:28 | CP.PCM.PN ---
Subjective - Date & Time of Evaluation Date of Evaluation: 03/17/17 Time of Evaluation: 19:28 - Subjective Subjective: CHIEF COMPLAINTS TODAY : afebrile, awake generalized weakness. c/o abdominal discomfort. Appetite is still poor. CT ABDOMEN WITH AND WITHOUT CONTRAST 03/16-NOTED multiple hepatic masses with necrotic metastasis. Cystic mass 2.1 cm within the pancreatic head and extensive lymphadenopathy. (see full report ) CT chest; 03/17 large bilateral pleural effusions, cardiomegaly and pericardial effusion. CT SCAN PANCREAS PROTOCOL DONE. -necrotic adenopathy bobbi hepatis. Multiple liver masses. ROS. HEENT : N. Resp : No cough, wheezing ,pleuritic CP ,or hemoptysis Cardio : No anginal CP, PND, orthopnea, palpitation GI : +ve abd.pain, n/v ,diarrhea or GI bleeding . 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 Musculoskel : No joint swelling , Derm : No rash Psych : Normal affect. Ext : No swelling ,calf pain PE. Pt. is alert awake in no distress. V.S As noted in the chart Head ,ear nose,throat and eyes : Normal. Neck : Supple with normal carotids. Lungs: , DIMINISHED BREATH SOUNDS AT THE BASES. Heart : S1 & S2 normal with S4. No murmur. Abd : Soft tenderness to palpation, with normal bowel sounds. Neuro : Moves all ext. with no localized deficit. Ext : No edema with intact pulses.Non tender calves Derm : No rashes or decubitus ulcer. LABS/RADIOLOGY: 03/17/17 WBC INCREASING TO 15.9. CREATININE 1.0/BUN 25. ALBUMIN 2.1. urine culture>100,000cfu/ml VRE CA 19-9 105 HIGH (N 0-37 ) pleural fluid seen-lymphocytic pleural effusion consistent with transudate. U/S MASS IN PANCREASE AND LIVER CXR 03/15/17-RIGHT HILAR PROMINENCE, PATCHY AIR OPACITIES MID TO LOWER LUNG ZONES WITH MODERATE PLEURAL EFFUSIONS. ASSESSMENT; PNEUMONIA ?ASPIRATION / COMPRESSIVE ATELECTASIS BILATERAL PLEURAL EFFUSIONS-S/P THORACENTESIS (TRANSUDATIVE ) 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 /PLAN : ON IV ZYVOX 600 MG EVERY 12 HOURLY 03/12/17 DC IV cefepime 1 g every 24 hourly.03/15 START IV ZOSYN 3.375 EVERY 8 HOURLY.03/16/17 FOR QUESTIONABLE ASPIRATION PNEUMONIA/INTRA-ABDOMINAL NECROTIC MASSES. check stool for C. difficile. REPEAT U/A, URINE CULTURE-p CASE DISCUSSED WITH ATTENDING. FAMILY NOT AT BEDSIDE. Objective - Vital Signs/Intake and Output Vital Signs (last 24 hours): Temp Pulse Resp BP Pulse Ox 97.8 F 58 L 18 126/69 95 03/17/17 15:15 03/17/17 15:15 03/17/17 15:15 03/17/17 15:15 03/17/17 15:15 Intake and Output: 03/17/17 03/18/17 18:59 06:59 Intake Total 320 Balance 320 - Medications Medications: Current Medications Acetaminophen (Tylenol 325mg Tab) 650 mg PO Q6 PRN PRN Reason: Pain, moderate (4-7) Last Admin: 03/14/17 16:23 Dose: 650 mg Fluticasone Propionate (Flonase) 1 spr SEVERINO BID [facility] Last Admin: 03/17/17 19:12 Dose: Not Given Linezolid (Zyvox 600mg/300ml D5w) 600 mg in 300 mls @ 200 mls/hr IVPB Q12 [facility] Last Admin: 03/17/17 10:18 Dose: 200 mls/hr Multivitamins/Vitamin C 10 ml/ (Amino Acids) 1,010 mls @ 40 mls/hr IV .Q24H [facility] Last Admin: 03/16/17 19:04 Dose: 40 mls/hr Fat Emulsion Intravenous (Intralipid 20%) 500 mls @ 42 mls/hr IV TTS@1800 [facility] Stop: 03/21/17 05:55 Last Admin: 03/16/17 19:02 Dose: 42 mls/hr Piperacillin Sod/Tazobactam Sod (Zosyn 3.375 Gm Iv Premix) 3.375 gm in 50 mls @ 200 mls/hr IVPB Q8H [facility] Last Admin: 03/17/17 13:34 Dose: 200 mls/hr Multivitamins/Vitamin C 10 ml/ (Amino Acids) 1,010 mls @ 40 mls/hr IV .Q24H [facility] Stop: 03/18/17 17:59 Last Admin: 03/17/17 19:13 Dose: 40 mls/hr Levothyroxine Sodium (Synthroid) 50 mcg PO DAILY@0630 [facility] Last Admin: 03/17/17 06:20 Dose: 50 mcg Lidocaine (Lidoderm) 1 ea TD DAILY [facility] Last Admin: 03/17/17 10:13 Dose: 1 ea Megestrol Acetate (Megace) 40 mg PO DAILY [facility] Last Admin: 03/17/17 10:13 Dose: 40 mg Ondansetron HCl (Zofran Inj) 4 mg IVP Q6H PRN PRN Reason: Nausea/Vomiting Pantoprazole Sodium (Protonix Ec Tab) 40 mg PO DAILY [facility] Last Admin: 03/17/17 10:13 Dose: 40 mg - Labs Labs: 03/17/17 11:02 03/17/17 11:02 PT 10.7 SECONDS (9.7-12.2) 03/12/17 12:08 INR 0.9 03/12/17 12:08 APTT 34 SECONDS (21-34) D 03/12/17 12:08 Assessment and Plan (1) Leukocytosis Status: Acute (2) Pleural effusion Status: Acute (3) CHF (congestive heart failure) Status: Acute (4) Liver masses Status: Acute (5) Pericardial effusion Status: Acute (6) Atrial fibrillation with RVR Status: Acute
[2017-03-18] MEDS: Piperacill/Tazo 3.375gm in Dex 3.375 GM/50 ML BAG IVPB SCH ×3 (04:03→21:09)
[2017-03-18] MEDS: Levothyroxine 50 MCG TAB PO SCH (05:45)
--- NOTE | 2017-03-18 06:15 | CP.PCM.PN ---
<Jessica Monzon - Last Filed: 03/18/17 08:11> Subjective - Date & Time of Evaluation Date of Evaluation: 03/18/17 Time of Evaluation: 06:10 - Subjective Subjective: Gastorenterology Fellow/PGY4 Progress Note Patient continues to be depressed with refusal to eat. Denies subjective abdominal pain. A 12-point review of systems negative except for as above. Objective - Vital Signs/Intake and Output Vital Signs (last 24 hours): Temp Pulse Resp BP Pulse Ox 97.6 F 63 20 135/70 97 03/17/17 23:39 03/17/17 23:39 03/17/17 23:39 03/17/17 23:39 03/17/17 23:39 Intake and Output: 03/17/17 03/18/17 18:59 06:59 Intake Total 320 570 Balance 320 570 - Medications Medications: Current Medications Acetaminophen (Tylenol 325mg Tab) 650 mg PO Q6 PRN PRN Reason: Pain, moderate (4-7) Last Admin: 03/14/17 16:23 Dose: 650 mg Fluticasone Propionate (Flonase) 1 spr SEVERINO BID [facility] Last Admin: 03/17/17 19:12 Dose: Not Given Linezolid (Zyvox 600mg/300ml D5w) 600 mg in 300 mls @ 200 mls/hr IVPB Q12 [facility] Last Admin: 03/17/17 22:15 Dose: 200 mls/hr Multivitamins/Vitamin C 10 ml/ (Amino Acids) 1,010 mls @ 40 mls/hr IV .Q24H [facility] Last Admin: 03/16/17 19:04 Dose: 40 mls/hr Fat Emulsion Intravenous (Intralipid 20%) 500 mls @ 42 mls/hr IV TTS@1800 [facility] Stop: 03/21/17 05:55 Last Admin: 03/16/17 19:02 Dose: 42 mls/hr Piperacillin Sod/Tazobactam Sod (Zosyn 3.375 Gm Iv Premix) 3.375 gm in 50 mls @ 200 mls/hr IVPB Q8H [facility] Last Admin: 03/18/17 04:03 Dose: 200 mls/hr Multivitamins/Vitamin C 10 ml/ (Amino Acids) 1,010 mls @ 40 mls/hr IV .Q24H ONE Stop: 03/18/17 17:59 Last Admin: 03/17/17 19:13 Dose: 40 mls/hr Levothyroxine Sodium (Synthroid) 50 mcg PO DAILY@0630 [facility] Last Admin: 03/18/17 05:45 Dose: 50 mcg Lidocaine (Lidoderm) 1 ea TD DAILY [facility] Last Admin: 03/17/17 10:13 Dose: 1 ea Megestrol Acetate (Megace) 40 mg PO DAILY [facility] Last Admin: 03/17/17 10:13 Dose: 40 mg Ondansetron HCl (Zofran Inj) 4 mg IVP Q6H PRN PRN Reason: Nausea/Vomiting Pantoprazole Sodium (Protonix Ec Tab) 40 mg PO DAILY [facility] Last Admin: 03/17/17 10:13 Dose: 40 mg - Labs Labs: 03/17/17 11:02 03/17/17 11:02 PT 10.7 SECONDS (9.7-12.2) 03/12/17 12:08 INR 0.9 03/12/17 12:08 APTT 34 SECONDS (21-34) D 03/12/17 12:08 - Constitutional Appears: Non-toxic, No Acute Distress, Chronically Ill - Head Exam Head Exam: ATRAUMATIC, NORMOCEPHALIC - Eye Exam Eye Exam: EOMI, PERRL Pupil Exam: PERRL. absent: Miosis, Mydriatic - ENT Exam ENT Exam: Mucous Membranes Dry, Normal Oropharynx - Neck Exam Neck Exam: Full ROM, Normal Inspection - Respiratory Exam Respiratory Exam: Decreased Breath Sounds, Rhonchi. absent: Rales, Wheezes - Cardiovascular Exam Cardiovascular Exam: Bradycardia, +S1, +S2. absent: Gallop, Rubs - GI/Abdominal Exam GI & Abdominal Exam: Soft, Tenderness, Normal Bowel Sounds. absent: Distended, Firm, Guarding, Rigid, Organomegaly, Rebound Additional comments: diffuse discomfort to palpation - Extremities Exam Extremities Exam: Normal Inspection. absent: Pedal Edema - Neurological Exam Neurological Exam: Alert, Awake - Psychiatric Exam Psychiatric exam: Normal Affect, Normal Mood - Skin Skin Exam: Dry, Intact, Normal Color, Warm Assessment and Plan - Assessment and Plan (Free Text) Assessment: 86 year old female with history of Atrial fibrillation, Hypertension, and POD12 (03/06) perineal repair with modified Altemeier approach of rectal prolapse presenting with syncopal episode. GI consultation for liver and pancreatic lesions on ultrasound.Active treatment of Pneumonia, UTI, Depression, and food aversion with no oral intake. Colonoscopy 03/03 showed sigmoid/descending diverticulosis, proximal descending 11mm tubular adenoma, chronic inflammation at ileocecal valve, and incomplete exam due to stool in cecum. Plan: >abdominal flat plate- normal bowel pattern >CT liver protocol- hepatic metastases, necrotic santiago hepatis lymph nodes, extensive lymphadenopathy -pancreatic head necrotic mass 4x2.6x2.3cm and cystic mass 1.7x2.1cm - extrinsic compression of portal vein in santiago hepatis >suspicion for pancreatic carcinoma with liver metastases >continue Megace, on PPN, diet as tolerated >not PEG candidate due to ascites >consider IR for PEG placment if family wishes for PEG to be placed >family discussion-no plan for IR Biopsy, Hospice evaluation in process - cell phone contact [phone] home [phone] -niece -Graciela Qureshi- [phone] >palliative care family discussion- DNR/DNI, no PEG, Hospice evaluation >thank you for opportunity to participate in the care of this patient <Sanya Kaur - Last Filed: 03/18/17 10:20> Objective - Vital Signs/Intake and Output Vital Signs (last 24 hours): Temp Pulse Resp BP Pulse Ox 97.6 F 63 20 135/70 97 03/17/17 23:39 03/17/17 23:39 03/17/17 23:39 03/17/17 23:39 03/17/17 23:39 Intake and Output: 03/18/17 03/18/17 06:59 18:59 Intake Total 570 Balance 570 - Medications Medications: Current Medications Acetaminophen (Tylenol 325mg Tab) 650 mg PO Q6 PRN PRN Reason: Pain, moderate (4-7) Last Admin: 03/14/17 16:23 Dose: 650 mg Fluticasone Propionate (Flonase) 1 spr SEVERINO BID [facility] Last Admin: 03/17/17 19:12 Dose: Not Given Linezolid (Zyvox 600mg/300ml D5w) 600 mg in 300 mls @ 200 mls/hr IVPB Q12 [facility] Last Admin: 03/17/17 22:15 Dose: 200 mls/hr Multivitamins/Vitamin C 10 ml/ (Amino Acids) 1,010 mls @ 40 mls/hr IV .Q24H [facility] Last Admin: 03/16/17 19:04 Dose: 40 mls/hr Fat Emulsion Intravenous (Intralipid 20%) 500 mls @ 42 mls/hr IV TTS@1800 [facility] Stop: 03/21/17 05:55 Last Admin: 03/16/17 19:02 Dose: 42 mls/hr Piperacillin Sod/Tazobactam Sod (Zosyn 3.375 Gm Iv Premix) 3.375 gm in 50 mls @ 200 mls/hr IVPB Q8H [facility] Last Admin: 03/18/17 04:03 Dose: 200 mls/hr Multivitamins/Vitamin C 10 ml/ (Amino Acids) 1,010 mls @ 40 mls/hr IV .Q24H [facility] Stop: 03/18/17 17:59 Last Admin: 03/17/17 19:13 Dose: 40 mls/hr Multivitamins/Vitamin C 10 ml/ (Amino Acids) 1,010 mls @ 40 mls/hr IV .Q24H ONE Stop: 03/19/17 17:59 Levothyroxine Sodium (Synthroid) 50 mcg PO DAILY@0630 [facility] Last Admin: 03/18/17 05:45 Dose: 50 mcg Lidocaine (Lidoderm) 1 ea TD DAILY [facility] Last Admin: 03/17/17 10:13 Dose: 1 ea Megestrol Acetate (Megace) 40 mg PO DAILY [facility] Last Admin: 03/17/17 10:13 Dose: 40 mg Ondansetron HCl (Zofran Inj) 4 mg IVP Q6H PRN PRN Reason: Nausea/Vomiting Pantoprazole Sodium (Protonix Ec Tab) 40 mg PO DAILY [facility] Last Admin: 03/17/17 10:13 Dose: 40 mg - Labs Labs: 03/17/17 11:02 03/17/17 11:02 PT 10.7 SECONDS (9.7-12.2) 03/12/17 12:08 INR 0.9 03/12/17 12:08 APTT 34 SECONDS (21-34) D 03/12/17 12:08 Attending/Attestation - Attestation I have personally seen and examined this patient.: Yes I have fully participated in the care of the patient.: Yes I have reviewed all pertinent clinical information, including history, physical exam and plan: Yes Notes (Text): 03/18/17 10:15 I have seen and examined patient with GI fellow. She remains lethargic and minimally engaged in conversation. She complains of mild generalized abdominal pain that is worse with movement. She otherwise denies nausea, vomiting, fever/ chills. She continues to refuse PO intake, had a small bowel movement yesterday. Atrial fibrillation HTN Rectal prolapse s/p surgical repair Pneumonia, UTI Triple phase liver CT reviewed by me, suspected pancreatic malignancy with metastatic disease present in liver - Patient has been started on PPN by medical team due to refusal to eat - She is not an endoscopic candidate for gastrostomy placement due to presence of abdominal ascites which represents a contraindication to procedure - Continue with antibiotic therapy as per ID - Follow up oncology recommendations - Several discussions held with patient and , they do not wish to have any further invasive testing performed and are considering hospice care which is reasonable in this patient with metastatic disease burden - May consider IR consultation for gastrostomy placement if patient and family desires - No planned GI intervention, will sign off case. Please reconsult as necessary , thank you.
--- NOTE | 2017-03-18 09:42 | CP.PCM.CON ---
History of Present Illness - History of Present Illness History of Present Illness: 86 year old female with a history of afib, admitted with syncopal episode with progressive debility, poor PO intake on parenteral nutrition, found to have radiographic evidence of metastatic malignancy. The patient reports to feeling weak and does not want to eat. She denies specific pain but notes she doesnt feel good. She denies nausea and vomiting but has no desire for food. Imaging reviewed shows a pancreatic mass, lymphadenopathy, and liver lesions. Past medical history: Afib Past surgical history: Cholecystectomy Family history: Sister recently diagnosed with [employer] cancer. Social history: Denies tobacco, alcohol, and illicit drug use. Allergies: NKA Review of systems: All remaining review of systems including HEENT, cardiovascular, respiratory gastrointestinal, genitourinary, musculoskeletal, dermatologic, neurologic are negative unless mentioned in the HPI. Past Patient History - Infectious Disease Hx of Infectious Diseases: None - Past Medical History & Family History Past Medical History?: Yes - Past Social History Smoking Status: Never Smoked - CARDIAC Hx Hypertension: Yes - PULMONARY Hx Respiratory Disorders: No - NEUROLOGICAL Hx Neurological Disorder: No - HEENT Hx HEENT Problems: No - RENAL Hx Chronic Kidney Disease: No - ENDOCRINE/METABOLIC Hx Endocrine Disorders: No - HEMATOLOGICAL/ONCOLOGICAL Hx Anemia: Yes - INTEGUMENTARY Hx Dermatological Problems: No - MUSCULOSKELETAL/RHEUMATOLOGICAL Hx Falls: Yes - GASTROINTESTINAL Hx Gastrointestinal Disorders: No - GENITOURINARY/GYNECOLOGICAL Hx Genitourinary Disorders: No - PSYCHIATRIC Hx Substance Use: No - SURGICAL HISTORY Hx Appendectomy: Yes (when she was 15 yrs old) Hx Cholecystectomy: Yes (aug 14 2016) - ANESTHESIA Hx Anesthesia: Yes Hx Anesthesia Reactions: No Hx Malignant Hyperthermia: No Meds Allergies/Adverse Reactions: Allergies Allergy/AdvReac Type Severity Reaction Status Date / Time No Known Allergies Allergy Verified 03/08/17 08:25 - Medications Medications: Current Medications Acetaminophen (Tylenol 325mg Tab) 650 mg PO Q6 PRN PRN Reason: Pain, moderate (4-7) Last Admin: 03/14/17 16:23 Dose: 650 mg Fluticasone Propionate (Flonase) 1 spr SEVERINO BID [facility] Last Admin: 03/17/17 19:12 Dose: Not Given Linezolid (Zyvox 600mg/300ml D5w) 600 mg in 300 mls @ 200 mls/hr IVPB Q12 [facility] Last Admin: 03/17/17 22:15 Dose: 200 mls/hr Multivitamins/Vitamin C 10 ml/ (Amino Acids) 1,010 mls @ 40 mls/hr IV .Q24H [facility] Last Admin: 03/16/17 19:04 Dose: 40 mls/hr Fat Emulsion Intravenous (Intralipid 20%) 500 mls @ 42 mls/hr IV TTS@1800 [facility] Stop: 03/21/17 05:55 Last Admin: 03/16/17 19:02 Dose: 42 mls/hr Piperacillin Sod/Tazobactam Sod (Zosyn 3.375 Gm Iv Premix) 3.375 gm in 50 mls @ 200 mls/hr IVPB Q8H [facility] Last Admin: 03/18/17 04:03 Dose: 200 mls/hr Multivitamins/Vitamin C 10 ml/ (Amino Acids) 1,010 mls @ 40 mls/hr IV .Q24H [facility] Stop: 03/18/17 17:59 Last Admin: 03/17/17 19:13 Dose: 40 mls/hr Multivitamins/Vitamin C 10 ml/ (Amino Acids) 1,010 mls @ 40 mls/hr IV .Q24H [facility] Stop: 03/19/17 17:59 Levothyroxine Sodium (Synthroid) 50 mcg PO DAILY@0630 [facility] Last Admin: 03/18/17 05:45 Dose: 50 mcg Lidocaine (Lidoderm) 1 ea TD DAILY [facility] Last Admin: 03/17/17 10:13 Dose: 1 ea Megestrol Acetate (Megace) 40 mg PO DAILY [facility] Last Admin: 03/17/17 10:13 Dose: 40 mg Ondansetron HCl (Zofran Inj) 4 mg IVP Q6H PRN PRN Reason: Nausea/Vomiting Pantoprazole Sodium (Protonix Ec Tab) 40 mg PO DAILY [facility] Last Admin: 03/17/17 10:13 Dose: 40 mg Physical Exam - Head Exam Head Exam: ATRAUMATIC - Eye Exam Eye Exam: Normal appearance - ENT Exam ENT Exam: Mucous Membranes Dry - Respiratory Exam Respiratory Exam: NORMAL BREATHING PATTERN - Cardiovascular Exam Cardiovascular Exam: +S1, +S2 - GI/Abdominal Exam GI & Abdominal Exam: Normal Bowel Sounds - Extremities Exam Extremities exam: Positive for: normal inspection - Neurological Exam Neurological exam: Oriented x3 - Psychiatric Exam Psychiatric exam: Normal Affect, Normal Mood - Skin Skin Exam: Warm Results - Vital Signs Recent Vital Signs: Last Vital Signs Temp 97.6 F 03/17/17 23:39 Pulse 63 03/17/17 23:39 Resp 20 03/17/17 23:39 BP 135/70 03/17/17 23:39 Pulse Ox 97 03/17/17 23:39 - Labs Result Diagrams: 03/17/17 11:02 03/17/17 11:02 Labs: Laboratory Results - last 24 hr 03/17/17 03/17/17 11:02 11:02 WBC 15.9 H RBC 4.32 Hgb 11.5 Hct 35.8 MCV 83.0 MCH 26.5 L MCHC 32.0 L RDW 18.2 H Plt Count 272 MPV 7.9 Neut % (Auto) 86.0 H Lymph % (Auto) 5.8 L Ida % (Auto) 6.0 Eos % (Auto) 1.8 Baso % (Auto) 0.4 Neut # 13.7 H Lymph # 0.9 L Ida # 1.0 H Eos # 0.3 Baso # 0.1 Neutrophils % (Manual) 81 H Band Neutrophils % 8 H Lymphocytes % (Manual) 7 L Monocytes % (Manual) 2 Eosinophils % (Manual) 2 Platelet Estimate Normal Poikilocytosis (manual Slight Anisocytosis (manual) Slight Zuleyka Cells Slight Sodium 137 Potassium 3.7 Chloride 103 Carbon Dioxide 27 Anion Gap 11 BUN 25 H Creatinine 1.0 Est GFR ( Amer) > 60 Est GFR (Non-Af Amer) 52 Random Glucose 98 Calcium 7.0 L Total Bilirubin 0.7 AST 55 H ALT 29 Alkaline Phosphatase 99 Total Protein 5.5 L Albumin 2.1 L Globulin 3.4 Albumin/Globulin Ratio 0.6 L Assessment & Plan (1) Pancreatic mass Assessment and Plan: with lymphadenopathy, liver lesions, CA 19-9 elevated; suspicious for metastatic pancreatic cancer notes reviewed; pt DNR/DNI and agree with supportive care pt prefers I speak to about goals of care; will contact in AM Status: Acute (2) Failure to thrive Assessment and Plan: on parenteral nutrition family decision on feeding tube Status: Acute (3) Leukocytosis Assessment and Plan: on antibiotics Status: Acute (4) Anemia Assessment and Plan: mild likely chronic disease Thank you for this interesting consult. Status: Acute
--- NOTE | 2017-03-18 10:07 | PN ---
DATE: 03/18/2017 SUBJECTIVE: The patient is seen. The patient is in her room, feeling very weak, refusing to eat. T he patient states that she just has no appetite. The patient is still clinically depressed, but on Z yvox and cannot take antidepressants. The patient also states that she wants to go home. VITAL SIGNS: Temperature is 97.6, pulse rate 63, blood pressure is 135/70, respirations 20, oxygen s at is 97. The patient is currently on PPN as the patient refusing to eat p.o. food. REVIEW OF SYSTEMS: GENERAL: The patient feels very weak, seen in her room, speaks in a very soft voice. SKIN: No diaphoresis. HEENT: No headache or dizziness. NECK: Supple. RESPIRATORY: No dyspnea. CARDIOVASCULAR: No chest pain. GASTROINTESTINAL: The patient states she has no appetite. The patient is refusing to take any p.o. food despite encouragement. No abdominal pain. EXTREMITIES: The patient is moving extremities. MUSCULOSKELETAL: Feels weak. NEUROLOGIC: Alert, oriented x 3, but feeling weaker. MENTAL STATUS EXAMINATION: A frail-looking elderly female who looks stated age, alert, oriented x 2. Mood is depressed. Affect is restricted. Speech is slow. Thought process coherent. Thought cont ent: The patient states she has no appetite. No psychosis. No suicidal or homicidal ideation. Att ention and memory seem to be limited. Insight and judgment fair. Impulse control is fair. IMPRESSION: Mood disorder secondary to medical problems. Anorexia. PLAN AND RECOMMENDATIONS: The patient seen, meds reviewed. Continue present management. Continue P PN. The patient may benefit from palliative care and also for hospice evaluation. The patient wants to go home, would benefit from home hospice. Tre Freeman MD cc: [id number] TT: 03/18/2017 10:07:21 Confirmation # [id number] Dictation # [id number]
[2017-03-18] MEDS: Fluticasone Nasal 50 mcg/Spray NAS SCH ×2 (10:28→19:01)
[2017-03-18] MEDS: Pantoprazole 40 mg EC Tab PO SCH (10:29)
[2017-03-18] MEDS: Lidocaine 5% Patch TD SCH (10:29)
[2017-03-18] MEDS: Linezolid 600 mg in D5W 300 ml 600 MG/300 ML BAG IVPB SCH ×2 (11:30→22:10)
--- NOTE | 2017-03-18 13:35 | CP.PCM.PN ---
Subjective - Date & Time of Evaluation Date of Evaluation: 03/18/17 Time of Evaluation: 13:34 - Subjective Subjective: CLINICALLY REMAINS SAME GI :PEG NOT POSSIBLE DUE TO ASCITES WILL D/W FAMILY HOSPICE CARE Objective - Vital Signs/Intake and Output Vital Signs (last 24 hours): Temp Pulse Resp BP Pulse Ox 97.9 F 85 18 131/59 L 97 03/18/17 08:00 03/18/17 08:00 03/18/17 08:00 03/18/17 08:00 03/18/17 08:00 - Medications Medications: Current Medications Acetaminophen (Tylenol 325mg Tab) 650 mg PO Q6 PRN PRN Reason: Pain, moderate (4-7) Last Admin: 03/14/17 16:23 Dose: 650 mg Fluticasone Propionate (Flonase) 1 spr SEVERINO BID [facility] Last Admin: 03/18/17 10:28 Dose: 1 spr Linezolid (Zyvox 600mg/300ml D5w) 600 mg in 300 mls @ 200 mls/hr IVPB Q12 [facility] Last Admin: 03/17/17 22:15 Dose: 200 mls/hr Multivitamins/Vitamin C 10 ml/ (Amino Acids) 1,010 mls @ 40 mls/hr IV .Q24H [facility] Last Admin: 03/16/17 19:04 Dose: 40 mls/hr Fat Emulsion Intravenous (Intralipid 20%) 500 mls @ 42 mls/hr IV TTS@1800 [facility] Stop: 03/21/17 05:55 Last Admin: 03/16/17 19:02 Dose: 42 mls/hr Piperacillin Sod/Tazobactam Sod (Zosyn 3.375 Gm Iv Premix) 3.375 gm in 50 mls @ 200 mls/hr IVPB Q8H [facility] Last Admin: 03/18/17 04:03 Dose: 200 mls/hr Multivitamins/Vitamin C 10 ml/ (Amino Acids) 1,010 mls @ 40 mls/hr IV .Q24H [facility] Stop: 03/18/17 17:59 Last Admin: 03/17/17 19:13 Dose: 40 mls/hr Multivitamins/Vitamin C 10 ml/ (Amino Acids) 1,010 mls @ 40 mls/hr IV .Q24H [facility] Stop: 03/19/17 17:59 Levothyroxine Sodium (Synthroid) 50 mcg PO DAILY@0630 [facility] Last Admin: 03/18/17 05:45 Dose: 50 mcg Lidocaine (Lidoderm) 1 ea TD DAILY [facility] Last Admin: 03/18/17 10:29 Dose: 1 ea Megestrol Acetate (Megace) 40 mg PO DAILY [facility] Last Admin: 03/18/17 10:29 Dose: 40 mg Ondansetron HCl (Zofran Inj) 4 mg IVP Q6H PRN PRN Reason: Nausea/Vomiting Pantoprazole Sodium (Protonix Ec Tab) 40 mg PO DAILY [facility] Last Admin: 03/18/17 10:29 Dose: 40 mg - Labs Labs: 03/17/17 11:02 03/17/17 11:02 PT 10.7 SECONDS (9.7-12.2) 03/12/17 12:08 INR 0.9 03/12/17 12:08 APTT 34 SECONDS (21-34) D 03/12/17 12:08
[2017-03-18] MEDS ORDERED: PPN #3 IV ONE (18:00)
--- NOTE | 2017-03-18 18:48 | CP.PCM.PN ---
Subjective - Date & Time of Evaluation Date of Evaluation: 03/18/17 Time of Evaluation: 18:48 - Subjective Subjective: afebrile GENERALIZED WEAKNESS. REFUSING TO EAT, APPETITE POOR SEEN BY HEMATOLOGY/ONCOLOGY. CONDITION POOR. ON GOING DISCUSSIONS WITH PALLIATIVE CARE. PROGNOSIS GRIM Objective - Vital Signs/Intake and Output Vital Signs (last 24 hours): Temp Pulse Resp BP Pulse Ox 97.5 F L 88 20 120/55 L 96 03/18/17 16:00 03/18/17 16:00 03/18/17 16:00 03/18/17 16:00 03/18/17 16:00 Intake and Output: 03/18/17 03/18/17 06:59 18:59 Intake Total 570 670 Balance 570 670 - Medications Medications: Current Medications Acetaminophen (Tylenol 325mg Tab) 650 mg PO Q6 PRN PRN Reason: Pain, moderate (4-7) Last Admin: 03/14/17 16:23 Dose: 650 mg Fluticasone Propionate (Flonase) 1 spr SEVERINO BID [facility] Last Admin: 03/18/17 10:28 Dose: 1 spr Linezolid (Zyvox 600mg/300ml D5w) 600 mg in 300 mls @ 200 mls/hr IVPB Q12 [facility] Last Admin: 03/18/17 11:30 Dose: Not Given Multivitamins/Vitamin C 10 ml/ (Amino Acids) 1,010 mls @ 40 mls/hr IV .Q24H [facility] Last Admin: 03/16/17 19:04 Dose: 40 mls/hr Piperacillin Sod/Tazobactam Sod (Zosyn 3.375 Gm Iv Premix) 3.375 gm in 50 mls @ 200 mls/hr IVPB Q8H [facility] Last Admin: 03/18/17 16:58 Dose: Not Given Multivitamins/Vitamin C 10 ml/ (Amino Acids) 1,010 mls @ 40 mls/hr IV .Q24H [facility] Stop: 03/19/17 17:59 Fat Emulsion Intravenous (Intralipid 20%) 500 mls @ 42 mls/hr IV TTS@1800 [facility] Stop: 03/24/17 05:55 Levothyroxine Sodium (Synthroid) 50 mcg PO DAILY@0630 [facility] Last Admin: 03/18/17 05:45 Dose: 50 mcg Lidocaine (Lidoderm) 1 ea TD DAILY [facility] Last Admin: 03/18/17 10:29 Dose: 1 ea Megestrol Acetate (Megace) 40 mg PO DAILY [facility] Last Admin: 03/18/17 10:29 Dose: 40 mg Ondansetron HCl (Zofran Inj) 4 mg IVP Q6H PRN PRN Reason: Nausea/Vomiting Pantoprazole Sodium (Protonix Ec Tab) 40 mg PO DAILY [facility] Last Admin: 03/18/17 10:29 Dose: 40 mg - Labs Labs: 03/17/17 11:02 03/17/17 11:02 PT 10.7 SECONDS (9.7-12.2) 03/12/17 12:08 INR 0.9 03/12/17 12:08 APTT 34 SECONDS (21-34) D 03/12/17 12:08 - Constitutional Appears: Chronically Ill - Head Exam Head Exam: NORMAL INSPECTION - Eye Exam Eye Exam: EOMI, PERRL - ENT Exam ENT Exam: Mucous Membranes Dry - Neck Exam Neck Exam: Normal Inspection - Respiratory Exam Respiratory Exam: Decreased Breath Sounds - Cardiovascular Exam Cardiovascular Exam: REGULAR RHYTHM, +S1, +S2 - GI/Abdominal Exam GI & Abdominal Exam: Soft, Tenderness (EPIGASTRIC), Hypoactive Bowel Sounds - Extremities Exam Extremities Exam: Pedal Edema. absent: Calf Tenderness - Neurological Exam Neurological Exam: Awake - Psychiatric Exam Psychiatric exam: Depressed - Skin Skin Exam: Normal Color Assessment and Plan (1) Leukocytosis Status: Acute (2) Pleural effusion Status: Acute (3) CHF (congestive heart failure) Status: Acute (4) Liver masses Status: Acute (5) Pericardial effusion Status: Acute (6) Atrial fibrillation with RVR Status: Acute - Assessment and Plan (Free Text) Assessment: ASSESSMENT; METASTATIC MALIGNANCY ?PANCREATIC MALIGNANCY PNEUMONIA ?ASPIRATION / COMPRESSIVE ATELECTASIS BILATERAL PLEURAL EFFUSIONS-S/P THORACENTESIS (TRANSUDATIVE ) 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 /PLAN : ON IV ZYVOX 600 MG EVERY 12 HOURLY 03/12/17 ON IV ZOSYN 3.375 EVERY 8 HOURLY.03/16/17 . check stool for C. difficile. REPEAT U/A, URINE CULTURE-p CASE DISCUSSED WITH HEMATOLOGY/ONCOLOGY LAST EVENING. PALLIATIVE CARE-ON GOING DISCUSSIONS WITH FAMILY.
[2017-03-18] MEDS: Fat Emulsion 20% IV 500 ML IV SCH ×2 (18:52→19:23)
[2017-03-19] MEDS: Levothyroxine 50 MCG TAB PO SCH (05:44)
[2017-03-19] MEDS: Piperacill/Tazo 3.375gm in Dex 3.375 GM/50 ML BAG IVPB SCH ×3 (05:44→21:54)
[2017-03-19] MEDS: PPN #1 IV SCH (07:30)
--- NOTE | 2017-03-19 12:39 | PN ---
DATE: 03/19/2017 SUBJECTIVE: The patient is seen. The patient is more alert, but still looks weak, seems depressed and refusing to eat. She said she has tried to drink the Boost, but states she has no appetite. The patient has metastatic pancreatic cancer. She is still clinically depressed. The patient is on PPN, but patient cannot take any psych meds as patient is still on Zyvox. The plan is, according to the telehealth case manager, family is more leaning toward home hospice. VITAL SIGNS: Temperature is 97.5, pulse rate is 88, blood pressure 135/63, respirations 20, oxygen saturation is 93%. REVIEW OF SYSTEMS: GENERAL: The patient is more alert, verbal, but appears very weak and frail, seen in her room with some family members. The said she has no appetite. She is refusing to eat. SKIN: No diaphoresis. HEENT: No headache, no dizziness. NECK: Supple. RESPIRATORY: No dyspnea. CARDIOVASCULAR: No chest pain. GASTROINTESTINAL: Very poor appetite. The patient has not eaten since I saw her in the hospital, has not eaten in a few days. EXTREMITIES: The patient is mostly in bed. MUSCULOSKELETAL: Generalized weakness. NEUROLOGIC: Alert, oriented x 3. GENITOURINARY: No urinary problems. MENTAL STATUS EXAMINATION: Frail looking elderly female who looks stated age, oriented x 3. Mood is depressed, despairing, affect is restrictive. Speech spontaneous. Thought process coherent. Thought content: The patient states she has no appetite. No paranoia. No suicidal or homicidal ideation. Attention and memory seems to be fair. Insight and judgment fair. Impulse control is fair. 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 PLAN AND RECOMMENDATIONS: The patient seen, meds reviewed. Continue present management. Continue PPN as ordered. The patient may benefit from palliative and hospice care. Tre Freeman MD cc: [phone] TT: 03/19/2017 12:38:22 Confirmation # [id number] Dictation # [id number] pascual BERNARD
[2017-03-19] MEDS: Lidocaine 5% Patch TD SCH (12:46)
[2017-03-19] MEDS: Pantoprazole 40 mg EC Tab PO SCH (12:46)
[2017-03-19] MEDS: Fluticasone Nasal 50 mcg/Spray NAS SCH ×2 (12:46→19:15)
[2017-03-19] MEDS: Linezolid 600 mg in D5W 300 ml 600 MG/300 ML BAG IVPB SCH (12:47)
--- NOTE | 2017-03-19 13:09 | CP.PCM.PN ---
Subjective - Date & Time of Evaluation Date of Evaluation: 03/19/17 Time of Evaluation: 12:30 - Subjective Subjective: Feels tired, does not want to eat. I had family meeting yesterday and discussed the imaging findings of likely metastatic pancreatic cancer with an elevated tumor marker. We discussed the incurable nature of her disease and given her inability to tolerate any oncologic treatment, would not recommend a biopsy. We also discussed parenteral nutrition, feeding tube placement, and hospice. They indicated they want to think about what was discussed and discuss further as a family. Objective - Vital Signs/Intake and Output Vital Signs (last 24 hours): Temp Pulse Resp BP Pulse Ox 97.5 F L 88 22 135/63 93 L 03/19/17 07:05 03/19/17 07:05 03/19/17 07:05 03/19/17 07:05 03/19/17 07:05 Intake and Output: 03/19/17 03/19/17 06:59 18:59 Intake Total 350 Balance 350 - Medications Medications: Current Medications Acetaminophen (Tylenol 325mg Tab) 650 mg PO Q6 PRN PRN Reason: Pain, moderate (4-7) Last Admin: 03/14/17 16:23 Dose: 650 mg Fluticasone Propionate (Flonase) 1 spr SEVERINO BID [facility] Last Admin: 03/19/17 12:46 Dose: 1 spr Linezolid (Zyvox 600mg/300ml D5w) 600 mg in 300 mls @ 200 mls/hr IVPB Q12 [facility] Last Admin: 03/19/17 12:47 Dose: 200 mls/hr Piperacillin Sod/Tazobactam Sod (Zosyn 3.375 Gm Iv Premix) 3.375 gm in 50 mls @ 200 mls/hr IVPB Q8H [facility] Last Admin: 03/19/17 05:44 Dose: 200 mls/hr Multivitamins/Vitamin C 10 ml/ (Amino Acids) 1,010 mls @ 40 mls/hr IV .Q24H ONE Stop: 03/19/17 17:59 Last Admin: 03/18/17 18:51 Dose: 40 mls/hr Fat Emulsion Intravenous (Intralipid 20%) 500 mls @ 42 mls/hr IV TTS@1800 [facility] Stop: 03/24/17 05:55 Last Admin: 03/18/17 19:23 Dose: Not Given Multivitamins/Vitamin C 10 ml/ (Amino Acids) 1,010 mls @ 40 mls/hr IV .Q24H ONE Stop: 03/20/17 17:59 Levothyroxine Sodium (Synthroid) 50 mcg PO DAILY@0630 [facility] Last Admin: 03/19/17 05:44 Dose: 50 mcg Lidocaine (Lidoderm) 1 ea TD DAILY [facility] Last Admin: 03/19/17 12:46 Dose: 1 ea Megestrol Acetate (Megace) 40 mg PO DAILY [facility] Last Admin: 03/19/17 12:46 Dose: 40 mg Ondansetron HCl (Zofran Inj) 4 mg IVP Q6H PRN PRN Reason: Nausea/Vomiting Pantoprazole Sodium (Protonix Ec Tab) 40 mg PO DAILY [facility] Last Admin: 03/19/17 12:46 Dose: 40 mg - Labs Labs: 03/17/17 11:02 03/17/17 11:02 PT 10.7 SECONDS (9.7-12.2) 03/12/17 12:08 INR 0.9 03/12/17 12:08 APTT 34 SECONDS (21-34) D 03/12/17 12:08 - Head Exam Head Exam: ATRAUMATIC - ENT Exam ENT Exam: Mucous Membranes Dry - Respiratory Exam Respiratory Exam: NORMAL BREATHING PATTERN - Cardiovascular Exam Cardiovascular Exam: +S1, +S2 - GI/Abdominal Exam GI & Abdominal Exam: Normal Bowel Sounds - Extremities Exam Extremities Exam: Normal Inspection - Neurological Exam Neurological Exam: Oriented x3 - Psychiatric Exam Psychiatric exam: Normal Affect, Normal Mood - Skin Skin Exam: Warm Assessment and Plan (1) Pancreatic mass Status: Acute (2) Failure to thrive Status: Acute (3) Leukocytosis Status: Acute (4) Anemia Status: Acute
--- NOTE | 2017-03-19 13:29 | CP.PCM.PN ---
Subjective - Date & Time of Evaluation Date of Evaluation: 03/19/17 Time of Evaluation: 13:27 - Subjective Subjective: DR DOVE'S INPUT APPRECIATED HODPICE ON BOARD CLINICALLY REMAINS SAME AWAITING FAMILY'S DECISION Objective - Vital Signs/Intake and Output Vital Signs (last 24 hours): Temp Pulse Resp BP Pulse Ox 97.5 F L 88 22 135/63 93 L 03/19/17 07:05 03/19/17 07:05 03/19/17 07:05 03/19/17 07:05 03/19/17 07:05 - Medications Medications: Current Medications Acetaminophen (Tylenol 325mg Tab) 650 mg PO Q6 PRN PRN Reason: Pain, moderate (4-7) Last Admin: 03/14/17 16:23 Dose: 650 mg Fluticasone Propionate (Flonase) 1 spr SEVERINO BID [facility] Last Admin: 03/19/17 12:46 Dose: 1 spr Linezolid (Zyvox 600mg/300ml D5w) 600 mg in 300 mls @ 200 mls/hr IVPB Q12 [facility] Last Admin: 03/19/17 12:47 Dose: 200 mls/hr Piperacillin Sod/Tazobactam Sod (Zosyn 3.375 Gm Iv Premix) 3.375 gm in 50 mls @ 200 mls/hr IVPB Q8H [facility] Last Admin: 03/19/17 05:44 Dose: 200 mls/hr Multivitamins/Vitamin C 10 ml/ (Amino Acids) 1,010 mls @ 40 mls/hr IV .Q24H ONE Stop: 03/19/17 17:59 Last Admin: 03/18/17 18:51 Dose: 40 mls/hr Fat Emulsion Intravenous (Intralipid 20%) 500 mls @ 42 mls/hr IV TTS@1800 [facility] Stop: 03/24/17 05:55 Last Admin: 03/18/17 19:23 Dose: Not Given Multivitamins/Vitamin C 10 ml/ (Amino Acids) 1,010 mls @ 40 mls/hr IV .Q24H ONE Stop: 03/20/17 17:59 Levothyroxine Sodium (Synthroid) 50 mcg PO DAILY@0630 [facility] Last Admin: 03/19/17 05:44 Dose: 50 mcg Lidocaine (Lidoderm) 1 ea TD DAILY [facility] Last Admin: 03/19/17 12:46 Dose: 1 ea Megestrol Acetate (Megace) 40 mg PO DAILY [facility] Last Admin: 03/19/17 12:46 Dose: 40 mg Ondansetron HCl (Zofran Inj) 4 mg IVP Q6H PRN PRN Reason: Nausea/Vomiting Pantoprazole Sodium (Protonix Ec Tab) 40 mg PO DAILY [facility] Last Admin: 03/19/17 12:46 Dose: 40 mg - Labs Labs: 03/17/17 11:02 03/17/17 11:02 PT 10.7 SECONDS (9.7-12.2) 03/12/17 12:08 INR 0.9 03/12/17 12:08 APTT 34 SECONDS (21-34) D 03/12/17 12:08
[2017-03-19] MEDS ORDERED: PPN#4 IV ONE (18:00)
--- NOTE | 2017-03-19 18:04 | CP.PCM.PN ---
Subjective - Date & Time of Evaluation Date of Evaluation: 03/19/17 Time of Evaluation: 18:03 - Subjective Subjective: afebrile. clinically same. still refusing to eat. LABS REVIEWED; URINE CULTURE REPEAT- NEGATIVE GROWTH. BLOOD CULTURES- NEGATIVE GROWTH. +VE LEUKOCYTOSIS. FAMILY AT BEDSIDE. DISCUSSED WITH AND NIECE.CONCERNED ABOUT ANTIBIOTICS/AND INFECTION DC IV ZYVOX FOR NOW URINE CULTURES ARE NEGATIVE. WILL DC IV ZOSYN WHEN FAMILY DECIDES ABOUT HOSPICE. PER MY DISCUSSION, FAMILY WANTS HOME HOSPICE. Objective - Vital Signs/Intake and Output Vital Signs (last 24 hours): Temp Pulse Resp BP Pulse Ox 97.8 F 68 20 130/62 96 03/19/17 16:00 03/19/17 16:00 03/19/17 16:00 03/19/17 16:00 03/19/17 16:00 Intake and Output: 03/19/17 03/19/17 06:59 18:59 Intake Total 350 1170 Balance 350 1170 - Medications Medications: Current Medications Acetaminophen (Tylenol 325mg Tab) 650 mg PO Q6 PRN PRN Reason: Pain, moderate (4-7) Last Admin: 03/14/17 16:23 Dose: 650 mg Fluticasone Propionate (Flonase) 1 spr SEVERINO BID [facility] Last Admin: 03/19/17 12:46 Dose: 1 spr Piperacillin Sod/Tazobactam Sod (Zosyn 3.375 Gm Iv Premix) 3.375 gm in 50 mls @ 200 mls/hr IVPB Q8H [facility] Last Admin: 03/19/17 14:22 Dose: 200 mls/hr Fat Emulsion Intravenous (Intralipid 20%) 500 mls @ 42 mls/hr IV TTS@1800 [facility] Stop: 03/24/17 05:55 Last Admin: 03/18/17 19:23 Dose: Not Given Multivitamins/Vitamin C 10 ml/ (Amino Acids) 1,010 mls @ 40 mls/hr IV .Q24H ONE Stop: 03/20/17 17:59 Levothyroxine Sodium (Synthroid) 50 mcg PO DAILY@0630 [facility] Last Admin: 03/19/17 05:44 Dose: 50 mcg Lidocaine (Lidoderm) 1 ea TD DAILY [facility] Last Admin: 03/19/17 12:46 Dose: 1 ea Megestrol Acetate (Megace) 40 mg PO DAILY [facility] Last Admin: 03/19/17 12:46 Dose: 40 mg Ondansetron HCl (Zofran Inj) 4 mg IVP Q6H PRN PRN Reason: Nausea/Vomiting Pantoprazole Sodium (Protonix Ec Tab) 40 mg PO DAILY [facility] Last Admin: 03/19/17 12:46 Dose: 40 mg - Labs Labs: 03/17/17 11:02 03/17/17 11:02 PT 10.7 SECONDS (9.7-12.2) 03/12/17 12:08 INR 0.9 03/12/17 12:08 APTT 34 SECONDS (21-34) D 03/12/17 12:08 - Constitutional Appears: No Acute Distress - Head Exam Head Exam: NORMOCEPHALIC - Eye Exam Eye Exam: EOMI, PERRL - ENT Exam ENT Exam: Normal Oropharynx - Neck Exam Neck Exam: Normal Inspection - Respiratory Exam Respiratory Exam: Decreased Breath Sounds, NORMAL BREATHING PATTERN - GI/Abdominal Exam GI & Abdominal Exam: Soft, Tenderness (MID ABDOMEN AND EPIGASTRIC ON PALPATION.) , Normal Bowel Sounds - Extremities Exam Extremities Exam: Pedal Edema. absent: Calf Tenderness - Neurological Exam Neurological Exam: Awake, CN II-XII Intact - Psychiatric Exam Psychiatric exam: Flat Affect - Skin Skin Exam: Normal Color, Warm Assessment and Plan (1) Leukocytosis Assessment & Plan: STILL WITH LEUKOCYTOSIS. rEPEAT URINE CULTURES ARE NEGATIVE. DC IV ZYVOX. CONTINUE IV ZOSYN FOR NOW. Status: Acute (2) Pleural effusion Assessment & Plan: PLEURAL FLUID CULTURES NEGATIVE GROWTH. Status: Acute (3) CHF (congestive heart failure) Status: Acute (4) Liver masses Status: Acute (5) Pericardial effusion Status: Acute (6) Atrial fibrillation with RVR Status: Acute - Assessment and Plan (Free Text) Assessment: ASSESSMENT; METASTATIC MALIGNANCY ?PANCREATIC MALIGNANCY PNEUMONIA ?ASPIRATION / COMPRESSIVE ATELECTASIS BILATERAL PLEURAL EFFUSIONS-S/P THORACENTESIS (TRANSUDATIVE ) 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 /PLAN : DC IV ZYVOX 600 MG EVERY 12 HOURLY 03/12/17 CONTINUE ON IV ZOSYN 3.375 EVERY 8 HOURLY.03/16/17 WHILE PATIENT IN HOSPITAL. check stool for C. difficile. CASE DISCUSSED WITH AND NIECE AND STAFF.
[2017-03-20] MEDS: Piperacill/Tazo 3.375gm in Dex 3.375 GM/50 ML BAG IVPB SCH ×3 (05:13→20:51)
[2017-03-20] MEDS: Levothyroxine 50 MCG TAB PO SCH ×2 (06:06→06:08)
--- NOTE | 2017-03-20 10:36 | PN ---
DATE: 03/20/2017 SUBJECTIVE: The patient seen in her room. The patient was staring at her breakfast. She said she has no appetite. The patient has been taken off Zyvox by Dr. Carlos, urine culture is now negative. 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 The patient also is on Megace. The patient is currently on PPN feeding, as patient is not eating regular food. VITAL SIGNS: Temperature is 97.7, pulse rate is 87, blood pressure is 134/51, respirations 20, oxygen saturation is 98%. REVIEW OF SYSTEMS: GENERAL: The patient is alert, but feeling weak. The patient seems to have increasing periods of confusion and was seen in her room staring at her food. The patient does not even want to touch her food. SKIN: No diaphoresis. HEENT: No headache or dizziness. NECK: Supple. RESPIRATORY: No dyspnea. CARDIOVASCULAR: No chest pain. GASTROINTESTINAL: The patient has absolutely no appetite. No nausea and no abdominal pain. EXTREMITIES: The patient is moving extremities. MUSCULOSKELETAL: Feels weak, generalized weakness. NEUROLOGIC: Alert, but seems to have increasing periods of confusion. GENITOURINARY: No dysuria. MENTAL STATUS EXAMINATION: A frail elderly female who looks stated age, clinically depressed. Affect restrictive. Speech is slow, soft tone. Thought process is coherent, has periods of confusion. Thought content: The patient refusing to eat. She states that she wants to go home. No psychosis. No suicidal or homicidal ideation. Attention and memory seem to be limited. Insight and judgment limited. Impulse control is fair at this time. 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 PLAN AND RECOMMENDATIONS: The patient seen, meds reviewed. Continue PPN as ordered. Continue Megace to improve appetite. We will add Remeron 7.5 mg at bedtime for depression as well as hopefully improve her appetite. Continue Megace as ordered. The patient may benefit from palliative and hospice care at this time. Tre Freeman MD cc: [phone] TT: 03/20/2017 10:35:27 Confirmation # [id number] Dictation # [id number] [id number]
[2017-03-20] MEDS: Lidocaine 5% Patch TD SCH (10:46)
[2017-03-20] MEDS: Fluticasone Nasal 50 mcg/Spray NAS SCH ×2 (10:46→17:56)
[2017-03-20] MEDS: Pantoprazole 40 mg EC Tab PO SCH (10:47)
--- NOTE | 2017-03-20 13:35 | CP.PCM.PN ---
Subjective - Date & Time of Evaluation Date of Evaluation: 03/20/17 Time of Evaluation: 13:34 - Subjective Subjective: CLINICALLY REMAINS SAME FAMILY HAS NOT SIGNED ANY HOSPICE CARE FORMS WILL D/W ADMINISTRATION Objective - Vital Signs/Intake and Output Vital Signs (last 24 hours): Temp Pulse Resp BP Pulse Ox 97.7 F 87 18 134/51 L 98 03/20/17 07:02 03/20/17 07:02 03/20/17 07:02 03/20/17 07:02 03/20/17 07:02 Intake and Output: 03/20/17 03/20/17 11:59 23:59 Intake Total 370 Balance 370 - Medications Medications: Current Medications Acetaminophen (Tylenol 325mg Tab) 650 mg PO Q6 PRN PRN Reason: Pain, moderate (4-7) Last Admin: 03/14/17 16:23 Dose: 650 mg Fluticasone Propionate (Flonase) 1 spr SEVERINO BID [facility] Last Admin: 03/20/17 10:46 Dose: 1 spr Piperacillin Sod/Tazobactam Sod (Zosyn 3.375 Gm Iv Premix) 3.375 gm in 50 mls @ 200 mls/hr IVPB Q8H [facility] Last Admin: 03/20/17 12:55 Dose: 200 mls/hr Fat Emulsion Intravenous (Intralipid 20%) 500 mls @ 42 mls/hr IV TTS@1800 [facility] Stop: 03/24/17 05:55 Last Admin: 03/18/17 19:23 Dose: Not Given Multivitamins/Vitamin C 10 ml/ (Amino Acids) 1,010 mls @ 40 mls/hr IV .Q24H [facility] Stop: 03/21/17 17:59 Levothyroxine Sodium (Synthroid) 50 mcg PO DAILY@0630 [facility] Last Admin: 03/20/17 06:08 Dose: Not Given Lidocaine (Lidoderm) 1 ea TD DAILY [facility] Last Admin: 03/20/17 10:46 Dose: 1 ea Megestrol Acetate (Megace) 40 mg PO DAILY [facility] Last Admin: 03/20/17 10:47 Dose: 40 mg Mirtazapine (Remeron) 7.5 mg PO HS [facility] Ondansetron HCl (Zofran Inj) 4 mg IVP Q6H PRN PRN Reason: Nausea/Vomiting Pantoprazole Sodium (Protonix Ec Tab) 40 mg PO DAILY [facility] Last Admin: 03/20/17 10:47 Dose: 40 mg - Labs Labs: 03/17/17 11:02 03/17/17 11:02 PT 10.7 SECONDS (9.7-12.2) 03/12/17 12:08 INR 0.9 03/12/17 12:08 APTT 34 SECONDS (21-34) D 03/12/17 12:08
--- NOTE | 2017-03-20 14:17 | CP.PCM.PN ---
Subjective - Date & Time of Evaluation Date of Evaluation: 03/20/17 Time of Evaluation: 14:17 - Subjective Subjective: afebrile feeling weak /opens eyes. still refusing to eat. ON TPN. BY HER SIDE. SPOKE TO KATERINE. LABS NOTED; 03/20/17 WBC 13.0 -IMPROVING H/H 10.7/33.2 CREAT 0.9/BUN 35 LFTS -N Objective - Vital Signs/Intake and Output Vital Signs (last 24 hours): Temp Pulse Resp BP Pulse Ox 97.7 F 87 18 134/51 L 98 03/20/17 07:02 03/20/17 07:02 03/20/17 07:02 03/20/17 07:02 03/20/17 07:02 Intake and Output: 03/20/17 03/20/17 06:59 18:59 Intake Total 370 Balance 370 - Medications Medications: Current Medications Acetaminophen (Tylenol 325mg Tab) 650 mg PO Q6 PRN PRN Reason: Pain, moderate (4-7) Last Admin: 03/14/17 16:23 Dose: 650 mg Fluticasone Propionate (Flonase) 1 spr SEVERINO BID [facility] Last Admin: 03/20/17 10:46 Dose: 1 spr Piperacillin Sod/Tazobactam Sod (Zosyn 3.375 Gm Iv Premix) 3.375 gm in 50 mls @ 200 mls/hr IVPB Q8H [facility] Last Admin: 03/20/17 12:55 Dose: 200 mls/hr Fat Emulsion Intravenous (Intralipid 20%) 500 mls @ 42 mls/hr IV TTS@1800 [facility] Stop: 03/24/17 05:55 Last Admin: 03/18/17 19:23 Dose: Not Given Multivitamins/Vitamin C 10 ml/ (Amino Acids) 1,010 mls @ 40 mls/hr IV .Q24H [facility] Stop: 03/21/17 17:59 Levothyroxine Sodium (Synthroid) 50 mcg PO DAILY@0630 [facility] Last Admin: 03/20/17 06:08 Dose: Not Given Lidocaine (Lidoderm) 1 ea TD DAILY [facility] Last Admin: 03/20/17 10:46 Dose: 1 ea Megestrol Acetate (Megace) 40 mg PO DAILY [facility] Last Admin: 03/20/17 10:47 Dose: 40 mg Mirtazapine (Remeron) 7.5 mg PO HS [facility] Ondansetron HCl (Zofran Inj) 4 mg IVP Q6H PRN PRN Reason: Nausea/Vomiting Pantoprazole Sodium (Protonix Ec Tab) 40 mg PO DAILY [facility] Last Admin: 03/20/17 10:47 Dose: 40 mg - Labs Labs: 03/17/17 11:02 03/17/17 11:02 PT 10.7 SECONDS (9.7-12.2) 03/12/17 12:08 INR 0.9 03/12/17 12:08 APTT 34 SECONDS (21-34) D 03/12/17 12:08 - Constitutional Appears: No Acute Distress, Chronically Ill - Head Exam Head Exam: NORMAL INSPECTION - Eye Exam Eye Exam: PERRL. absent: Scleral icterus - ENT Exam ENT Exam: Mucous Membranes Dry, Normal Oropharynx - Neck Exam Neck Exam: Normal Inspection - Respiratory Exam Respiratory Exam: Clear to Ausculation Bilateral - Cardiovascular Exam Cardiovascular Exam: REGULAR RHYTHM, +S1, +S2 - GI/Abdominal Exam GI & Abdominal Exam: Soft, Tenderness (GENERALIZED ON PALPATION.), Normal Bowel Sounds - Extremities Exam Extremities Exam: absent: Calf Tenderness, Pedal Edema - Neurological Exam Neurological Exam: Awake, Oriented x3, Reflexes Normal - Psychiatric Exam Psychiatric exam: Normal Mood - Skin Skin Exam: Normal Color, Warm Assessment and Plan (1) Leukocytosis Status: Acute (2) Pleural effusion Status: Acute (3) CHF (congestive heart failure) Status: Acute (4) Liver masses Status: Acute (5) Pericardial effusion Status: Acute (6) Atrial fibrillation with RVR Status: Acute - Assessment and Plan (Free Text) Assessment: ASSESSMENT; METASTATIC MALIGNANCY ?PANCREATIC MALIGNANCY PNEUMONIA ?ASPIRATION / COMPRESSIVE ATELECTASIS BILATERAL PLEURAL EFFUSIONS-S/P THORACENTESIS (TRANSUDATIVE ) 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 /PLAN : OFF IV ZYVOX 600 MG EVERY 12 HOURLY 03/12/17 CONTINUE ON IV ZOSYN 3.375 EVERY 8 HOURLY.03/16/17 WHILE PATIENT IN HOSPITAL. check stool for C. difficile. DISCUSSED WITH RN. CASE DISCUSSED WITH AND NIECE.
[2017-03-20 16:51] LABS: BASO % 0.3 % (0.0-2.0); EOS # 0.3 K/uL (0.0-0.7); EOS % 2.6 % (0.0-4.0); HEMATOCRIT 33.2 % (34.0-47.0); LYMPH # 0.7 K/uL (1.0-4.3); LYMPH % 5.2 % (20.0-40.0); MEAN CELL VOLUME 82.9 fL (81.0-99.0); MEAN CORPUSCULAR HEMOGLOBIN 26.6 pg (27.0-31.0); MEAN CORPUSCULAR HGB CONC 32.1 g/dL (33.0-37.0); MEAN PLATELET VOLUME 7.7 fL (7.2-11.7); MONO # 0.8 K/uL (0.0-0.8); MONO % 6.4 % (0.0-10.0); RED CELL DISTRIBUTION WIDTH 18.3 % (11.5-14.5)
[2017-03-20 16:53] LABS: PLATELET COUNT 151 K/uL (130-400)
[2017-03-20 16:56] LABS: CHLORIDE 100 mmol/L (98-107); SODIUM 133 mmol/L (132-148)
[2017-03-20 16:57] LABS: POTASSIUM 3.4 mmol/L (3.6-5.2)
[2017-03-20 16:59] LABS: ALB/GLOB RATIO 0.5 (1.0-2.1); ALKALINE PHOSPHATASE 88 U/L (38-126); AST/SGOT 36 U/L (14-36); BILIRUBIN,TOTAL 0.6 mg/dL (0.2-1.3); BLOOD UREA NITROGEN 35 mg/dL (7-17); CARBON DIOXIDE 26 mmol/L (22-30); GFR AFRICAN-AMERICAN > 60; TOTAL PROTEIN 5.2 g/dL (6.3-8.3)
[2017-03-20 17:00] LABS: ALT/SGPT 33 U/L (9-52); CALCIUM 7.1 mg/dl (8.6-10.4); GLUCOSE,RANDOM 93 mg/dL (65-105)
[2017-03-20 17:41] LABS: EOSINOPHIL 1 % (0-4); LARGE PLATELETS PRESENT; NEUTROPHIL 84 % (50-75); TOTAL CELLS COUNTED 100
[2017-03-20] MEDS: Fat Emulsion 20% IV 500 ML IV SCH (17:42)
[2017-03-20] MEDS ORDERED: PPN#4 IV ONE (18:00)
--- NOTE | 2017-03-20 18:17 | CP.PCM.PN ---
Subjective - Date & Time of Evaluation Date of Evaluation: 03/20/17 Time of Evaluation: 16:30 - Subjective Subjective: Appears comfortable Family at bedside; agreeable to home hospice and does not want feeding tube Objective - Vital Signs/Intake and Output Vital Signs (last 24 hours): Temp Pulse Resp BP Pulse Ox 97.6 F 89 20 120/63 95 03/20/17 15:28 03/20/17 15:28 03/20/17 15:28 03/20/17 15:28 03/20/17 15:28 Intake and Output: 03/20/17 03/20/17 06:59 18:59 Intake Total 370 Balance 370 - Medications Medications: Current Medications Acetaminophen (Tylenol 325mg Tab) 650 mg PO Q6 PRN PRN Reason: Pain, moderate (4-7) Last Admin: 03/14/17 16:23 Dose: 650 mg Fluticasone Propionate (Flonase) 1 spr SEVERINO BID [facility] Last Admin: 03/20/17 17:56 Dose: 1 spr Piperacillin Sod/Tazobactam Sod (Zosyn 3.375 Gm Iv Premix) 3.375 gm in 50 mls @ 200 mls/hr IVPB Q8H [facility] Last Admin: 03/20/17 12:55 Dose: 200 mls/hr Fat Emulsion Intravenous (Intralipid 20%) 500 mls @ 42 mls/hr IV TTS@1800 [facility] Stop: 03/24/17 05:55 Last Admin: 03/20/17 17:42 Dose: 42 mls/hr Multivitamins/Vitamin C 10 ml/ (Amino Acids) 1,010 mls @ 40 mls/hr IV .Q24H [facility] Stop: 03/21/17 17:59 Last Admin: 03/20/17 17:49 Dose: 40 mls/hr Levothyroxine Sodium (Synthroid) 50 mcg PO DAILY@0630 [facility] Last Admin: 03/20/17 06:08 Dose: Not Given Lidocaine (Lidoderm) 1 ea TD DAILY [facility] Last Admin: 03/20/17 10:46 Dose: 1 ea Megestrol Acetate (Megace) 40 mg PO DAILY [facility] Last Admin: 03/20/17 10:47 Dose: 40 mg Mirtazapine (Remeron) 7.5 mg PO HS [facility] Ondansetron HCl (Zofran Inj) 4 mg IVP Q6H PRN PRN Reason: Nausea/Vomiting Pantoprazole Sodium (Protonix Ec Tab) 40 mg PO DAILY [facility] Last Admin: 03/20/17 10:47 Dose: 40 mg - Labs Labs: 03/20/17 16:39 03/20/17 16:39 PT 10.7 SECONDS (9.7-12.2) 03/12/17 12:08 INR 0.9 03/12/17 12:08 APTT 34 SECONDS (21-34) D 03/12/17 12:08 - Head Exam Head Exam: ATRAUMATIC - Eye Exam Eye Exam: Normal appearance - ENT Exam ENT Exam: Mucous Membranes Dry - Respiratory Exam Respiratory Exam: NORMAL BREATHING PATTERN - Cardiovascular Exam Cardiovascular Exam: +S1, +S2 - GI/Abdominal Exam GI & Abdominal Exam: Normal Bowel Sounds - Extremities Exam Extremities Exam: Normal Inspection Assessment and Plan (1) Pancreatic mass Status: Acute (2) Failure to thrive Status: Acute (3) Leukocytosis Status: Acute (4) Anemia Status: Acute
[2017-03-20] MEDS: DiphenhydrAMINE 50 mg/ml Inj IVP PRN (21:55)
[2017-03-21] MEDS: Piperacill/Tazo 3.375gm in Dex 3.375 GM/50 ML BAG IVPB SCH ×3 (05:00→21:00)
[2017-03-21] MEDS: Levothyroxine 50 MCG TAB PO SCH (06:02)
[2017-03-21] MEDS: Fluticasone Nasal 50 mcg/Spray NAS SCH ×2 (10:16→18:17)
[2017-03-21] MEDS: Pantoprazole 40 mg EC Tab PO SCH (10:17)
[2017-03-21] MEDS: Lidocaine 5% Patch TD SCH (10:19)
--- NOTE | 2017-03-21 14:23 | CP.PCM.PN ---
Subjective - Date & Time of Evaluation Date of Evaluation: 03/21/17 Time of Evaluation: 14:23 - Subjective Subjective: clinically remains same awaiting hospice care labs ok Objective - Vital Signs/Intake and Output Vital Signs (last 24 hours): Temp Pulse Resp BP Pulse Ox 97.4 F L 80 18 126/57 L 96 03/21/17 08:00 03/21/17 08:00 03/21/17 08:00 03/21/17 08:00 03/21/17 08:00 Intake and Output: 03/21/17 03/21/17 11:59 23:59 Intake Total 566 Output Total 200 Balance 366 - Medications Medications: Current Medications Acetaminophen (Tylenol 325mg Tab) 650 mg PO Q6 PRN PRN Reason: Pain, moderate (4-7) Last Admin: 03/14/17 16:23 Dose: 650 mg Diphenhydramine HCl (Benadryl) 25 mg IVP HS PRN PRN Reason: Insomnia Last Admin: 03/20/17 21:55 Dose: 25 mg Fluticasone Propionate (Flonase) 1 spr SEVERINO BID [facility] Last Admin: 03/21/17 10:16 Dose: 1 spr Piperacillin Sod/Tazobactam Sod (Zosyn 3.375 Gm Iv Premix) 3.375 gm in 50 mls @ 200 mls/hr IVPB Q8H [facility] Last Admin: 03/21/17 13:08 Dose: 200 mls/hr Multivitamins/Vitamin C 10 ml/ (Amino Acids) 1,010 mls @ 40 mls/hr IV .Q24H ONE Stop: 03/21/17 17:59 Last Admin: 03/20/17 17:49 Dose: 40 mls/hr Amino Acids (Clinimix 4.25/5 % "E" (1000 Ml)) 1,000 mls @ 40 mls/hr IV .Q24H ONE Stop: 03/22/17 17:59 Ketorolac Tromethamine (Toradol) 15 mg IVP Q6H [facility] Last Admin: 03/21/17 10:16 Dose: 15 mg Levothyroxine Sodium (Synthroid) 50 mcg PO DAILY@0630 [facility] Last Admin: 03/21/17 06:02 Dose: Not Given Lidocaine (Lidoderm) 1 ea TD DAILY [facility] Last Admin: 03/21/17 10:19 Dose: 1 ea Megestrol Acetate (Megace) 40 mg PO DAILY [facility] Last Admin: 03/21/17 10:17 Dose: Not Given Mirtazapine (Remeron) 7.5 mg PO HS [facility] Last Admin: 03/20/17 21:59 Dose: Not Given Ondansetron HCl (Zofran Inj) 4 mg IVP Q6H PRN PRN Reason: Nausea/Vomiting Pantoprazole Sodium (Protonix Ec Tab) 40 mg PO DAILY [facility] Last Admin: 03/21/17 10:17 Dose: Not Given - Labs Labs: 03/20/17 16:39 03/20/17 16:39 PT 10.7 SECONDS (9.7-12.2) 03/12/17 12:08 INR 0.9 03/12/17 12:08 APTT 34 SECONDS (21-34) D 03/12/17 12:08
[2017-03-21] MEDS ORDERED: TPN # 6 IV ONE (18:00)
[2017-03-21] MEDS ORDERED: PPN # 6 IV ONE (18:00)
[2017-03-21] MEDS ORDERED: PPN#4 IV ONE (18:00)
[2017-03-22] MEDS: Piperacill/Tazo 3.375gm in Dex 3.375 GM/50 ML BAG IVPB SCH ×3 (05:29→21:17)
[2017-03-22] MEDS: Levothyroxine 50 MCG TAB PO SCH (05:30)
[2017-03-22] MEDS: Lidocaine 5% Patch TD SCH (10:30)
[2017-03-22] MEDS: Pantoprazole 40 mg EC Tab PO SCH (10:32)
[2017-03-22] MEDS: Fluticasone Nasal 50 mcg/Spray NAS SCH ×2 (10:32→22:12)
--- NOTE | 2017-03-22 13:22 | CP.PCM.PN ---
Subjective - Date & Time of Evaluation Date of Evaluation: 03/22/17 Time of Evaluation: 13:22 - Subjective Subjective: clinically remains same awaiting hospice care taradol prn Objective - Vital Signs/Intake and Output Vital Signs (last 24 hours): Temp Pulse Resp BP Pulse Ox 98 F 77 20 144/74 98 03/22/17 07:46 03/22/17 07:46 03/22/17 07:46 03/22/17 07:46 03/22/17 07:46 - Medications Medications: Current Medications Acetaminophen (Tylenol 325mg Tab) 650 mg PO Q6 PRN PRN Reason: Pain, moderate (4-7) Last Admin: 03/14/17 16:23 Dose: 650 mg Diphenhydramine HCl (Benadryl) 25 mg IVP HS PRN PRN Reason: Insomnia Last Admin: 03/20/17 21:55 Dose: 25 mg Fluticasone Propionate (Flonase) 1 spr SEVERINO BID [facility] Last Admin: 03/22/17 10:32 Dose: 1 spr Piperacillin Sod/Tazobactam Sod (Zosyn 3.375 Gm Iv Premix) 3.375 gm in 50 mls @ 200 mls/hr IVPB Q8H [facility] Last Admin: 03/22/17 12:06 Dose: 200 mls/hr Amino Acids (Clinimix 4.25/5 % "E" (1000 Ml)) 1,000 mls @ 40 mls/hr IV .Q24H ONE Stop: 03/22/17 17:59 Last Admin: 03/21/17 18:17 Dose: 40 mls/hr Multivitamins/Vitamin C 10 ml/ (Amino Acids) 1,010 mls @ 40 mls/hr IV .Q24H ONE Stop: 03/23/17 12:14 Last Admin: 03/22/17 13:17 Dose: Not Given Ketorolac Tromethamine (Toradol) 15 mg IVP Q6H [facility] Last Admin: 03/22/17 10:30 Dose: 15 mg Levothyroxine Sodium (Synthroid) 50 mcg PO DAILY@0630 [facility] Last Admin: 03/22/17 05:30 Dose: Not Given Lidocaine (Lidoderm) 1 ea TD DAILY [facility] Last Admin: 03/22/17 10:30 Dose: 1 ea Megestrol Acetate (Megace) 40 mg PO DAILY [facility] Last Admin: 03/22/17 10:30 Dose: 40 mg Mirtazapine (Remeron) 7.5 mg PO HS [facility] Last Admin: 03/21/17 22:12 Dose: Not Given Ondansetron HCl (Zofran Inj) 4 mg IVP Q6H PRN PRN Reason: Nausea/Vomiting Pantoprazole Sodium (Protonix Ec Tab) 40 mg PO DAILY [facility] Last Admin: 03/22/17 10:32 Dose: 40 mg - Labs Labs: 03/20/17 16:39 03/20/17 16:39 PT 10.7 SECONDS (9.7-12.2) 03/12/17 12:08 INR 0.9 03/12/17 12:08 APTT 34 SECONDS (21-34) D 03/12/17 12:08
--- NOTE | 2017-03-22 22:58 | CP.PCM.PN ---
Subjective - Date & Time of Evaluation Date of Evaluation: 03/22/17 Time of Evaluation: 22:58 - Subjective Subjective: afebrile feeling weak /more awake still refusing to eat. ON TPN. BY HER SIDE. SPOKE TO daughter. trying to feed her. Objective - Vital Signs/Intake and Output Vital Signs (last 24 hours): Temp Pulse Resp BP Pulse Ox 98.0 F 79 20 118/60 98 03/22/17 15:00 03/22/17 15:00 03/22/17 15:00 03/22/17 15:00 03/22/17 15:00 Intake and Output: 03/22/17 03/23/17 18:59 06:59 Intake Total 470 Balance 470 - Medications Medications: Current Medications Acetaminophen (Tylenol 325mg Tab) 650 mg PO Q6 PRN PRN Reason: Pain, moderate (4-7) Last Admin: 03/14/17 16:23 Dose: 650 mg Diphenhydramine HCl (Benadryl) 25 mg IVP HS PRN PRN Reason: Insomnia Last Admin: 03/20/17 21:55 Dose: 25 mg Fluticasone Propionate (Flonase) 1 spr SEVERINO BID [facility] Last Admin: 03/22/17 22:12 Dose: 1 spr Piperacillin Sod/Tazobactam Sod (Zosyn 3.375 Gm Iv Premix) 3.375 gm in 50 mls @ 200 mls/hr IVPB Q8H [facility] Last Admin: 03/22/17 21:17 Dose: 200 mls/hr Multivitamins/Vitamin C 10 ml/ (Amino Acids) 1,010 mls @ 40 mls/hr IV .Q24H ONE Stop: 03/23/17 17:59 Last Admin: 03/22/17 18:26 Dose: 40 mls/hr Levothyroxine Sodium (Synthroid) 50 mcg PO DAILY@0630 [facility] Last Admin: 03/22/17 05:30 Dose: Not Given Lidocaine (Lidoderm) 1 ea TD DAILY [facility] Last Admin: 03/22/17 10:30 Dose: 1 ea Megestrol Acetate (Megace) 40 mg PO DAILY [facility] Last Admin: 03/22/17 10:30 Dose: 40 mg Mirtazapine (Remeron) 7.5 mg PO [facility] Last Admin: 05/29/17 22:12 Dose: 7.5 mg Ondansetron HCl (Zofran Inj) 4 mg IVP Q6H PRN PRN Reason: Nausea/Vomiting Pantoprazole Sodium (Protonix Ec Tab) 40 mg PO DAILY [facility] Last Admin: 03/22/17 10:32 Dose: 40 mg - Labs Labs: 03/20/17 16:39 03/20/17 16:39 PT 10.7 SECONDS (9.7-12.2) 03/12/17 12:08 INR 0.9 03/12/17 12:08 APTT 34 SECONDS (21-34) D 03/12/17 12:08 - Constitutional Appears: No Acute Distress, Cachectic, Chronically Ill - Head Exam Head Exam: NORMAL INSPECTION - Eye Exam Eye Exam: EOMI, PERRL. absent: Scleral icterus - ENT Exam ENT Exam: Mucous Membranes Dry, Normal Oropharynx - Neck Exam Neck Exam: Normal Inspection - Respiratory Exam Respiratory Exam: Clear to Ausculation Bilateral - Cardiovascular Exam Cardiovascular Exam: REGULAR RHYTHM, +S1, +S2 - GI/Abdominal Exam GI & Abdominal Exam: Distended (mildly), Soft, Tenderness (mild tenderness epigastic ), Hypoactive Bowel Sounds - Extremities Exam Extremities Exam: absent: Calf Tenderness, Pedal Edema - Neurological Exam Neurological Exam: Awake, Oriented x3 - Psychiatric Exam Psychiatric exam: Depressed - Skin Skin Exam: Normal Color, Warm Assessment and Plan (1) Leukocytosis Status: Acute (2) Pleural effusion Status: Acute (3) CHF (congestive heart failure) Status: Acute (4) Liver masses Status: Acute (5) Pericardial effusion Status: Acute (6) Atrial fibrillation with RVR Status: Acute - Assessment and Plan (Free Text) Assessment: ASSESSMENT; METASTATIC MALIGNANCY ?PANCREATIC MALIGNANCY PNEUMONIA ?ASPIRATION / COMPRESSIVE ATELECTASIS BILATERAL PLEURAL EFFUSIONS-S/P THORACENTESIS (TRANSUDATIVE ) 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 /PLAN : OFF IV ZYVOX 600 MG EVERY 12 HOURLY 03/12/17 CONTINUE ON IV ZOSYN 3.375 EVERY 8 HOURLY.03/16/17 WHILE PATIENT IN HOSPITAL. continue supportive care . CASE DISCUSSED WITH AND daughter.
[2017-03-22] MEDS: DiphenhydrAMINE 50 mg/ml Inj IVP PRN (23:45)
[2017-03-23] MEDS: Piperacill/Tazo 3.375gm in Dex 3.375 GM/50 ML BAG IVPB SCH ×3 (04:13→22:44)
[2017-03-23] MEDS: Levothyroxine 50 MCG TAB PO SCH (06:05)
--- NOTE | 2017-03-23 10:35 | PN ---
DATE: 03/23/2017 SUBJECTIVE: The patient is seen. The patient is more alert, but still has very poor appetite despit e taking Megace and Remeron. The patient, however, today was asking that she feels like eating Rice Krispies. The patient currently on Megace and Remeron. We will try to discontinue the Megace and tr y giving Marinol as well as raise the dose of the Remeron to 15 from 7.5 mg at bedtime as the patient seems to tolerate Megace. VITAL SIGNS: Temperature is 98, pulse rate is 80, blood pressure 137/67, respirations 20, oxygen sat uration is 97. REVIEW OF SYSTEMS: GENERAL: The patient is alert, verbal, still feeling weak, states that she has no appetite, seen in her room. The patient is currently on PPN. SKIN: No diaphoresis. HEENT: No headache or dizziness. NECK: Supple. RESPIRATORY: No dyspnea. CARDIOVASCULAR: No chest pain. GASTROINTESTINAL: Very poor appetite. No nausea. She had no vomiting. EXTREMITIES: The patient is mostly bedbound. MUSCULOSKELETAL: Has generalized weakness. NEUROLOGIC: Alert, oriented x 3. GENITOURINARY: No dysuria. MENTAL STATUS EXAMINATION: Elderly female who looks stated age, still looks clinically depressed. M ood is stated as depressed, somatic. Affect is reactive. Speech spontaneous. Thought process coher ent. Thought content: The patient states she has no appetite. The patient also wants to go home. No psychosis. No suicidal or homicidal ideation. Attention and memory seem to be fair. Insight and judgment fair. Impulse control is fair. 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 PLAN AND RECOMMENDATIONS: The patient seen, meds reviewed. We will discontinue Megace. We will sta rt Marinol 2.5 mg at bedtime to improve appetite. Continue PPN as ordered. We will raise the dose o f the Remeron from 7.5 mg at bedtime to 15 mg at bedtime for depression as well as to stimulate appet ite. The patient also may benefit from palliative hospice care. Continue treatment plan as outlined . Tre Freeman MD cc: [phone] TT: 03/23/2017 10:35:06 Confirmation # [id number] Dictation # [id number] tn
[2017-03-23] MEDS: Pantoprazole 40 mg EC Tab PO SCH (11:01)
[2017-03-23] MEDS: Lidocaine 5% Patch TD SCH (11:02)
[2017-03-23] MEDS: Fluticasone Nasal 50 mcg/Spray NAS SCH ×2 (11:02→18:28)
--- NOTE | 2017-03-23 13:12 | CP.PCM.PN ---
Subjective - Date & Time of Evaluation Date of Evaluation: 03/23/17 Time of Evaluation: 13:12 - Subjective Subjective: clinically remains same awaiting hospice care toradol prn Objective - Vital Signs/Intake and Output Vital Signs (last 24 hours): Temp Pulse Resp BP Pulse Ox 98 F 80 20 137/67 97 03/23/17 07:21 03/23/17 07:21 03/23/17 07:21 03/23/17 07:21 03/23/17 07:21 Intake and Output: 03/23/17 03/23/17 11:59 23:59 Intake Total 370 Balance 370 - Medications Medications: Current Medications Acetaminophen (Tylenol 325mg Tab) 650 mg PO Q6 PRN PRN Reason: Pain, moderate (4-7) Last Admin: 03/14/17 16:23 Dose: 650 mg Diphenhydramine HCl (Benadryl) 25 mg IVP HS PRN PRN Reason: Insomnia Last Admin: 03/22/17 23:45 Dose: 25 mg Dronabinol (Marinol) 2.5 mg PO BID [facility] Fluticasone Propionate (Flonase) 1 spr SEVERINO BID [facility] Last Admin: 03/23/17 11:02 Dose: 1 spr Piperacillin Sod/Tazobactam Sod (Zosyn 3.375 Gm Iv Premix) 3.375 gm in 50 mls @ 200 mls/hr IVPB Q8H [facility] Last Admin: 03/23/17 04:13 Dose: 200 mls/hr Multivitamins/Vitamin C 10 ml/ (Amino Acids) 1,010 mls @ 40 mls/hr IV .Q24H ONE Stop: 03/23/17 17:59 Last Admin: 03/22/17 18:26 Dose: 40 mls/hr Levothyroxine Sodium (Synthroid) 50 mcg PO DAILY@0630 [facility] Last Admin: 03/23/17 06:05 Dose: 50 mcg Lidocaine (Lidoderm) 1 ea TD DAILY [facility] Last Admin: 03/23/17 11:02 Dose: 1 ea Mirtazapine (Remeron) 15 mg PO HS [facility] Ondansetron HCl (Zofran Inj) 4 mg IVP Q6H PRN PRN Reason: Nausea/Vomiting Pantoprazole Sodium (Protonix Ec Tab) 40 mg PO DAILY [facility] Last Admin: 03/23/17 11:01 Dose: 40 mg - Labs Labs: 03/20/17 16:39 03/20/17 16:39 PT 10.7 SECONDS (9.7-12.2) 03/12/17 12:08 INR 0.9 03/12/17 12:08 APTT 34 SECONDS (21-34) D 03/12/17 12:08
--- NOTE | 2017-03-23 13:18 | CP.PCM.PN ---
Subjective - Date & Time of Evaluation Date of Evaluation: 03/23/17 Time of Evaluation: 13:18 - Subjective Subjective: AFEBRILE VERY WEAK C/O DIFFICULTY BREATHING. OXYGEN INCREASED TO 4 l BY NASAL CANNULA CHEST X-RAY STAT TO EVALUATE FOR PLEURAL EFFUSIONS/PNEUMONITIS. CASE DISCUSSED WITH [place]/ AND DAUGHTER AT BEDSIDE CXR 03/23 PROGRESSIVE CONSOLIDATIVE CHANGES AND INCREASING RIGHT PLEURAL EFFUSION. Objective - Vital Signs/Intake and Output Vital Signs (last 24 hours): Temp Pulse Resp BP Pulse Ox 98 F 80 20 137/67 97 03/23/17 07:21 03/23/17 07:21 03/23/17 07:21 03/23/17 07:21 03/23/17 07:21 Intake and Output: 03/23/17 03/23/17 06:59 18:59 Intake Total 790 Output Total 250 Balance 540 - Medications Medications: Current Medications Acetaminophen (Tylenol 325mg Tab) 650 mg PO Q6 PRN PRN Reason: Pain, moderate (4-7) Last Admin: 03/14/17 16:23 Dose: 650 mg Diphenhydramine HCl (Benadryl) 25 mg IVP HS PRN PRN Reason: Insomnia Last Admin: 03/22/17 23:45 Dose: 25 mg Dronabinol (Marinol) 2.5 mg PO BID [facility] Fluticasone Propionate (Flonase) 1 spr SEVERINO BID [facility] Last Admin: 03/23/17 11:02 Dose: 1 spr Piperacillin Sod/Tazobactam Sod (Zosyn 3.375 Gm Iv Premix) 3.375 gm in 50 mls @ 200 mls/hr IVPB Q8H [facility] Last Admin: 03/23/17 04:13 Dose: 200 mls/hr Multivitamins/Vitamin C 10 ml/ (Amino Acids) 1,010 mls @ 40 mls/hr IV .Q24H ONE Stop: 03/23/17 17:59 Last Admin: 03/22/17 18:26 Dose: 40 mls/hr Levothyroxine Sodium (Synthroid) 50 mcg PO DAILY@0630 [facility] Last Admin: 03/23/17 06:05 Dose: 50 mcg Lidocaine (Lidoderm) 1 ea TD DAILY [facility] Last Admin: 03/23/17 11:02 Dose: 1 ea Mirtazapine (Remeron) 15 mg PO HS [facility] Ondansetron HCl (Zofran Inj) 4 mg IVP Q6H PRN PRN Reason: Nausea/Vomiting Pantoprazole Sodium (Protonix Ec Tab) 40 mg PO DAILY [facility] Last Admin: 03/23/17 11:01 Dose: 40 mg - Labs Labs: 03/20/17 16:39 03/20/17 16:39 PT 10.7 SECONDS (9.7-12.2) 03/12/17 12:08 INR 0.9 03/12/17 12:08 APTT 34 SECONDS (21-34) D 03/12/17 12:08 - Constitutional Appears: No Acute Distress, Cachectic, Chronically Ill - Head Exam Head Exam: NORMAL INSPECTION - Eye Exam Eye Exam: EOMI, PERRL - ENT Exam ENT Exam: Mucous Membranes Dry - Neck Exam Neck Exam: Normal Inspection - Respiratory Exam Respiratory Exam: Decreased Breath Sounds (AT THE BASES) - Cardiovascular Exam Cardiovascular Exam: REGULAR RHYTHM, +S1, +S2 - GI/Abdominal Exam GI & Abdominal Exam: Distended, Tenderness (EPIGASTRIC.), Hypoactive Bowel Sounds, Normal Bowel Sounds - Extremities Exam Extremities Exam: Pedal Edema - Neurological Exam Neurological Exam: Awake, Oriented x3 - Psychiatric Exam Psychiatric exam: Normal Mood - Skin Skin Exam: Normal Color, Warm Assessment and Plan (1) Leukocytosis Status: Acute (2) Pleural effusion Assessment & Plan: CHEST X-RAY 03/23 PROGRESSIVE CONSOLIDATIVE CHANGES/AND INCREASING RIGHT PLEURAL EFFUSION .PATIENT GIVEN A STAT DOSE OF LASIX 20 MG iv. ccbc WITH DIFFERENTIAL AND sma-7 IN A.M. Status: Acute (3) CHF (congestive heart failure) Status: Acute (4) Liver masses Status: Acute (5) Pericardial effusion Status: Acute (6) Atrial fibrillation with RVR Status: Acute - Assessment and Plan (Free Text) Assessment: ASSESSMENT; METASTATIC MALIGNANCY ?PANCREATIC MALIGNANCY PNEUMONIA ?ASPIRATION / COMPRESSIVE ATELECTASIS BILATERAL PLEURAL EFFUSIONS-S/P THORACENTESIS (TRANSUDATIVE ) 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 /PLAN : CONTINUE ON IV ZOSYN 3.375 EVERY 8 HOURLY.03/16/17 WHILE PATIENT IN HOSPITAL. F/U CXR LASIX IV 20MG X1 DOSE CASE DISCUSSED WITH ATTENDING AND STAFF, SALLIE Lancaster continue supportive care . PATIENT FOR HOSPICE.
--- NOTE | 2017-03-23 16:41 | RAD ---
HISTORY: SOB COMPARISON: 03/15/2017. FINDINGS: LUNGS: Progressive compressive atelectasis right lung PLEURA: Increasing right pleural effusion. Stable left pleural effusion. CARDIOVASCULAR: No radiographic findings to suggest acute or significant cardiovascular disease. OSSEOUS STRUCTURES: No significant abnormalities. VISUALIZED UPPER ABDOMEN: Normal. OTHER FINDINGS: None. IMPRESSION: Progressive consolidative changes/increasing right pleural effusion.
--- NOTE | 2017-03-23 17:12 | CP.PCM.PN ---
Subjective - Date & Time of Evaluation Date of Evaluation: 03/23/17 Time of Evaluation: 15:45 - Subjective Subjective: Appears comfortable Family at bedside For possible rehab placement Objective - Vital Signs/Intake and Output Vital Signs (last 24 hours): Temp Pulse Resp BP Pulse Ox 98 F 80 20 137/67 97 03/23/17 07:21 03/23/17 07:21 03/23/17 07:21 03/23/17 07:21 03/23/17 07:21 Intake and Output: 03/23/17 03/23/17 06:59 18:59 Intake Total 790 420 Output Total 250 Balance 540 420 - Medications Medications: Current Medications Acetaminophen (Tylenol 325mg Tab) 650 mg PO Q6 PRN PRN Reason: Pain, moderate (4-7) Last Admin: 03/14/17 16:23 Dose: 650 mg Diphenhydramine HCl (Benadryl) 25 mg IVP HS PRN PRN Reason: Insomnia Last Admin: 03/22/17 23:45 Dose: 25 mg Dronabinol (Marinol) 2.5 mg PO BID [facility] Fluticasone Propionate (Flonase) 1 spr SEVERINO BID [facility] Last Admin: 03/23/17 11:02 Dose: 1 spr Piperacillin Sod/Tazobactam Sod (Zosyn 3.375 Gm Iv Premix) 3.375 gm in 50 mls @ 200 mls/hr IVPB Q8H [facility] Last Admin: 03/23/17 13:58 Dose: 200 mls/hr Multivitamins/Vitamin C 10 ml/ (Amino Acids) 1,010 mls @ 40 mls/hr IV .Q24H ONE Stop: 03/23/17 17:59 Last Admin: 03/22/17 18:26 Dose: 40 mls/hr Multivitamins/Vitamin C 10 ml/ (Amino Acids) 1,010 mls @ 40 mls/hr IV .Q24H [facility] Stop: 03/24/17 17:59 Fat Emulsion Intravenous (Intralipid 20%) 500 mls @ 42 mls/hr IV TuThSa [facility] Levothyroxine Sodium (Synthroid) 50 mcg PO DAILY@0630 [facility] Last Admin: 03/23/17 06:05 Dose: 50 mcg Lidocaine (Lidoderm) 1 ea TD DAILY [facility] Last Admin: 03/23/17 11:02 Dose: 1 ea Mirtazapine (Remeron) 15 mg PO HS [facility] Ondansetron HCl (Zofran Inj) 4 mg IVP Q6H PRN PRN Reason: Nausea/Vomiting Pantoprazole Sodium (Protonix Ec Tab) 40 mg PO DAILY [facility] Last Admin: 03/23/17 11:01 Dose: 40 mg - Labs Labs: 03/20/17 16:39 03/20/17 16:39 PT 10.7 SECONDS (9.7-12.2) 03/12/17 12:08 INR 0.9 03/12/17 12:08 APTT 34 SECONDS (21-34) D 03/12/17 12:08 - Head Exam Head Exam: ATRAUMATIC - ENT Exam ENT Exam: Mucous Membranes Dry - Respiratory Exam Respiratory Exam: NORMAL BREATHING PATTERN - Cardiovascular Exam Cardiovascular Exam: +S1, +S2 - GI/Abdominal Exam GI & Abdominal Exam: Normal Bowel Sounds - Extremities Exam Extremities Exam: Pedal Edema Assessment and Plan (1) Pancreatic mass Assessment & Plan: likely metastatic pancreatic cancer supportive care for possible rehab placement as family unable to manage with home hospice DNR/DNI Status: Acute (2) Failure to thrive Status: Acute (3) Leukocytosis Status: Acute (4) Anemia Status: Acute
[2017-03-23] MEDS ORDERED: PPN IV SCH (18:00)
[2017-03-23] MEDS: Fat Emulsion 20% IV 500 ML IV SCH (18:28)
[2017-03-24] MEDS: Piperacill/Tazo 3.375gm in Dex 3.375 GM/50 ML BAG IVPB SCH ×3 (05:28→21:33)
[2017-03-24] MEDS: Levothyroxine 50 MCG TAB PO SCH (05:57)
[2017-03-24 07:42] LABS: HEMATOCRIT 30.9 % (34.0-47.0); MEAN CELL VOLUME 82.8 fL (81.0-99.0); MEAN CORPUSCULAR HEMOGLOBIN 27.2 pg (27.0-31.0); MEAN CORPUSCULAR HGB CONC 32.9 g/dL (33.0-37.0); MEAN PLATELET VOLUME 8.2 fL (7.2-11.7); WHITE BLOOD COUNT 13.7 K/uL (4.8-10.8)
[2017-03-24 07:53] LABS: CHLORIDE 100 mmol/L (98-107); SODIUM 134 mmol/L (132-148)
[2017-03-24 07:54] LABS: POTASSIUM 3.5 mmol/L (3.6-5.2)
[2017-03-24 07:56] LABS: CARBON DIOXIDE 26 mmol/L (22-30); GFR AFRICAN-AMERICAN > 60
[2017-03-24 07:57] LABS: BLOOD UREA NITROGEN 49 mg/dL (7-17); CALCIUM 6.9 mg/dl (8.6-10.4); GLUCOSE,RANDOM 102 mg/dL (65-105)
[2017-03-24] MEDS: Lidocaine 5% Patch TD SCH (10:30)
[2017-03-24] MEDS: Pantoprazole 40 mg Susp UD PO SCH (10:31)
[2017-03-24] MEDS: Fluticasone Nasal 50 mcg/Spray NAS SCH ×2 (11:42→18:00)
--- NOTE | 2017-03-24 11:53 | PN ---
DATE: 03/24/2017 SUBJECTIVE: The patient is seen. The patient is feeling weak today. Noted to be more drowsy. Not complaining of pain. The patient still has very poor appetite. She states she will try to eat. The patient was given last night morphine and also the dose of Remeron was increased from 7.5 mg to 15 m g at bedtime. The patient is back on Megace, is able to swallow Marinol. The patient states she is complaining of dryness of her throat and also difficulty swallowing at times. VITAL SIGNS: Temperature is 98.2, pulse rate is 80, blood pressure 118/62, respirations 20, oxygen s at is 97. REVIEW OF SYSTEMS: GENERAL: The patient is drowsy but arousable, seen in her bed, feeling weak. States that she will t ry to eat. SKIN: No pruritus. HEENT: No headache or dizziness. NECK: Supple. RESPIRATORY: No dyspnea. CARDIOVASCULAR: No chest pain. GASTROINTESTINAL: Has a very poor appetite. Complaining also of pain when swallowing. No nausea, n o abdominal pain. EXTREMITIES: The patient moving extremities. MUSCULOSKELETAL: Feels weak. NEUROLOGIC: Drowsy. MENTAL STATUS EXAMINATION: Elderly female who looks stated age, lying in bed, appears very weak and frail. Oriented to place and person. Speech is soft, slow. Affect restricted. Mood is depressed. Thought process: Coherent. Thought content: The patient states she has no appetite. The patient also wants to go home. No suicidal or homicidal ideation. Attention and memory seem to be limited. Insight and judgment limited. Impulse control is fair at this time. 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 PLAN AND RECOMMENDATIONS: The patient seen, meds reviewed. Continue Megace and Remeron as ordered. Continue PPN as ordered. The patient is for palliative hospice care. Tre Freeman MD cc: [phone] TT: 03/24/2017 11:52:50 Confirmation # [id number] Dictation # [id number] [email or web address]
--- NOTE | 2017-03-24 12:53 | CP.PCM.PN ---
<Alondra Garcia N - Last Filed: 03/24/17 12:52> Subjective - Date & Time of Evaluation Date of Evaluation: 03/24/17 Time of Evaluation: 12:52 - Subjective Subjective: AFEBRILE CXR INCREASING R EFFUSION WITH COMPRESSIVE ATECTASIS SOB WILL D/W FAMILY ABOUT PL TAP Objective - Vital Signs/Intake and Output Vital Signs (last 24 hours): Temp Pulse Resp BP Pulse Ox 98.2 F 80 20 118/62 97 03/24/17 07:41 03/24/17 07:41 03/24/17 07:41 03/24/17 07:41 03/24/17 07:41 - Medications Medications: Current Medications Acetaminophen (Tylenol 325mg Tab) 650 mg PO Q6 PRN PRN Reason: Pain, moderate (4-7) Last Admin: 03/14/17 16:23 Dose: 650 mg Diphenhydramine HCl (Benadryl) 25 mg IVP HS PRN PRN Reason: Insomnia Last Admin: 03/22/17 23:45 Dose: 25 mg Fluticasone Propionate (Flonase) 1 spr SEVERINO BID [facility] Last Admin: 03/24/17 11:42 Dose: 1 spr Piperacillin Sod/Tazobactam Sod (Zosyn 3.375 Gm Iv Premix) 3.375 gm in 50 mls @ 200 mls/hr IVPB Q8H [facility] Last Admin: 03/24/17 12:10 Dose: 200 mls/hr Multivitamins/Vitamin C 10 ml/ (Amino Acids) 1,010 mls @ 40 mls/hr IV .Q24H [facility] Stop: 03/24/17 17:59 Last Admin: 03/23/17 18:50 Dose: 40 mls/hr Fat Emulsion Intravenous (Intralipid 20%) 500 mls @ 42 mls/hr IV TuThSa [facility] Last Admin: 03/23/17 18:28 Dose: 42 mls/hr Multivitamins/Vitamin C 10 ml/ (Amino Acids) 1,010 mls @ 40 mls/hr IV .Q24H ONE Stop: 03/25/17 17:59 Levothyroxine Sodium (Synthroid) 50 mcg PO DAILY@0630 [facility] Last Admin: 03/24/17 05:57 Dose: 50 mcg Lidocaine (Lidoderm) 1 ea TD DAILY [facility] Last Admin: 03/24/17 10:30 Dose: 1 ea Megestrol Acetate (Megace) 40 mg PO DAILY [facility] Last Admin: 03/24/17 10:31 Dose: 40 mg Mirtazapine (Remeron) 15 mg PO HS [facility] Last Admin: 03/23/17 22:46 Dose: 15 mg Morphine Sulfate (Morphine) 2 mg IVP Q4 PRN PRN Reason: Pain, severe (8-10) Last Admin: 03/24/17 11:42 Dose: 2 mg Ondansetron HCl (Zofran Inj) 4 mg IVP Q6H PRN PRN Reason: Nausea/Vomiting Last Admin: 03/24/17 12:19 Dose: 4 mg Pantoprazole Sodium (Protonix Susp) 40 mg PO DAILY [facility] Last Admin: 03/24/17 10:31 Dose: 40 mg - Labs Labs: 03/24/17 07:18 03/24/17 07:18 PT 10.7 SECONDS (9.7-12.2) 03/12/17 12:08 INR 0.9 03/12/17 12:08 APTT 34 SECONDS (21-34) D 03/12/17 12:08 <Analilia Carlos - Last Filed: 03/24/17 19:01> Objective - Vital Signs/Intake and Output Vital Signs (last 24 hours): Temp Pulse Resp BP Pulse Ox 98.0 F 68 20 107/55 L 95 03/24/17 16:33 03/24/17 16:33 03/24/17 16:33 03/24/17 16:33 03/24/17 16:33 Intake and Output: 03/24/17 03/25/17 18:59 06:59 Intake Total 340 Balance 340 - Medications Medications: Current Medications Acetaminophen (Tylenol 325mg Tab) 650 mg PO Q6 PRN PRN Reason: Pain, moderate (4-7) Last Admin: 03/14/17 16:23 Dose: 650 mg Diphenhydramine HCl (Benadryl) 25 mg IVP HS PRN PRN Reason: Insomnia Last Admin: 03/22/17 23:45 Dose: 25 mg Fluticasone Propionate (Flonase) 1 spr SEVERINO BID [facility] Last Admin: 03/24/17 11:42 Dose: 1 spr Piperacillin Sod/Tazobactam Sod (Zosyn 3.375 Gm Iv Premix) 3.375 gm in 50 mls @ 200 mls/hr IVPB Q8H [facility] Last Admin: 03/24/17 12:10 Dose: 200 mls/hr Fat Emulsion Intravenous (Intralipid 20%) 500 mls @ 42 mls/hr IV TuThSa [facility] Last Admin: 03/23/17 18:28 Dose: 42 mls/hr Multivitamins/Vitamin C 10 ml/ (Amino Acids) 1,010 mls @ 40 mls/hr IV .Q24H ONE Stop: 03/25/17 17:59 Ketorolac Tromethamine (Toradol) 15 mg IVP Q8 PRN PRN Reason: Pain, severe (8-10) Levothyroxine Sodium (Synthroid) 50 mcg PO DAILY@0630 [facility] Last Admin: 03/24/17 05:57 Dose: 50 mcg Lidocaine (Lidoderm) 1 ea TD DAILY [facility] Last Admin: 03/24/17 10:30 Dose: 1 ea Megestrol Acetate (Megace) 40 mg PO DAILY [facility] Last Admin: 03/24/17 10:31 Dose: 40 mg Mirtazapine (Remeron) 15 mg PO HS [facility] Last Admin: 03/23/17 22:46 Dose: 15 mg Ondansetron HCl (Zofran Inj) 4 mg IVP Q6H PRN PRN Reason: Nausea/Vomiting Last Admin: 03/24/17 12:19 Dose: 4 mg Pantoprazole Sodium (Protonix Susp) 40 mg PO DAILY [facility] Last Admin: 03/24/17 10:31 Dose: 40 mg - Labs Labs: 03/24/17 07:18 03/24/17 07:18 PT 10.7 SECONDS (9.7-12.2) 03/12/17 12:08 INR 0.9 03/12/17 12:08 APTT 34 SECONDS (21-34) D 03/12/17 12:08 Assessment and Plan (1) Leukocytosis Status: Acute (2) Pleural effusion Status: Acute (3) CHF (congestive heart failure) Status: Acute (4) Liver masses Status: Acute (5) Pericardial effusion Status: Acute (6) Atrial fibrillation with RVR Status: Acute
--- NOTE | 2017-03-24 14:17 | CP.PCM.PN ---
Subjective - Date & Time of Evaluation Date of Evaluation: 03/24/17 Time of Evaluation: 14:17 - Subjective Subjective: AFEBRILE OBTUNDED ? SEC TO MORPHINE SOB LESS FAMILY REQUESTING TORADOL . THINK MORPHINE IS TOO STRONG FOR PATIENT. DAUGHTER AT BEDSIDE. STATES SHE HAD 4 [employer] OF [employer] LAST NIGHT. ON TPN Objective - Vital Signs/Intake and Output Vital Signs (last 24 hours): Temp Pulse Resp BP Pulse Ox 98.2 F 80 20 118/62 97 03/24/17 07:41 03/24/17 07:41 03/24/17 07:41 03/24/17 07:41 03/24/17 07:41 Intake and Output: 03/24/17 03/24/17 06:59 18:59 Intake Total 580 Balance 580 - Medications Medications: Current Medications Acetaminophen (Tylenol 325mg Tab) 650 mg PO Q6 PRN PRN Reason: Pain, moderate (4-7) Last Admin: 03/14/17 16:23 Dose: 650 mg Diphenhydramine HCl (Benadryl) 25 mg IVP HS PRN PRN Reason: Insomnia Last Admin: 03/22/17 23:45 Dose: 25 mg Fluticasone Propionate (Flonase) 1 spr SEVERINO BID [facility] Last Admin: 03/24/17 11:42 Dose: 1 spr Piperacillin Sod/Tazobactam Sod (Zosyn 3.375 Gm Iv Premix) 3.375 gm in 50 mls @ 200 mls/hr IVPB Q8H [facility] Last Admin: 03/24/17 12:10 Dose: 200 mls/hr Multivitamins/Vitamin C 10 ml/ (Amino Acids) 1,010 mls @ 40 mls/hr IV .Q24H [facility] Stop: 03/24/17 17:59 Last Admin: 03/23/17 18:50 Dose: 40 mls/hr Fat Emulsion Intravenous (Intralipid 20%) 500 mls @ 42 mls/hr IV TuThSa [facility] [place] Last Admin: 03/23/17 18:28 Dose: 42 mls/hr Multivitamins/Vitamin C 10 ml/ (Amino Acids) 1,010 mls @ 40 mls/hr IV .Q24H ONE Stop: 03/25/17 17:59 Levothyroxine Sodium (Synthroid) 50 mcg PO DAILY@0630 [facility] [place] Last Admin: 03/24/17 05:57 Dose: 50 mcg Lidocaine (Lidoderm) 1 ea TD DAILY [facility] [place] Last Admin: 03/24/17 10:30 Dose: 1 ea Megestrol Acetate (Megace) 40 mg PO DAILY [facility] [place] Last Admin: 03/24/17 10:31 Dose: 40 mg Mirtazapine (Remeron) 15 mg PO HS [facility] [place] Last Admin: 03/23/17 22:46 Dose: 15 mg Morphine Sulfate (Morphine) 2 mg IVP Q4 PRN PRN Reason: Pain, severe (8-10) Last Admin: 03/24/17 11:42 Dose: 2 mg Ondansetron HCl (Zofran Inj) 4 mg IVP Q6H PRN PRN Reason: Nausea/Vomiting Last Admin: 03/24/17 12:19 Dose: 4 mg Pantoprazole Sodium (Protonix Susp) 40 mg PO DAILY [facility] [place] Last Admin: 03/24/17 10:31 Dose: 40 mg - Labs Labs: 03/24/17 07:18 03/24/17 07:18 PT 10.7 SECONDS (9.7-12.2) 03/12/17 12:08 INR 0.9 03/12/17 12:08 APTT 34 SECONDS (21-34) D 03/12/17 12:08 - Constitutional Appears: No Acute Distress, Cachectic, Chronically Ill - Eye Exam Eye Exam: PERRL. absent: Scleral icterus - ENT Exam ENT Exam: Mucous Membranes Dry - Neck Exam Neck Exam: Normal Inspection - Respiratory Exam Respiratory Exam: Decreased Breath Sounds - Cardiovascular Exam Cardiovascular Exam: REGULAR RHYTHM, +S1, +S2 - GI/Abdominal Exam GI & Abdominal Exam: Distended, Hypoactive Bowel Sounds (+VE ASCITES.) - Neurological Exam Neurological Exam: Altered - Skin Skin Exam: Normal Color, Warm Assessment and Plan (1) Leukocytosis Status: Acute (2) Pleural effusion Status: Acute (3) CHF (congestive heart failure) Status: Acute (4) Liver masses Status: Acute (5) Pericardial effusion Status: Acute (6) Atrial fibrillation with RVR Status: Acute - Assessment and Plan (Free Text) Assessment: ASSESSMENT; METASTATIC MALIGNANCY ?PANCREATIC MALIGNANCY PNEUMONIA ?ASPIRATION / COMPRESSIVE ATELECTASIS BILATERAL PLEURAL EFFUSIONS-S/P THORACENTESIS (TRANSUDATIVE ) 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 /PLAN : CONTINUE ON IV ZOSYN 3.375 EVERY 8 HOURLY.03/16/17 WHILE PATIENT IN HOSPITAL. ? PLEURAL TAP DC MORPHINE. TORADOL I5MG PRN Q 8HRLY. PER PMD CASE DISCUSSED WITH ATTENDING AND STAFF, THREAD [employer]IP[employer] MS UGALDE. CONTINUE SUPPORTIVE CARE.
[2017-03-24] MEDS ORDERED: PPN IV ONE (18:00)
[2017-03-25] MEDS: Piperacill/Tazo 3.375gm in Dex 3.375 GM/50 ML BAG IVPB SCH ×3 (04:23→21:20)
[2017-03-25] MEDS: Fluticasone Nasal 50 mcg/Spray NAS SCH ×2 (09:35→18:03)
[2017-03-25] MEDS: Lidocaine 5% Patch TD SCH (09:35)
[2017-03-25] MEDS: Pantoprazole 40 mg Susp UD PO SCH (09:40)
--- NOTE | 2017-03-25 09:55 | PN ---
DATE: 03/25/2017 SUBJECTIVE: The patient is seen. The patient is more alert today. The patient was taken off morphine, as the patient was noted to be very drowsy. However, the patient is complaining of increasing back pain and noted to be moaning constantly. She is trying to eat. According to the case liner, they are waiting for her grandson to visit her. The patient is starting to become symptomatic and complaining of increasing pain and only taking Toradol p.r.n. at this time. VITAL SIGNS: Temp is 98.2. Pulse rate is 80, blood pressure 121/51, respirations 18. Oxygen sat is 98. REVIEW OF SYSTEMS: GENERAL: The patient is more alert, verbal, but complaining of back pain. She says her back is hurting so much. Not complaining of abdominal pain when seen. SKIN: No diaphoresis. HEENT: No headache or dizziness. NECK: Supple. RESPIRATORY: No dyspnea. CARDIOVASCULAR: No chest pain. GASTROINTESTINAL: Appetite is still poor, but the patient is trying to eat. MUSCULOSKELETAL: Complaining of severe back pain, which she rates like 7 or 8/ 10. Feels weak. NEUROLOGIC: Alert and oriented x place and person, not to time. GENITOURINARY: No dysuria. MENTAL STATUS EXAMINATION: Elderly female looks very frail and weak, arousable , oriented x 2. Mood is still clinically depressed, somatic. Affect is reactive. Speech is spontaneous. Thought process is coherent. Thought content : The patient is complaining of increasing back pain and asking for pain meds. No paranoia. No suicidal or homicidal ideation. Attention and memory seem to be fair. Insight and judgment are fair. Impulse control is fair. 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 PLAN AND RECOMMENDATIONS: The patient is seen, meds reviewed. Continue present management. Continue Remeron as ordered. The sedation could be result of the drug interaction between morphine and Remeron, as the patient has been taking morphine. However, the patient is starting to become symptomatic. I did suggest the patient to be evaluated for palliative and hospice care to make the patient comfortable. The patient has metastatic pancreatic cancer and complaining of increasing pain at this time. Prognosis is poor at this time. Tre Freeman MD cc: [phone] TT: 03/25/2017 09:54:26 Confirmation # [id number] Dictation # [id number] MTDD
--- NOTE | 2017-03-25 13:09 | CP.PCM.PN ---
Subjective - Date & Time of Evaluation Date of Evaluation: 03/25/17 Time of Evaluation: 13:08 - Subjective Subjective: DROWSY, D/CHASE D/W FAMILY FOR PL TAP CLINICALLY SAME Objective - Vital Signs/Intake and Output Vital Signs (last 24 hours): Temp Pulse Resp BP Pulse Ox 98.2 F 80 18 121/51 L 98 03/25/17 07:00 03/25/17 07:00 03/25/17 07:00 03/25/17 07:00 03/25/17 07:00 Intake and Output: 03/25/17 03/25/17 11:59 23:59 Intake Total 370 Balance 370 - Medications Medications: Current Medications Acetaminophen (Tylenol 325mg Tab) 650 mg PO Q6 PRN PRN Reason: Pain, moderate (4-7) Last Admin: 03/14/17 16:23 Dose: 650 mg Diphenhydramine HCl (Benadryl) 25 mg IVP HS PRN PRN Reason: Insomnia Last Admin: 03/22/17 23:45 Dose: 25 mg Fluticasone Propionate (Flonase) 1 spr SEVERINO BID [facility] Last Admin: 03/25/17 09:35 Dose: 1 spr Piperacillin Sod/Tazobactam Sod (Zosyn 3.375 Gm Iv Premix) 3.375 gm in 50 mls @ 200 mls/hr IVPB Q8H [facility] Last Admin: 03/25/17 04:23 Dose: 200 mls/hr Fat Emulsion Intravenous (Intralipid 20%) 500 mls @ 42 mls/hr IV TuThSa [facility] Last Admin: 03/23/17 18:28 Dose: 42 mls/hr Multivitamins/Vitamin C 10 ml/ (Amino Acids) 1,010 mls @ 40 mls/hr IV .Q24H ONE Stop: 03/25/17 17:59 Last Admin: 03/24/17 21:29 Dose: 40 mls/hr Multivitamins/Vitamin C 10 ml/ (Amino Acids) 1,010 mls @ 40 mls/hr IV .Q24H ONE Stop: 03/26/17 17:59 Ketorolac Tromethamine (Toradol) 15 mg IVP Q8 PRN PRN Reason: Pain, severe (8-10) Levothyroxine Sodium (Synthroid) 50 mcg PO DAILY@0630 [facility] Last Admin: 03/24/17 05:57 Dose: 50 mcg Lidocaine (Lidoderm) 1 ea TD DAILY [facility] Last Admin: 03/25/17 09:35 Dose: 1 ea Megestrol Acetate (Megace) 40 mg PO DAILY [facility] Last Admin: 03/25/17 09:40 Dose: Not Given Mirtazapine (Remeron) 15 mg PO HS [facility] Last Admin: 03/24/17 21:33 Dose: 15 mg Nystatin (Nystop Topical Powder) 1 applic TOP BID [facility] Last Admin: 03/25/17 10:58 Dose: 1 applic Ondansetron HCl (Zofran Inj) 4 mg IVP Q6H PRN PRN Reason: Nausea/Vomiting Last Admin: 03/24/17 12:19 Dose: 4 mg Pantoprazole Sodium (Protonix Susp) 40 mg PO DAILY [facility] Last Admin: 03/25/17 09:40 Dose: Not Given - Labs Labs: 03/24/17 07:18 03/24/17 07:18 PT 10.7 SECONDS (9.7-12.2) 03/12/17 12:08 INR 0.9 03/12/17 12:08 APTT 34 SECONDS (21-34) D 03/12/17 12:08
[2017-03-25] MEDS ORDERED: PPN IV ONE (18:00)
[2017-03-25] MEDS: Fat Emulsion 20% IV 500 ML IV SCH (18:03)
--- NOTE | 2017-03-25 22:13 | CP.PCM.PN ---
Subjective - Date & Time of Evaluation Date of Evaluation: 03/25/17 Time of Evaluation: 22:13 - Subjective Subjective: afebrile still drowsy. WEAK at bedside . PT ON TPN. Objective - Vital Signs/Intake and Output Vital Signs (last 24 hours): Temp Pulse Resp BP Pulse Ox 98.3 F 76 20 108/45 L 98 03/25/17 16:01 03/25/17 16:01 03/25/17 16:01 03/25/17 16:01 03/25/17 16:01 Intake and Output: 03/25/17 03/26/17 18:59 06:59 Intake Total 740 Balance 740 - Medications Medications: Current Medications Acetaminophen (Tylenol 325mg Tab) 650 mg PO Q6 PRN PRN Reason: Pain, moderate (4-7) Last Admin: 03/14/17 16:23 Dose: 650 mg Diphenhydramine HCl (Benadryl) 25 mg IVP HS PRN PRN Reason: Insomnia Last Admin: 03/22/17 23:45 Dose: 25 mg Fluticasone Propionate (Flonase) 1 spr SEVERINO BID [facility] Last Admin: 03/25/17 18:03 Dose: 1 spr Piperacillin Sod/Tazobactam Sod (Zosyn 3.375 Gm Iv Premix) 3.375 gm in 50 mls @ 200 mls/hr IVPB Q8H [facility] Last Admin: 03/25/17 21:20 Dose: 200 mls/hr Multivitamins/Vitamin C 10 ml/ (Amino Acids) 1,010 mls @ 40 mls/hr IV .Q24H ONE Stop: 03/26/17 17:59 Last Admin: 03/25/17 18:03 Dose: 40 mls/hr Ketorolac Tromethamine (Toradol) 15 mg IVP Q8 PRN PRN Reason: Pain, severe (8-10) Last Admin: 03/25/17 14:01 Dose: 15 mg Levothyroxine Sodium (Synthroid) 50 mcg PO DAILY@0630 [facility] Last Admin: 03/24/17 05:57 Dose: 50 mcg Lidocaine (Lidoderm) 1 ea TD DAILY [facility] Last Admin: 03/25/17 09:35 Dose: 1 ea Megestrol Acetate (Megace) 40 mg PO DAILY [facility] Last Admin: 03/25/17 09:40 Dose: Not Given Mirtazapine (Remeron) 15 mg PO HS [facility] Last Admin: 03/25/17 21:22 Dose: Not Given Nystatin (Nystop Topical Powder) 1 applic TOP BID [facility] Last Admin: 03/25/17 18:04 Dose: 1 applic Ondansetron HCl (Zofran Inj) 4 mg IVP Q6H PRN PRN Reason: Nausea/Vomiting Last Admin: 03/25/17 18:25 Dose: 4 mg Ondansetron HCl (Zofran Inj) 4 mg IVP Q6 PRN PRN Reason: Nausea/Vomiting Pantoprazole Sodium (Protonix Susp) 40 mg PO DAILY [facility] Last Admin: 03/25/17 09:40 Dose: Not Given - Labs Labs: 03/24/17 07:18 03/24/17 07:18 PT 10.7 SECONDS (9.7-12.2) 03/12/17 12:08 INR 0.9 03/12/17 12:08 APTT 34 SECONDS (21-34) D 03/12/17 12:08 - Constitutional Appears: No Acute Distress, Cachectic, Chronically Ill - Eye Exam Eye Exam: PERRL. absent: Scleral icterus - ENT Exam ENT Exam: Mucous Membranes Dry - Neck Exam Neck Exam: Normal Inspection - Respiratory Exam Respiratory Exam: Decreased Breath Sounds - Cardiovascular Exam Cardiovascular Exam: REGULAR RHYTHM, +S1, +S2 - GI/Abdominal Exam GI & Abdominal Exam: Soft (MILDLY DISTENDED), Tenderness (MILD GENERALIZED TENDERNESS +VE ASCITES.), Hypoactive Bowel Sounds - Extremities Exam Extremities Exam: absent: Calf Tenderness, Pedal Edema - Neurological Exam Neurological Exam: Awake (AROUSABLE) - Psychiatric Exam Psychiatric exam: Flat Affect - Skin Skin Exam: Normal Color, Warm Assessment and Plan (1) Leukocytosis Status: Acute (2) Pleural effusion Status: Acute (3) CHF (congestive heart failure) Status: Acute (4) Liver masses Status: Acute (5) Pericardial effusion Status: Acute (6) Atrial fibrillation with RVR Status: Acute - Assessment and Plan (Free Text) Assessment: ASSESSMENT; METASTATIC MALIGNANCY ?PANCREATIC MALIGNANCY PNEUMONIA ?ASPIRATION / COMPRESSIVE ATELECTASIS BILATERAL PLEURAL EFFUSIONS-S/P THORACENTESIS (TRANSUDATIVE ) 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 /PLAN : CONTINUE ON IV ZOSYN 3.375 EVERY 8 HOURLY.03/16/17 WHILE PATIENT IN HOSPITAL. ? PLEURAL TAP TORADOL I5MG PRN Q 8HRLY. PER PMD CONTINUE SUPPORTIVE CARE. FAMILY CONSIDERING HOSPITAL HOSPICE.
[2017-03-26] MEDS: DiphenhydrAMINE 50 mg/ml Inj IVP PRN (02:17)
[2017-03-26] MEDS: Piperacill/Tazo 3.375gm in Dex 3.375 GM/50 ML BAG IVPB SCH ×3 (04:00→22:10)
[2017-03-26] MEDS: Levothyroxine 50 MCG TAB PO SCH (06:42)
[2017-03-26] MEDS: Lidocaine 5% Patch TD SCH ×2 (10:33→10:37)
[2017-03-26] MEDS: Fluticasone Nasal 50 mcg/Spray NAS SCH ×2 (10:33→18:38)
[2017-03-26] MEDS: Pantoprazole 40 mg Susp UD PO SCH (10:35)
--- NOTE | 2017-03-26 10:50 | PN ---
DATE: 03/26/2017 SUBJECTIVE: The patient is seen. The patient is noted to be very drowsy when seen this morning, cou ld not hardly converse. The patient is no longer moaning, but mental status seems to be worse than y . The patient seems to be more somnolent, could not hardly converse. VITAL SIGNS: Temperature is 98, pulse rate is 81, blood pressure is 119/60, respirations 20, oxygen sat is 97%. REVIEW OF SYSTEMS: The patient is very somnolent, could hardly converse. Review of systems cannot b e fully assessed, although patient seems to be comfortable. MEDICATIONS: On review of her meds, the patient is currently on Remeron 15 mg at bedtime, was given 1 dose of Benadryl 25 mg IV last night which can cause sedation if combined with Remeron. I will dis continue the Remeron for now as the patient is taking Benadryl 25 mg at bedtime p.r.n. Benadryl can cause increased sedation, especially in elderly patients due to strong anticholinergic side effects. MENTAL STATUS EXAMINATION: A very somnolent female who looks stated age, could hardly talk. Mood is dysphoric. Affect restricted. Noted to be more confused. No acute suicidal or homicidal ideation or psychosis. Attention and memory seem to be limited. Insight and judgment limited. Impulse contr ol is fair at this time. 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 PLAN AND RECOMMENDATIONS: The patient seen, meds reviewed. Continue PPN as ordered. Will discontin ue Remeron as ordered as the patient is very drowsy. I do suggest to hold off giving Benadryl as IV, especially in elderly, as it can cause extreme sedation. Continue pain meds as ordered. The patien t is for palliative and hospice care. Tre Freeman MD cc: [phone] TT: 03/26/2017 10:50:46 Confirmation # [id number] Dictation # [id number]
--- NOTE | 2017-03-26 13:16 | CP.PCM.PN ---
Subjective - Date & Time of Evaluation Date of Evaluation: 03/26/17 Time of Evaluation: 13:15 - Subjective Subjective: AFEBRILE CLINICALLY SAME AWITING FAMILY MEETING FOR DISPOSITION Objective - Vital Signs/Intake and Output Vital Signs (last 24 hours): Temp Pulse Resp BP Pulse Ox 98 F 81 20 119/60 97 03/26/17 07:29 03/26/17 07:29 03/26/17 07:29 03/26/17 07:29 03/26/17 07:29 Intake and Output: 03/26/17 03/26/17 11:59 23:59 Intake Total 580 Output Total 2 Balance 578 - Medications Medications: Current Medications Acetaminophen (Tylenol 325mg Tab) 650 mg PO Q6 PRN PRN Reason: Pain, moderate (4-7) Last Admin: 03/14/17 16:23 Dose: 650 mg Diphenhydramine HCl (Benadryl) 25 mg IVP HS PRN PRN Reason: Insomnia Last Admin: 03/26/17 02:17 Dose: 25 mg Fluticasone Propionate (Flonase) 1 spr SEVERINO BID [facility] Last Admin: 03/26/17 10:33 Dose: 1 spr Piperacillin Sod/Tazobactam Sod (Zosyn 3.375 Gm Iv Premix) 3.375 gm in 50 mls @ 200 mls/hr IVPB Q8H [facility] Last Admin: 03/26/17 13:08 Dose: 200 mls/hr Multivitamins/Vitamin C 10 ml/ (Amino Acids) 1,010 mls @ 40 mls/hr IV .Q24H ONE Stop: 03/26/17 17:59 Last Admin: 03/25/17 18:03 Dose: 40 mls/hr Multivitamins/Vitamin C 10 ml/ (Amino Acids) 1,010 mls @ 40 mls/hr IV .Q24H ONE Stop: 03/27/17 17:59 Ketorolac Tromethamine (Toradol) 15 mg IVP Q8 PRN PRN Reason: Pain, severe (8-10) Last Admin: 03/26/17 04:07 Dose: 15 mg Levothyroxine Sodium (Synthroid) 50 mcg PO DAILY@0630 [facility] Last Admin: 03/26/17 06:42 Dose: Not Given Lidocaine (Lidoderm) 1 ea TD DAILY [facility] Last Admin: 03/26/17 10:37 Dose: Not Given Megestrol Acetate (Megace) 40 mg PO DAILY [facility] Last Admin: 03/26/17 10:34 Dose: Not Given Nystatin (Nystop Topical Powder) 1 applic TOP BID [facility] Last Admin: 03/26/17 10:34 Dose: 1 applic Ondansetron HCl (Zofran Inj) 4 mg IVP Q6H PRN PRN Reason: Nausea/Vomiting Last Admin: 03/25/17 18:25 Dose: 4 mg Ondansetron HCl (Zofran Inj) 4 mg IVP Q6 PRN PRN Reason: Nausea/Vomiting Pantoprazole Sodium (Protonix Susp) 40 mg PO DAILY [facility] Last Admin: 03/26/17 10:35 Dose: Not Given - Labs Labs: 03/24/17 07:18 03/24/17 07:18 PT 10.7 SECONDS (9.7-12.2) 03/12/17 12:08 INR 0.9 03/12/17 12:08 APTT 34 SECONDS (21-34) D 03/12/17 12:08
[2017-03-26] MEDS ORDERED: Calcium Carbonate 500 mg Chewable Antacid Tab PO SCH (18:00)
[2017-03-26] MEDS ORDERED: PPN IV ONE (18:00)
--- NOTE | 2017-03-26 18:12 | CP.PCM.PN ---
Subjective - Date & Time of Evaluation Date of Evaluation: 03/26/17 Time of Evaluation: 18:12 - Subjective Subjective: AFEBRILE, CLINICALLY SAME. STILL REFUSING TO EAT. ON TPN FAMILY AWARE OF HER CONDITION. BY HER SIDE Objective - Vital Signs/Intake and Output Vital Signs (last 24 hours): Temp Pulse Resp BP Pulse Ox 98.4 F 78 18 109/49 L 95 03/26/17 15:00 03/26/17 15:00 03/26/17 15:00 03/26/17 15:00 03/26/17 15:00 Intake and Output: 03/26/17 03/26/17 06:59 18:59 Intake Total 1160 370 Output Total 4 Balance 1156 370 - Medications Medications: Current Medications Acetaminophen (Tylenol 325mg Tab) 650 mg PO Q6 PRN PRN Reason: Pain, moderate (4-7) Last Admin: 03/14/17 16:23 Dose: 650 mg Calcium Carbonate (Tums) 500 mg PO BID ZULEIMA Diphenhydramine HCl (Benadryl) 25 mg IVP HS PRN PRN Reason: Insomnia Last Admin: 03/26/17 02:17 Dose: 25 mg Fluticasone Propionate (Flonase) 1 spr SEVERINO BID [facility] Last Admin: 03/26/17 10:33 Dose: 1 spr Piperacillin Sod/Tazobactam Sod (Zosyn 3.375 Gm Iv Premix) 3.375 gm in 50 mls @ 200 mls/hr IVPB Q8H [facility] Last Admin: 03/26/17 13:08 Dose: 200 mls/hr Multivitamins/Vitamin C 10 ml/ (Amino Acids) 1,010 mls @ 40 mls/hr IV .Q24H ONE Stop: 03/27/17 17:59 Levothyroxine Sodium (Synthroid) 50 mcg PO DAILY@0630 [facility] Last Admin: 03/26/17 06:42 Dose: Not Given Lidocaine (Lidoderm) 1 ea TD DAILY [facility] Last Admin: 03/26/17 10:37 Dose: Not Given Megestrol Acetate (Megace) 40 mg PO DAILY [facility] Last Admin: 03/26/17 10:34 Dose: Not Given Nystatin (Nystop Topical Powder) 1 applic TOP BID [facility] Last Admin: 03/26/17 10:34 Dose: 1 applic Ondansetron HCl (Zofran Inj) 4 mg IVP Q6H PRN PRN Reason: Nausea/Vomiting Last Admin: 03/25/17 18:25 Dose: 4 mg Ondansetron HCl (Zofran Inj) 4 mg IVP Q6 PRN PRN Reason: Nausea/Vomiting Pantoprazole Sodium (Protonix Susp) 40 mg PO DAILY ZULEIMA Last Admin: 03/26/17 10:35 Dose: Not Given - Labs Labs: 03/24/17 07:18 03/24/17 07:18 PT 10.7 SECONDS (9.7-12.2) 03/12/17 12:08 INR 0.9 03/12/17 12:08 APTT 34 SECONDS (21-34) D 03/12/17 12:08 - Constitutional Appears: No Acute Distress, Cachectic, Chronically Ill - Eye Exam Eye Exam: EOMI, PERRL - ENT Exam ENT Exam: Mucous Membranes Dry, Normal Oropharynx - Neck Exam Neck Exam: Normal Inspection. absent: Meningismus - Respiratory Exam Respiratory Exam: Decreased Breath Sounds - Cardiovascular Exam Cardiovascular Exam: REGULAR RHYTHM, +S1, +S2 - GI/Abdominal Exam GI & Abdominal Exam: Distended (MILDLY. +VE ASCITES), Soft - Extremities Exam Extremities Exam: Pedal Edema. 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 /PLAN : CONTINUE ON IV ZOSYN 3.375 EVERY 8 HOURLY.03/16/17 WHILE PATIENT IN HOSPITAL. TORADOL I5MG PRN Q 8HRLY. PER PMD CONTINUE SUPPORTIVE CARE. FAMILY CONSIDERING HOSPITAL HOSP[facility].
[2017-03-26 23:55] VITALS: BP 103/60; PULSE 80; RESP 16; TEMP 98; O2SAT 98
--- NOTE | 2017-03-27 06:53 | CP.PCM.PRO ---
Pronouncement of Note - Clinical Findings Physical Exam: No Response Verbal/Painful Stimuli, Absent Peripheral Pulses{ Carotid & Femoral}, Absent Heart & Breath Sounds, No Pupillary Light Reflex, No Corneal Reflex, Pupils Fixed & Dilated, Absence of Vital Signs - Pronouncement Time Time of Pronouncement of : 05:35 - Notifications Pronouncement Notifications: Atending Notified Band Ripsaw Operator Notified: No - Autopsy Autopsy Requested: No - [place]: [id number] Additional Comments: Attending Dr. Garcia to notify family
--- NOTE | 2017-03-27 14:42 | CP.PCM.DIS ---
Provider - Provider Date of Admission: 03/08/17 11:25 Attending physician: Alondra Garcia MD Time Spent in preparation of Discharge (in minutes): 30 Hospital Course - Lab Results Lab Results: Micro Results 03/12/17 14:07 Pleural Fluid Fungal Culture - Preliminary NO FUNGUS GROWTH IN 1 WEEK. 03/12/17 14:07 Other: Please Indicate Mycobacterial Culture - Preliminary 03/18/17 04:37 Urine,Catheterized Urine Culture - Final No Growth (<1,000 CFU/ML) 03/12/17 09:12 Pleural Fluid Gram Stain - Final 03/12/17 09:12 Pleural Fluid Body Fluid Culture - Final No growth. 03/09/17 Unknown Blood-Venous Blood Culture - Final NO GROWTH AFTER 5 DAYS 03/09/17 Unknown Blood-Venous Gram Stain - Final TEST NOT PERFORMED 03/09/17 21:30 Blood-Venous Blood Culture - Final NO GROWTH AFTER 5 DAYS 03/09/17 21:30 Blood-Venous Gram Stain - Final 03/09/17 Unknown Urine,Clean Catch Urine Culture - Final Vancomycin Resistant E.faecium 03/08/17 13:39 Naris MRSA Culture (Admit) - Final MRSA NOT DETECTED Most Recent Lab Values WBC 13.7 K/uL (4.8-10.8) H 03/24/17 07:18 RBC 3.74 Mil/uL (3.80-5.20) L 03/24/17 07:18 Hgb 10.2 g/dL (11.0-16.0) L 03/24/17 07:18 Hct 30.9 % (34.0-47.0) L 03/24/17 07:18 MCV 82.8 fL (81.0-99.0) 03/24/17 07:18 MCH 27.2 pg (27.0-31.0) 03/24/17 07:18 MCHC 32.9 g/dL (33.0-37.0) L 03/24/17 07:18 RDW 18.0 % (11.5-14.5) H 03/24/17 07:18 Plt Count 92 K/uL (130-400) L D 03/24/17 07:18 MPV 8.2 fL (7.2-11.7) 03/24/17 07:18 Neut % (Auto) 85.5 % (50.0-75.0) H 03/20/17 16:39 Lymph % (Auto) 5.2 % (20.0-40.0) L 03/20/17 16:39 [place] % (Auto) 6.4 % (0.0-10.0) 03/20/17 16:39 Eos % (Auto) 2.6 % (0.0-4.0) 03/20/17 16:39 Baso % (Auto) 0.3 % (0.0-2.0) 03/20/17 16:39 Neut # 11.1 K/uL (1.8-7.0) H 03/20/17 16:39 Lymph # 0.7 K/uL (1.0-4.3) L 03/20/17 16:39 [place] # 0.8 K/uL (0.0-0.8) 03/20/17 16:39 Eos # 0.3 K/uL (0.0-0.7) 03/20/17 16:39 Baso # 0.0 K/uL (0.0-0.2) 03/20/17 16:39 Neutrophils % (Manual) 84 % (50-75) H 03/20/17 16:39 Band Neutrophils % 2 % (0-2) 03/20/17 16:39 Lymphocytes % (Manual) 7 % (20-40) L 03/20/17 16:39 Monocytes % (Manual) 6 % (0-10) 03/20/17 16:39 Eosinophils % (Manual) 1 % (0-4) 03/20/17 16:39 Differential Comment 03/24/17 07:18 Platelet Estimate Normal (NORMAL) 03/20/17 16:39 Large Platelets Present 03/20/17 16:39 RBC Morphology Normal 03/08/17 10:14 Hypochromasia (manual) Slight 03/20/17 16:39 Poikilocytosis (manual Slight 03/20/17 16:39 Anisocytosis (manual) Slight 03/20/17 16:39 Target Cells Slight 03/12/17 08:14 Tear Drop Cells Slight 03/12/17 08:14 Ovalocytes Slight 03/20/17 16:39 Marcell Cells Slight 03/17/17 11:02 Schistocytes Slight 03/10/17 06:34 ESR 16 mm/hr (0-20) 03/10/17 06:34 PT 10.7 SECONDS (9.7-12.2) 03/12/17 12:08 INR 0.9 03/12/17 12:08 APTT 34 SECONDS (21-34) D 03/12/17 12:08 Sodium 134 mmol/L (132-148) 03/24/17 07:18 Potassium 3.5 mmol/L (3.6-5.2) L 03/24/17 07:18 Chloride 100 mmol/L (98-107) 03/24/17 07:18 Carbon Dioxide 26 mmol/L (22-30) 03/24/17 07:18 Anion Gap 12 (10-20) 03/24/17 07:18 BUN 49 mg/dL (7-17) H 03/24/17 07:18 Creatinine 1.0 MG/DL (0.7-1.2) 03/24/17 07:18 Est GFR ( Amer) > 60 03/24/17 07:18 Est GFR (Non-Af Amer) 52 03/24/17 07:18 Random Glucose 102 mg/dL (65-105) 03/24/17 07:18 Calcium 6.9 mg/dl (8.6-10.4) L 03/24/17 07:18 Phosphorus 3.7 mg/dL (2.5-4.5) 03/09/17 06:43 Magnesium 2.2 mg/dL (1.6-2.3) 03/09/17 06:43 Total Bilirubin 0.6 mg/dL (0.2-1.3) 03/20/17 16:39 Direct Bilirubin 0.6 mg/dL (0.0-0.4) H 03/16/17 22:39 AST 36 U/L (14-36) D 03/20/17 16:39 ALT 33 U/L (9-52) 03/20/17 16:39 Alkaline Phosphatase 88 U/L (38-126) 03/20/17 16:39 Total Creatine Kinase 63 U/L (30-135) 03/22/17 11:22 CK-MB (Mass) 7.21 ng/mL (0.0-3.38) H 03/22/17 11:22 Troponin I 0.0180 ng/mL (0.00-0.120) 03/08/17 09:03 Troponin I, Quant 0.0230 ng/mL (0.00-0.120) 03/22/17 11:22 C-React Prot High Sens > 15.00 mg/L (1.00-3.00) H 03/10/17 06:34 NT-Pro-B Natriuret Pep 8520 pg/mL (0-900) H 03/08/17 10:14 Total Protein 5.2 g/dL (6.3-8.3) L 03/20/17 16:39 Albumin 1.8 g/dL (3.5-5.0) L 03/20/17 16:39 Globulin 3.4 gm/dL (2.2-3.9) 03/20/17 16:39 Albumin/Globulin Ratio 0.5 (1.0-2.1) L 03/20/17 16:39 Alpha Fetoprotein 2.3 ng/mL (1.6-4.5) 03/12/17 08:14 Carcinoembryonic Ag 1.4 ng/mL (0-3.0) 03/12/17 08:14 CA 19-9 Antigen 105 U/mL (0-37) H D 03/12/17 08:14 Procalcitonin 0.17 NG/ML (0.19-0.49) L 03/10/17 06:34 Free T4 1.53 ng/dL (0.78-2.19) 03/11/17 06:00 TSH 3rd Generation 8.22 mIU/L (0.46-4.68) H 03/11/17 06:00 Urine Color Evelyn (YELLOW) 03/10/17 12:47 Urine Clarity Hazy (Clear) 03/10/17 12:47 Urine pH 5.0 (5.0-8.0) 03/10/17 12:47 Ur Specific [place] 1.020 (1.003-1.030) 03/10/17 12:47 Urine Protein Negative mg/dL (NEGATIVE) 03/10/17 12:47 Urine Glucose (UA) Normal mg/dL (Normal) 03/10/17 12:47 Urine Ketones 1+ mg/dL (NEGATIVE) H 03/10/17 12:47 Urine Blood 1+ (NEGATIVE) H 03/10/17 12:47 Urine Nitrate Negative (NEGATIVE) 03/10/17 12:47 Urine Bilirubin Negative (NEGATIVE) 03/10/17 12:47 Urine Urobilinogen Normal mg/dL (0.2-1.0) 03/10/17 12:47 Ur Leukocyte Esterase 3+ Cristobal/uL (Negative) H 03/10/17 12:47 Urine WBC (Auto) 121 /hpf (0-5) H 03/10/17 12:47 Urine RBC (Auto) 13 /hpf (0-3) H 03/10/17 12:47 Ur Squamous Epith Cells 12 /hpf (0-5) H 03/10/17 12:47 Urine Bacteria Rare (<OCC) 03/10/17 12:47 Hyaline Casts >20 /lpf (0-2) H 03/10/17 12:47 Fluid Source Pleural/thoracentesi 03/12/17 11:33 Fluid Appearance Clear (CLEAR) 03/12/17 11:33 Fluid WBC 178.0 /mm3 (0.0-300.0) 03/12/17 11:33 Fluid RBC 27.0 /mm3 (0.0-0.0) H 03/12/17 11:33 Fluid Tot Cell Count 100 (0-0) H 03/12/17 11:33 Fluid Neutrophils 3.0 % (0-0) H 03/12/17 11:33 Fluid Lymphocytes 91.0 % (0-0) H 03/12/17 11:33 Fld Monocyte/Macrophag 5 % (0-0) H 03/12/17 11:33 Fluid Comment 03/12/17 11:33 Pleural Total Protein <3.0 g/dL 03/12/17 11:33 Pleural LDH 149 U/L 03/12/17 11:33 Pleural Glucose 70 mg/dL 03/12/17 14:11 Stool Occult Blood Negative (NEGATIVE) 03/10/17 09:22 C. difficile Ag & Toxin Negative (NEGATIVE) 03/20/17 16:10 Hepatitis A IgM Ab Negative (NEGATIVE) 03/10/17 06:34 Hep Bs Antigen Negative (NEGATIVE) 03/10/17 06:34 Hep B Core IgM Ab Negative (NEGATIVE) 03/10/17 06:34 Hepatitis C Antibody Negative (NEGATIVE) 03/10/17 06:34 AFP L3 Percent See note % (0.5-9.9) 03/12/17 08:14 Blood Type O POSITIVE 03/08/17 08:56 Antibody Screen Negative 03/08/17 08:56 - Hospital Course Hospital Course: PT WAS AT HOME HAD SYNCOPAL EPISODE AND SOB . BP DROPPED IN AMBULANCE. PT HAD A. FIB WITH RVR . PT WAS RECENTLY DISCHARGED AFTER REPAIR OF RECTAL PROLAPSE . DURING THAT ADMISSION PT HAD MOD LEFT PLEURAL EFFUSION AND MILD- MOD PER. EFFUSION . NO FURTHER W.U WAS DONE . A MONTH AGO PT WAS IN [facility] [place] FOR SAME CARDIAC SYMPTOMS . PT HAD TRANSIENT A FIB ON MONITOR . CURRENT ECHO SHOWS MOD PERICARDIAL EFFUSION WITH NORMAL LVEF AND MILDLY ELEVATED FILLING PRESSURS HAS H/O HTN GI/ID/PULM WERE CONSULTED FURTHER W/U SHOWED PT HAD PANCREATIC MASS WITH POSSIBLE LIVER METS THIS WAS D/W FAMILY EXTENSIVELY FOR LIVER BIOPSY AFTER PROLONGUE DISCUSSION THE FAMILY CAME TO DECISION TO DO HOSPICE CARE AND NO FURTHER INVASIVE CARE PT SLOWLY EMACIATED DUE TO LACK OF PO NUTRITION FMYL REFUSED PEG PT WAS GIVEN SUPPORTIVE AND CONFORT CARE TILL HER DATE OF Discharge Exam - Head Exam Head Exam: NORMAL INSPECTION Discharge Plan - Follow Up Plan Condition: GUARDED Disposition: WITH WITHOUT AUTOPSY
== END 2017-03-27 09:00 | DRG 308 ==
LOC: C.ER 08:10 → C.9E 11:25 → C.9I 13:04 → C.5T 03-11 22:26 → C.3T 03-21 19:47
PROVIDERS: ADMIT Internal Medicine Cardiovascular Disease; ATTEND Internal Medicine Cardiovascular Disease
PROC: 0W9B3ZZ Drainage of Left Pleural Cavity, Percutaneous Approach (ICD-10-PCS; principal; 2017-03-12)
DX: I48.0 Paroxysmal atrial fibrillation (principal); J18.9 Pneumonia, unspecified organism; R64 Cachexia; E46 Unspecified protein-calorie malnutrition; I11.0 Hypertensive heart disease with heart failure; N39.0 Urinary tract infection, site not specified; K86.89 Other specified diseases of pancreas; I50.9 Heart failure, unspecified; J98.11 Atelectasis; K75.9 Inflammatory liver disease, unspecified; F32.9 Major depressive disorder, single episode, unspecified; R62.7 Adult failure to thrive; E03.9 Hypothyroidism, unspecified; D64.9 Anemia, unspecified; K57.90 Diverticulosis of intestine, part unspecified, without perforation or abscess without bleeding; K76.9 Liver disease, unspecified; Z66 Do not resuscitate; Z51.5 Encounter for palliative care; R59.9 Enlarged lymph nodes, unspecified